=== PATIENT | female | born 1995 | race Caucasian/White ===

== ENCOUNTER 2020-03-08 09:27 | Emergency (ER) | payer OTHER, MEDICAID, SELFPAY ==
--- NOTE | ~2020-03-08 | US_ITS ---
EXAMINATION: US OB <=14 wk fetus w TV DATE: 03/08/2020 12:12 INDICATION: Pelvic pain. Nausea and vomiting. TECHNIQUE: Real-time transabdominal and transvaginal pelvic ultrasound was performed. COMPARISON: None. FINDINGS: TRANSABDOMINAL ULTRASOUND: The uterus measures 10.4 x 6.0 x 8.1 cm. TRANSVAGINAL ULTRASOUND: There is an intrauterine gestational sac. A yolk sac is identified. The fet al crown rump length measures 1.5 cm, which correlates with an estimated gestational age of 8 weeks a nd 0 day(s) (+/-) 5 day(s). heart motion is identified measuring 145 beats per minute (bpm) by M-mode Doppler. There is a small subchorionic hematoma. The right ovary measures 3.3 x 1.9 x 1.8 cm. The left ovary measures 1.8 x 3.1 x 1.7 cm. There is no free fluid in the pelvis. IMPRESSION: 1. Single living intrauterine gestation with estimated date of delivery of 10/18/2020. 2. Small subchorionic hematoma. Reviewed, dictated and finalized at location A. NSIGNMENT CLERK IMPRESSION: 1. Single living intrauterine gestation with estimated date of delivery of 10/18. 2. Small subchorionic hematoma.
[2020-03-08 09:35] VITALS: BP 144/83; PULSE 95; RESP 14; TEMP 36.4; O2SAT 99
--- NOTE | 2020-03-08 09:53 | ED.NAVMDI ---
HPI - Nausea/Vomiting/Diarrhea General Chief complaint: Nausea/Vomiting/Diarrhea Stated complaint: n/v Time Seen by Provider: 03/08/20 09:34 Source: patient Mode of arrival: ambulatory Limitations: no limitations History of Present Illness HPI Narrative: This is a 24-year-old , about 7 weeks by LMP, that presents the emergency department for nausea and vomiting x2 weeks. Reports she was prescribed Phenergan suppositories by her OB with little relief. Reports over the last day she has not been able to keep any food or drink down. Reports her last period was January 16. She has her first obstetric appointment next week. Does report intermittent pelvic cramping. Her OB is Genie Sheldon with [facility]. Denies fever, dysuria, or vaginal bleeding. Related Data Allergies Allergy/AdvReac Type Severity Reaction Status Date / Time No Known Allergies Allergy Verified 02/24/18 14:59 Review of Systems Review of Systems: Narrative: CONSTITUTIONAL: Denies fever GASTROINTESTINAL: Reports intermittent pelvic pain, nausea, vomiting GENITOURINARY: Denies dysuria or hematuria. All systems reviewed & are unremarkable except as noted in HPI and below PMFSH Past Medical History Medical History (Updated 03/08/20 @ 13:07 by Marsha Enciso PA-C) Anxiety Asthma Depression Hypothyroid Pelvic pain Surgical History Surgical History (Updated 01/24/19 @ 22:43 by Keke English) No significant past surgical history Social History Social History (Updated 01/24/19 @ 22:43 by Keke English) Smoking status: Never smoker Gender identity (if verbalized by the patient): Female Exam Narrative: Exam Narrative: GENERAL: Well-appearing, obese, and in no acute distress. HEAD: Normocephalic, atraumatic. EYES: EOMI. CHEST: Clear to auscultation. No respiratory distress. No wheezes rales or rhonchi HEART: Regular rate and rhythm. No murmur heard. Normal peripheral pulses. ABDOMEN: Soft, nontender, nondistended, normal active bowel sounds. No CVA tenderness EXTREMITIES: Normal range of motion. No edema. SKIN: Warm, dry, no rash. NEURO: No focal deficits. Alert and oriented x3. PSYCH: Normal mood and affect Course Vital Signs Vital signs: Vital Signs Temperature 97.5 F L 03/08/20 09:35 Pulse Rate 95 03/08/20 09:35 Respiratory Rate 14 03/08/20 09:35 Blood Pressure 144/83 H 03/08/20 09:35 Pulse Oximetry 99 03/08/20 09:35 Temperature 97.5 F L 03/08/20 09:35 Pulse Rate 68 03/08/20 11:35 Respiratory Rate 14 03/08/20 11:35 Blood Pressure 114/64 03/08/20 11:35 Pulse Oximetry 99 03/08/20 11:35 MDM - Nausea/Vomiting/Diarrhea MDM Narrative Medical decision making narrative: Patient presents the emergency department for nausea and vomiting in . She is afebrile and nontoxic-appearing. CBC and metabolic panel without concerning findings. UA without evidence of infection. She does have ketones in the urine, so was hydrated with 2 L of IV fluids in the ED. Otherwise no hemoconcentration or alteration in kidney function. She is not orthostatic. Given dose of Reglan and had another episode of vomiting. Was given a dose of Zofran with relief. Able to tolerate p.o. challenge. Obstetric ultrasound shows a single living intrauterine gestation with MARILYN of 10/18/2020. Also shows a small subchorionic hematoma. Patient is not having any vaginal bleeding. Patient was updated on case findings. Spoke with Dr. Power about patient and work-up. Will be instructed on vitamin B 6 and Unisom. Will also be given Zofran as needed for nausea. Patient had been trying Phenergan at home with little relief and did not have relief with Reglan here. Reports she did have to be on Zofran for most of her last due to nausea and vomiting. Discussed risk benefit, and patient will follow up with her OB next week at her scheduled appointment. She is stable and felt appropriate for further outp
[2020-03-08] MEDS: METOCLOPRAMIDE HCL INJ 10 MG/2 ML VIAL IV PUSH (10:03)
[2020-03-08] MEDS: diphenhydrAMINE HCl INJ 50 MG/ML VIAL 25 MG IV PUSH (10:03)
[2020-03-08] MEDS: SODIUM CHLORIDE 0.9% IV 1,000 ML 999 ML IV CONT ×2 (10:04→11:03)
[2020-03-08 10:20] LABS: Basophils Percent Auto 0.2 % (0.2-1.2); Eosinophils Percent Auto 0.3 % (0-4.4); Hematocrit 38.1 % (37.0-47.0); Hemoglobin 13.6 g/dL (12.0-15.0); Immature Granulocyte Absolute 0.06 K/mm3 (0.00-0.031); Immature Granulocyte Percent A 0.6 % (0-0.5); Lymphocytes Absolute Auto 1.36 K/mm3 (0.9-3.2); Lymphocytes Percent Auto 13.9 % (18.3-44.2); Mean Corpuscular HGB Conc 35.7 g/dl (32-36); Mean Corpuscular Hemoglobin 32.5 pg (26-34); Mean Corpuscular Volume 91.1 fl (80-100); Mean Platelet Volume 11.6 fl (7.4-10.4); Monocytes Absolute Auto 0.3 K/mm3 (0.1-0.6); Monocytes Percent Auto 3.5 % (2.6-8.5); Neutrophils Percent Auto 81.5 % (45.5-73.1); Platelet Count Result 214 k/mm3 (150-375); Red Blood Count 4.18 M/mm3 (4.2-5.4); Red Cell Distribution Width 11.8 % (11.5-14.5); White Blood Count 9.8 K/mm3 (4.5-10.0)
[2020-03-08 10:28] VITALS: BP 128/57; PULSE 65
[2020-03-08 10:29] LABS: Add Urine Microscopic? YES; Appearance Urine Cloudy (Clear); Bacteria Urine Trace /hpf; Bilirubin Urine Negative (Negative); Blood Urine Negative (Negative); Color Urine Yellow (Yellow); Glucose Urine UA Negative (Negative); Ketones Urine 2+ mg/dL (Negative); Leukocyte Esterase Ur Negative LEU/UL (Negative); Mucus Urine Few /lpf; Nitrate Urine Negative (Negative); Protein Urine 1+ mg/dL (Negative); RBC Urine 0-2 /hpf (0-2); Specific Grav Ur 1.028 (1.001-1.035); Squamous Epithelial Cell Urine Moderate /hpf (Few); Urobilinogen Urine Negative mg/dL (<2.0); WBC Urine 0-3 /hpf
[2020-03-08 10:31] VITALS: BP 131/76; PULSE 70
[2020-03-08 10:33] VITALS: BP 127/69; PULSE 66
[2020-03-08 10:39] LABS: Alanine Aminotransferase 32 U/L (4-35); Albumin Level 4.2 g/dL (3.5-5.1); Alkaline Phosphatase 71 U/L (38-126); Anion Gap 11 mmol/L (8-16); Aspartate Amino Transferase 20 U/L (14-36); Bilirubin,Total 0.5 mg/dL (0.2-1.3); Blood Urea Nitrogen 8 mg/dL (7-17); Calcium 9.2 mg/dL (8.4-10.2); Carbon Dioxide 25 mmol/L (22-30); Chloride 101 mmol/L (98-107); Estimated CRCL calculation 136 ml/min; Estimated Glomerular Filt Rate > 60; Glucose 105 mg/dL (65-105); Lipase 98 U/L (23-300); Potassium 3.6 mmol/L (3.4-5.0); Sodium 137 mmol/L (137-145)
[2020-03-08] MEDS: ONDANSETRON INJ 4 MG/2 ML VIAL IV PUSH (11:03)
[2020-03-08 11:35] VITALS: BP 114/64; PULSE 68; RESP 14; O2SAT 99
[2020-03-08 13:10] VITALS: BP 114/64; PULSE 68; RESP 14; O2SAT 99
== END 2020-03-08 13:00 | disposition home or self-care (01) ==
PROVIDERS: Physician Assistant; Emergency Provider Emergency Medicine
DX: O21.0 Mild hyperemesis gravidarum (principal); Z3A.01 Less than 8 weeks gestation of pregnancy
CPT/HCPCS: 36415; 76801; 76817; 80053; 81001; 83690; 84702; 85025; 96361; 96374; 96375; 99284; J1200; J2405; J2765; J7030

== ENCOUNTER 2020-08-21 13:34 | Observation (INO) | payer OTHER, SELFPAY ==
[2020-08-21] VITALS (12 sets, daily range): BP systolic 102–137; BP diastolic 47–71; PULSE 69–89; BMI 39.2
--- NOTE | 2020-08-21 13:40 | OBADM ---
This patient, Lauren Lo, admitted to the OB room OB Post 116 for observation. Patient/family oriented to hospital policies and general routines including ID bracelet, bed and alarms, visiting hours, pain management, procedures, bathroom and other care routines, personal items, smoking policy, room service/diet, and visiting hours. Patient/Family are encouraged to report perceived risks to care and to ask questions if they do not understand what they are told or what they should do.
[2020-08-21 14:15] LABS: Add Urine Microscopic? YES; Appearance Urine Cloudy (Clear); Bacteria Urine Trace /hpf; Bilirubin Urine Negative (Negative); Blood Urine Negative (Negative); Color Urine Yellow (Yellow); Glucose Urine UA Negative (Negative); Ketones Urine Negative (Negative); Leukocyte Esterase Ur Negative LEU/UL (NEGATIVE); Mucus Urine Rare /lpf; Nitrate Urine Negative (Negative); Protein Urine 1+ mg/dL (Negative); RBC Urine 0-2 /hpf (0-2); Specific Grav Ur 1.026 (1.001-1.035); Squamous Epithelial Cell Urine Moderate /hpf (Few); WBC Urine 0-3 /hpf (0-3)
[2020-08-21] MEDS: TERBUTALINE SULFATE 1 MG/ML VIAL 0.25 MG SUB-Q (15:34)
--- NOTE | 2020-09-07 08:13 | PM.OBTRLD ---
OB - Triage/Final Diagnosis Visit Information Comments/Additional reasons for admission: I have assessed the risk for this patient, Lauren Lo, and determined that she would benefit from observation care. Evaluation Laboratory results: Laboratory Tests 08/21/20 13:54 Urine Color Yellow Urine Appearance Cloudy H Urine pH 6.0 Ur Specific [place] 1.026 Urine Protein 1+ H Urine Glucose (UA) Negative Urine Ketones Negative Ur Blood (Man) Negative Urine Nitrate Negative Urine Bilirubin Negative Urine Urobilinogen 2.0 H Ur Leukocyte Esterase Negative Urine RBC 0-2 Urine WBC 0-3 Ur Squamous Epith Cells Moderate H Urine Bacteria Trace Urine Mucus Rare Final Diagnosis (1) False labor: Code(s): O47.9 - False labor, unspecified Status: Acute
== END 2020-08-21 17:16 | disposition home or self-care (01) ==
PROVIDERS: Admitting Provider Obstetrics & Gynecology; Visit Provider Obstetrics & Gynecology
DX: O47.03 False labor before 37 completed weeks of gestation, third trimester (principal); Z3A.31 31 weeks gestation of pregnancy
CPT/HCPCS: 81001; 87086; 87088; 96372; G0378; G0379; J3105

== ENCOUNTER 2020-09-04 15:52 | Observation (INO) | payer OTHER, SELFPAY ==
--- NOTE | ~2020-09-04 | US_ITS ---
EXAMINATION: US abdomen limited EXAM DATE: 09/05/2020 09:30 INDICATION: Right upper quadrant pain. Check gallbladder, liver, and appendix-if visualize. TECHNIQUE: Multiple grayscale and Doppler images of the abdomen right upper quadrant were obtained (b y a technologist who performed the scan) and subsequently reviewed. There is no prior study for jomar oro. FINDINGS: The pancreatic head and body are normal in appearance. The pancreatic tail is not visualized. The l iver has normal echogenicity and contour. There are no focal liver lesions identified. There is no evidence of intrahepatic biliary duct dilation. Portal venous flow was seen in the hepatopedal, nor mal direction and has normal Doppler waveform. No right-sided hydronephrosis. Common bile duct measures 4 mm, which is normal. Some portions of the gallbladder wall are normal, so me are borderline thickened. Gallbladder is only mildly distended. No sonographic evidence of pericho lecystic fluid. There is no cholelithiases. Technologist performing exam reports patient did not dem onstrate sonographic Fajardo's sign. Please note that this sign is less reliable in patients who have received pain medication. Appendix was searched for but not visualized on this exam. Please note that normal appendix is not e xpected to be visualized by ultrasound. Sometimes an abnormal appendix can be visualized. IMPRESSION: Gallbladder with only mild distention, some regions of gallbladder wall are borderline th ickened. This is nonspecific given absence of sonographic Fajardo sign, cholelithiasis, pericholecysti c fluid. Reviewed, dictated and finalized at location B. IMPRESSION: Gallbladder with only mild distention, some regions of gallbladder wall are borderline thickened. This is nonspecific given absence of sonographic Fajardo sign, cholelithiasis, pericholecystic fluid.
--- NOTE | ~2020-09-04 | US_ITS ---
EXAMINATION: US retroperitoneal comp DATE: 09/04/2020 18:58 INDICATION: Right flank pain TECHNIQUE: Multiple grayscale and Doppler ultrasound images of the kidneys were obtained. COMPARISON: None. FINDINGS: The right kidney measures 9.8 x 5.4 x 5.2 cm. The left kidney measures 9.7 x 4.9 x 6.0 cm. The kidneys demonstrate normal parenchymal echogenicity. There is no hydronephrosis. The bladder is i ncompletely distended but appears normal. IMPRESSION: 1. Normal kidneys without hydronephrosis. Reviewed, dictated and finalized at location A.
--- NOTE | ~2020-09-04 | US_ITS ---
EXAMINATION: US OB limited w BPP DATE: 09/04/2020 18:52 INDICATION: Nonreactive nonstress test, third trimester TECHNIQUE: Real-time pelvic ultrasound was performed. The interpreting radiologist was not present fo r the study. COMPARISON: None. FINDINGS: There is a single living fetus in vertex presentation. The placenta is posterior. heart rate is 121 beats per minute (bpm). The amniotic fluid index is 8.1 cm which is low (normal range: 8.3 cm to 24.5 cm). Biophysical profile performed by the technologist: breathing (30 sec sustained breathing in 30 minutes): 2 out of 2 movement (3 gross body movements in 30 minutes): 2 out of 2 tone (one episode of jiotlcg-hajdxmfbb-wtgrskt limb movement): 2 out of 2 Amniotic fluid pocket (2 cm): 2 out of 2 Total score: 8 out of 8 IMPRESSION: 1. Single living fetus in vertex presentation. 2. Biophysical profile 8 out of 8. 3. Oligohydramnios. Reviewed, dictated and finalized at location A.
[2020-09-04 16:08] VITALS: BMI 40.0
[2020-09-04 16:12] VITALS: BP 118/77; PULSE 87
[2020-09-04 16:15] VITALS: BP 123/73; PULSE 83
[2020-09-04 17:01] VITALS: BP 114/61; PULSE 68
[2020-09-04 17:06] LABS: Add Urine Microscopic? YES; Amorphous Sediment Urine Few; Appearance Urine Cloudy (Clear); Bacteria Urine Trace /hpf; Bilirubin Urine Negative (Negative); Blood Urine Negative (Negative); Color Urine Colorless (Yellow); Glucose Urine UA Negative (Negative); Ketones Urine Negative (Negative); Leukocyte Esterase Ur 2+ LEU/UL (Negative); Nitrate Urine Negative (Negative); Protein Urine Negative (Negative); Squamous Epithelial Cell Urine Many /hpf (Few); Urobilinogen Urine Negative mg/dL (<2.0); WBC Urine 16-20 /hpf
[2020-09-04 17:07] LABS: Specific Grav Ur 1.002 (1.001-1.035)
[2020-09-04 17:15] VITALS: BP 116/64; PULSE 71
--- NOTE | 2020-09-04 18:18 | PC.NURSE ---
Patient resting quietly. Menu given to order dinner. Waiting for ultrasound report. Pt states still has pain right side/flank are which is not constant now.
--- NOTE | 2020-09-04 18:24 | PC.NURSE ---
1613--Orders received per Sami Pablo. Reported reactive FHT's.
--- NOTE | 2020-09-04 18:26 | PC.NURSE ---
1739--Updated Odette with lab results. New orders received.
[2020-09-04] MEDS: NITROFURANTOIN MONOHYD MACROCR 100 MG CAP PO (18:30)
[2020-09-04] MEDS: CYCLOBENZAPRINE HCL 5 MG TABLET PO ×2 (18:30→22:50)
--- NOTE | 2020-09-04 18:47 | PC.NURSE ---
1722--US at bedside.
--- NOTE | 2020-09-04 20:06 | PC.NURSE ---
Sami Pablo [facility] notified of pt NST and ultrasound results. PT having intermittent contractions, improved after up to void. Will continue to observe.
--- NOTE | 2020-09-04 20:08 | PC.NURSE ---
Pt PO hydrating. Voiced no complaints at this time.
--- NOTE | 2020-09-04 21:26 | PC.NURSE ---
Karen VARGAS updated and advised of Deceleration and baseline change. Orders received. Will keep pt overnight and observe.
[2020-09-04 21:44] VITALS: BP 95/55; PULSE 74; TEMP 36.8
[2020-09-04 21:46] VITALS: BP 91/49; PULSE 65
[2020-09-04] MEDS: LACTATED RINGERS 1,000 ML 125 ML IV CONT (21:49)
--- NOTE | 2020-09-04 22:39 | PC.NURSE ---
Sami Pablo CNM called. Advised of pt stating pain right flank is is increased an radiating around to right upper abdomen. Pt remains afebrile. Pt has no vomiting or diarrhea. Will repeat Flexeril.
[2020-09-04 23:05] LABS: Basophils Percent Auto 0.3 % (0.2-1.2); Eosinophils Absolute Auto 0.2 K/mm3 (0-0.3); Eosinophils Percent Auto 2.1 % (0-4.4); Hematocrit 33.4 % (37.0-47.0); Hemoglobin 11.2 g/dL (12.0-15.0); Immature Granulocyte Absolute 0.02 K/mm3 (0.00-0.031); Immature Granulocyte Percent A 0.2 % (0-0.5); Lymphocytes Absolute Auto 1.73 K/mm3 (0.9-3.2); Lymphocytes Percent Auto 19.5 % (18.3-44.2); Mean Corpuscular HGB Conc 33.5 g/dl (32-36); Mean Corpuscular Hemoglobin 30.8 pg (26-34); Mean Corpuscular Volume 91.8 fl (80-100); Monocytes Absolute Auto 0.5 K/mm3 (0.1-0.6); Monocytes Percent Auto 5.9 % (2.6-8.5); Neutrophils Absolute Auto 6.4 K/mm3 (1.3-6.7); Platelet Count Result 148 k/mm3 (150-375); Red Blood Count 3.64 M/mm3 (4.2-5.4); Red Cell Distribution Width 12.8 % (11.5-14.5); White Blood Count 8.9 K/mm3 (4.5-10.0)
[2020-09-04 23:16] LABS: Alanine Aminotransferase 303 U/L (4-35); Albumin Level 3.4 g/dL (3.5-5.1); Alkaline Phosphatase 159 U/L (38-126); Amylase 66 U/L (30-110); Anion Gap 2 mmol/L (8-16); Aspartate Amino Transferase 167 U/L (14-36); Bilirubin,Total 0.5 mg/dL (0.2-1.3); Blood Urea Nitrogen 6 mg/dL (7-17); Calcium 8.8 mg/dL (8.4-10.2); Carbon Dioxide 28 mmol/L (22-30); Chloride 106 mmol/L (98-107); Estimated CRCL calculation 124 ml/min; Estimated Glomerular Filt Rate > 60; Glucose 89 mg/dL (65-110); Lipase 304 U/L (23-300); Potassium 4.1 mmol/L (3.4-5.0); Sodium 136 mmol/L (137-145)
[2020-09-05] VITALS (24 sets, daily range): BP systolic 90–127; BP diastolic 37–78; PULSE 61–86; RESP 18; TEMP 36.3–37.1
[2020-09-05] MEDS: fentaNYL CITRATE INJ (*CRX) 100 MCG/2 ML VIAL 50 MCG IV PUSH ×3 (00:03→08:26)
[2020-09-05 01:11] LABS: Glucose Point of Care 82 mg/dl (65-105)
--- NOTE | 2020-09-05 01:20 | PC.NURSE ---
Called Sami Pablo CNM. Advised her pt states pain is now cramping in low abdomen. WIll give Terbutaline 0.25 AQ.
--- NOTE | 2020-09-05 01:20 | PC.NURSE ---
Odette CNM notified that pt states she is feeling cramping pain in addition to the pain in right flank/upper quadrant . Orders received to give Terbulatline.
[2020-09-05] MEDS: TERBUTALINE SULFATE 1 MG/ML VIAL 0.25 MG SUB-Q ×2 (01:28→08:41)
[2020-09-05] MEDS: LACTATED RINGERS 1,000 ML 125 ML IV CONT ×3 (01:38→18:29)
--- NOTE | 2020-09-05 01:55 | PC.NURSE ---
No relief from Terbutaline 0.25 SQ K. Jessikak notified. SVE per Radha Quinones RN and and FFN collected. External OS 2 cm with funneling. Cervix posterior and high. FFN collected.
[2020-09-05 02:56] LABS: Fetal Fibronectin Positive
--- NOTE | 2020-09-05 03:00 | PC.NURSE ---
Lab results called to Sami Pablo CNM will repeat labs in AM. Will give Fentanyl for for persistent pain.
[2020-09-05 05:47] LABS: Basophils Percent Auto 0.4 % (0.2-1.2); Eosinophils Absolute Auto 0.1 K/mm3 (0-0.3); Eosinophils Percent Auto 1.5 % (0-4.4); Hematocrit 31.2 % (37.0-47.0); Hemoglobin 10.5 g/dL (12.0-15.0); Immature Granulocyte Absolute 0.03 K/mm3 (0.00-0.031); Immature Granulocyte Percent A 0.3 % (0-0.5); Lymphocytes Absolute Auto 1.57 K/mm3 (0.9-3.2); Lymphocytes Percent Auto 16.8 % (18.3-44.2); Mean Corpuscular HGB Conc 33.7 g/dl (32-36); Mean Corpuscular Hemoglobin 31.1 pg (26-34); Mean Corpuscular Volume 92.3 fl (80-100); Mean Platelet Volume 12.3 fl (7.4-10.4); Monocytes Absolute Auto 0.6 K/mm3 (0.1-0.6); Monocytes Percent Auto 6.3 % (2.6-8.5); Neutrophils Percent Auto 74.7 % (45.5-73.1); Platelet Count Result 138 k/mm3 (150-375); Red Blood Count 3.38 M/mm3 (4.2-5.4); Red Cell Distribution Width 12.8 % (11.5-14.5); White Blood Count 9.3 K/mm3 (4.5-10.0)
[2020-09-05 06:07] LABS: Alanine Aminotransferase 281 U/L (4-35); Alkaline Phosphatase 144 U/L (38-126); Amylase 58 U/L (30-110); Anion Gap 4 mmol/L (8-16); Aspartate Amino Transferase 165 U/L (14-36); Bilirubin,Total 0.4 mg/dL (0.2-1.3); Blood Urea Nitrogen 6 mg/dL (7-17); Calcium 8.5 mg/dL (8.4-10.2); Carbon Dioxide 24 mmol/L (22-30); Chloride 107 mmol/L (98-107); Estimated CRCL calculation 141 ml/min; Estimated Glomerular Filt Rate > 60; Glucose 84 mg/dL (65-110); Lipase 210 U/L (23-300); Potassium 3.7 mmol/L (3.4-5.0); Sodium 135 mmol/L (137-145)
--- NOTE | 2020-09-05 08:13 | PC.NURSE ---
Dr. Dave's office notified of consult.
--- NOTE | 2020-09-05 08:32 | PM.IMHP ---
H&P: HPI History of Present Illness Date/Time: 09/05/20 08:32 24 y/o @ 33w4d who presented for monitoring d/t low fhr baseline. complicated by GDM. Initially fhr was wnl and bpp normal but pt did have a variable deceleration. She was kept for monitoring and developed pain in her right back that wrapped around to the front. This was initially somewhat relieved with flexeril but did return. Her urine was suspicious for UTI. Labs were ordered and she was found to have elevated lft's and lipase. Normal white count and afebrile. She did begin to have some contractions and was given terbutaline which did help. Pt denies h/a, v/d, or e/p. She does state that the pain actually started during the day yesterday but was not bad until last night. Chief Complaint: RUQ pain Review of Systems Review of Systems: All systems reviewed & are unremarkable except as noted in HPI and below Gastrointestinal: Comments: RUQ pain Musculoskeletal: Comments: Right mid back pain that wraps around to the front PMFSH Past Medical History Medical History Anxiety Asthma Depression Hypothyroid Pelvic pain Surgical History Surgical History No significant past surgical history Social History Social History Smoking status: Never smoker Gender identity (if verbalized by the patient): Female Meds Home Medications and Allergies Home Medications Medication Instructions Recorded Confirmed Type ondansetron 4 mg PO Q8H PRN #14 tablet 03/08/20 09/04/20 Rx cetirizine [Zyrtec] 10 mg PO DAILY PRN 09/04/20 09/04/20 History docusate sodium [Colace] 100 mg PO DAILY 09/04/20 09/04/20 History omeprazole magnesium [Acid Soap Boiler 20 mg PO DAILY 09/04/20 09/04/20 History (omeprazole)] Allergies Allergy/AdvReac Type Severity Reaction Status Date / Time No Known Allergies Allergy Verified 02/24/18 14:59 Vital Signs Vital Signs - 24 hr 09/04/20 16:12 09/04/20 16:15 09/04/20 17:01 Temperature Pulse Rate 87 83 68 Blood Pressure 118/77 123/73 114/61 09/04/20 17:15 09/04/20 21:44 09/04/20 21:46 Temperature 98.2 F Pulse Rate 71 74 65 Blood Pressure 116/64 95/55 L 91/49 L 09/05/20 00:01 09/05/20 00:03 09/05/20 05:26 Temperature 97.9 F 98.8 F Pulse Rate 72 Blood Pressure 119/46 L 09/05/20 05:28 09/05/20 07:38 Temperature Pulse Rate 80 69 Blood Pressure 100/37 L 127/62 Exam Const: General: uncomfortable GI: GI Palp: Yes Soft to palpation (gravid) and Yes Tenderness to palpation present (GI) Other: Tender lower to mid right back that wraps around to mid abdomen. Rebound tenderness noted. Skin: General skin exam: normal color H&P: Results Labs Labs: Short CBC 09/04/20 09/05/20 Range/Units 22:55 05:23 WBC 8.9 9.3 (4.5-10.0) K/mm3 Hgb 11.2 L 10.5 L (12.0-15.0) g/dL Hct 33.4 L 31.2 L (37.0-47.0) % Plt Count 148 L 138 L (150-375) k/mm3 BMP 09/04/20 09/05/20 22:55 05:23 Sodium 136 L 135 L Potassium 4.1 3.7 Chloride 106 107 Carbon Dioxide 28 24 BUN 6 L 6 L Creatinine 0.80 0.70 Glucose 89 84 Calcium 8.8 8.5 Liver Function 09/04/20 09/05/20 Range/Units 22:55 05:23 Total Bilirubin 0.5 0.4 (0.2-1.3) mg/dL AST 167 H 165 H (14-36) U/L ALT 303 H 281 H (4-35) U/L Alkaline Phosphatase 159 H 144 H (38-126) U/L Albumin 3.4 L 3.0 L (3.5-5.1) g/dL Urine 09/04/20 Range/Units 16:51 Urine Color Colorless (Yellow) Urine Appearance Cloudy H (Clear) Urine pH 7.0 (5.0-9.0) Ur Specific [place] 1.002 (1.001-1.035) Urine Protein Negative (Negative) mg/dL Urine Glucose (UA) Negative (Negative) mg/dL Assessment and Plan Additional Plan Discussed with Dr Mejía. Additional testing & consults ordered.
[2020-09-05] MEDS: ONDANSETRON INJ 4 MG/2 ML VIAL IV PUSH (08:38)
[2020-09-05 09:02] LABS: Alanine Aminotransferase 297 U/L (4-35); Albumin Level 3.2 g/dL (3.5-5.1); Alkaline Phosphatase 156 U/L (38-126); Aspartate Amino Transferase 172 U/L (14-36); Bilirubin,Total 0.5 mg/dL (0.2-1.3)
[2020-09-05 09:03] LABS: Uric Acid 4.6 mg/dL (2.5-7.5)
[2020-09-05 09:09] LABS: INR 0.9; Partial Thromboplastin Time 24.3 SECONDS (22.3-36.8); Prothrombin Time 12.1 Seconds (11.1-14.7)
[2020-09-05 09:14] LABS: Fibrinogen 419 mg/dl (215-510)
--- NOTE | 2020-09-05 09:15 | PC.NURSE ---
Dr. Dave called to state he has reviewed pt's labs and will see pt sometime today. Informed MD that pt is down in U/S now for U/S of gallbladder, liver, and appendix if visible.
--- NOTE | 2020-09-05 10:06 | PC.NURSE ---
Lab results and U/S report given to Dr. Mejía. Also informed that Dr. Dave has called back and will see pt sometime today. He has reviewed her labs and knows she has had the U/S.
[2020-09-05] MEDS: NITROFURANTOIN MONOHYD MACROCR 100 MG CAP PO ×2 (10:48→21:35)
[2020-09-05 11:06] LABS: Hepatitis B Surface Antigen Negative (Negative)
[2020-09-05 11:12] LABS: HAV RESULT Negative (Negative); Hepatitis B Core IgM Result Negative (Negative)
[2020-09-05 11:23] LABS: Hepatitis C Virus Antibody Negative (Negative)
--- NOTE | 2020-09-05 17:51 | PC.NURSE ---
Dr. Dave in to assess pt and discuss findings.
--- NOTE | 2020-09-05 18:20 | PM.CNGS ---
Assessment and Plan Assessment and plan (1) Abdominal pain: Onset Date: ~08/2020 Code(s): R10.9 - Unspecified abdominal pain Status: Acute Assessment and Plan: Nice workup has been done by the nurse ambulatory technologist. Patient may be experiencing abdominal pain related to urinary tract infection, but is now on Macrobid. We have ruled out obvious cholecystitis because are no gallstones on ultrasound and there is not an obvious dilated appendage in the right lower quadrant consistent with appendicitis. Also her white count is normal and her appetite seems to be coming back. Therefore, I recommend observation overnight repeat labs in the morning. These will be CBC, magnesium, lipase, and a padded function panel. Her testing on hepatitis has come back normal since her intrinsic lumbar Velia liver enzymes are up it was reasonable to do this. Most likely she does not have a common duct stone since her alk-phos and bilirubin are normal. Will consider letting her go home tomorrow if her appetite returns her white count is normal and she is tolerating the Macrobid for the UTI. (2) UTI (urinary tract infection): Onset Date: ~09/05/20 Code(s): N39.0 - Urinary tract infection, site not specified Status: Acute Assessment and Plan: UA abnormal Patient down Macrobid. Feeling slightly better over the last 8 hours. (3) 34 weeks gestation of : Onset Date: ~03/2020 Code(s): Z3A.34 - 34 weeks gestation of Status: Acute Assessment and Plan: Patient's is proceeding. She apparently need some continued monitoring. This is in progress. Will leave this up to the primary service. History of Present Illness Consult details Consult date: 09/05/20 Reason for consult: abdominal pain Requesting physician: Ashanti Power MD Narrative: this patient is a pleasant 24-year-old white female who is . She apparently is at about 33-34 weeks . 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 Apparently her stress testing showed poor movement therefore she was asked to go to the hospital for further monitoring. As this was being done she began having lower abdominal pain. While there (At Dr. Prado office) she began having some right flank pain and then this radiated down into her lower abdomen. Because of this she then presented to the hospital for further monitoring and for testing. initial test last evening shows slightly elevated liver function tests (ease AST ALT) along with an abnormal UA. She was started on Macrobid for this and a renal ultrasound was done showing no hydronephrosis or other signs of upper urinary tract infection. Then this morning because of continue lower abdominal pain and ultrasound was ordered for both checking the gallbladder and see if there was any signs of appendicitis. Patient still complains of some cramping in the lower abdomen but has developed some appetite. She is interested in trying the little something later tonight if we ladder. I have reviewed her ultrasound report from the radiologist and discussed this with the patient and her . The current time there is no signs of appendicitis and no call stones in the gallbladder. Review of Systems Constitutional: Constitutional: Reports as per HPI and Denies headache(s) Eyes: Eyes: Denies loss of vision and Denies eye pain ENT: Reports Normal hearing present, Denies change in voice, Denies dizziness and Denies headache(s) Cardiovascular: Cardiovascular: Denies chest pain and Denies dyspnea Respiratory: Respiratory: Denies dyspnea and Denies wheezing Gastrointestinal: Gastrointestinal: Reports no additional gastrointestinal complaints, Reports abdominal pain, Denies belching, Denies dyspepsia, Denies vomiting and Denies hematemesis Musculoskeletal: Musculos
--- NOTE | 2020-09-05 19:45 | PC.NURSE ---
Pt is resting quietly at this time. Pt states she continues to have cramping after urination. Appears comfortable at this time. Pt states she would like to get up to walk after face timing with daughter. Ate soup from clear liquid diet.
[2020-09-06] MEDS: fentaNYL CITRATE INJ (*CRX) 100 MCG/2 ML VIAL 50 MCG IV PUSH ×2 (00:16→05:56)
[2020-09-06] MEDS: LACTATED RINGERS 1,000 ML 125 ML IV CONT (05:04)
[2020-09-06 05:07] LABS: Basophils Percent Auto 0.4 % (0.2-1.2); Eosinophils Absolute Auto 0.2 K/mm3 (0-0.3); Eosinophils Percent Auto 3.5 % (0-4.4); Hematocrit 30.5 % (37.0-47.0); Hemoglobin 10.4 g/dL (12.0-15.0); Immature Granulocyte Absolute 0.02 K/mm3 (0.00-0.031); Immature Granulocyte Percent A 0.3 % (0-0.5); Lymphocytes Absolute Auto 0.82 K/mm3 (0.9-3.2); Mean Corpuscular HGB Conc 34.1 g/dl (32-36); Mean Platelet Volume 11.9 fl (7.4-10.4); Monocytes Absolute Auto 0.4 K/mm3 (0.1-0.6); Monocytes Percent Auto 5.8 % (2.6-8.5); Neutrophils Absolute Auto 5.4 K/mm3 (1.3-6.7); Platelet Count Result 121 k/mm3 (150-375); Red Blood Count 3.35 M/mm3 (4.2-5.4); Red Cell Distribution Width 12.9 % (11.5-14.5); White Blood Count 6.9 K/mm3 (4.5-10.0)
[2020-09-06] MEDS: ONDANSETRON INJ 4 MG/2 ML VIAL IV PUSH ×2 (05:14→09:28)
[2020-09-06 05:22] LABS: Alanine Aminotransferase 312 U/L (4-35); Albumin Level 3.2 g/dL (3.5-5.1); Alkaline Phosphatase 158 U/L (38-126); Aspartate Amino Transferase 212 U/L (14-36); Bilirubin,Total 0.9 mg/dL (0.2-1.3); Lipase 170 U/L (23-300); Magnesium 1.6 mg/dL (1.6-2.3)
[2020-09-06 07:16] VITALS: BP 103/50; PULSE 71
[2020-09-06 07:17] VITALS: RESP 18; TEMP 36.2
[2020-09-06] MEDS: BETAMETHASONE SOD PHOS/ACETATE 30 MG/5 ML VIAL 12 MG IM (08:02)
--- NOTE | 2020-09-06 08:05 | PM.OBPNVD ---
OB - PN: Subj Subjective Date/time seen: 09/06/20 08:05 Narrative: at 33.5 with nonspecific abdominal and back pain and worsening LFTs and decreasing platelets. Her pain has not improved. Vomited twice this am. On macrobid for UTI. Normal FM. OB - PN: Obj Data Labs CBC & Chem 7: 09/06/20 04:58 09/05/20 05:23 Labs: Laboratory Results - last 24 hr 09/05/20 09/05/20 09/05/20 08:29 08:29 08:29 WBC RBC Hgb Hct MCV MCH MCHC RDW Plt Count MPV Immature Gran % (Auto) Neut % (Auto) Lymph % (Auto) [place] % (Auto) Eos % (Auto) Baso % (Auto) Lymph # (Auto) [place] # (Auto) Eos # (Auto) Baso # (Auto) Abs Immat Gran (auto) Absolute Neuts (auto) Absolute Nucleated RBC Nucleated RBC % PT 12.1 INR 0.9 APTT 24.3 Fibrinogen 419 Uric Acid 4.6 Magnesium Total Bilirubin Direct Bilirubin AST ALT Alkaline Phosphatase Total Protein Albumin Lipase Hepatitis A IgM Ab Hep Bs Antigen Hep B Core IgM Ab Hepatitis C Ab Screen 09/05/20 09/05/20 09/06/20 08:29 09:47 04:58 WBC 6.9 RBC 3.35 L Hgb 10.4 L Hct 30.5 L MCV 91.0 MCH 31.0 MCHC 34.1 RDW 12.9 Plt Count 121 L MPV 11.9 H Immature Gran % (Auto) 0.3 Neut % (Auto) 78.0 H Lymph % (Auto) 12.0 L [place] % (Auto) 5.8 Eos % (Auto) 3.5 Baso % (Auto) 0.4 Lymph # (Auto) 0.82 L [place] # (Auto) 0.4 Eos # (Auto) 0.2 Baso # (Auto) 0.0 Abs Immat Gran (auto) 0.02 Absolute Neuts (auto) 5.4 Absolute Nucleated RBC 0.0 Nucleated RBC % 0.0 PT INR APTT Fibrinogen Uric Acid Magnesium Total Bilirubin 0.5 Direct Bilirubin 0.0 AST 172 H ALT 297 H Alkaline Phosphatase 156 H Total Protein 6.0 L Albumin 3.2 L Lipase Hepatitis A IgM Ab Negative Hep Bs Antigen Negative Hep B Core IgM Ab Negative Hepatitis C Ab Screen Negative 09/06/20 04:58 WBC RBC Hgb Hct MCV MCH MCHC RDW Plt Count MPV Immature Gran % (Auto) Neut % (Auto) Lymph % (Auto) [place] % (Auto) Eos % (Auto) Baso % (Auto) Lymph # (Auto) [place] # (Auto) Eos # (Auto) Baso # (Auto) Abs Immat Gran (auto) Absolute Neuts (auto) Absolute Nucleated RBC Nucleated RBC % PT INR APTT Fibrinogen Uric Acid Magnesium 1.6 Total Bilirubin 0.9 Direct Bilirubin 0.0 AST 212 H ALT 312 H Alkaline Phosphatase 158 H Total Protein 6.0 L Albumin 3.2 L Lipase 170 Hepatitis A IgM Ab Hep Bs Antigen Hep B Core IgM Ab Hepatitis C Ab Screen Imaging Radiologist's impression: Impressions Abdomen Ultrasound 09/05/20 09:31 IMPRESSION: Gallbladder with only mild distention, some regions of gallbladder wall are borderline thickened. This is nonspecific given absence of sonographic Fajardo sign, cholelithiasis, pericholecystic fluid. OB - PN A/P Plan Comments: Worsening LFTs and platelets. bili doubled since yesterday but still normal. FHT category 1 start celestone this am uric acid and PC ratio pending continue macrobid for UTI Discussed patient with RN. Discussed need for transfer to [place] with pt and SO. Discussed atypical PreE vs acute fatty liver of . Neither diagnosis fits perfectly at this time, but how things are evolving are concerning for a process that will require delivery and possibly high level of maternal support. Spoke with MFM fellow, report given, transfer accepted. They will send transport. Time Spent With Patient Time: Total time spent is greater than 50% in coordination of care (as documented) at patient's floor/unit and/or counseling patient and arranging transfer to [facility]. Time with patient: Greater than 35 minutes Review of Systems Review of Systems: All systems reviewed & are unremarkable except as noted in HPI and below (below) Gastr
[2020-09-06 08:34] LABS: Uric Acid 5.1 mg/dL (2.5-7.5)
[2020-09-06 08:42] LABS: Creatinine Urine 12.3 mg/dL; Total Protein Urine Random 13 mg/dL; Ur Ttl Prot Creatinine Ratio 1.06 mg/mg (0-0.20)
[2020-09-06 09:19] LABS: Glucose Point of Care 79 mg/dl (65-105)
[2020-09-06] MEDS: NITROFURANTOIN MONOHYD MACROCR 100 MG CAP PO (09:20)
[2020-09-06 09:31] VITALS: BP 123/58; PULSE 69
== END 2020-09-06 09:41 | disposition short-term general hospital (02) ==
LOC: ANHLDR 09-07 16:00 → ANHOBPP 09-07 16:00
PROVIDERS: Advanced Practice Midwife; Surgery; Admitting Provider Obstetrics & Gynecology; Visit Provider Obstetrics & Gynecology
DX: O23.43 Unspecified infection of urinary tract in pregnancy, third trimester (principal); R79.89 Other specified abnormal findings of blood chemistry; R10.9 Unspecified abdominal pain; M54.9 Dorsalgia, unspecified; Z3A.34 34 weeks gestation of pregnancy
CPT/HCPCS: 36415; 76705; 76770; 76815; 76819; 80053; 80074; 80076; 81001; 82150; 82570; 82731; 82948; 83690; 83735; 84156; 84550; 85025; 85384; 85610; 85730; 87086; 96372; 96374; 96375; 96376; A9270; G0378; G0379; J0702; J2405; J3010; J3105; J7120

== ENCOUNTER 2020-09-14 14:25 | Outpatient (CLI) | payer OTHER, SELFPAY ==
[2020-09-14 14:46] LABS: Basophils Percent Auto 0.3 % (0.2-1.2); Eosinophils Absolute Auto 0.4 K/mm3 (0-0.3); Eosinophils Percent Auto 4.4 % (0-4.4); Hematocrit 33.5 % (37.0-47.0); Immature Granulocyte Absolute 0.06 K/mm3 (0.00-0.031); Immature Granulocyte Percent A 0.7 % (0-0.5); Lymphocytes Absolute Auto 2.04 K/mm3 (0.9-3.2); Lymphocytes Percent Auto 23.1 % (18.3-44.2); Mean Corpuscular HGB Conc 32.8 g/dl (32-36); Mean Corpuscular Hemoglobin 30.7 pg (26-34); Mean Corpuscular Volume 93.6 fl (80-100); Mean Platelet Volume 10.8 fl (7.4-10.4); Monocytes Absolute Auto 0.6 K/mm3 (0.1-0.6); Monocytes Percent Auto 6.5 % (2.6-8.5); Neutrophils Absolute Auto 5.7 K/mm3 (1.3-6.7); Platelet Count Result 289 k/mm3 (150-375); Red Blood Count 3.58 M/mm3 (4.2-5.4); Red Cell Distribution Width 12.5 % (11.5-14.5); White Blood Count 8.8 K/mm3 (4.5-10.0)
[2020-09-14 15:08] LABS: Alanine Aminotransferase 150 U/L (4-35); Albumin Level 3.5 g/dL (3.5-5.1); Alkaline Phosphatase 109 U/L (38-126); Anion Gap 6 mmol/L (8-16); Aspartate Amino Transferase 34 U/L (14-36); Bilirubin,Total < 0.1 mg/dL (0.2-1.3); Blood Urea Nitrogen 14 mg/dL (7-17); Calcium 8.8 mg/dL (8.4-10.2); Carbon Dioxide 27 mmol/L (22-30); Chloride 103 mmol/L (98-107); Estimated Glomerular Filt Rate > 60; Glucose 72 mg/dL (65-110); Potassium 4.3 mmol/L (3.4-5.0); Sodium 136 mmol/L (137-145)
== END 2020-09-14 14:26 | disposition home or self-care (01) ==
LOC: ANHLAB 14:28
PROVIDERS: Visit Provider Obstetrics & Gynecology
DX: O14.25 HELLP syndrome, complicating the puerperium (principal)
CPT/HCPCS: 36415; 80053; 85025

== ENCOUNTER 2020-12-22 13:28 | Emergency (ER) | payer OTHER, SELFPAY ==
--- NOTE | ~2020-12-22 | US_ITS ---
EXAMINATION: US pelvic complete w TV EXAM DATE: 12/22/2020 17:20 INDICATION: RLQ abd pain RLQ PAIN. TECHNIQUE: Pelvic transabdominal and transvaginal sonogram was performed. There are multiple graysca le and Doppler images available for interpretation. Comparison is made to prior examination from 03/08. FINDINGS: Uterus measures 10.1 x 6.6 x 5.6 cm, is anteverted and morphologically normal. Endometria l stripe measures 11 mm, within normal limits. There is no free pelvic fluid. Right adnexa: The ovary measures 3.8 x 3.4 x 3.0 cm, normal in size, with a simple cyst measuring up to 2.8 cm, probably the dominant follicle. Ovarian vascular flow confirmed. Left adnexa: The ovary is not identified. There is no adnexal mass. IMPRESSION: Right ovarian simple cyst likely dominant follicle. Small free pelvic fluid. Reviewed, dictated and finalized at location A. UP INSPECTOR IMPRESSION: Right ovarian simple cyst likely dominant follicle. Small free pelv ic fluid.
--- NOTE | ~2020-12-22 | CT_ITS ---
EXAMINATION: CT abdomen pelvis w con EXAM DATE: 12/22/2020 16:27 INDICATION: RLQ abd pain. TECHNIQUE: Spiral CT of the abdomen and pelvis was performed following intravenous injection of 100 m L Omnipaque 350. Axial, coronal and sagittal images of the abdomen and pelvis were reviewed. The do se-length product (DLP) for this examination was 1498.89 mGy-cm. The exposure was tailored according to patient size (auto mA exposure control), and iterative reconstruction (ASIR) was used as addition al dose reduction technique. Comparison is made to prior examination from 11/24/2018. FINDINGS: The liver, spleen, adrenal glands and pancreas are unremarkable. Gallbladder is unremarkab le. No biliary obstruction. Portal and splenic veins are patent. Kidneys enhance symmetrically. T here is no hydronephrosis. The uterus and ovaries are unremarkable, no adnexal mass. Bilateral ovar chapo cysts likely physiologic or hemorrhagic. Trace physiologic free pelvic fluid. The bladder is col lapsed at time of imaging limiting evaluation. There is no retroperitoneal or pelvic lymphadenopathy . The appendix is not positively visualized. There is no pericecal inflammatory change to suggest appe ndicitis. The stomach and small bowel are unremarkable. There is expected amount of colonic stool. No free intraperitoneal gas. The heart is normal in size. There are no pericardial or pleural e ffusions. The lung bases are unremarkable. There are no osteoblastic or osteolytic lesions identifi ed. IMPRESSION: 1. No acute intra-abdominal findings. 2. Ovarian follicles, trace physiologic free pelvic fluid. Reviewed, dictated and finalized at location A. ASSOCIATE
[2020-12-22 13:32] VITALS: BP 137/69; PULSE 62; RESP 20; TEMP 35.7; O2SAT 100
[2020-12-22 13:53] LABS: Basophils Percent Auto 0.5 % (0.2-1.2); Eosinophils Absolute Auto 0.5 K/mm3 (0-0.3); Eosinophils Percent Auto 6.6 % (0-4.4); Hematocrit 33.3 % (37.0-47.0); Hemoglobin 11.4 g/dL (12.0-15.0); Immature Granulocyte Absolute 0.02 K/mm3 (0.00-0.031); Immature Granulocyte Percent A 0.3 % (0-0.5); Lymphocytes Absolute Auto 1.73 K/mm3 (0.9-3.2); Lymphocytes Percent Auto 22.7 % (18.3-44.2); Mean Corpuscular HGB Conc 34.2 g/dl (32-36); Mean Corpuscular Hemoglobin 30.3 pg (26-34); Mean Corpuscular Volume 88.6 fl (80-100); Mean Platelet Volume 11.4 fl (7.4-10.4); Monocytes Absolute Auto 0.3 K/mm3 (0.1-0.6); Monocytes Percent Auto 4.5 % (2.6-8.5); Neutrophils Percent Auto 65.4 % (45.5-73.1); Platelet Count Result 241 k/mm3 (150-375); Red Blood Count 3.76 M/mm3 (4.2-5.4); Red Cell Distribution Width 13.5 % (11.5-14.5); White Blood Count 7.6 K/mm3 (4.5-10.0)
[2020-12-22 14:07] LABS: Alanine Aminotransferase 20 U/L (4-35); Albumin Level 4.5 g/dL (3.5-5.1); Alkaline Phosphatase 71 U/L (38-126); Anion Gap 9 mmol/L (8-16); Aspartate Amino Transferase 21 U/L (14-36); Bilirubin,Total 0.3 mg/dL (0.2-1.3); Blood Urea Nitrogen 13 mg/dL (7-17); Calcium 9.2 mg/dL (8.4-10.2); Carbon Dioxide 24 mmol/L (22-30); Chloride 105 mmol/L (98-107); Estimated CRCL calculation 118 ml/min; Estimated Glomerular Filt Rate > 60; Glucose 95 mg/dL (65-110); Lipase 96 U/L (23-300); Potassium 4.2 mmol/L (3.4-5.0); Sodium 138 mmol/L (137-145)
[2020-12-22 14:26] LABS: Add Urine Microscopic? NO; Appearance Urine Clear (Clear); Bilirubin Urine Negative (Negative); Blood Urine Negative (Negative); Color Urine Straw (Yellow); Glucose Urine UA Negative (Negative); Ketones Urine Negative (Negative); Leukocyte Esterase Ur Negative LEU/UL (Negative); Nitrate Urine Negative (Negative); Protein Urine Negative (Negative); Specific Grav Ur 1.013 (1.001-1.035); Urobilinogen Urine Negative mg/dL (<2.0)
[2020-12-22 15:29] VITALS: BP 113/51; PULSE 59; RESP 16; TEMP 36.6; O2SAT 100
--- NOTE | 2020-12-22 15:35 | ED.ABDPAIN ---
HPI - Abdominal Pain General Chief Complaint: Abdominal Pain Stated Complaint: abdominal pain Time Seen by Provider: 12/22/20 15:33 Source: RN notes reviewed History of Present Illness HPI narrative: Patient presents emergency department from home for abdominal pain. Patient states that abdominal pain began approximately 5 AM this morning pain is located in the right lower quadrant and right Kyle across the lower abdomen described as sharp and stabbing associate with nausea. Patient denies any fevers or chills chest pain, shortness of breath vomiting diarrhea or any other symptoms states she not taking medication for the pain at home Related Data Home Medications Medication Instructions Recorded Confirmed cetirizine [Zyrtec] 10 mg PO DAILY PRN 09/04/20 09/04/20 docusate sodium [Colace] 100 mg PO DAILY 09/04/20 09/04/20 omeprazole magnesium [Acid Reeling Operator 20 mg PO DAILY 09/04/20 09/04/20 (omeprazole)] Allergies Allergy/AdvReac Type Severity Reaction Status Date / Time No Known Allergies Allergy Verified 02/24/18 14:59 Review of Systems Review of Systems: Gen.: Denies fevers or chills ENT: Denies congestion Respiratory: Denies shortness of breath or cough CV: Denies chest pain or palpitations GI: See HPI denies burning, urgency, frequency or hematuria Musculoskeletal: Denies back pain or muscle pain Neuro: Denies numbness, tingling, weakness or focal weakness Skin: Denies rash Except as documented, all other systems reviewed and negative PMFSH Past Medical History Medical History Anxiety Asthma Depression Hypothyroid Pelvic pain Surgical History Surgical History No significant past surgical history Social History Social History Smoking status: Never smoker Gender identity (if verbalized by the patient): Female Exam Narrative: APPEARANCE: No acute distress, nontoxic, resting in bed HEENT: Normocephalic, atraumatic, OMM RESPIRATORY: No respiratory distress, clear to auscultation bilaterally with no rhonchi wheezing or rales CARDIOVASCULAR: RRR s murmur ABDOMINAL: Soft nondistended tender palpation right lower quadrant no tenderness right upper quadrant and left upper quadrant left lower quadrant no rebound or guarding MUSCULOSKELETAl: Moves all extremities. No clubbing, cyanosis or edema. NEURO: Awake and alert. Following commands, speech normal, no focal deficits SKIN:: Warm, dry. Normal Color PSYCHIATRIC: Normal affect/mood Course Course Emergency Course: Patient states that they are feeling much better at this time. States abdominal pain has resolved. Repeat abdominal exam shows the patient's abdomen to be soft and nontender. Discussed with patient results of workup and diagnosis. Discussed need for follow-up with primary care physician, reasons to return to the emergency department in proper use of medication. Patient understands and agrees to current treatment plan Vital Signs Vital signs: Vital Signs Temperature 96.3 F L 12/22/20 13:32 Pulse Rate 62 12/22/20 13:32 Respiratory Rate 20 12/22/20 13:32 Blood Pressure 137/69 12/22/20 13:32 Pulse Oximetry 100 12/22/20 13:32 Temperature 97.8 F 12/22/20 16:39 Pulse Rate 59 L 12/22/20 15:29 Respiratory Rate 16 12/22/20 15:29 Blood Pressure 113/51 L 12/22/20 15:29 Pulse Oximetry 100 12/22/20 15:29 MDM - Abdominal Pain MDM Narrative Medical decision making narrative: Patient's abdomen is soft without significant pain or signs of surgical abdomen on serial exams. Lab and x-ray evaluations are reviewed and patient is felt to be a reasonable candidate for outpatient management. Patient was instructed as to limitations of x-ray and laboratory evaluation and encouraged to return to ED or primary physician for repeat exam in 12 hours if continued or worseni
[2020-12-22] MEDS: SODIUM CHLORIDE 0.9% IV 1,000 ML 999 ML IV CONT (16:07)
[2020-12-22] MEDS: ONDANSETRON INJ 4 MG/2 ML VIAL IV PUSH (16:08)
[2020-12-22] MEDS: KETOROLAC 30 MG/ML VIAL (*BKC) IV PUSH (16:09)
[2020-12-22 16:39] VITALS: TEMP 36.6
[2020-12-22] MEDS: MORPHINE SULFATE (*CRX) 4 MG/ML INJ IV PUSH (17:17)
[2020-12-22 17:47] VITALS: TEMP 36.6
[2020-12-22 18:11] VITALS: BP 121/68; PULSE 63; RESP 18; O2SAT 98
== END 2020-12-22 18:47 | disposition home or self-care (01) ==
PROVIDERS: Emergency Medicine; Emergency Provider Emergency Medicine
DX: N83.201 Unspecified ovarian cyst, right side (principal); R10.9 Unspecified abdominal pain; F41.9 Anxiety disorder, unspecified; F32.A Depression, unspecified; E03.9 Hypothyroidism, unspecified
CPT/HCPCS: 36415; 74177; 76830; 76856; 80053; 81003; 81025; 83690; 85025; 96361; 96374; 96375; 99284; J1885; J2270; J2405; J7030; Q9967

== ENCOUNTER 2021-03-12 14:14 | Observation (INO) | payer OTHER, SELFPAY ==
[2021-03-12] VITALS (10 sets, daily range): BP systolic 114–173; BP diastolic 54–96; PULSE 53–70; RESP 14–18; TEMP 36.1–36.2; O2SAT 99–100; BMI 39.2
--- NOTE | ~2021-03-12 | US_ITS ---
EXAMINATION: US OB <= 14 weeks fetus EXAM DATE: 03/12/2021 17:11 INDICATION: N/V, about 7 weeks by LMP N/V X 1 Week. 1st trimester. TECHNIQUE: Pelvic obstetrical transabdominal sonogram was performed by a technologist. There are mu ltiple grayscale and Doppler images available for interpretation. There are no earlier studies of th is gestation for comparison. FINDINGS: Uterus measures 9.1 x 7.2 x 8.1 cm. There is intrauterine gestation sac. pole with heart rate confirmed at 138 beats per minute. The 9 mm crown-rump length corresponds to estimated ge stational age by ultrasound of 7 weeks 0 days, estimated date of confinement 10/29/2021. Yolk sac is identified. There is small subchorionic hematoma. Right ovary identified and is morphologically yenny l. IMPRESSION: Early live intrauterine gestation with small subchorionic hematoma. Reviewed, dictated and finalized at location . MANAGER
--- NOTE | ~2021-03-12 | XR_ITS ---
EXAMINATION: XR chest 1V portable DATE: 03/12/2021 14:58 INDICATION: Shortness of breath. COVID-19 pneumonia. TECHNIQUE: A single frontal view of the chest was obtained on 2 radiographs. COMPARISON: Chest 2 views 01/24/2019, CT abdomen and pelvis 12/22/2020 FINDINGS: The chest demonstrates clear lungs without pneumonia, pleural effusion, or pneumothorax. Th e heart size is normal. IMPRESSION: 1. No acute cardiopulmonary disease. Reviewed, dictated and finalized at location A. L FABRICATOR APPRENTICE
--- NOTE | 2021-03-12 14:38 | ECG_ITS ---
Measurements Intervals [place] Rate: 63 P: 5 FL: 201 QRS: 14 QRSD: 96 T: 5 QT: 401 QTc: 412 Interpretive Statements SINUS RHYTHM WITH SINUS ARRHYTHMIA BASELINE ARTIFACT- I, II, III, AVR, AVL, AVF, V1-V6 NORMAL ECG Electronically Signed On 03-12-2021 15:00:52 SAP PORTAL DEVELOPER by Bradley Montero D.O.
[2021-03-12 15:23] LABS: Basophils Percent Auto 0.2 % (0.2-1.2); Eosinophils Absolute Auto 0.1 K/mm3 (0-0.3); Eosinophils Percent Auto 0.9 % (0-4.4); Hematocrit 34.4 % (37.0-47.0); Hemoglobin 11.9 g/dL (12.0-15.0); Immature Granulocyte Absolute 0.01 K/mm3 (0.00-0.031); Immature Granulocyte Percent A 0.2 % (0-0.5); Lymphocytes Absolute Auto 0.85 K/mm3 (0.9-3.2); Lymphocytes Percent Auto 15.6 % (18.3-44.2); Mean Corpuscular HGB Conc 34.6 g/dl (32-36); Mean Corpuscular Hemoglobin 29.5 pg (26-34); Mean Corpuscular Volume 85.4 fl (80-100); Monocytes Absolute Auto 0.3 K/mm3 (0.1-0.6); Monocytes Percent Auto 4.6 % (2.6-8.5); Neutrophils Absolute Auto 4.3 K/mm3 (1.3-6.7); Neutrophils Percent Auto 78.5 % (45.5-73.1); Platelet Count Result 210 k/mm3 (150-375); Red Blood Count 4.03 M/mm3 (4.2-5.4); White Blood Count 5.5 K/mm3 (4.5-10.0)
--- NOTE | 2021-03-12 15:25 | PC.NURSE ---
Called lab and spoke to Colby to add on Beta HCG Quant
--- NOTE | 2021-03-12 15:26 | ED.URI ---
HPI - URI/Sore Throat General Chief Complaint: Upper Respiratory Infection <Marsha Enciso PA-C - Last Filed: 03/12/21 20:33> Stated Complaint: COVID+ 25JAN, MULTI C/O <Marsha Enciso PA-C - Last Filed: 03/12/21 20:33> Time Seen by Provider: 03/12/21 14:37 <OSVALDO Simental Last Filed: 03/12/21 20:33> Source: patient <OSVALDO Simental Last Filed: 03/12/21 20:33> Mode of arrival: ambulatory <OSVALDO Simental Last Filed: 03/12/21 20:33> Limitations: no limitations <OSVALDO Simental Last Filed: 03/12/21 20:33> History of Present Illness HPI Narrative: This is a 25 year old female that presents to the ER for cold symptoms present over the last couple of weeks. Reports she started to have symptoms about 10 days ago. She tested positive for COVID about a week ago. She is vaccinated. Reports fatigue, headache, nausea, and vomiting. Reports she has not been able keep anything down for a couple of days. She is concerned she may be as she is late on her cycle. She has not taken a home test. Her last period was January 21. She also reports chest tightness and shortness of breath. Denies fever or lower extremity edema. <OSVALDO Simental Last Filed: 03/12/21 20:33> Related Data Home Medications: Home Medications Medication Instructions Recorded Confirmed cetirizine [Zyrtec] 10 mg PO DAILY PRN 09/04/20 09/04/20 docusate sodium [Colace] 100 mg PO DAILY 09/04/20 09/04/20 omeprazole magnesium [Acid Dewer 20 mg PO DAILY 09/04/20 09/04/20 (omeprazole)] <OSVALDO Simental Last Filed: 03/12/21 20:33> Allergies/Adverse Reactions: Allergies Allergy/AdvReac Type Severity Reaction Status Date / Time No Known Allergies Allergy Verified 02/24/18 14:59 <Marsha Enciso PA-C - Last Filed: 03/12/21 20:33> Review of Systems Review of Systems: CONSTITUTIONAL: Denies fever CARDIOVASCULAR: Reports chest pain. Denies edema. RESPIRATORY: Reports dyspnea. GASTROINTESTINAL: Reports nausea and vomiting. Denies abdominal pain GENITOURINARY: Denies dysuria <Marsha Enciso PA-C - Last Filed: 03/12/21 20:33> All systems reviewed & are unremarkable except as noted in HPI and below <Marsha Enciso PA-C - Last Filed: 03/12/21 20:33> PMFSH Past Medical History Medical History: Medical History Anxiety Asthma Depression Hypothyroid Pelvic pain <Marsha Enciso PA-C - Last Filed: 03/12/21 20:33> Surgical History Surgical History: Surgical History No significant past surgical history <Marsha Enciso PA-C - Last Filed: 03/12/21 20:33> Social History Social History: Social History Smoking status: Never smoker Gender identity (if verbalized by the patient): Female <OSVALDO Simental Last Filed: 03/12/21 20:33> Exam Narrative: GENERAL: Well-appearing, well-nourished, and in no acute distress. HEAD: Normocephalic, atraumatic. EYES: EOMI. ENT: Nares clear, no rhinorrhea or epistaxis. Mucous membranes moist. Oropharynx without tonsillar hypertrophy exudate or other lesions. Bilateral TMs pearly stack non-bulging NECK: Supple. No adenopathy or masses. CHEST: Clear to auscultation. No respiratory distress. No wheezes rales or rhonchi HEART: Regular rate and rhythm. No murmur heard. Normal peripheral pulses. ABDOMEN: Soft, nontender, nondistended, normal active bowel sounds. EXTREMITIES: Normal range of motion. No edema. SKIN: Warm, dry, no rash. NEURO: No focal deficits. Alert and oriented x3. PSYCH: Normal mood and affect <Marsha Enciso PA-C - Last Filed: 03/12/21 20:33> Course ELECTION ASSISTANT/PA Physician Supervision For this patient encounter, I reviewed the ELECTION ASSISTANT or PA documentation, treatment plan, and medical decision making; and
--- NOTE | 2021-03-12 15:32 | PC.NURSE ---
Called lab and spoke to Poppy to add on D-Dimer, Trop Baseline
[2021-03-12] MEDS: SODIUM CHLORIDE 0.9% IV 1,000 ML 999 ML IV CONT (15:33)
[2021-03-12] MEDS: diphenhydrAMINE HCl INJ 50 MG/ML VIAL 25 MG IV PUSH (15:33)
[2021-03-12] MEDS: METOCLOPRAMIDE HCL INJ 10 MG/2 ML VIAL IV PUSH (15:33)
[2021-03-12 15:35] LABS: Prothrombin Time 13.2 Seconds (11.1-14.7)
[2021-03-12 15:36] LABS: Partial Thromboplastin Time 25.8 SECONDS (22.3-36.8)
[2021-03-12 15:49] LABS: D Dimer 0.38 ug/mL (<0.48)
[2021-03-12 16:05] LABS: Add Urine Microscopic? YES; Appearance Urine Clear (Clear); Bacteria Urine Trace /hpf; Bilirubin Urine Negative (Negative); Blood Urine Negative (Negative); Color Urine Yellow (Yellow); Glucose Urine UA Negative (Negative); Ketones Urine 1+ mg/dL (Negative); Leukocyte Esterase Ur Trace LEU/UL (Negative); Mucus Urine Rare /lpf; Nitrate Urine Negative (Negative); Protein Urine 1+ mg/dL (Negative); RBC Urine 0-2 /hpf (0-2); Specific Grav Ur 1.024 (1.001-1.035); Squamous Epithelial Cell Urine Many /hpf (Few); Urobilinogen Urine Negative mg/dL (<2.0); WBC Urine 0-3 /hpf
[2021-03-12 16:13] LABS: Troponin I < 0.012 ng/mL (0.000-0.034)
[2021-03-12 16:31] LABS: Alanine Aminotransferase 47 U/L (4-35); Albumin Level 4.2 g/dL (3.5-5.1); Alkaline Phosphatase 74 U/L (38-126); Anion Gap 7 mmol/L (8-16); Aspartate Amino Transferase 28 U/L (14-36); Bilirubin,Total 0.2 mg/dL (0.2-1.3); Blood Urea Nitrogen 8 mg/dL (7-17); Calcium 9.1 mg/dL (8.4-10.2); Carbon Dioxide 23 mmol/L (22-30); Chloride 104 mmol/L (98-107); Estimated CRCL calculation 134 ml/min; Estimated Glomerular Filt Rate > 60; Glucose 102 mg/dL (65-110); Lactate Dehydrogenase 466 U/L (313-618); Lipase 70 U/L (23-300); Potassium 3.9 mmol/L (3.4-5.0); Sodium 134 mmol/L (137-145)
[2021-03-12] MEDS: ONDANSETRON INJ 4 MG/2 ML VIAL IV PUSH ×2 (17:48→23:36)
[2021-03-12] MEDS: FAMOTIDINE 20 MG/2 ML VIAL IV PUSH (17:48)
[2021-03-12] MEDS: SODIUM CHLORIDE 0.9% IV 500 ML 999 ML IV CONT (17:49)
[2021-03-12] MEDS: SODIUM CHLORIDE 0.9% IV 1,000 ML 125 ML IV CONT (20:51)
--- NOTE | 2021-03-12 23:15 | ADMGEN ---
This patient, Lauren oL, was admitted to [facility] Surg Room 300-01. Patient/family oriented to hospital policies and general routines including ID bracelet, bed and alarms, visiting hours, pain management, procedures, bathroom and other care routines, personal items, smoking policy, room service/diet, and visiting hours. Information on how to activate the Rapid Response Team has been discussed. Patient/Family are encouraged to report perceived risks to care and to ask questions if they do not understand what they are told or what they should do.
[2021-03-13] MEDS: PROMETHAZINE HCL 25 MG/ML AMPUL 12.5 MG IV PUSH ×3 (04:59→17:53)
[2021-03-13] MEDS: SODIUM CHLORIDE 0.9% IV 1,000 ML 125 ML IV CONT ×2 (05:06→13:45)
[2021-03-13 05:54] VITALS: BP 113/59; PULSE 76; RESP 18; TEMP 36.6; O2SAT 99
[2021-03-13 08:00] VITALS: BP 116/56; PULSE 70; RESP 18; TEMP 36.6; O2SAT 99
--- NOTE | 2021-03-13 18:15 | PM.IMHP ---
H&P: HPI History of Present Illness Date/Time: 03/13/21 18:15 this patient is a 25-year-old 3 para 2 2001 at 7 weeks gestation. She presented the emergency department with severe nausea and vomiting. Ultrasound revealed her gestational age. Revealed to her a new that she was uncertain of. She denies any vaginal bleeding or cramping. She has severe nausea vomiting. She denies any hematemesis. Denies any diarrhea or bloody stools. She denies any chest pain or shortness of breath. She denies any upper respiratory or lower respiratory symptoms. She denies any fevers or chills. She denies any chest pain or shortness of breath. Chief Complaint: Nausea vomiting Review of Systems Review of Systems: All systems reviewed & are unremarkable except as noted in HPI and below Constitutional: Constitutional: Denies chills, Denies fatigue, Denies fever(s) and Denies weakness Eyes: Eyes: Denies blurry vision, Denies change in vision, Denies loss of peripheral vision, Denies loss of vision, Denies other visual disturbances and Denies eye pain ENT: Denies vertigo, Denies dizziness, Denies hearing loss, Denies mouth pain, Denies nasal obstruction, Denies neck mass and Denies neck pain Cardiovascular: Cardiovascular: Denies chest pain, Denies diaphoresis, Denies syncope, Denies leg edema and Denies dyspnea Respiratory: Respiratory: Denies chest congestion, Denies cough, Denies hemoptysis, Denies dyspnea and Denies wheezing Gastrointestinal: Gastrointestinal: Denies abdominal pain, Denies constipation, Denies diarrhea, Denies nausea and Denies vomiting Genitourinary: Genitourinary: Denies hematuria, Denies change in libido, Denies nocturia, Denies genital lesions, Denies flank pain and Denies urinary urgency Musculoskeletal: Musculoskeletal: Denies abnormal gait, Denies back pain, Denies myalgias, Denies arthralgias, Denies joint swelling, Denies muscle weakness and Denies neck pain Integumentary/Breasts: Skin/Breast: Denies swelling, Denies breast pain, Denies breast mass, Denies dry skin, Denies nipple discharge, Denies unusual bruising and Denies jaundice Neurologic: Denies Neuro-related abnormal movements, Denies Abnormal speech present, Denies abnormal gait, Denies behavioral changes, Denies confusion, Denies vertigo, Denies dizziness, Denies syncope, Denies loss of vision, Denies memory loss, Denies convulsions and Denies weakness Psychiatric: Psychiatric: Denies abnormal sleep pattern, Denies behavioral changes, Denies change in libido, Denies confusion, Denies depression, Denies anhedonia and Denies memory loss Endocrine: Endocrine: Reports no additional endocrine complaints, Denies change in libido and Denies fatigue Hematologic/Lymphatic: Hematologic/Lymphatic: Reports no additional hematologic/lymphatic complaints Allergic/Immunologic: Allergic/Immunologic: Reports no additional allergic/immunologic complaints and Denies wheezing PMFSH Past Medical History Medical History Anxiety Asthma Depression Hypothyroid Pelvic pain Surgical History Surgical History No significant past surgical history Social History Social History Smoking status: Light tobacco smoker Tobacco type: cigarettes Second hand tobacco smoke exposure: No Additional smoking assessment comments: Only smoked socially and infrequently Gender identity (if verbalized by the patient): Female Meds Home Medications and Allergies Home Medications Medication Instructions Recorded Confirmed Type ondansetron 4 mg PO Q8H PRN #14 tablet 03/08/20 09/04/20 Rx cetirizine [Zyrtec] 10 mg PO DAILY PRN 09/04/20 09/04/20 History docusate sodium [Colace] 100 mg PO DAILY 09/04/20 09/04/20 History omeprazole magnesium [Acid Journeyman Press Operator 20 mg PO DAILY 09/04/20 09/04/20 History (omeprazole)]
[2021-03-13 20:37] VITALS: BP 110/59; PULSE 66; RESP 18; TEMP 36.9; O2SAT 99
[2021-03-13] MEDS: ONDANSETRON INJ 4 MG/2 ML VIAL IV PUSH (22:49)
[2021-03-13 23:50] VITALS: BP 111/58; PULSE 60; RESP 18; TEMP 36.6; O2SAT 98
[2021-03-14] MEDS: SODIUM CHLORIDE 0.9% IV 1,000 ML 125 ML IV CONT ×2 (01:34→10:58)
[2021-03-14 04:00] VITALS: BP 116/60; PULSE 55; RESP 16; TEMP 36.4; O2SAT 97
[2021-03-14 08:00] VITALS: BP 122/69; PULSE 63; RESP 16; TEMP 37.1; O2SAT 98
[2021-03-14] MEDS: PROMETHAZINE HCL 25 MG/ML AMPUL 12.5 MG IV PUSH ×2 (08:35→16:06)
[2021-03-14 12:00] VITALS: BP 146/73; PULSE 63; RESP 14; TEMP 36.4; O2SAT 100
[2021-03-14] MEDS: ONDANSETRON INJ 4 MG/2 ML VIAL IV PUSH (13:08)
[2021-03-14 16:00] VITALS: BP 136/62; PULSE 71; RESP 16; TEMP 35.9; O2SAT 100
--- NOTE | 2021-03-14 17:18 | P.PNOB_ITS ---
OB - PN: Subj Subjective Date/time seen: 03/14/21 17:18 Patient reports improves nausea, tolerating some solid food, tolerating liquids. OB - PN: Obj Data Labs CBC & Chem 7: 03/12/21 15:12 03/12/21 15:12 OB - PN A/P Assessment and Plan (1) Nausea and vomiting during : Code(s): O21.9 - Vomiting of , unspecified Status: Acute Assessment and Plan: patient is a 25-year-old multiparous female with hyperemesis gravidarum. Her nausea has improved over period of observation. She is now tolerating p.o. and would like to be discharged. She will be discharged home with oral And rectal anti emetics. Time Spent With Patient Time: Total time spent is greater than 50% in coordination of care (as d ocumented) at patient's floor/unit and/or counseling patient: Exam Const: General: comfortable, no acute distress and alert Resp: Effort & Inspection: normal respiratory effort Auscultation: no crackles, no rales and no rhonchi Cardio: Rate: regular rate Heart sounds: no click, no murmurs and no rubs GI: Inspection: non-distended GI Palp: No Tenderness to palpation present (GI) Auscultation: normal bowel sounds Other: Incision - CDI Extrem: General: normal to inspection, no pedal edema and no calf tenderness
--- NOTE | 2021-03-14 17:24 | PM.DS ---
DS: Admitting Diagnosis Discharge Date 03/14/2021 Admitting Diagnosis nausea vomiting of DS: Discharge Diagnosis Discharge Diagnosis (1) Nausea and vomiting during : Code(s): O21.9 - Vomiting of , unspecified Status: Acute DS: Summary Hospital Course Reason for hospitalization: nausea vomiting of Hospital Course: this patient is a 25-year-old female was admitted for nausea vomiting of . She has a first-trimester gestation. She has a long history of hyperemesis gravidarum. She was admitted through the emergency department. She was observed and given fluids and antiemetics. Supportive care was administered strictly. After about 36 hours of observation she was ready to be discharged. She wanted to go home and was tolerating p.o. food and liquids. Status at Discharge Functional status at discharge: independent ambulation Time Spent with Patient Time attestation: Total time spent providing and/or coordinating discharge services: Time spent: Greater than 30 minutes Discharge Plan Discharge Consulting providers: Marsha Enciso Discharging Clinician: Ashanti Power Patient Disposition: Home, Self-Care Activity: pelvic rest Diet: regular Patient Instructions: Antibiotic Form, How to Stop Smoking (DC), Acute Nausea and Vomiting (DC) Stand Alone Forms: General Discharge Information Follow-up/Referrals: Ashanti Power MD [Physician] - Discharge Medications: New metoclopramide HCl 10 mg tablet,disintegrating 10 mg PO Q6H Qty: 20 RF: 6 promethazine 50 mg suppository 50 mg RECTAL Q6H PRN (Reason: nausea vomiting) Qty: 24 RF: 2 Continued ondansetron 4 mg tablet,disintegrating 4 mg PO Q8H PRN (Reason: nausea and vomiting) Qty: 14 RF: 0 docusate sodium [Colace] 100 mg Capsule 100 mg PO DAILY RF: 0 Zyrtec 10 mg Capsule 10 mg PO DAILY PRN (Reason: Allergy Symptoms) RF: 0 omeprazole magnesium [Acid Hot Dimpling Machine Operator (omeprazole)] 20 mg Capsule,Delayed Release(Dr/Ec) 20 mg PO DAILY RF: 0 ibuprofen [IBU] 600 mg tablet 600 mg PO Q6H PRN (Reason: pain) Qty: 20 RF: 0 Date of admission: 03/12/21 20:08 Primary Care Provider: PHYSICIAN,CIVIL ENGINEERING SPECIALIST Admitting Provider: Ashanti Power Attending physician on admission: Ashanti Power Condition: Stable
== END 2021-03-14 19:35 | disposition home or self-care (01) ==
LOC: ANHED 21:26 → ANH3MEDSUR 21:42
PROVIDERS: Physician Assistant; Admitting Provider Obstetrics & Gynecology; Emergency Provider Emergency Medicine; Visit Provider Obstetrics & Gynecology
DX: O21.0 Mild hyperemesis gravidarum (principal); Z3A.01 Less than 8 weeks gestation of pregnancy
CPT/HCPCS: 36415; 71045; 76801; 80053; 81001; 81025; 82728; 83615; 83690; 84484; 84702; 85025; 85380; 85610; 85730; 93005; 96361; 96374; 96375; 96376; 99285; G0378; G0379; J1200; J2405; J2550; J2765; J7030; J7040

== ENCOUNTER 2021-06-25 17:06 | Emergency (ER) | payer OTHER, SELFPAY ==
--- NOTE | ~2021-06-25 | US_ITS ---
CORRECTED REPORT Removed order # [id number] because it was a duplicate order. 06/29/2021 sef EXAMINATION: US OB <=14 wk fetus w TV, US OB <=14 wk fetus w TV INDICATION: RLQ /suprapubic pain, + preg, r/o ectopic TECHNIQUE: Sonography of the pelvis was performed by transabdominal and transvaginal techniques. COMPARISON: 03/12/2021. RESULT: Uterus: - Orientation: Anteverted - Size: 9.7 x 5.3 x 7.0 cm - Myometrium: homogeneous echogenicity Gestation: - Intrauterine gestational sac: Not seen - Mean Sac Diameter: 1.30 cm, corresponding gestational age 6 week 1 days - Yolk sac: Not visualized. - Embryo: Not seen -Subgestational hematoma: Absent Right ovary: - Size : 3.8 x 2.1 x 2.5 cm - Normal sonographic appearance with physiologic follicles. Vascular flow is present. Left ovary: - Size: 2.3 x 1.7 x 1.7 cm - Normal sonographic appearance with physiologic follicles. Vascular flow is present. Pelvis free fluid: None. IMPRESSION: Intrauterine gestational sac without pole or yolk sac. Estimated Gestational Age: 6 weeks, 1 days by mean sac diameter. Consider pelvic ultrasound follow-up to confirm viability. No sonographic evidence of ectopic . Reviewed, dictated and finalized at location K. MTDD IMPRESSION: Intrauterine gestational sac without pole or yolk sac. Estimated Gestati onal Age: 6 weeks, 1 days by mean sac diameter. Consider pelvic ultrasound fol low-up to confirm viability. No sonographic evidence of ectopic .
[2021-06-25 17:25] VITALS: BP 119/82; PULSE 72; RESP 19; TEMP 36.2; O2SAT 97
[2021-06-25 17:40] LABS: Basophils Percent Auto 0.5 % (0.2-1.2); Eosinophils Absolute Auto 0.3 K/mm3 (0-0.3); Eosinophils Percent Auto 3.5 % (0-4.4); Hematocrit 35.8 % (37.0-47.0); Hemoglobin 11.6 g/dL (12.0-15.0); Immature Granulocyte Absolute 0.02 K/mm3 (0.00-0.031); Immature Granulocyte Percent A 0.3 % (0-0.5); Lymphocytes Absolute Auto 1.14 K/mm3 (0.9-3.2); Lymphocytes Percent Auto 14.9 % (18.3-44.2); Mean Corpuscular HGB Conc 32.4 g/dl (32-36); Mean Corpuscular Hemoglobin 28.3 pg (26-34); Mean Corpuscular Volume 87.3 fl (80-100); Mean Platelet Volume 11.3 fl (7.4-10.4); Monocytes Absolute Auto 0.3 K/mm3 (0.1-0.6); Monocytes Percent Auto 4.3 % (2.6-8.5); Neutrophils Absolute Auto 5.9 K/mm3 (1.3-6.7); Neutrophils Percent Auto 76.5 % (45.5-73.1); Platelet Count Result 272 k/mm3 (150-375); White Blood Count 7.7 K/mm3 (4.5-10.0)
[2021-06-25 17:53] LABS: Alanine Aminotransferase 17 U/L (6-35); Albumin Level 4.8 g/dL (3.5-5.1); Alkaline Phosphatase 80 U/L (38-126); Anion Gap 7 mmol/L (8-16); Aspartate Amino Transferase 21 U/L (14-36); Bilirubin,Total 0.3 mg/dL (0.2-1.3); Blood Urea Nitrogen 9 mg/dL (7-17); Calcium 9.4 mg/dL (8.4-10.2); Carbon Dioxide 24 mmol/L (22-30); Chloride 106 mmol/L (98-107); Estimated CRCL calculation 122 ml/min; Estimated Glomerular Filt Rate > 60; Glucose 93 mg/dL (65-110); Lipase 101 U/L (23-300); Potassium 4.1 mmol/L (3.4-5.0); Sodium 137 mmol/L (137-145)
[2021-06-25 18:26] LABS: Appearance Urine Turbid (Clear); Bilirubin Urine 1+ (Negative); Blood Urine Negative (Negative); Glucose Urine UA Negative (Negative); Ketones Urine 2+ mg/dL (Negative); Leukocyte Esterase Ur Trace LEU/UL (Negative); Nitrate Urine Negative (Negative); Protein Urine Negative (Negative); Specific Grav Ur >= 1.030 (1.001-1.035); Urobilinogen Urine 0.2 mg/dL (<2.0); pH Urine 5.5 (5.0-9.0)
[2021-06-25 18:28] LABS: Add Urine Microscopic? YES; Color Urine Light Yellow (Yellow)
--- NOTE | 2021-06-25 19:15 | ED.ABDPAIN ---
HPI - Abdominal Pain General Chief Complaint: Abdominal Pain <OSVALDO Lee Last Filed: 06/26/21 01:40> Stated Complaint: ABD PAIN X4D <OSVALDO Lee Last Filed: 06/26/21 01:40> Time Seen by Provider: 06/25/21 18:45 <OSVALDO Lee Last Filed: 06/26/21 01:40> Source: patient <OSVALDO Lee Last Filed: 06/26/21 01:40> Mode of arrival: ambulatory <OSVALDO Lee Last Filed: 06/26/21 01:40> Limitations: no limitations <OSVALDO Lee Filed: 06/26/21 01:40> History of Present Illness HPI narrative: Patient is a 25 y/o female who presents to the ED with c/o upper and lower abdominal pain since Friday. Patient reports having pain since Friday. She complains of a burning pain in her right upper abdomen, and diffuse aching pain across her lower abdomen. The pain has been intermittent, but more persistent than not. She has taken ibuprofen for the pain without much relief. She last took this around 11 AM today. She also reports having nausea and she has vomited a substance that appears consistent with stomach acid. She notes nausea if she eats and when she does not eat as well. She has had a decreased appetite. She states she feels constipated but has had small bowel movements each day. Denies any fever, chills, cough, cold symptoms, urinary symptoms. <OSVALDO Lee Last Filed: 06/26/21 01:40> Related Data Home Medications: Home Medications Medication Instructions Recorded Confirmed Zyrtec 10 mg PO DAILY PRN 09/04/20 09/04/20 docusate sodium [Colace] 100 mg PO DAILY 09/04/20 09/04/20 omeprazole magnesium [Acid Drencher 20 mg PO DAILY 09/04/20 09/04/20 (omeprazole)] <OSVALDO Lee Last Filed: 06/26/21 01:40> Allergies/Adverse Reactions: Allergies Allergy/AdvReac Type Severity Reaction Status Date / Time No Known Allergies Allergy Verified 06/25/21 17:28 <Keke Us PA-C - Last Filed: 06/26/21 01:40> Review of Systems Review of Systems: CONSTITUTIONAL: Reports decreased appetite. Denies fever, chills. ENT: Denies rhinorrhea, congestion, sore throat. CARDIOVASCULAR: Denies chest pain. RESPIRATORY: Denies cough or dyspnea. GASTROINTESTINAL: Reports ABD pain, N/V. Denies diarrhea. GENITOURINARY: Denies dysuria or hematuria. MUSCULOSKELETAL: Denies back pain. <Keke Us PA-C - Last Filed: 06/26/21 01:40> All systems reviewed & are unremarkable except as noted in HPI and below <Keke Us PA-C - Last Filed: 06/26/21 01:40> PMFSH Past Medical History Medical History: Medical History Anxiety Asthma Depression Endometriosis Hypothyroid Pelvic pain <Keke Us PA-C - Last Filed: 06/26/21 01:40> Surgical History Surgical History: Surgical History No significant past surgical history <Keke Us PA-C - Last Filed: 06/26/21 01:40> Social History Social History: Social History Smoking status: Light tobacco smoker Tobacco type: cigarettes Second hand tobacco smoke exposure: No Additional smoking assessment comments: Only smoked socially and infrequently Gender identity (if verbalized by the patient): Female <Keke Us PA-C - Last Filed: 06/26/21 01:40> Exam Narrative: GENERAL: Well appearing, obese, non-toxic, in no acute distress. HEAD: Normocephalic, atraumatic. NECK: Supple. No adenopathy, no masses. RESPIRATORY: Airway patent, respirations nonlabored. Clear to auscultation bilaterally, no rales, rhonchi, wheezing. CARDIOVASCULAR: Regular rate and rhythm without murmurs, rubs, or gallops. Peripheral pulses 2+ and equal bilaterally. ABDOMINAL: Soft, mild tenderness to palpation and right upper quadrant, right lower quadrant, and suprapubic region, nondistended, no he
[2021-06-25] MEDS: ONDANSETRON INJ 4 MG/2 ML VIAL IV PUSH ×2 (20:07→22:10)
[2021-06-25] MEDS: SODIUM CHLORIDE 0.9% IV 1,000 ML 999 ML IV CONT (20:12)
== END 2021-06-25 22:15 | disposition home or self-care (01) ==
PROVIDERS: Physician Assistant; Emergency Provider Emergency Medicine
DX: O26.891 Other specified pregnancy related conditions, first trimester (principal); R10.11 Right upper quadrant pain; R10.31 Right lower quadrant pain; O99.511 Diseases of the respiratory system complicating pregnancy, first trimester; J45.909 Unspecified asthma, uncomplicated; O99.281 Endocrine, nutritional and metabolic diseases complicating pregnancy, first trimester; E03.9 Hypothyroidism, unspecified; O99.891 Other specified diseases and conditions complicating pregnancy; N80.9 Endometriosis, unspecified; Z3A.01 Less than 8 weeks gestation of pregnancy
CPT/HCPCS: 36415; 76801; 76817; 80053; 81001; 81025; 83690; 84702; 85025; 87086; 96374; 96375; 96376; 99284; J0131; J2405; J7030

== ENCOUNTER 2021-07-15 22:25 | Emergency (ER) | payer OTHER, SELFPAY ==
--- NOTE | ~2021-07-15 | CT_ITS ---
EXAMINATION: CT abdomen pelvis wo con DATE: 07/16/2021 00:44 INDICATION: Low abdominal pain. TECHNIQUE: Computed tomography (CT) of the abdomen and pelvis was performed without intravenous contr ast. Automated exposure control and iterative reconstruction technique were employed. The dose-length product was 1391.03 mGy-cm. COMPARISON: CT abdomen and pelvis 12/22/2020 FINDINGS: The visualized portions of the lung bases are clear without pneumonia or pleural effusion. The heart size is normal. No pericardial effusion. The liver, gallbladder, spleen, pancreas, adrenal glands, and kidneys are normal. There is a urolithiasis. There are no dilated loops of bowel. The angelo endix is normal. There are no pathologically enlarged lymph nodes. There is no free intraperitoneal f luid. There is mild lumbar spondylosis. IMPRESSION: 1. No etiology for the patient's symptoms. Reviewed, dictated and finalized at location A.
[2021-07-15 22:35] VITALS: BP 129/80; PULSE 89; RESP 16; TEMP 36.3; O2SAT 100
[2021-07-15 23:36] LABS: Add Urine Microscopic? YES; Appearance Urine Cloudy (Clear); Bilirubin Urine 1+ (Negative); Blood Urine 3+ (Negative); Color Urine Red (Yellow); Glucose Urine UA Negative (Negative); Ketones Urine Trace mg/dL (Negative); Leukocyte Esterase Ur Trace LEU/UL (Negative); Nitrate Urine Negative (Negative); Protein Urine 2+ mg/dL (Negative); Specific Grav Ur >= 1.030 (1.001-1.035); Urobilinogen Urine 0.2 mg/dL (<2.0); pH Urine 5.5 (5.0-9.0)
[2021-07-15] MEDS: SODIUM CHLORIDE 0.9% IV 1,000 ML 999 ML IV CONT (23:56)
[2021-07-15] MEDS: KETOROLAC 30 MG/ML VIAL (*BKC) 15 MG IV PUSH (23:57)
[2021-07-15 23:59] VITALS: TEMP 37.1
[2021-07-16 00:05] LABS: Basophils Absolute Auto 0.1 K/mm3 (0.0-0.1); Basophils Percent Auto 0.6 % (0.2-1.2); Eosinophils Absolute Auto 0.4 K/mm3 (0-0.3); Eosinophils Percent Auto 4.7 % (0-4.4); Hematocrit 34.3 % (37.0-47.0); Immature Granulocyte Absolute 0.02 K/mm3 (0.00-0.031); Immature Granulocyte Percent A 0.2 % (0-0.5); Lymphocytes Absolute Auto 2.31 K/mm3 (0.9-3.2); Lymphocytes Percent Auto 28.3 % (18.3-44.2); Mean Corpuscular HGB Conc 32.1 g/dl (32-36); Mean Corpuscular Hemoglobin 28.2 pg (26-34); Mean Corpuscular Volume 87.9 fl (80-100); Mean Platelet Volume 11.3 fl (7.4-10.4); Monocytes Absolute Auto 0.5 K/mm3 (0.1-0.6); Monocytes Percent Auto 5.9 % (2.6-8.5); Neutrophils Absolute Auto 4.9 K/mm3 (1.3-6.7); Neutrophils Percent Auto 60.3 % (45.5-73.1); Platelet Count Result 300 k/mm3 (150-375); Red Cell Distribution Width 14.3 % (11.5-14.5); White Blood Count 8.2 K/mm3 (4.5-10.0)
[2021-07-16 00:12] LABS: Alanine Aminotransferase 67 U/L (6-35); Albumin Level 4.3 g/dL (3.5-5.1); Alkaline Phosphatase 82 U/L (38-126); Anion Gap 7 mmol/L (8-16); Aspartate Amino Transferase 38 U/L (14-36); Bilirubin,Total 0.2 mg/dL (0.2-1.3); Blood Urea Nitrogen 11 mg/dL (7-17); Calcium 9.2 mg/dL (8.4-10.2); Carbon Dioxide 27 mmol/L (22-30); Chloride 106 mmol/L (98-107); Estimated CRCL calculation 124 ml/min; Estimated Glomerular Filt Rate > 60; Glucose 88 mg/dL (65-110); Lipase 150 U/L (23-300); Potassium 4.1 mmol/L (3.4-5.0); Sodium 140 mmol/L (137-145)
--- NOTE | 2021-07-16 00:12 | ED.ABDPAIN ---
HPI - Abdominal Pain General Chief Complaint: Abdominal Pain Stated Complaint: abd pain, post pill Time Seen by Provider: 07/15/21 23:24 Source: patient History of Present Illness HPI narrative: Patient presents with lower abdominal pain. Patient angeline she is 5 days since an elective . She was seen at [facility] and took a pill she unsure the name of the medication. She initially had some mild cramping and vaginal bleeding but the bleeding is improving however since last night she has had increase in her lower abdominal pain is crampy, constant, radiates to her back no clear aggravating or alleviating factors. She denies any nausea or vomiting chest pain shortness of breath or diaphoresis. She was concerned given the intensity of her pain so she came to the ER for further evaluation. Related Data Home Medications Medication Instructions Recorded Confirmed cetirizine 10 mg capsule (Zyrtec) 10 mg PO DAILY PRN Allergy Symptoms 09/04/20 09/04/20 docusate sodium 100 mg capsule 100 mg PO DAILY 09/04/20 09/04/20 (Colace) omeprazole magnesium 20 mg 20 mg PO DAILY 09/04/20 09/04/20 capsule,delayed release (Acid Mosaic Technician (omeprazole)) Allergies Allergy/AdvReac Type Severity Reaction Status Date / Time No Known Allergies Allergy Verified 06/25/21 17:28 Review of Systems Review of Systems: CONSTITUTIONAL: Denies fever, chills, or sweats. EYES: Denies visual changes, redness, or discharge. ENT: Denies rhinorrhea, congestion, sore throat, or otalgia. CARDIOVASCULAR: Denies chest pain, palpitations, or edema. RESPIRATORY: Denies cough or dyspnea. GASTROINTESTINAL: Denies nausea, vomiting, or diarrhea. GENITOURINARY: Denies dysuria or hematuria. SKIN: Denies rash or itching. MUSCULOSKELETAL: Denies back pain, joint pain, or myalgia. NEUROLOGIC: Denies headache, numbness, dizziness, or weakness. PSYCHIATRIC: Denies anxiety or depression. All systems reviewed & are unremarkable except as noted in HPI and below PMFSH Past Medical History Medical History Anxiety Asthma Depression Endometriosis Hypothyroid Pelvic pain Surgical History Surgical History No significant past surgical history Social History Social History Smoking status: Light tobacco smoker Tobacco type: cigarettes Second hand tobacco smoke exposure: No Additional smoking assessment comments: Only smoked socially and infrequently Gender identity (if verbalized by the patient): Female Exam Narrative: GENERAL: Well-appearing, well-nourished, and in no acute distress. HEAD: Normocephalic, atraumatic. EYES: PERRLA and EOMI. ENT: Nares clear, no rhinorrhea or epistaxis. Mucous membranes moist. NECK: Supple. No masses. No JVD CHEST: Clear to auscultation. No respiratory distress. No wheezes rales or rhonchi HEART: Regular rate and rhythm. No murmur heard. Normal peripheral pulses. ABDOMEN: Moderate tenderness with palpation of lower abdomen no rebound or guarding soft nondistended, normal active bowel sounds. EXTREMITIES: Normal range of motion. No edema. SKIN: Warm, dry, no rash. NEURO: No focal deficits. Alert and oriented x3. PSYCH: Normal mood and affect. Course Reevaluation(s) Reevaluation #1: We are still pending CT read from stat rad Date: 07/16/21 Time: 05:12 Reevaluation #2: Patient resting comfortably results and plan reviewed with patient. Patient is comfortable outpatient plan. Date: 07/16/21 Time: 07:12 Vital Signs Vital signs: Vital Signs Temperature 36.3 C L 07/15/21 22:35 Pulse Rate 89 07/15/21 22:35 Respiratory Rate 16 07/15/21 22:35 Blood Pressure 129/80 07/15/21 22:35 Pulse Oximetry 100 07/15/21 22:35 Temperature 37.1 C 07/15/21 23:59 Pulse Rate 56 L 07/16/21 07:26 Respiratory Rate 18 07/16
[2021-07-16 07:26] VITALS: BP 135/65; PULSE 56; RESP 18; O2SAT 100
== END 2021-07-16 07:35 | disposition home or self-care (01) ==
PROVIDERS: Emergency Provider Emergency Medicine
DX: R10.30 Lower abdominal pain, unspecified (principal); J45.909 Unspecified asthma, uncomplicated; E03.9 Hypothyroidism, unspecified; N80.9 Endometriosis, unspecified; Z87.891 Personal history of nicotine dependence
CPT/HCPCS: 36415; 74176; 80053; 81001; 81025; 83690; 84702; 85025; 86850; 86880; 86900; 86901; 86902; 96361; 96374; 99284; J1885; J7030

== ENCOUNTER 2021-08-10 08:44 | Outpatient (CLI) | payer OTHER, SELFPAY ==
--- NOTE | ~2021-08-10 | US_ITS ---
US abdomen complete DATE: 08/10/2021 09:24 INDICATION: Postprandial abdominal pain TECHNIQUE: Real-time imaging of complete abdomen, Doppler analysis COMPARISON: 07/16/2021 CT abdomen pelvis FINDINGS: No hepatic or pancreatic space-occupying mass lesion is evident, correlating with the CT ab domen examination of 07/16/2021. Normal hepatopedal portal venous flow direction. There is a gallstone at the neck of the gallbladder, measuring up to approximately 1 cm dimension, wi th associated acoustical shadowing. Negative sonographic Fajardo's sign. No bile duct dilatation. The common bile duct measures approximate 3 mm. No renal mass lesion or hydronephrosis. Splenic size is within normal range. Normal caliber of the abdominal aorta. The inferior vena cava is unremarkable. IMPRESSION: 1 cm stone at gallbladder neck Reviewed, dictated and finalized at Location A. Reviewed, dictated and finalized at location A.
== END 2021-08-10 08:45 | disposition home or self-care (01) ==
LOC: ANHIMG 08:50
PROVIDERS: Visit Provider Internal Medicine
DX: R10.9 Unspecified abdominal pain (principal); K80.20 Calculus of gallbladder without cholecystitis without obstruction
CPT/HCPCS: 76700

== ENCOUNTER 2022-04-29 16:57 | Outpatient (CLI) | payer OTHER, SELFPAY ==
[2022-04-29 17:50] LABS: Basophils Absolute Auto 0.1 K/mm3 (0.0-0.1); Basophils Percent Auto 0.8 % (0.2-1.2); Eosinophils Absolute Auto 0.4 K/mm3 (0-0.3); Hematocrit 34.1 % (37.0-47.0); Immature Granulocyte Absolute 0.02 K/mm3 (0.00-0.031); Immature Granulocyte Percent A 0.3 % (0-0.5); Lymphocytes Absolute Auto 1.53 K/mm3 (0.9-3.2); Lymphocytes Percent Auto 25.4 % (18.3-44.2); Mean Corpuscular HGB Conc 32.3 g/dl (32-36); Mean Corpuscular Hemoglobin 27.1 pg (26-34); Mean Platelet Volume 11.5 fl (7.4-10.4); Monocytes Absolute Auto 0.3 K/mm3 (0.1-0.6); Monocytes Percent Auto 5.5 % (2.6-8.5); Neutrophils Absolute Auto 3.7 K/mm3 (1.3-6.7); Platelet Count Result 266 k/mm3 (150-375); Red Blood Count 4.06 M/mm3 (4.2-5.4); Red Cell Distribution Width 15.9 % (11.5-14.5)
[2022-04-29 18:00] LABS: Hemoglobin A1C 5.3 % (<5.7)
[2022-04-29 18:03] LABS: Alanine Aminotransferase 20 U/L (6-35); Albumin Level 4.5 g/dL (3.5-5.1); Alkaline Phosphatase 85 U/L (38-126); Anion Gap 7 mmol/L (8-16); Aspartate Amino Transferase 22 U/L (14-36); Bilirubin,Total 0.4 mg/dL (0.2-1.3); Blood Urea Nitrogen 16 mg/dL (7-17); Calcium 8.9 mg/dL (8.4-10.2); Carbon Dioxide 25 mmol/L (22-30); Chloride 108 mmol/L (98-107); Estimated Glomerular Filt Rate > 60; Glucose 107 mg/dL (65-110); Potassium 3.6 mmol/L (3.4-5.0); Sodium 140 mmol/L (137-145)
[2022-04-29 18:18] LABS: Free T4 Free Thyroxine 1.24 ng/mL (0.78-2.19); Vitamin D 25 Hydroxy 42.7 ng/mL
[2022-04-29 18:23] LABS: Iron 50 ug/dL (37-170)
== END 2022-04-29 16:58 | disposition home or self-care (01) ==
LOC: ANHLAB 16:59
DX: R10.9 Unspecified abdominal pain (principal); Z51.81 Encounter for therapeutic drug level monitoring; Z79.899 Other long term (current) drug therapy
CPT/HCPCS: 36415; 80053; 82306; 83036; 83540; 84439; 84443; 85025

== ENCOUNTER 2022-05-31 14:12 | Emergency (ER) | payer OTHER, SELFPAY ==
--- NOTE | ~2022-05-31 | XR_ITS ---
XR chest 2V DATE: 05/31/2022 14:31 INDICATION: Mid chest pain, onset last evening. Onset of cough today. TECHNIQUE: PA and lateral views COMPARISON: 03/12/2021 portable AP chest FINDINGS: Normal heart size. No hilar or mediastinal enlargement. No pulmonary infiltrate or consolid ation, pleural effusion or pulmonary vascular congestion or pneumothorax is detected. IMPRESSION: No active cardiopulmonary disease Reviewed, dictated and finalized at location B.
--- NOTE | 2022-05-31 14:15 | ECG_ITS ---
Measurements Intervals [place] Rate: 71 P: 1 [place]: 201 QRS: 21 QRSD: 93 T: 26 QT: 373 QTc: 407 Interpretive Statements SINUS RHYTHM NORMAL ELECTROCARDIOGRAM COMPARED TO ECG 03/12/2021 14:57:19 NO SIGNIFICANT CHANGES Electronically Signed On 05-31-2022 15:43:41 CDT by Cristopher Zapien M.D.
[2022-05-31 14:33] VITALS: BP 126/73; PULSE 67; RESP 18; TEMP 36.1; O2SAT 100
[2022-05-31 14:53] LABS: Basophils Absolute Auto 0.1 K/mm3 (0.0-0.1); Basophils Percent Auto 1.1 % (0.2-1.2); Eosinophils Absolute Auto 0.7 K/mm3 (0-0.3); Eosinophils Percent Auto 11.5 % (0-4.4); Hematocrit 33.5 % (37.0-47.0); Hemoglobin 10.7 g/dL (12.0-15.0); Immature Granulocyte Absolute 0.01 K/mm3 (0.00-0.031); Immature Granulocyte Percent A 0.2 % (0-0.5); Lymphocytes Absolute Auto 1.45 K/mm3 (0.9-3.2); Lymphocytes Percent Auto 22.8 % (18.3-44.2); Mean Corpuscular HGB Conc 31.9 g/dl (32-36); Mean Corpuscular Hemoglobin 27.8 pg (26-34); Mean Platelet Volume 10.9 fl (7.4-10.4); Monocytes Absolute Auto 0.3 K/mm3 (0.1-0.6); Monocytes Percent Auto 4.4 % (2.6-8.5); Neutrophils Absolute Auto 3.8 K/mm3 (1.3-6.7); Platelet Count Result 259 k/mm3 (150-375); Red Blood Count 3.85 M/mm3 (4.2-5.4); Red Cell Distribution Width 15.9 % (11.5-14.5); White Blood Count 6.4 K/mm3 (4.5-10.0)
[2022-05-31 15:01] LABS: Alanine Aminotransferase 21 U/L (6-35); Albumin Level 4.2 g/dL (3.5-5.1); Alkaline Phosphatase 70 U/L (38-126); Anion Gap 6 mmol/L (8-16); Aspartate Amino Transferase 21 U/L (14-36); Bilirubin,Total 0.4 mg/dL (0.2-1.3); Blood Urea Nitrogen 13 mg/dL (7-17); Calcium 8.7 mg/dL (8.4-10.2); Carbon Dioxide 27 mmol/L (22-30); Chloride 105 mmol/L (98-107); Estimated CRCL calculation 133 ml/min; Estimated Glomerular Filt Rate > 60; Glucose 92 mg/dL (65-110); Lipase 118 U/L (23-300); Potassium 4.2 mmol/L (3.4-5.0); Sodium 138 mmol/L (137-145)
[2022-05-31 15:04] LABS: INR 1.1; Prothrombin Time 13.8 Seconds (11.1-14.7)
[2022-05-31 15:05] LABS: Partial Thromboplastin Time 29.5 SECONDS (22.3-36.8)
[2022-05-31 15:13] LABS: Troponin I < 0.012 ng/mL (0.000-0.034)
--- NOTE | 2022-05-31 15:40 | ED.CHESTPAIN ---
HPI - Chest Pain General Chief Complaint: Chest Pain Stated Complaint: cp Time Seen by Provider: 05/31/22 15:34 History of Present Illness HPI narrative: Patient states she woke up yesterday afternoon with some central chest pain, it has persisted till now, she did start having a mild cough this morning. Worse when she picks up her child. No recent trauma. Related Data Home Medications Medication Instructions Recorded Confirmed cetirizine 10 mg capsule (Zyrtec) 10 mg PO DAILY PRN Allergy Symptoms 09/04/20 09/04/20 docusate sodium 100 mg capsule 100 mg PO DAILY 09/04/20 09/04/20 (Colace) omeprazole magnesium 20 mg 20 mg PO DAILY 09/04/20 09/04/20 capsule,delayed release (Acid Inner Tube Tuber Machine Operator (omeprazole)) Allergies Allergy/AdvReac Type Severity Reaction Status Date / Time No Known Allergies Allergy Verified 05/31/22 15:41 Review of Systems Review of Systems: CONST: No fever. HEENT: No sore throat C/V: chest pain RESP: cough GI: No nausea or vomiting : No dysuria. M/S: No joint pain. SKIN: No rash. NEURO: [No headache or focal numbness or weakness] PSYCH: [No depression] [facility] Past Medical History Medical History Anxiety Asthma Depression Endometriosis Hypothyroid Pelvic pain Surgical History Surgical History No significant past surgical history Social History Social History Smoking status: Light tobacco smoker Tobacco type: cigarettes Second hand tobacco smoke exposure: No Additional smoking assessment comments: Only smoked socially and infrequently Gender identity (if verbalized by the patient): Female Exam Narrative: EXAMINATION OF ORGAN SYSTEMS/BODY AREAS: Constitutional: Vital signs per nursing GENERAL:[No acute distress, non-toxic appearing.] HEAD: Normal with no signs of head trauma. EYES: EOMI, conjunctiva normal ENT: Hearing grossly intact LUNGS: Nonlabored breathing. HEART: [Regular rate and rhythm] ABD: [Soft], [nontender to palpation] EXT: Normal range of motion SKIN: [No rashes or lesions.] NEURO: [Alert and oriented x 3. No gross focal sensory or strength deficits.] PSYCH: Normal affect Course Vital Signs Vital signs: Vital Signs Temperature 96.9 F L 05/31/22 14:33 Pulse Rate 67 05/31/22 14:33 Respiratory Rate 18 05/31/22 14:33 Blood Pressure 126/73 05/31/22 14:33 Pulse Oximetry 100 05/31/22 14:33 Temperature 96.9 F L 05/31/22 14:33 Pulse Rate 67 05/31/22 14:33 Respiratory Rate 18 05/31/22 14:33 Blood Pressure 126/73 05/31/22 14:33 Pulse Oximetry 100 05/31/22 14:33 MDM - Chest Pain MDM Narrative Medical decision making narrative: ED COURSE AND MEDICAL DECISION MAKINyoF presenting with chest pain. EKG done in triage negative for acute ischemic changes. Cardiac workup is initiated. EKG: Performed in triage and interpreted by me. Normal sinus rhythm. Rate 71 bpm. Normal axis. MO 201 ms. QRS duration normal. QTc normal. No pathologic Q waves. No ST segment elevation or depression to suggest acute ischemia. No RV strain pattern. HEART score is 0 with no acute ischemic changes on EKG and negative troponin making ACS unlikely. Negative PERC making PE unlikely. Presentation not consistent with dissection or aneurysm without radiation of pain or pulse deficits. CXR negative for mediastinal widening. No abdominal pain or signs of sepsis that would be concerning for esophageal perforation or mediastinitis. No cardiomegaly or JVD to suggest pericardial effusion/tamponade. Labs notable for neg trop, Hgb 10.7 which is around her baseline. On repeat evaluation just prior to discharge, the patient is no acute distress. I had a long discussion with the patient and with shared decision making, she is comfortable with outpatient management. She was given clear return instruct
[2022-05-31 15:42] VITALS: O2SAT 99
[2022-05-31 15:44] VITALS: BP 118/76; PULSE 70; RESP 20; O2SAT 98
== END 2022-05-31 15:58 | disposition home or self-care (01) ==
LOC: ANHED 15:51
PROVIDERS: Emergency Provider Emergency Medicine; PCP Internal Medicine
DX: R07.89 Other chest pain (principal); R05.9 Cough, unspecified; E03.9 Hypothyroidism, unspecified; F17.210 Nicotine dependence, cigarettes, uncomplicated
CPT/HCPCS: 36415; 71046; 80053; 83690; 84484; 85025; 85610; 85730; 93005; 99284

== ENCOUNTER 2022-06-02 22:35 | Emergency (ER) | payer OTHER, SELFPAY ==
--- NOTE | ~2022-06-02 | XR_ITS ---
Clinical Indication: Chest pain PA and lateral views of the chest: Comparison: 05/31/2022 Findings: The lungs are clear, without evidence of focal consolidation or pleural effusion. Cardiome diastinal silhouette is within normal limits. Bones and soft tissues are unremarkable. Impression: Normal chest. Reviewed, dictated and finalized at location . Impression: Normal chest.
[2022-06-02 22:39] VITALS: BP 125/87; PULSE 86; RESP 18; TEMP 36.5; O2SAT 99
--- NOTE | 2022-06-02 22:40 | ECG_ITS ---
Measurements Intervals [place] Rate: 71 P: 6 [place]: 199 QRS: 37 QRSD: 89 T: 34 QT: 367 QTc: 400 Interpretive Statements SINUS RHYTHM NORMAL ELECTROCARDIOGRAM COMPARED TO ECG 05/31/2022 14:23:44 NO SIGNIFICANT CHANGES Electronically Signed On 06-03-2022 7:08:50 CDT by Cristopher Zapien M.D.
[2022-06-02 23:27] LABS: Basophils Absolute Auto 0.1 K/mm3 (0.0-0.1); Basophils Percent Auto 0.7 % (0.2-1.2); Eosinophils Absolute Auto 0.6 K/mm3 (0-0.3); Eosinophils Percent Auto 6.8 % (0-4.4); Hematocrit 36.1 % (37.0-47.0); Hemoglobin 11.5 g/dL (12.0-15.0); Immature Granulocyte Absolute 0.03 K/mm3 (0.00-0.031); Immature Granulocyte Percent A 0.3 % (0-0.5); Lymphocytes Absolute Auto 2.38 K/mm3 (0.9-3.2); Mean Corpuscular HGB Conc 31.9 g/dl (32-36); Mean Corpuscular Hemoglobin 27.4 pg (26-34); Mean Platelet Volume 11.6 fl (7.4-10.4); Monocytes Absolute Auto 0.4 K/mm3 (0.1-0.6); Monocytes Percent Auto 4.5 % (2.6-8.5); Neutrophils Absolute Auto 5.6 K/mm3 (1.3-6.7); Neutrophils Percent Auto 61.7 % (45.5-73.1); Platelet Count Result 297 k/mm3 (150-375); Red Cell Distribution Width 15.6 % (11.5-14.5); White Blood Count 9.1 K/mm3 (4.5-10.0)
[2022-06-02 23:37] LABS: Alanine Aminotransferase 23 U/L (6-35); Albumin Level 4.7 g/dL (3.5-5.1); Alkaline Phosphatase 75 U/L (38-126); Anion Gap 9 mmol/L (8-16); Aspartate Amino Transferase 23 U/L (14-36); Bilirubin,Total 0.5 mg/dL (0.2-1.3); Blood Urea Nitrogen 14 mg/dL (7-17); Calcium 8.9 mg/dL (8.4-10.2); Carbon Dioxide 26 mmol/L (22-30); Chloride 103 mmol/L (98-107); Estimated CRCL calculation 118 ml/min; Estimated Glomerular Filt Rate > 60; Glucose 110 mg/dL (65-110); Lipase 148 U/L (23-300); Potassium 3.6 mmol/L (3.4-5.0); Sodium 138 mmol/L (137-145)
[2022-06-02 23:49] LABS: Troponin I < 0.012 ng/mL (0.000-0.034)
[2022-06-03 00:02] VITALS: PULSE 65; RESP 15; O2SAT 100
--- NOTE | 2022-06-03 00:11 | ED.GENADULT ---
HPI - General Adult General Chief complaint: Chest Pain Stated complaint: chest pain Time Seen by Provider: 06/02/22 23:01 History of Present Illness HPI narrative: This is a 26-year-old female presenting ED with a chief complaint of chest pain. The pain initially started . It is an aching pain in the center of her chest that goes across her chest and into her left arm. He has 5/6 in intensity and worsening. She has never had pain like this before there are no exacerbating or alleviating factors. Patient has multiple sick contacts at home and recently has had a URI herself. She was seen here Friday with a normal exam and was discharged. She was not given pain medication at that time. Patient denies fever, chills, shortness of breath, lower extremity edema risk factors for DVT. She does have a mild cough. Related Data Home Medications Medication Instructions Recorded Confirmed cetirizine 10 mg capsule (Zyrtec) 10 mg PO DAILY PRN Allergy Symptoms 09/04/20 09/04/20 docusate sodium 100 mg capsule 100 mg PO DAILY 09/04/20 09/04/20 (Colace) omeprazole magnesium 20 mg 20 mg PO DAILY 09/04/20 09/04/20 capsule,delayed release (Acid Senior Production Planner (omeprazole)) Allergies Allergy/AdvReac Type Severity Reaction Status Date / Time No Known Allergies Allergy Verified 06/02/22 22:36 [facility] Past Medical History Medical History Anxiety Asthma Depression Endometriosis Hypothyroid Pelvic pain Surgical History Surgical History No significant past surgical history Social History Social History Smoking status: Light tobacco smoker Tobacco type: cigarettes Second hand tobacco smoke exposure: No Additional smoking assessment comments: Only smoked socially and infrequently Gender identity (if verbalized by the patient): Female Exam Narrative: APPEARANCE: No apparent distress. Head: atraumatic. EYES: EOMI, NOSE: Atraumatic NECK: Trachea midline RESPIRATORY: No increased rate of breathing, clear to auscultation, 100% on room air, CARDIOVASCULAR: RRR, no peripheral edema ABDOMINAL: Non-distended, soft nontender no guarding rebound MUSCULOSKELETAl: No obvious deformities NEURO: Alert. Moving 4/4 extremities SKIN:: Warm, dry. Normal color PSYCHIATRIC: Normal affect Course Vital Signs Vital signs: Vital Signs Temperature 97.7 F 06/02/22 22:39 Pulse Rate 86 06/02/22 22:39 Respiratory Rate 18 06/02/22 22:39 Blood Pressure 125/87 06/02/22 22:39 Pulse Oximetry 99 06/02/22 22:39 Temperature 97.7 F 06/02/22 22:39 Pulse Rate 65 06/03/22 00:02 Respiratory Rate 15 06/03/22 00:02 Blood Pressure 109/62 06/03/22 00:32 Pulse Oximetry 100 06/03/22 00:02 Medical Decision Making MDM Narrative Medical decision making narrative: -Presentation: 26-year-old female presenting with left-sided chest pain in the setting of recent URI. -DDX includes but is not limited to: Bronchitis, pleurisy, ACS, PE -Co-morbidities complicating care: anxiety, hypothyroid, endometriosis, recent viral infection -Social determinants of health: patient is unemployed. She lives with her fiancee and children -External Chart Review: previous ER records -Hx from independent Sources: Shayla xiao at bedside -Discussion of Management/Consultants: none -Independent interpretation of studies: CBC within normal limits. Metabolic panel is unremarkable. Troponins were negative. Independent EKG interpretation: Rhythm [sinus], Rate [71], [place] -[normal], [place] -[normal], QRS [narrow], QTC [normal], T waves -[negative for concerning inversions], ST Segments - [Negative for concerning elevations] Final interpretations: [Normal Sinus Rhythm] Chest x-ray showed no acute Cardiopulmonary process. Dx tests considered but not orde
[2022-06-03 00:32] VITALS: BP 109/62
[2022-06-03] MEDS: KETOROLAC 30 MG/ML VIAL (*BKC) 15 MG IM (00:43)
[2022-06-03] MEDS: ACETAMINOPHEN 500 MG TABLET 1000 MG PO (00:44)
[2022-06-03 00:58] VITALS: BP 106/69; PULSE 65; RESP 18; TEMP 36.6; O2SAT 99
== END 2022-06-03 00:59 | disposition home or self-care (01) ==
PROVIDERS: Emergency Provider Emergency Medicine; PCP Internal Medicine
DX: R07.9 Chest pain, unspecified (principal); F41.9 Anxiety disorder, unspecified; F32.A Depression, unspecified; E03.9 Hypothyroidism, unspecified; N80.9 Endometriosis, unspecified; F17.210 Nicotine dependence, cigarettes, uncomplicated
CPT/HCPCS: 36415; 71046; 80053; 83690; 84484; 85025; 93005; 96372; 99284; A9270; J1885

== ENCOUNTER 2022-07-24 15:48 | Emergency (ER) | payer OTHER, SELFPAY ==
--- NOTE | ~2022-07-24 | XR_ITS ---
Clinical Indication: Chest pain PA and lateral views of the chest: Comparison: None Findings: The lungs are clear, without evidence of focal consolidation or pleural effusion. Cardiome diastinal silhouette is within normal limits. Bones and soft tissues are unremarkable. Impression: Normal chest. Reviewed, dictated and finalized at location . Impression: Normal chest.
--- NOTE | 2022-07-24 15:59 | ECG_ITS ---
Measurements Intervals [place] Rate: 64 P: 3 [place]: 194 QRS: 23 QRSD: 89 T: 20 QT: 382 QTc: 396 Interpretive Statements SINUS RHYTHM WITH SINUS ARRHYTHMIA COMPARED TO ECG 06/02/2022 22:46:37 SINUS ARRHYTHMIA NOW PRESENT Electronically Signed On 07-25-2022 13:44:57 CDT by Silva Gabriel M.D.
[2022-07-24 20:11] VITALS: BP 136/75; PULSE 61; RESP 16; O2SAT 100
--- NOTE | 2022-07-25 01:34 | ED.CHESTPAIN ---
HPI - Chest Pain General Chief Complaint: Chest Pain History of Present Illness HPI narrative: Patient is a 26-year-old female here for evaluation of mid chest pain x1 day. Patient states the pain is worse with deep breaths and with certain positions. History of costochondritis and states feels similar. Took Tylenol without relief of her symptoms. She denies any shortness of breath, cough, vomiting, abdominal pain, fevers or chills. No leg swelling or pain. She does not take control pills denies chance of . Related Data Home Medications Medication Instructions Recorded Confirmed cetirizine 10 mg capsule (Zyrtec) 10 mg PO DAILY PRN Allergy Symptoms 09/04/20 09/04/20 docusate sodium 100 mg capsule 100 mg PO DAILY 09/04/20 09/04/20 (Colace) omeprazole magnesium 20 mg 20 mg PO DAILY 09/04/20 09/04/20 capsule,delayed release (Acid Burglar Alarm Installer (omeprazole)) Allergies Allergy/AdvReac Type Severity Reaction Status Date / Time No Known Allergies Allergy Verified 06/02/22 22:36 Review of Systems Review of Systems: Gen.: Denies fevers or chills Eyes: Denies eye pain or visual change ENT: Denies congestion Respiratory: Denies shortness of breath or cough CV: Reports chest pain GI: Denies abdominal pain nausea, emesis or diarrhea denies burning, urgency, frequency or hematuria Musculoskeletal: Denies back pain or muscle pain Neuro: Denies numbness, tingling, weakness or focal weakness Skin: Denies rash Except as documented, all other systems reviewed and negative PMFSH Past Medical History Medical History Anxiety Asthma Depression Endometriosis Hypothyroid Pelvic pain Surgical History Surgical History No significant past surgical history Social History Social History Smoking status: Light tobacco smoker Tobacco type: cigarettes Second hand tobacco smoke exposure: No Additional smoking assessment comments: Only smoked socially and infrequently Gender identity (if verbalized by the patient): Female Exam Narrative: APPEARANCE: Well appearing, no pain in distress, well-nourished. Head: Normocephalic and atraumatic. EYES: PERRLA/EOMI, conjunctivae clear NOSE: No nasal drainage EARS: External ear normal in appearance THROAT: Oropharynx is clear. Mucous membranes are moist. NECK: Supple. No adenopathy, no masses. RESPIRATORY: Airway patent, respirations nonlabored. Clear to auscultation bilaterally, no rales, rhonchi, wheezing. CARDIOVASCULAR: Regular rate and rhythm without murmurs, rubs, or gallops. ABDOMINAL: Normoactive bowel sounds. Soft, nontender, nondistended. No rebound tenderness or guarding. MUSCULOSKELETAL: There is reproducible tenderness to the left anterior chest wall in the middle of the sternum. Extremities are warm and well-perfused. Moves all extremities well. No edema. NEURO: Normal speech. No focal neurologic deficits. SKIN: Skin is warm and dry. No rashes. PSYCHIATRIC: Normal affect/mood.. Course Vital Signs Vital signs: Vital Signs Pulse Rate 61 07/24/22 20:11 Respiratory Rate 16 07/24/22 20:11 Blood Pressure 136/75 07/24/22 20:11 Pulse Oximetry 100 07/24/22 20:11 Pulse Rate 61 07/24/22 20:11 Respiratory Rate 16 07/24/22 20:11 Blood Pressure 136/75 07/24/22 20:11 Pulse Oximetry 100 07/24/22 20:11 MDM - Chest Pain MDM Narrative Medical decision making narrative: 26-year-old female here for evaluation of central chest pain. Reproducible on palpation of the chest. Labs, EKG, chest x-ray reassuring. D-dimer is negative, patient is PERC negative, doubt PE. Feeling improved after NSAIDs. Likely costochondritis. Advised PMD follow-up and we discussed return precautions. Discharge Plan Discharge Clinical Impression: [place]
[2022-07-25 12:40] LABS: Basophils Absolute Auto 0.1 K/mm3 (0.0-0.1); Basophils Percent Auto 0.7 % (0.2-1.2); Eosinophils Absolute Auto 0.5 K/mm3 (0-0.3); Hematocrit 35.8 % (37.0-47.0); Hemoglobin 11.4 g/dL (12.0-15.0); Immature Granulocyte Absolute 0.01 K/mm3 (0.00-0.031); Immature Granulocyte Percent A 0.1 % (0-0.5); Lymphocytes Absolute Auto 1.86 K/mm3 (0.9-3.2); Lymphocytes Percent Auto 27.3 % (18.3-44.2); Mean Corpuscular HGB Conc 31.8 g/dl (32-36); Mean Corpuscular Hemoglobin 27.9 pg (26-34); Mean Corpuscular Volume 87.7 fl (80-100); Mean Platelet Volume 11.2 fl (7.4-10.4); Monocytes Absolute Auto 0.4 K/mm3 (0.1-0.6); Monocytes Percent Auto 5.7 % (2.6-8.5); Neutrophils Percent Auto 59.2 % (45.5-73.1); Platelet Count Result 237 k/mm3 (150-375); Red Blood Count 4.08 M/mm3 (4.2-5.4); Red Cell Distribution Width 14.5 % (11.5-14.5); White Blood Count 6.8 K/mm3 (4.5-10.0)
[2022-07-25 17:27] LABS: Alanine Aminotransferase 20 U/L (6-35); Albumin Level 4.3 g/dL (3.5-5.1); Alkaline Phosphatase 74 U/L (38-126); Anion Gap 5 mmol/L (8-16); Aspartate Amino Transferase 20 U/L (14-36); Bilirubin,Total 0.3 mg/dL (0.2-1.3); Blood Urea Nitrogen 17 mg/dL (7-17); Calcium 8.9 mg/dL (8.4-10.2); Carbon Dioxide 28 mmol/L (22-30); Chloride 105 mmol/L (98-107); Estimated Glomerular Filt Rate > 60; Glucose 85 mg/dL (65-110); Lipase 91 U/L (23-300); Potassium 4.2 mmol/L (3.4-5.0); Sodium 138 mmol/L (137-145); Troponin I < 0.012 ng/mL (0.000-0.034)
[2022-07-25 22:51] LABS: D Dimer < 0.27 ug/mL (<0.48)
[2022-07-26 01:19] LABS: Appearance Urine Clear (Clear); Bilirubin Urine Negative (Negative); Blood Urine Negative (Negative); Color Urine Yellow (Yellow); Glucose Urine UA Negative (Negative); Ketones Urine Negative (Negative); Leukocyte Esterase Ur Negative LEU/UL (Negative); Nitrate Urine Negative (Negative); Protein Urine Negative (Negative); Specific Grav Ur 1.027 (1.001-1.035); Urobilinogen Urine 0.2 mg/dL (<2.0)
[2022-07-26 01:21] LABS: Add Urine Microscopic? NO
== END 2022-07-24 20:12 | disposition home or self-care (01) ==
PROVIDERS: Emergency Provider Physician Assistant; PCP Internal Medicine
DX: M94.0 Chondrocostal junction syndrome [Tietze] (principal); F17.210 Nicotine dependence, cigarettes, uncomplicated; K21.9 Gastro-esophageal reflux disease without esophagitis
CPT/HCPCS: 36415; 71046; 80053; 81003; 83690; 84484; 85025; 85380; 93005; 99284; J1885

== ENCOUNTER 2022-11-20 21:52 | Emergency (ER) | payer OTHER, SELFPAY ==
--- NOTE | ~2022-11-20 | US_ITS ---
Pelvic ultrasound. Clinical History: Right ovarian cyst Technique: Realtime transabdominal and transvaginal scanning of the pelvis was performed. Color flow Doppler and Doppler spectral analysis were performed. Findings: The uterus is anteverted. The endometrial stripe has a thickness of 11 mm. No focal mass i s identified. The right ovary measures 2.0 x 3.6 x 2.1 cm. No significant right ovarian or adnexal mass is seen. The left ovary measures 3.5 x 2.2 x 1.8 cm. No significant left ovarian or adnexal mass is seen. Vascular flow present in both ovaries on Doppler spectral analysis. There is no evidence of free fluid in the cul de sac. Impression: Unremarkable pelvic ultrasound. Reviewed, dictated and finalized at [facility]. Impression: Unremarkable pelvic ultrasound.
--- NOTE | ~2022-11-20 | CT_ITS ---
CT of the Abdomen and Pelvis: Indication: Right lower quadrant pain Technique: 2.5 mm axial scans were obtained through the abdomen and pelvis following intravenous adm inistration of 100 cc of Omnipaque 350. Dose reduction technique was used on this scan by utilizing a utomated exposure control and iterative reconstruction technique. The dose-length product (DLP) was 1 267.20 mGy-cm. COMPARISON: 07/16/2021 Findings: Scans through the lung bases are unremarkable. The liver, spleen, pancreas, gallbladder, adrenals and kidneys are within normal limits. No evidence of aortic aneurysm. No lymphadenopathy. No bowel obstruction or bowel wall thickening. There is no evidence to suggest acute appendicitis. Images through the pelvis were performed. No adnexal mass seen. Urinary bladder unremarkable. No asci amparo. Impression: No significant abnormalities seen. Reviewed, dictated and finalized at [facility]. Impression: No significant abnormalities seen.
[2022-11-20 21:55] VITALS: BP 142/88; PULSE 89; RESP 18; TEMP 36.4; O2SAT 99
[2022-11-20 22:48] VITALS: BP 105/65; PULSE 79; RESP 12; TEMP 37.2; O2SAT 100
[2022-11-20 23:16] LABS: Appearance Urine Cloudy (Clear); Bacteria Urine 2+ /hpf; Bilirubin Urine Negative (Negative); Blood Urine Negative (Negative); Color Urine Yellow (Yellow); Glucose Urine UA Negative (Negative); Ketones Urine Negative (Negative); Leukocyte Esterase Ur 1+ LEU/UL (Negative); Need Manual Microscopic Reviewed; Nitrate Urine Negative (Negative); Non Pathogenic Casts 0-2; Protein Urine Trace mg/dL (Negative); Specific Grav Ur 1.029 (1.001-1.035); Squamous Epithelial Cell Urine Few /hpf (Few); Urobilinogen Urine 0.2 mg/dL (<2.0); WBC Urine 21-50 /hpf
[2022-11-20 23:18] LABS: Basophils Absolute Auto 0.1 K/mm3 (0.0-0.1); Basophils Percent Auto 0.5 % (0.2-1.2); Eosinophils Absolute Auto 0.5 K/mm3 (0-0.3); Eosinophils Percent Auto 5.8 % (0-4.4); Hematocrit 36.7 % (37.0-47.0); Immature Granulocyte Absolute 0.02 K/mm3 (0.00-0.031); Immature Granulocyte Percent A 0.2 % (0-0.5); Lymphocytes Absolute Auto 2.41 K/mm3 (0.9-3.2); Lymphocytes Percent Auto 25.9 % (18.3-44.2); Mean Corpuscular HGB Conc 32.7 g/dl (32-36); Mean Corpuscular Volume 85.7 fl (80-100); Mean Platelet Volume 12.1 fl (7.4-10.4); Monocytes Absolute Auto 0.6 K/mm3 (0.1-0.6); Monocytes Percent Auto 6.4 % (2.6-8.5); Neutrophils Absolute Auto 5.7 K/mm3 (1.3-6.7); Neutrophils Percent Auto 61.2 % (45.5-73.1); Platelet Count Result 259 k/mm3 (150-375); Red Blood Count 4.28 M/mm3 (4.2-5.4); Red Cell Distribution Width 14.8 % (11.5-14.5); White Blood Count 9.3 K/mm3 (4.5-10.0)
[2022-11-20 23:19] LABS: Add Urine Microscopic? YES
[2022-11-20 23:29] LABS: Alanine Aminotransferase 19 U/L (6-35); Albumin Level 4.5 g/dL (3.5-5.1); Alkaline Phosphatase 62 U/L (38-126); Anion Gap 9 mmol/L (8-16); Aspartate Amino Transferase 22 U/L (14-36); Bilirubin,Total 0.5 mg/dL (0.2-1.3); Blood Urea Nitrogen 17 mg/dL (7-17); Carbon Dioxide 25 mmol/L (22-30); Chloride 104 mmol/L (98-107); Estimated CRCL calculation 82 ml/min; Estimated Glomerular Filt Rate 54; Glucose 82 mg/dL (65-110); Lipase 222 U/L (23-300); Potassium 3.9 mmol/L (3.4-5.0); Sodium 138 mmol/L (137-145)
--- NOTE | 2022-11-20 23:51 | ED.ABDPAIN ---
HPI - Abdominal Pain General Chief Complaint: Abdominal Pain <OSVALDO Terry Last Filed: 11/21/22 03:56> Stated Complaint: abd pain <OSVALDO Terry Last Filed: 11/21/22 03:56> Time Seen by Provider: 11/20/22 23:03 <OSVALDO Terry Last Filed: 11/21/22 03:56> Source: patient <OSVALDO Terry Last Filed: 11/21/22 03:56> Mode of arrival: ambulatory <OSVALDO Terry Last Filed: 11/21/22 03:56> Limitations: no limitations <OSVALDO Terry Last Filed: 11/21/22 03:56> History of Present Illness HPI narrative: Patient is a 26-year-old female who presents to the ED with report of right lower quadrant abdominal pain. Patient reports she woke up this morning with mild cramping in her lower abdomen. She states pain somewhat radiated to her umbilical region and has since localized to her right lower abdomen. She reports nausea throughout the day and 1 episode of rectal bleeding after straining on the toilet for several minutes. Denies fever, vomiting, diarrhea, urinary sx's. <OSVALDO Terry Last Filed: 11/21/22 03:56> Related Data Home Medications: Home Medications Medication Instructions Recorded Confirmed cetirizine 10 mg capsule (Zyrtec) 10 mg PO DAILY PRN Allergy Symptoms 09/04/20 09/04/22 omeprazole magnesium 20 mg 40 mg PO DAILY 09/04/22 09/04/22 capsule,delayed release (Acid Alarm Mechanism Adjuster (omeprazole)) quetiapine 25 mg tablet 25 mg PO .COMPLEX 09/04/22 09/04/22 <OSVALDO Terry Last Filed: 11/21/22 03:56> Allergies/Adverse Reactions: Allergies Allergy/AdvReac Type Severity Reaction Status Date / Time No Known Allergies Allergy Verified 11/20/22 21:58 <OSVALDO Terry Last Filed: 11/21/22 03:56> Review of Systems Review of Systems: CONSTITUTIONAL: Denies fever, chills, or sweats. CARDIOVASCULAR: Denies chest pain. RESPIRATORY: Denies dyspnea. GASTROINTESTINAL: See HPI. GENITOURINARY: Denies dysuria or hematuria. SKIN: Denies rash or itching. MUSCULOSKELETAL: Denies back pain, joint pain, or myalgia. <Keke Arthur PA-C - Last Filed: 11/21/22 03:56> All systems reviewed & are unremarkable except as noted in HPI and below <Keke Arthur PA-C - Last Filed: 11/21/22 03:56> [facility] Past Medical History Medical History: Medical History Anxiety Asthma Depression Endometriosis Hypothyroid Pelvic pain <Keke Arthur PA-C - Last Filed: 11/21/22 03:56> Surgical History Surgical History: Surgical History No significant past surgical history <Keke Arthur PA-C - Last Filed: 11/21/22 03:56> Social History Social History: Social History Smoking status: Former smoker Tobacco type: cigarettes Second hand tobacco smoke exposure: No Smoking end date: 02/10/18 Additional smoking assessment comments: Only smoked socially and infrequently Alcohol intake: never Substance use: never Substance use type: does not use Living arrangements: with family Occupation/Education: unemployed Gender identity (if verbalized by the patient): Female <Keke Arthur PA-C - Last Filed: 11/21/22 03:56> Exam Narrative: GENERAL: Well appearing, obese with BMI of 39.0, non-toxic, in no acute distress. HEAD: Normocephalic, atraumatic. NECK: Supple. No adenopathy, no masses. RESPIRATORY: Airway patent, respirations nonlabored. Clear to auscultation bilaterally, no rales, rhonchi, wheezing. CARDIOVASCULAR: Regular rate and rhythm without murmurs, rubs, or gallops. Radial pulses 2+ and equal bilaterally. ABDOMINAL: Soft, focal tenderness in right lower quadrant, reproduction of pain with palpation in left lower abd
[2022-11-21] VITALS (24 sets, daily range): BP systolic 109–125; BP diastolic 55–95; PULSE 50–79; RESP 12–24; TEMP 36.6; O2SAT 98–100
[2022-11-21] MEDS: ACETAMINOPHEN 500 MG TABLET 1000 MG PO
[2022-11-21] MEDS: SODIUM CHLORIDE 0.9% IV 1,000 ML 999 ML IV CONT ×2 (00:02→02:53)
[2022-11-21] MEDS: MORPHINE SULFATE (*CRX) 2 MG/ML INJ IV PUSH (02:55)
[2022-11-21] MEDS: MORPHINE SULFATE (*CRX) 4 MG/ML INJ IV PUSH (05:08)
[2022-11-21] MEDS: ONDANSETRON INJ 4 MG/2 ML VIAL IV PUSH ×2 (05:08)
== END 2022-11-21 06:45 | disposition home or self-care (01) ==
PROVIDERS: Emergency Provider Emergency Medicine; PCP Internal Medicine
DX: N30.01 Acute cystitis with hematuria (principal); N83.201 Unspecified ovarian cyst, right side; J45.909 Unspecified asthma, uncomplicated; E03.9 Hypothyroidism, unspecified; N80.9 Endometriosis, unspecified; F32.A Depression, unspecified; F41.9 Anxiety disorder, unspecified; Z87.891 Personal history of nicotine dependence
CPT/HCPCS: 36415; 74177; 76830; 76856; 80053; 81001; 81025; 83690; 85025; 87086; 87088; 96361; 96374; 96375; 96376; 99284; A9270; J2270; J2405; J7030; Q9967

== ENCOUNTER 2022-12-30 16:12 | Outpatient (CLI) | payer OTHER, SELFPAY ==
[2022-12-30 16:50] LABS: Basophils Absolute Auto 0.1 K/mm3 (0.0-0.1); Basophils Percent Auto 0.6 % (0.2-1.2); Eosinophils Absolute Auto 0.4 K/mm3 (0-0.3); Eosinophils Percent Auto 4.6 % (0-4.4); Hematocrit 34.9 % (37.0-47.0); Hemoglobin 11.2 g/dL (12.0-15.0); Immature Granulocyte Absolute 0.04 K/mm3 (0.00-0.031); Immature Granulocyte Percent A 0.5 % (0-0.5); Lymphocytes Absolute Auto 1.54 K/mm3 (0.9-3.2); Lymphocytes Percent Auto 17.4 % (18.3-44.2); Mean Corpuscular HGB Conc 32.1 g/dl (32-36); Mean Corpuscular Hemoglobin 28.2 pg (26-34); Mean Corpuscular Volume 87.9 fl (80-100); Mean Platelet Volume 11.5 fl (7.4-10.4); Monocytes Absolute Auto 0.4 K/mm3 (0.1-0.6); Monocytes Percent Auto 4.5 % (2.6-8.5); Neutrophils Absolute Auto 6.4 K/mm3 (1.3-6.7); Neutrophils Percent Auto 72.4 % (45.5-73.1); Platelet Count Result 249 k/mm3 (150-375); Red Blood Count 3.97 M/mm3 (4.2-5.4); Red Cell Distribution Width 14.8 % (11.5-14.5); White Blood Count 8.8 K/mm3 (4.5-10.0)
[2022-12-30 17:05] LABS: Alanine Aminotransferase 18 U/L (6-35); Albumin Level 4.2 g/dL (3.5-5.1); Alkaline Phosphatase 62 U/L (38-126); Anion Gap 8 mmol/L (8-16); Aspartate Amino Transferase 21 U/L (14-36); Bilirubin,Total 0.3 mg/dL (0.2-1.3); Blood Urea Nitrogen 17 mg/dL (7-17); CRP 0.7 mg/dL (<1.0); Calcium 8.5 mg/dL (8.4-10.2); Carbon Dioxide 25 mmol/L (22-30); Chloride 106 mmol/L (98-107); Estimated Glomerular Filt Rate > 60; Glucose 117 mg/dL (65-110); Potassium 3.8 mmol/L (3.4-5.0); Sodium 139 mmol/L (137-145)
[2022-12-30 17:34] LABS: Free T4 Free Thyroxine 1.26 ng/mL (0.78-2.19)
[2022-12-30 17:48] LABS: Hepatitis B Surface Antigen Negative (Negative)
[2022-12-30 18:05] LABS: Hepatitis C Virus Antibody Negative (Negative)
== END 2022-12-30 16:13 | disposition home or self-care (01) ==
LOC: ANHLAB 16:13
PROVIDERS: PCP Internal Medicine; Visit Provider Internal Medicine
DX: M25.50 Pain in unspecified joint (principal); Z20.9 Contact with and (suspected) exposure to unspecified communicable disease
CPT/HCPCS: 36415; 80053; 84439; 84443; 85025; 86140; 86803; 87340

== ENCOUNTER 2023-01-23 01:40 | Day surgery (SDC) | payer OTHER, SELFPAY ==
[2023-01-21 15:41] VITALS: BMI 39.1
--- NOTE | 2023-01-21 15:45 | PC.NURSE ---
Report to the Outpatient Waiting Room, entrance under the green pavilion located off [facility], at time 0600 on date 01/23/23. Planned Procedure Time: 0730. Time changes happen often and if your time is changed the preop area will call you the afternoon before. - You and your visitor will be asked to self-screen and do not enter if you have any COVID symptoms. - A mask is optional within the hospital at this time. Patients may have clear liquids (water, carbonated beverages, clear teas, apple juice) until 3 hours prior to surgery with a maximum of 20 ounces. - No food from midnight until time of surgery Take the following medications with a SIP of water the morning of surgery: TYLENOL IF NEEDED DO NOT STOP ANY OF YOUR OTHER PRESCRIPTION MEDICATIONS PRIOR TO SURGERY ?EXCEPT THE FOLLOWING Medications to discontinue per physician: N/A Date to take last dose: N/A Please no make-up, nail salvadorean, hairspray, perfume, deodorant, or body powder the day of surgery. No jewelry (including any body piercings) or valuables the day of surgery, leave them at home. Please take a shower or bath the night before, or the morning of, surgery with an antibacterial soap. Wear comfortable, loose fitting clothing. - Jewelry must be removed prior to entering the operating room. Rings and piercings that are not removed may be cut off. - The hospital will not accept responsibility for valuables. - Please leave all valuables, including medications, at home the day of surgery. If you are going home after surgery, a licensed refrigerated national truck driver must drive you home. - NO public transportation without another adult if you receive anesthesia. - We recommend that an adult stay with you for 24 hours following discharge. - We also recommend that you do not drive, make important decision, drink alcoholic beverages, or take any drugs that were not prescribed by your health care provider for at least 24 hours after your discharge time. Follow any additional instructions given to you from your surgeon. If you or anyone in your household have experienced Covid symptoms in the past week, please notify your surgeon or the nurse liaison at the phone number below for possible testing. Telephone instructions given to PT - JOSE CARLOS DAWN and asked if any additional questions and then verbalized understanding. Patient advised to call surgeon office or pre surgery nurse liaison [phone] if any additional questions.
[2023-01-23 06:08] VITALS: BP 121/69; PULSE 77; RESP 20; TEMP 36.1; O2SAT 99
[2023-01-23] MEDS: LACTATED RINGERS 1,000 ML 30 ML IV CONT (06:25)
--- NOTE | 2023-01-23 06:27 | WPDANESEPPF ---
Anes - Initial Pre Proc Eval Procedure: Operation Date: 01/23/23 07:30 Proposed Procedures p Excision Left Dorsal Wrist Ganglion Cyst - Sebastián Gibbs MD Date/Time: 01/23/23 06:27 Surgeon: Sebastián Gibbs MD Pre Op Diagnosis: left dorsal wrist ganglion cyst Patient Data Age: 27 Gender: F Height: 1.7 m Weight: 113.4 kg Allergies Allergy/AdvReac Type Severity Reaction Status Date / Time No Known Allergies Allergy Verified 01/21/23 15:41 Home Medications Medication Instructions Recorded Confirmed Type cetirizine 10 mg capsule (Zyrtec) 10 mg PO DAILY PRN Allergy Symptoms 09/04/20 01/23/23 History ibuprofen 800 mg tablet 800 mg PO TID PRN pain 7 days #21 06/03/22 01/21/23 Rx tabs acetaminophen 500 mg tablet 1,000 mg PO TID PRN Pain 01/08/23 01/23/23 History duloxetine 60 mg capsule,delayed 60 mg PO HS 01/08/23 01/23/23 History release Patient hx anesthesia problems: none Family hx anesthesia problems: none Results Review: All pre-operative results and documents have been reviewed as part of the pre-operative evaluation. [facility] Past Medical History Medical History (Updated 01/23/23 @ 06:30 by Gato Stallings MD) Anxiety Asthma Depression Endometriosis Hypothyroid Morbid obesity Pelvic pain Surgical History Surgical History No significant past surgical history Social History Social History Smoking status: Former smoker Tobacco type: cigarettes Second hand tobacco smoke exposure: No Smoking end date: 01/08/19 Additional smoking assessment comments: FORMER SOCIAL SMOKER Alcohol intake: never Substance use: current Substance use type: marijuana Other substance usage details: marijuana daily Living arrangements: with family Additional living arrangements comments: BOYFRIEND, CHILDREN Occupation/Education: unemployed Gender identity (if verbalized by the patient): Female Spiritual care concerns: No Anes - Eval Final PreProcedure Day of Procedure 01/23/23 06:27 Patient weight: morbidly obese Heart: regular rate and rhythm Lungs: clear to auscultation Airway: Mallampati scale class II Neurological: alert and oriented Last oral intake: >/= 8 hours ASA classification: III Emergent: no Anesthetic plan: proceed Anesthesia type and monitoring: general GIVS and standard monitoring Results Review: All pre-operative results and documents have been reviewed as part of the pre-operative evaluation. Informed Consent: The patient's anesthetic plan and its attendant risks and benefits were discussed with the patient/family/POA. Questions were solicited and answers provided to the satisfaction of the patient/family/POA.
--- NOTE | 2023-01-23 07:16 | WPDHPUPDATE1 ---
History and Physical Update Update Date/Time: 01/23/23 07:16 History and Physical has been reviewed, including an updated exam of the patient. There are NO changes in the patient's condition. Risks, benefits, and alternatives have been discussed and questions answered. Patient agrees to proceed with procedure.
[2023-01-23] MEDS: LIDO 1%/EPINEPHRINE 1:100,000 50 ML VIAL 10 ML INFILTRATE (07:52)
[2023-01-23 08:19] VITALS: BP 116/83; PULSE 91; RESP 12; O2SAT 100
--- NOTE | 2023-01-23 08:25 | W.PM.PROC2 ---
Procedure Note - Detailed Date of Procedure 01/23/23 Pre-op Diagnosis left dorsal wrist ganglion cyst Post-op Diagnosis Same Procedure Performed Excision of left dorsal wrist ganglion cyst Surgeon Sebastián Gibbs MD Anesthesia MAC Description of Procedure The mass on the dorsal left volar wrist was marked with the patient's consent in the holding area. She was taken to the operating room where she was placed supine on the operating table. The patient was given IV sedation and the site was prepped and draped in usual fashion. The site was marked again for the incision and locally infiltrated with 1% lidocaine with epinephrine. The extremity was exsanguinated the tourniquet inflated to 250 mmHg. The transverse incision was made and blunt dissection through the subcutaneous tissue revealed the cyst. This was over a cm in diameter. The dense stock the extended to the radiocarpal joint. The cyst was dissected largely with blunt dissection to free it to the base. The base was avulsed. To 3-0 Ethibond [id number] sutures were placed at the origin. This did not impede passive flexion of the wrist. The wound was closed in layers with 4-0 Monocryl suture. The usual bandage was applied she is discharged with instructions in wound care and follow-up. Tourniquet time was 25 minutes a prescription for hydrocodone 5/325 4. Was sent to her pharmacy. Estimated Blood Loss -1.0 Tourniquet Time 25 Drains No Packing No Pathology None sent Complications No immediate complications Condition Stable Disposition Same day
[2023-01-23] MEDS: oxyCODONE HCL (*CRX) 5 MG TAB IR PO (08:38)
[2023-01-23 08:45] VITALS: BP 110/58; PULSE 88; RESP 20
[2023-01-23 09:15] VITALS: BP 120/48; PULSE 71; RESP 20
== END 2023-01-23 09:27 | disposition home or self-care (01) ==
PROVIDERS: PCP Internal Medicine; Visit Provider Plastic Surgery
PROC: (CPT 25111; principal; 2023-01-23 07:30)
DX: M67.432 Ganglion, left wrist (principal); F41.9 Anxiety disorder, unspecified; F32.A Depression, unspecified; E66.01 Morbid (severe) obesity due to excess calories; Z68.38 Body mass index [BMI] 38.0-38.9, adult; Z87.891 Personal history of nicotine dependence; F12.90 Cannabis use, unspecified, uncomplicated
CPT/HCPCS: 25111; A9270; J2250; J2405; J2704; J3010; J7120

== ENCOUNTER 2023-07-18 16:11 | Emergency (ER) | payer OTHER, SELFPAY ==
[2023-07-18 16:17] VITALS: BP 134/66; PULSE 80; RESP 15; TEMP 36.1; O2SAT 96
--- NOTE | 2023-07-18 18:20 | ED.GENADULT ---
HPI - General Adult General Chief complaint: Headache Stated complaint: headache Time Seen by Provider: 07/18/23 17:58 History of Present Illness HPI narrative: this is a 27-year-old female presenting ED with chief complaint of headache x1 week headache is described as a tightness that wraps around her forehead and into the back of the head. She also has tension in her shoulders and neck. It was not maximal in onset it is not associated with neurologic deficits or loss of consciousness. Was not associated with exertional activity. patient denies fever chills or neck stiffness. Related Data Home Medications Medication Instructions Recorded Confirmed cetirizine 10 mg capsule (Zyrtec) 10 mg PO DAILY PRN Allergy Symptoms 09/04/20 01/23/23 acetaminophen 500 mg tablet 1,000 mg PO TID PRN Pain 01/08/23 01/23/23 duloxetine 60 mg capsule,delayed 60 mg PO HS 01/08/23 01/23/23 release Allergies Allergy/AdvReac Type Severity Reaction Status Date / Time No Known Allergies Allergy Verified 01/21/23 15:41 [facility] Past Medical History Medical History Anxiety Asthma Depression Endometriosis Hypothyroid Morbid obesity Pelvic pain Surgical History Surgical History No significant past surgical history Social History Social History Smoking status: Former smoker Tobacco type: cigarettes Second hand tobacco smoke exposure: No Smoking end date: 01/08/19 Additional smoking assessment comments: FORMER SOCIAL SMOKER Alcohol intake: never Substance use: current Substance use type: marijuana Other substance usage details: marijuana daily Living arrangements: with family Additional living arrangements comments: BOYFRIEND, CHILDREN Occupation/Education: unemployed Gender identity (if verbalized by the patient): Female Spiritual care concerns: No Exam Narrative: APPEARANCE: No apparent distress. well-appearing Head: atraumatic. EYES: EOMI, NOSE: Atraumatic NECK: Trachea midline No neck stiffness or meningismus RESPIRATORY: No increased rate of breathing CTAB CARDIOVASCULAR: RRR, ABDOMINAL: Non-distended MUSCULOSKELETAl: No obvious deformities NEURO: Alert. Cranial nerves 2-12 grossly intact. Sensation light touch, motor function cerebellar function intact for 4 extremities. Gait exam was normal. SKIN:: Warm, dry. Normal color PSYCHIATRIC: Normal affect Course Vital Signs Vital signs: Vital Signs Temperature 97 F L 07/18/23 16:17 Pulse Rate 80 07/18/23 16:17 Respiratory Rate 15 07/18/23 16:17 Blood Pressure 134/66 07/18/23 16:17 Pulse Oximetry 96 07/18/23 16:17 Temperature 97 F L 07/18/23 16:17 Pulse Rate 80 07/18/23 16:17 Respiratory Rate 15 07/18/23 16:17 Blood Pressure 134/66 07/18/23 16:17 Pulse Oximetry 96 07/18/23 16:17 Medical Decision Making MDM Narrative Medical decision making narrative: -Course: 27-year-old female presenting headache. HPI consistent w/ tension headache. No red flags on history or physical. Patient given migraine cocktail with improvement. Discharged with primary care follow-up -DDX includes but is not limited to: tension headache, migraine, subarachnoid hemorrhage, ICH, sinus headache -Co-morbidities complicating care: anxiety depression endometriosis -Social determinants of health: [id number] mom, lives with her children and grandparents -Interventions: Compazine, Toradol, Benadryl, Tylenol -Shared decision making / Disposition: discharge -RX Motrin Tylenol Vital Signs Vital Signs: Vital Signs Temperature 97 F L 07/18/23 16:17 Pulse Rate 80 07/18/23 16:17 Respiratory Rate 15 07/18/23 16:17 Blood Pressure 134/66 07/18/23 16:17 Pulse Oximetry 96 07/18/23 16:17 Temperature 97 F L 07/18/23 16:17 Pulse Rate 8
[2023-07-18] MEDS: diphenhydrAMINE HCl CAP 25 MG CAPSULE PO (18:26)
[2023-07-18] MEDS: ACETAMINOPHEN 500 MG TABLET 1000 MG PO (18:26)
[2023-07-18] MEDS: PROCHLORPERAZINE EDISYLATE 10 MG/2 ML VIAL IM (18:27)
[2023-07-18] MEDS: KETOROLAC 30 MG/ML VIAL (*BKC) IM (18:27)
[2023-07-18 18:28] VITALS: BP 113/52; PULSE 67; RESP 20; O2SAT 100
== END 2023-07-18 19:05 | disposition home or self-care (01) ==
PROVIDERS: Emergency Provider Emergency Medicine; PCP Internal Medicine
DX: G44.209 Tension-type headache, unspecified, not intractable (principal); F41.9 Anxiety disorder, unspecified; F32.A Depression, unspecified; Z87.891 Personal history of nicotine dependence; F12.90 Cannabis use, unspecified, uncomplicated
CPT/HCPCS: 96372; 99284; A9270; J0780; J1885

== ENCOUNTER 2024-01-12 17:22 | Emergency (ER) | payer OTHER, SELFPAY ==
--- NOTE | ~2024-01-12 | US_ITS ---
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 EAB worsening pain . Comparison: None. FINDINGS: INTRAUTERINE GESTATIONAL SAC: Not seen. YOLK SAC: Not seen. POLE: Not seen. UTERUS: The uterus measures 10.4x 5.3x 7.2 cm. in length which is within normal limits. No myometrial masses. Thickened endometrium which measures 1.4 cm is noted with no pole or gestational sac. FREE FLUID: None. OVARIES: Normal in size with the right measuring 3.4x 1.8x 1.8 cm. and the left measuring 3.7x 2.2x 2 .9 cm. Doppler flow is demonstrated within both ovaries. ADNEXAL MASSES: None. IMPRESSION: Thickened endometrium with no gestational sac or pole seen. No definite adnexal masses seen. Co rrelation with lab results for and follow-up is advised. Reviewed, dictated and finalized at location [facility]. 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 No definite a dnexal masses seen. Correlation with lab results for and follow-up is advised.
[2024-01-12 17:24] VITALS: BP 138/82; PULSE 70; RESP 18; TEMP 36.1; O2SAT 100
[2024-01-12 23:18] LABS: Basophils Absolute Auto 0.1 K/mm3 (0.0-0.1); Basophils Percent Auto 0.6 % (0.2-1.2); Eosinophils Absolute Auto 0.4 K/mm3 (0-0.3); Eosinophils Percent Auto 4.3 % (0-4.4); Hematocrit 33.9 % (37.0-47.0); Hemoglobin 11.3 g/dL (12.0-15.0); Immature Granulocyte Absolute 0.02 K/mm3 (0.00-0.031); Immature Granulocyte Percent A 0.2 % (0-0.5); Lymphocytes Percent Auto 22.9 % (18.3-44.2); Mean Corpuscular HGB Conc 33.3 g/dl (32-36); Mean Corpuscular Hemoglobin 29.7 pg (26-34); Mean Platelet Volume 11.3 fl (7.4-10.4); Monocytes Absolute Auto 0.4 K/mm3 (0.1-0.6); Monocytes Percent Auto 4.7 % (2.6-8.5); Neutrophils Absolute Auto 5.6 K/mm3 (1.3-6.7); Neutrophils Percent Auto 67.3 % (45.5-73.1); Platelet Count Result 260 k/mm3 (150-375); Red Blood Count 3.81 M/mm3 (4.2-5.4); Red Cell Distribution Width 14.4 % (11.5-14.5); White Blood Count 8.3 K/mm3 (4.5-10.0)
[2024-01-12 23:20] LABS: Alanine Aminotransferase 19 U/L (6-35); Albumin Level 4.2 g/dL (3.5-5.1); Alkaline Phosphatase 71 U/L (38-126); Anion Gap 4 mmol/L (4-12); Aspartate Amino Transferase 23 U/L (14-36); Bilirubin,Total 0.4 mg/dL (0.2-1.3); Blood Urea Nitrogen 10 mg/dL (7-17); Calcium 9.1 mg/dL (8.4-10.2); Carbon Dioxide 28 mmol/L (22-30); Chloride 106 mmol/L (98-107); Estimated CRCL calculation 122 ml/min; Estimated Glomerular Filt Rate > 60; Glucose 84 mg/dL (65-110); Potassium 3.9 mmol/L (3.4-5.0); Sodium 138 mmol/L (137-145)
[2024-01-12 23:28] VITALS: BP 120/69; PULSE 65; RESP 16; TEMP 36.7; O2SAT 100
--- NOTE | 2024-01-12 23:47 | ED_ITS ---
HPI - General Adult General Chief complaint: Abdominal Pain Stated complaint: day 6 medication Time Seen by Provider: 01/12/24 23:38 History of Present Illness HPI narrative: patient 28-year-old female who presents emergency department chief complaint of abdominal cramping. Patient reports that she underwent a medical and has been on the Astepro cell for the last 6 days patient states her bleeding has started to slow down but started having severe cramping in the abdomen today the patient reports that she has no vomiting denies fever patient reports [facility] but also she follows by Dr. Power with OBGYN Related Data Home Medications Medication Instructions Recorded Confirmed cetirizine 10 mg capsule (Zyrtec) 10 mg PO DAILY PRN Allergy Symptoms 09/04/20 01/23/23 acetaminophen 500 mg tablet 1,000 mg PO TID PRN Pain 01/08/23 01/23/23 duloxetine 60 mg capsule,delayed 60 mg PO HS 01/08/23 01/23/23 release Allergies Allergy/AdvReac Type Severity Reaction Status Date / Time No Known Allergies Allergy Verified 01/12/24 17:28 Review of Systems Review of Systems: A 10 system review of systems was completed on the patient and is negative except for what is stated in the HPI. Nursing and ancillary documentation was reviewed. [facility] Past Medical History Medical History Anxiety Asthma Depression Endometriosis Hypothyroid Morbid obesity Pelvic pain Surgical History Surgical History No significant past surgical history Social History Social History Smoking status: Former smoker Tobacco type: cigarettes Second hand tobacco smoke exposure: No Smoking end date: 01/08/19 Additional smoking assessment comments: FORMER SOCIAL SMOKER Alcohol intake: never Substance use: current Substance use type: marijuana Other substance usage details: marijuana daily Living arrangements: with family Additional living arrangements comments: BOYFRIEND, CHILDREN Occupation/Education: unemployed Gender identity (if verbalized by the patient): Female Spiritual care concerns: No Course Course Emergency Course: GENERAL: Well-appearing, well-nourished, and in no acute distress. HEAD: Normocephalic, atraumatic. EYES: PERRLA and EOMI. ENT: Nares clear, no rhinorrhea or epistaxis. Mucous membranes moist. NECK: Supple. CHEST: Clear to auscultation. No respiratory distress. HEART: Regular rate and rhythm. No murmur heard. Normal peripheral pulses. ABDOMEN: Soft, nontender, nondistended, normal active bowel sounds. EXTREMITIES: Normal range of motion. No edema. SKIN: Warm, dry, no rash. NEURO: No focal deficits. Alert and oriented x3. PSYCH: Normal mood and affect. Vital Signs Vital signs: Vital Signs Temperature 36.1 C L 01/12/24 17:24 Pulse Rate 70 01/12/24 17:24 Respiratory Rate 18 01/12/24 17:24 Blood Pressure 138/82 01/12/24 17:24 Pulse Oximetry 100 01/12/24 17:24 Oxygen Delivery Room Air 01/12/24 17:24 Temperature 36.7 C 01/12/24 23:28 Pulse Rate 65 01/12/24 23:28 Respiratory Rate 16 01/12/24 23:28 Blood Pressure 120/69 01/12/24 23:28 Pulse Oximetry 100 01/12/24 23:28 Oxygen Delivery Room Air 01/12/24 17:24 Medical Decision Making MDM Narrative Medical decision making narrative: differential diagnosis includes ectopic , incomplete , the patient is Rh positive hCG was 1743 Ob ultrasound showed Thickened endometrium with no gestational sac or pole seen. No definite adnexal masses seen. Correlation with lab results for and follow-up is advised. Vital Signs Vital Signs: Vital Signs Temperature 36.1 C L 01/12/24 17:24 Pulse Rate 70 01/12/24 17:24 Respiratory Rate 18 01/12/24 17:24 Blood Pressure 138/82 01/12/24 17:24 Pulse Oximetry 100 01/12/24 17:24 Oxygen Delivery Room Air 01/12/24 17:24 Temperature 36.7 C 01/12/24 23:28 Pulse Rate 65 01/12/24 23:28 Respiratory Rate 16 01/12/24 23:28 Blood Pressure 120/69 01/12/24 23:28 Pulse Oximetry 100 01/12/24 23:28 Oxygen Delivery Room Air 01/12/24 17:24 Lab Data 01/12/24 22:47 01/12/24 22:47 Labs: Lab Results 01/12/24 Range/Units 22:47 WBC 8.3 (4.5-10.0) K/mm3 RBC 3.81 L (4.2-5.4) M/mm3 Hgb 11.3 L (12.0-15.0) g/dL Hct 33.9 L (37.0-47.0) % MCV 89.0 (80-100) fl MCH 29.7 (26-34) pg MCHC 33.3 (32-36) g/dl RDW 14.4 (11.5-14.5) % Plt Count 260 (150-375) k/mm3 MPV 11.3 H (7.4-10.4) fl Immature Gran % (Auto) 0.2 (0-0.5) % Neut % (Auto) 67.3 (45.5-73.1) % Lymph % (Auto) 22.9 (18.3-44.2) % [place] % (Auto) 4.7 (2.6-8.5) % Eos % (Auto) 4.3 (0-4.4) % Baso % (Auto) 0.6 (0.2-1.2) % Lymph # (Auto) 1.90 (0.9-3.2) K/mm3 [place] # (Auto) 0.4 (0.1-0.6) K/mm3 Eos # (Auto) 0.4 H (0-0.3) K/mm3 Baso # (Auto) 0.1 (0.0-0.1) K/mm3 Abs Immat Gran (auto) 0.02 (0.00-0.031) K/mm3 Absolute Neuts (auto) 5.6 (1.3-6.7) K/mm3 Absolute Nucleated RBC 0.000 (0.0-0.012) K/mm3 Nucleated RBC % 0.0 (0.0-0.2) % Sodium 138 (137-145) mmol/L Potassium 3.9 (3.4-5.0) mmol/L Chloride 106 (98-107) mmol/L Carbon Dioxide 28 (22-30) mmol/L Anion Gap 4 (4-12) mmol/L BUN 10 D (7-17) mg/dL Creatinine 0.80 (0.7-1.0) mg/dL Estim Creat Clear Calc 122 ml/min Estimated GFR > 60 (59 - ) Glucose 84 (65-110) mg/dL Calcium 9.1 (8.4-10.2) mg/dL Total Bilirubin 0.4 (0.2-1.3) mg/dL AST 23 (14-36) U/L ALT 19 (6-35) U/L Alkaline Phosphatase 71 (38-126) U/L Total Protein 7.0 (6.3-8.2) g/dL Albumin 4.2 (3.5-5.1) g/dL Beta HCG, Quant 1743.70 mIU/ML Discharge Plan Discharge Clinical Impression: Threatened miscarriage Patient Disposition: Home, Self-Care Condition: Stable Instructions: Antibiotic Form, Threatened Miscarriage (ED) Additional Instructions: your quantitative test was 1743 the ultrasound showed no pole or gestational sac. It is recommended that you follow-up in 48 hours with your urology [facility]. Prescriptions: No Action Zyrtec 10 mg Capsule 10 mg PO DAILY PRN (Reason: Allergy Symptoms) acetaminophen 500 mg tablet 1,000 mg PO TID PRN (Reason: Pain) duloxetine 60 mg capsule,delayed release(DR/EC) 60 mg PO HS hydrocodone-acetaminophen 5-325 mg tablet 1 tablet PO Q6H PRN (Reason: pain) Qty: 4 0RF ibuprofen 800 mg tablet 800 mg PO TID PRN (Reason: pain) 7 Days Qty: 21 0RF acetaminophen 500 mg tablet 1,000 mg PO TID PRN (Reason: tim) 7 Days Qty: 42 0RF ibuprofen 800 mg tablet 800 mg PO TID PRN (Reason: pain) 7 Days Qty: 21 0RF Follow-up/Referrals: Gabe Power MD [Physician] - Miki Valentine MD [Primary Care Provider] - Time of Disposition: 23:50
== END 2024-01-13 00:04 | disposition home or self-care (01) ==
LOC: ANHED 23:51
PROVIDERS: Emergency Provider Emergency Medicine; PCP Internal Medicine
DX: O20.0 Threatened abortion (principal); E03.9 Hypothyroidism, unspecified; E66.01 Morbid (severe) obesity due to excess calories; Z68.41 Body mass index [BMI] 40.0-44.9, adult; J45.909 Unspecified asthma, uncomplicated; F41.8 Other specified anxiety disorders; Z87.891 Personal history of nicotine dependence
CPT/HCPCS: 36415; 76801; 80053; 84702; 85025; 85461; 86850; 86880; 86900; 86901; 86902; 99284

== ENCOUNTER 2024-05-31 11:26 | Outpatient (CLI) | payer OTHER, SELFPAY ==
[2024-05-31 12:18] LABS: Hematocrit 35.7 % (37.0-47.0); Hemoglobin 11.4 g/dL (12.0-15.0); Mean Corpuscular HGB Conc 31.9 g/dl (32-36); Mean Corpuscular Hemoglobin 27.8 pg (26-34); Mean Corpuscular Volume 87.1 fl (80-100); Mean Platelet Volume 11.3 fl (7.4-10.4); Platelet Count Result 281 k/mm3 (150-375); Red Cell Distribution Width 14.9 % (11.5-14.5); White Blood Count 8.3 K/mm3 (4.5-10.0)
[2024-05-31 12:27] LABS: Alanine Aminotransferase 19 U/L (6-35); Albumin Level 4.2 g/dL (3.5-5.1); Alkaline Phosphatase 80 U/L (38-126); Anion Gap 7 mmol/L (4-12); Aspartate Amino Transferase 19 U/L (14-36); Bilirubin,Total 0.3 mg/dL (0.2-1.3); Blood Urea Nitrogen 13 mg/dL (7-17); Calcium 8.9 mg/dL (8.4-10.2); Carbon Dioxide 26 mmol/L (22-30); Chloride 104 mmol/L (98-107); Estimated Glomerular Filt Rate > 60; Glucose 93 mg/dL (65-110); Potassium 4.5 mmol/L (3.4-5.0); Sodium 137 mmol/L (137-145)
[2024-05-31 13:08] LABS: HIV 1/2 Ab P24 Ag Result Negative (Negative)
[2024-05-31 13:09] LABS: Hemoglobin A1C 5.1 % (<5.7)
[2024-05-31 13:17] LABS: Hepatitis C Virus Antibody Negative (Negative)
--- OUTSIDE RECORDS SUMMARY | 2024-05-31 13:17 | XMS_ITS | Referral Summary ---
Author Organization [facility] Building [facility] Address [address] [place] [address] Care Team Providers Care Rn First Assistant Name Role Phone Miki Valentine MD Primary Care Provider [phone] Allergies No known active allergies Medications cholecalciferol (VITAMIN D-3) 2000 unit capsule Take 1 tablet by mouth daily Active cetirizine (ZyrTEC) 10 mg tablet Take 10 mg by mouth daily Active norethindrone (MICRONOR) 0.35 mg tablet Take 1 tablet by mouth daily 2 Active dicyclomine (BENTYL) 10 mg capsule Take 1-2 pills up to BID as needed for abdominal cramping 60 capsule 1 2 Active omeprazole (PriLOSEC) 20 mg capsule Take 1 capsule (20 mg total) by mouth daily 90 capsule 3 2 Active polyethylene glycol (MIRALAX) 17 gram packetIndicatio ns:constipation Take 1 capful/packet daily as needed for constipation management 90 packet 2 Active senna-docusate (PERICOLACE) 8.6-50 mg Take two pills nightly after dinner for slow transit constipation management. 180 tablet 3 2 Active simethicone (MYLICON) 125 mg chewable tablet Take 1 tablet (125 mg total) by mouth 4 (four) times a day as needed (cramping/bloati ng/gas) 120 tablet 5 2 Active lamoTRIgine (LaMICtal) 25 mg tablet 3 Active Trintellix 10 mg tablet 3 Active Active Problems Problem Noted Date Diagnosed Date Asymptomatic gallstones 01/22/2022 Chronic LUQ pain 01/22/2022 Irritable bowel syndrome with constipation 01/22 Slow gastric motility 01/22/2022 HELLP syndrome, delivered, current hospitalizati on 09/07/2020 Resolved Problems Problem Noted Date Diagnosed Date Resolved Date Abdominal cramping 11/14/2021 2 Overview (11/14/2021): Added automatically from request for surgery [id number] LUQ abdominal pain 11/14/2021 2 Overview (11/14/2021): Added automatically from request for surgery [id number] Epigastric pain 11/14/2021 01/22/2022 Overview (11/14/2021): Added automatically from request for surgery [id number] Gastroesophageal reflux disease 11/14/2021 01/22/2022 Overview (11/14/2021): Added automatically from request for surgery [id number] Immunizations Immunization Administration Dates Next Due DTP / HiB 05/26/1996,04/08/1996,02/06/1996 DTaP 04/08/2000,03/14/1997 HPV, Quadrivalent 12/01/2006,07/29/2006,05/28/19 07 Hep A, Adult 04/21/2019 Hep A, Pediatric 07/16/2005 Hep B, Adolescent or Pediatric 05/26/1996,1995,1995 HiB 03/14/1997 IPV 04/08/2000 Influenza, Quadrivalent, Spl it, Preservative Free, Intramuscular 12/26/2020 Influenza, Trivalent, Preser vative Free, Intramuscular 01/12/2015 Influenza, Unspecified 12/11/2007,12/27/2002 Influenza, Whole 12/01/2006 MMR 04/08/2000,12/17/1996 Meningococcal ACWY, Unspecified 12/11/2007 OPV 05/26/1996,04/08/1996,02/06/1996 Tdap 09/09/2020,04/21/2019,05/27/2006 Social History Tobacco Use Types Packs/Day Years Used Date Smoking Tobacco: Never Smokeless Tobacco: Never Tobacco Cessation:Counseling Given: Not Answered AUDIT-C Answer Date Recorded Q1: How often do you have a drink containing alc ohol? Never 03/21/2022 Average Number of Drinks Not on file 023 Frequency of Binge Drinking Not on file 10/2022 Comments Unknown Sex and Gender Information Value Date Recorded Sex Assigned at Not on file Legal Sex Female 2:07 PM [employer] Gender Identity Not on file Sexual Orientation Not on file Last Filed Vital Signs Vital Sign Reading Time Taken Comments Blood Pressure 114/77 03/21/2022 10:49 AM [employer] Pulse 80 03/21/2022 10:49 AM [employer] Temperature 36.8 C (98.2 F) 01/02/2022 10:56 AM [employer] Respiratory Rate 18 03/21/2022 10:4 9 AM [employer] Oxygen Saturation 97% 03/21/2022 10: 49 AM [employer] Inhaled Oxygen Concentration - - Weight 113.9 kg (251 lb 1.6 oz) 023 10:49 AM [employer] Height 170.2 cm (5' 7 ) 03/21/2022 10:4 9 AM [employer] Body Mass Index 39.33 03/21/2022 10:49 AM [employer] Plan of Treatment Not on file Insurance [facility] Advance Directives For more information, please contact: [phone] * Full Code (Latest Code Status on File) Date Activated Date Inactivated Comments 01/02/2022 9:13 AM 01/02/2022 3:19 PM * Full Code Date Activated Date Inactivated Comments 01/02/2022 9:13 AM 01/02/2022 9:13 AM Care Teams Rn First Assistant Relationship Specialty Start Date End Date Miki Valentine MD [address] [facility] [facility] [place] [address] PCP - General Internal Medicine 09/06/21
--- OUTSIDE RECORDS SUMMARY | 2024-05-31 13:17 | XMS_ITS | Clinical Summary ---
Author Organization [facility] Address [address] [place] [address] Care Team Providers Care Foley Artist Name Role Phone Unavailable Primary Care Provider Unavailabl e Source Comments [facility] [employer],non-owned Affiliates and Associated Physician Practices is amultiple site organization consisting of ambulatory clinics and hospital sitesin [place], [place], [place] and [place]. This disclosure is being madepursuant to the Care Everywhere program and may not contain all information available regarding this patient. Last updated 17.[facility] [employer] Allergies No known active allergies Medications * Be aware that medications may not be up to date on this document. Alwaysverify current medications with the patient. ondansetron (ZOFRAN) 4 MG tabletIndicatio ns:Nausea and Vomiting Take 4 mg by mouth every 6 hours as needed for Nausea/Vomitin g Reasons: Nausea and Vomiting Active docusate sodium (COLACE) 100 MG capsule Take 100 mg by mouth once daily Active omeprazole (PRILOSEC) 20 MG capsule Take 20 mg by mouth daily before breakfast Active cetirizine (ZYRTEC) 10 MG tablet Take 10 mg by mouth once daily Active ibuprofen (MOTRIN) 600 MG tablet Take 1 (one) tablet by mouth every 6 hours as needed for Pain 40 tablet 1 1 Active docusate sodium (COLACE) 100 MG capsule Take 1 (one) capsule by mouth 2 times daily 60 capsule 1 1 Active Active Problems Problem Noted Date Diagnosed Date care following vaginal delivery 09/09 HELLP syndrome, delivered, current hospitalizati on 09/07/2020 Elevated liver enzymes 09/06/2020 Supervision of normal first teen 11/10 Father of baby with Hill galactosemia 11/11/19 13 Encounter for genetic counseling 11/06/2012 Overview (11/10/2014): FOB with Hill Galactosemia Immunizations Immunization Administration Dates Next Due MMR 09/08/2020(Deferred: See Comment s - pt. is immune) TDAP (7yrs+) 09/09/2020 Family History Medical History Relation Name Comments CAD (Coronary Artery Disease) Father Cancer - Lung Maternal Grandfather Thyroid Disease Mother Relation Name Status Comments Father Maternal Grandfather Mother Social History Tobacco Use Types Packs/Day Years Used Date Smoking Tobacco: Never Smokeless Tobacco: Never Alcohol Use Standard Drinks/Week Comments Not Currently 0 (1 standard drink = 0.6 oz pur e alcohol) Comments No Sex and Gender Information Value Date Recorded Sex Assigned at Not on file Legal Sex Female 11:12 AM CDT Gender Identity Not on file Sexual Orientation Not on file Last Filed Vital Signs Vital Sign Reading Time Taken Comments Blood Pressure 148/88 07/16/2021 4:35 PM CDT Pulse 52 07/16/2021 4:35 PM CDT Temperature 36.6 C (97.9 F) 07/16/2021 4:35 PM CDT Respiratory Rate 16 07/16/2021 4:35 PM CDT Oxygen Saturation 98% 07/16/2021 4:35 PM CDT Inhaled Oxygen Concentration - - Weight 113.4 kg (250 lb) 07/16/2021 4:35 PM CDT Height 167.6 cm (5' 6 ) 07/16/2021 4:35 PM CDT Body Mass Index 40.35 07/16/2021 4:35 PM CDT Plan of Treatment Health Maintenance Due Date Last Done Comments PAP SMEAR 1995 HEPATITIS B VACCINE (1 of 3 - 19+ 3-dose series) 12/09/2014 COVID-19 VACCINE (2 - season) 2023 06/18/2020 DEPRESSION SCREENING 02/11/2024 INFLUENZA VACCINE (Season Ended) 2024 12/26/2020, 01/12/2015, 12/11/2007, Additional history exists DTAP/TDAP/TD VACCINES (2 - Td or Tdap) 09/09/2030 09/09/2020 ZOSTER VACCINE (1 of 2) 12/09/2045 HEPATITIS C SCREENING Completed 04/11/2020, 021 HIV SCREENING Completed 07/25/2020, 04/11/2020 HIB VACCINE Aged Out No longer eligi ble based on patient's age to complete this topic HPV VACCINE Aged Out No longer eligi ble based on patient's age to complete this topic MENINGOCOCCAL (Group B) VACCINE SHARED DECISION-MAKING Aged Out No longer eligible based on patient's age to complete this topic MENINGOCOCCAL GROUPS A/C/Y/W VACCINE Aged Out No longer eligible based on patient's age to complete this topic PNEUMOCOCCAL VACCINE Aged Out No long er eligible based on patient's age to complete this topic Insurance Advance Directives * Full Code (Latest Code Status on File) Date Activated Date Inactivated Comments 09/07/2020 6:59 AM 09/09/2020 6:24 PM * Full Code Date Activated Date Inactivated Comments 09/06/2020 11:05 AM 09/07/2020 6:59 AM
--- OUTSIDE RECORDS SUMMARY | 2024-05-31 13:17 | XMS_ITS | Data Portability ---
Author Organization [place] - [facility], Main Office Address [address] [place] [address] Assessment Encounter Date Assessment Date Assessment LastModified by Organization Details LastModified Time 03/11/2023 03/11/2023 Assessment: Mild OSAHS, AHI = 4 Plan: The following were reviewed and explained to the patient: primary care/referral note [facility] home sleep study 02/27/23 AHI = 4 Sleep in lateral recumbent or semirecumbent position for the time being. Sleep apnea/hypopnea may be underestimated due to absent EEG recordings in a home sleep study to distinguish wakefulness state from the different sleep stages. Without EEG monitoring, Respiratory Effort-Related Arousals (RERA) could not be enumerated, resulting in further underestimation of disease severity. There could also be substantial encrb-jj-[id number] variability in the AHI that can lead to missed diagnosis and disease severity misclassification. General information on sleep disordered breathing and evaluation of sleep disordered were covered. We discussed with the patient the impact of weight on: Sleep disordered breathing FRANCISCO leg and metatarsal fractures Low back pain Educated the patient on sleep hygiene measures. Relaxing rituals to rest easy, understanding foods with positive and negative impact on sleep, creating a peaceful sleep environment, timing of exercise, using herbal sleep aids, and practicing sleep-friendly meditation were covered. To determine how much sleep is needed, the patient will assess where she falls on the spectrum, examine what lifestyle factors such as work schedules and stress are affecting the quality and quantity of sleep. In general, adults need 7-9 hours of sleep. Educated the patient regarding foods that promote sleep. These include but are not limited to cherries, bananas, toast, oatmeal, and warm milk. Educated the patient regarding foods and drinks to avoid before bedtime. These include but are not limited to aged cheese, chocolate, spicy foods, tomato-based sauces, soy, ginseng tea and processed meat. Advocated influenza vaccination annually and pneumonia vaccination in 2060. Advocated weight loss through diet and exercise. Patient's ideal body weight according to height and gender is up to Encouraged patient to adjust caloric intake to maintain/achieve ideal body weight, emphasizing on fruits, vegetables, whole grains, and fat-free or low-fat products. These include lean meats, poultry, fish, beans, eggs, and nuts and foods that are low in saturated fats, trans-fats, cholesterol, salt (sodium), and glycemic index. Stressed the importance of regular exercise up to the patient's capacity limits. In this case, we recommend 20 min daily walking, 2 days a week of resistance training. Patient to monitor BP daily and bring records to PCP for further management. Follow-up: as needed Not available 03/11/2023 16:29:05 Plan of Treatment Reminders Order Date Submit Date Provider Last Modified By Organization Details Last Modified Time Details Appointments None record ed. Lab None record ed. Referral None record ed. Procedures None record ed. Surgeries None record ed. Imaging None record ed. Medication Orders None record ed. Patient TargetsNo targets recorded. Patient InstructionsNo instructions recorded. Reason for Referral None Reported. Results Created Date Observation Date Name Description Value Unit Range Abnormal Flag Note LastModifiedBy Organization Detail LastModifiedTime 03/14/19 24 02/27/2023 home sleep study No observ ation record ed. [facility] Not Available 2023 15:42:37 Result Notes None recorded. Problems Name Problem SNOMED Code Status Onset Date Resolution Date Notes Provider Name and Address Organization Details Recorded Time Dysmenorrhea 082251421 Active Not Available [facility] 3 05:55:36 Closed fracture of metatarsal bone 95103306 Active Not Available [facility] 3 05:55:37 Fracture of lower leg 018902825 Active Not Available [facility] 3 05:55:37 Obstructive sleep apnea syndrome 62783284 Active 2023 Gordon Duque MD [address] [place] [address], [facility] [address], [place], [address] , [facility] 4 16:30:15 Notes:Medical History: Anxie ty/Depression Rhinitis with postnasal drip Bruxism Obesity with mild OSAHS, AHI = 4, 02/27/23 FRANCISCO Endometriosis Vit D deficiency leg and metatarsal fractures Low back pain Procedure History: Laparoscopy 2018 Left wrist ganglion cyst excision 2022 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 Procedures Surgical History Date Name Laterality Status Provider Name and Address Organization Details Recorded Time excision of ganglion cyst completed Mary Grace Mcclellan MA [facility] [employer] [facility] 03/11/2023 16:11:06 laparoscopy completed Mary Grace Mcclellan MA [facility] [employer] [facility] 03/11/2023 16:11:29 Imaging Results Imaging Date Name Status LastModified by Organiz ation Details LastModified Time 02/27/2023 home sleep study completed [facility] Information not available 03/14/2023 15:42:37 Procedure Notes None recorded. Medical Equipment None Reported. Allergies No known drug allergies Medications Name Sig Start Date Stop Date Status Note LastModified by Organization Details LastModified Time quetiapine 25 mg tablet TAKE 1/2 A TABLET BY MOUTH TWICE DAILY 03/11 completed Not Available Not Available Not Available methocarbam ol 500 mg tablet TAKE 2 TABLETS BY MOUTH EVERY 6 HOURS NEEDED 03/03 completed Not Available Not Available Not Available venlafaxine ER 75 mg capsule,ext ended release 24 hr 03/03 completed Not Available Not Available Not Available ibuprofen 800 mg tablet TAKE 1 TABLET BY MOUTH THREE TIMES DAILY FOR 7 DAYS NEEDED FOR PAIN 03/11 completed Not Available Not Available Not Available fluconazole 150 mg tablet TK 1 T PO 1 TIME 03/03 completed Not Available Not Available Not Available hydrocodone 5 mg-acetamin ophen 325 mg tablet TK 1-2 TS PO Q 6 H PRN 03/03 completed Not Available Not Available Not Available ondansetron HCl 4 mg tablet TK 1 TO 2 TS PO PRN N 03/03 completed Not Available Not Available Not Available famotidine 40 mg tablet TAKE 1 TABLET BY MOUTH EVERY DAY AT BEDTIME 03/11 completed Not Available Not Available Not Available venlafaxine ER 150 mg capsule,ext ended release 24 hr TK 1 C PO QD 03/03 completed Not Available Not Available Not Available acetaminoph en 300 mg-codeine 30 mg tablet TK 1 T PO Q 4-6 H PRN P 03/03 completed Not Available Not Available Not Available sulfamethox azole 800 mg-trimetho prim 160 mg tablet TK 1 T PO BID 03/03 completed Not Available Not Available Not Available omeprazole 40 mg capsule,del ayed release TAKE 1 CAPSULE BY MOUTH 30 MINUTES BEFORE BREAKFAST 03/11 completed Not Available Not Available Not Available ondansetron 8 mg disintegrat ing tablet DISSOLVE 1 T ON TONGUE Q 4-6 H PRN 03/03 completed Not Available Not Available Not Available lamotrigine 25 mg tablet 03/11 completed Not Available Not Available Not Available Microgestin FE 03/01 (28) 1 mg-20 mcg (21)/75 mg (7) tablet TK 1 T PO QD 03/03 completed Not Available Not Available Not Available famotidine 20 mg tablet TK 1 T PO D 03/11 completed Not Available Not Available Not Available cephalexin 500 mg capsule TK 1 C PO Q 8 H FOR 10 DAYS 03/03 completed Not Available Not Available Not Available buspirone 10 mg tablet TK 1 T PO BID 03/03 completed Not Available Not Available Not Available butalbital- aspirin-caf feine 50 mg-325 mg-40 mg capsule TK 1 C PO Q 4 H PRN P 03/03 completed Not Available Not Available Not Available omeprazole 20 mg capsule,del ayed release 03/11 completed Not Available Not Available Not Available ibuprofen 600 mg tablet TK 1 T PO Q 6 H WF PRN P 03/03 completed Not Available Not Available Not Available norethindro ne (contracept citlali) 0.35 mg tablet TAKE 1 TABLET BY MOUTH EVERY DAY 03/11 completed Not Available Not Available Not Available ondansetron 4 mg disintegrat ing tablet DIS ONE T PO Q 8 H PRN 03/03 completed Not Available Not Available Not Available fluticasone propionate 50 mcg/actuati on nasal spray,suspe nsion SHAKE LQ AND U 1 SPR IEN Q 12 H 03/03 completed Not Available Not Available Not Available dicyclomine 10 mg capsule TAKE 1 TO 2 CAPSULES BY MOUTH UP TO TWICE DAILY NEEDED FOR ABDOMINAL CRAMPS 03/11 completed Not Available Not Available Not Available lamotrigine 100 mg tablet 03/11 completed Not Available Not Available Not Available naproxen 500 mg tablet TK 1 T PO BID WITH FOOD 03/03 completed Not Available Not Available Not Available hydroxyzine pamoate 25 mg capsule TK 1 C PO BID PRF ANXIETY 03/03 completed Not Available Not Available Not Available nitrofurant oin monohydrate /macrocryst als 100 mg capsule TK ONE C PO BID 03/03 completed Not Available Not Available Not Available duloxetine 30 mg capsule,del ayed release TAKE 1 CAPSULE BY MOUTH EVERY DAY FOR 7 DAYS 03/11 completed Not Available Not Available Not Available duloxetine 60 mg capsule,del ayed release TAKE 1 CAPSULE BY MOUTH EVERY DAY active Not Available Not Available No t Available ProAir HFA 90 mcg/actuati on aerosol inhaler INL 2 PFS PO Q 4 H PRN 03/03 completed Not Available Not Available Not Available Vienva 0.1 mg-20 mcg tablet TK 1 T D 03/03 completed Not Available Not Available Not Available Trintellix 10 mg tablet 03/11 completed Not Available Not Available Not Available Vitals Date Recorded Body height Heart rate Oxygen saturation Oxygen saturation in Arterial blood by Pulse oximetry Body temperature Systolic blood pressure Diastolic blood pressure Provider Name and Address Organization Details Last Updated DateTime 170.18 cm 70 /min 98 % 98 % 97.9 [degF] 114 mm[Hg] 76 mm[Hg] Mary Grace Mcclellan [place] [employer] [facility] 16:15:32 Date Recorded Body weight Heart rate Respiratory rate Body mass index (BMI) Provider Name and Address Organization Details Last Updated DateTime 03/11/2023 081290.72 g 70 /min 15 /min 38.5 kg/m2 Gordon Duque MD [address] [facility] [address], [place], [address], [facility] 03/11/2023 16:29:44 Social History Question Answer Notes LastModified by Organization Details LastModified Time Tobacco Smoking Status Former Smoker only very socially Mary Grace Mcclellan MA null, [place] [employer] [facility] 03/11/2023 16:08:35 What Is Your Level Of Alcohol Consumption? None Information not available 03/11/2023 What Is Your Level Of Caffeine Consumption? Heavy Information not available 03/11/2023 In The 14 Days Before Symptom Onset, Have You Had Close Contact With A Laboratory-confi rmed COVID-19 While That Case Was Ill? No Information not available 03/11/2023 In The 14 Days Before Symptom Onset, Have You Had Close Contact With A Person Who Is Under Investigation For COVID-19 While That Person Was Ill? No Information not available 03/11/2023 Are You Currently Employed? Yes Information not available 03/11/2023 What Type Of Diet Are You Following? REGULAR Information not available 03/11/2023 Which Illicit Or Recreational Drugs Have You Used? Marijuana Information not available 03/11/2023 Do You Have An Electrostatic Air Filter? 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 Yes Information not available 03/11/2023 Do You Have A Humidifier? No Information not available 03/11/2023 Where Do You Live? SingleLevelHouse Information not available 03/11/2023 Do You Have Moisture Problems In Your Home? No Information not available 03/11/2023 What Was The Date Of Your Most Recent Tobacco Screening? 03/11/2023 Information not available 03/11/2023 Do You Have Any Pets? Yes Information not available 03/11/2023 Do You Use Your Seat Belt Or Car Seat Routinely? Yes Information not available 03/11/2023 Do You Have Smoke And Carbon Monoxide Detectors In Your Home? Yes Information not available 03/11/2023 Are You Passively Exposed To Smoke? No Information not available 03/11/2023 Do You Feel Stressed (tense, Restless, Nervous, Or Anxious, Or Unable To Sleep At Night)? [id number] Information not available 03/11/2023 Do You Use Any Illicit Or Recreational Drugs? Yes Information not available 03/11/2023 Do You Use Sunscreen Routinely? Yes Information not available 03/11/2023 Have You Recently Traveled Abroad? No Information not available 03/11/2023 Do You Have Any Dietary Restrictions? No Information not available 03/11/2023 Do You Or Have You Ever Used Any Other Forms Of Tobacco Or Nicotine? No Information not available 03/11/2023 Sex: Unknown Functional Status Question Answer Note LastModified by Organizat ion Details LastModified Time What is your exercise level? Occasional Information not available 03/11/2023 Mental Status None recorded. Family History Relationship Description Onset Age of this Age Resolved Age Notes LastModified by Organization Details LastModified Time Father Heart disease [email or web address] Not available 2023 18:05:00 Father Obstructive sleep apnea syndrome [email or web address] Not available 2023 16:26:05 Mother Fibromyalgia Not availab le 03/03/2023 18:05:12 Mother Bipolar disorder [email or web address] Not available 2023 16:27:25 Mother Degeneration of intervertebr al disc [email or web address] Not available 2023 16:27:46 Mother Dementia [email or web address] Not available 0 03/11/2023 16:27:55 Maternal Aunt Depressive disorder [email or web address] Not available 2023 16:26:44 Maternal Aunt Anxiety disorder [email or web address] Not available 2023 16:26:52 Maternal Uncle Depressive disorder [email or web address] Not available 2023 16:27:00 Medical History No medical history recorded. Gynecological HistoryNo gynecological history recorded. Obstetrics History GPAL:G 0 P 0 0 0 0 Past Encounters Encounter ID Performer Location Encounter Start Date Encounter Closed Date Diagnosis/Indication Diagnosis SNOMED-CT Code Diagnosis ICD10 Code Diagnosis Note [id number] Gordon Duque MD [facility] [address] [address] 03/11/2023 14:51:15 03/13/2023 15:24:32 Obstructive sleep apnea syndrome 39575471 G47.33 Health Concerns Section Related Observation LastModified by Organization Detai ls LastModified Time None Recorded Concern Status LastModified by Organization Details LastModified Time None Recorded Advance Directives Directive None Recorded Payers Encounter Date Sequence Insurance Name Policy Number Policy [place] Covered Member ID [place] Member ID Guarantor Name 03/11/2023 1 [facility] - DOS ON OR AFTER 20 (MEDICAID REPLACEMENT - HMO) Lauren Lo [id number] Lauren Pillo Miguelitobrett Notes Date Note Type Note Provider Name and Address Organization Details Recorded Time 03/11/2023 text/html Primary care/Referring provider: Miki Valentine MD During the [facility] home sleep study on 02/27/23, AHI = 4. At home, the patient sleeps from 3 am to 11:30 am and wakes up without an alarm. Snoring: moderate, since . Snorting: yes Choking: no Coughing: no Gasping: no Gagging: no Sighing: no Witnessed apnea: yes Twitching or jerking of leg(s), arm(s), body, head: no Teeth grinding: yes Teeth clenching: yes Sleeptalking: no Sleepwalking: no Sleep crying: no Bedwetting: no Tongue/lip/gum/mariia k biting: no Sleeping with open mouth: yes Sleep paralysis: no Hypnagogic hallucinations: no Hypnopompic hallucinations: no Vivid dreams: no Difficulty with sleep onset: yes Difficulty with sleep maintenance: yes Sleep interruptions: for no known reasons Patient wakes up with: fatigue, xerostomia, hoarse voice, headaches, jaw pain, cognitive impairment, mobility impairment, dexterity impairment Daytime cataplexy: no Morning hypersomnolence: yes Afternoon hypersomnolence: yes Caffeine sources in diet: soda 2 cans per day, chocolate 1 candy bar per week Associated medical and psychiatric conditions: Congestive heart failure: no Coronary artery disease: no Myocardial infarction: no Hypertension: yes Stroke: no Bronchial asthma: no Chronic obstructive pulmonary disease: no Depression: yes Bipolar disorder: no Anxiety: yes Panic disorder: no Posttraumatic stress disorder: no Attention deficit and hyperactivity disorder: no Obsessive Compulsive disorder: no Schizophrenia: no Schizoaffective disorder: no Personality disorder: no Chronic analgesic use: no Chronic sedative/hypnotic use: no EPWORTH SLEEPINESS SCALE (ESS) CHANCE OF DOZING SCORE 0 = would never doze 1 = slight chance of dozing 2 = moderate chance of dozing 3 = high chance of dozing SITUATION AND CHANCE OF DOZING Sitting and reading - 2 Watching television - 1 Sitting inactive in a public place (e.g. a theater or meeting) - 1 As a passenger in a car for an hour without a break - 1 Lying down to rest in the afternoon when circumstances permit - 3 Sitting and talking to someone - 0 Sitting quietly after lunch without alcohol - 2 In a car, while stopped for a few minutes in the traffic - 0 TOTAL SCORE 10 Subjectively, patient has a moderate chance of dozing. Gordon Duque MD [address] [facility], [facility] [address], [place], [address], [place] [facility] 03/11/2023 16:38:33 OBGyn Episode No OBEpisode recorded.
--- OUTSIDE RECORDS SUMMARY | 2024-05-31 13:17 | XMS_ITS | Clinical Summary ---
Author Organization [facility] Medical Office Building [address] Address [address] [place] [address] Care Team Providers Care Accounts Payables Clerk Name Role Phone Miki Valentine MD Primary Care Provider [phone] Allergies No known active allergies Medications cholecalciferol [...] (11/14/2021): Added automatically from request for surgery [id number] LUQ abdominal pain 11/14/2021 2 Overview (11/14/2021): Added automatically from request for surgery [id number] Epigastric pain 11/14/2021 01/22/2022 Overview (11/14/2021): Added automatically from request for surgery [id number] Gastroesophageal reflux disease 11/14/2021 01/22/2022 Overview (11/14/2021): Added automatically from request for surgery [id number] Immunizations Immunization Administration Dates Next Due DTP [...] ACWY, Unspecified 12/11/2007 OPV 05/26/1996,04/08/1996,02/06/1996 Tdap 09/09/2020,04/21/2019,05/27/2006 Medical History Medical History Date Comments Endometriosis Laparoscopic [place] Social History Tobacco Use Types Packs/Day Years [...] on file Legal Sex Female 2:07 PM [employer] Gender Identity Not on file Sexual Orientation Not on file Obstetrics History Last Filed Vital Signs Vital Sign Reading Time Taken Comments Blood Pressure 114/77 03/21/2022 10:49 AM [employer] Pulse 80 03/21/2022 10:49 AM [employer]REL [employer] Temperature 36.8 C (98.2 F) 01/02/2022 10:56 AM [employer]REL PA[employer] Respiratory Rate 18 03/21/2022 10:4 9 AM BARREL PA[employer] Oxygen Saturation 97% 03/21/2022 10: 49 AM BARREL PA[employer] Inhaled Oxygen Concentration - - Weight 113.9 kg (251 lb 1.6 oz) 023 10:49 AM BARREL PA[employer] Height 170.2 cm (5' 7 ) 03/21/2022 10:4 9 AM [employer] Body Mass Index 39.33 03/21/2022 10:49 AM BARREL PA[employer] Plan of Treatment Health Maintenance Due Date Last Done Comments Cervical Cancer Screening 1995 Depression Screening 1995 Hepatitis C Screening 1995 Varicella Vaccines (1 of 2 - 13+ 2-dose series) 12/09/2008 Regular Well Visit/Exam 18-64 12/09/2013 Covid-19 Vaccine ( season) 2023 06/18/2020 Influenza Vaccine (#1) 2023 , 01/12/2015, 12/11/2007, Additional history exists DTaP/Tdap/Td Vaccine (9 - Td or Tdap) 09/09/2030 09/09/2020, 04/21/2019, 05/27/2006, Additional history exists Hepatitis B Screening Completed 05/26/1996 , 02/06/1996, 1995 HPV Vaccines Completed 12/01/2006, 07/11, 05/27/2006 Pneumococcal vaccine <65 Aged Out No longer eligible based on patient's age to complete this topic Insurance [facility] Advance Directives For more information, please contact: [phone] * Full Code (Latest Code Status on File) Date Activated Date Inactivated Comments 01/02/2022 9:13 AM 01/02/2022 3:19 PM * Full Code Date Activated Date Inactivated Comments 01/02/2022 9:13 AM 01/02/2022 9:13 AM Care Teams Accounts Payables Clerk Relationship Specialty Start Date End Date Miki Valentine MD [address] [place] [address] [place] [address] PCP - General Internal Medicine 09/06/21
--- OUTSIDE RECORDS SUMMARY | 2024-05-31 13:17 | XMS_ITS | Continuity of Care Document ---
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 Topamax 25 mg tablet take 1 Tablet by oral route every evening 25 MG - Active Lexapro 10 mg tablet take 1 tablet by oral route every day 10 MG - Active Procedures Procedure Date OFFICE/OUTPATIENT VISIT, EST OFFICE/OUTPATIENT VISIT, EST PREV VISIT, NEW, AGE 12-17 Advance Directives Directive Yes / No Effective Date File Name No Information Encounters Encounter Description Practice Location Reason(s) For Visit Diagnoses Date Provider Providers Copied on Encounter OFFICE/OUTPA TIENT VISIT, EST [facility], [address] [place], [id number], [place] tel:[phone] [facility] anxiety (chief complaint) hematuria (chief complaint) low vitamin D (chief complaint) obesity (chief complaint) Migraine headache (chief complaint) Dietary surveillance and counselingChronic depressionHematuria HeadacheLymphadenop roderick [address]. [address], [id number] , [place]. tel:[phone] Referring Provider: Nelida Sp[address], [place], [place], [id number]. tel:[phone] OFFICE/OUTPA TIENT VISIT, EST [facility], [address], [place], [place], [id number], tel:[phone] [facility] UTI (chief complaint) UTI (chief complaint) depression (chief complaint) menorrhagi a (chief complaint) Dietary surveillance and counselingLumbagoIr regular menstrual bleedingChronic depressionAbnormal weight gain 0201 5 Am[address] Zhang. [address], [place], [place], [id number] , [place]. tel:[phone] Referring Provider: Nelida Spicer [address], [place], [place], [id number]. tel:[phone] PREV VISIT, NEW, AGE 12-17 [facility], [address] [place], [id number], [place] tel:[phone] [facility] Physical (chief complaint) Dietary surveillance and counselingRoutine Medical ExamRoutine Medical Exam 9 4 Am[address] Zhang. [address], [place], [place], [id number] , [place]. tel:[phone] Family History Family Member Type Diagnosis Age At Onset Mother Problem (finding) Depression Father Problem (finding) Coronary artery disease 37 Mother Problem (finding) fibromyalgia Payers Payer name Insurance type Covered alliance party ID Authoriza tion(s) No Information Social History Type Description Quantity Date Captured Comments Alcohol Use Details No Caffeine Use Details Unknown Tobacco Use Status Never smoked tobacco 2014 Smoking Status Never smoker Sex Female Vital Signs Date / Time: Height Weight BMI Pulse Rate Blood Pressure Temperature Respiratory Rate Body Surface Area Head Circumference BMI percentile Pulse Ox Inhaled Ox 12:52 PM 170.18 cm 232.50 lbs 36.4 1 kg/m eter (2) 78 /min 135/76 mm[Hg] 97.0 F 16 /min 97 Chief Complaint And Reason For Visit From encounter dated '11/08/2014 11:30'. anxiety (chief complaint). Description: The patient presents with anxious/fearful thoughts but denies fatigue. The anxiety is associated with headache. The patient denies any urinary frequency, vomiting and weight gain. Additional information: Pt has chronic anxiety and depression. Wellbutrin caused heart palpitation and she took two weeks and stopped it. Pt states that buspar helps her anxiety. Pt still feels depressed Pt denies any suicidal thought. No more palpitation since stopping wellbutrin. hematuria (chief complaint). Description: Pt has mild hematuria. Pt did the urine when she was on her period. pt denies any more flank pain or UTI symptoms low vitamin D (chief complaint). Description: Pt has low vitami D obesity (chief complaint). Description: Additional information: Pt is overweight. Pt unable to loseweight with diet and exercise. Migraine headache (chief complaint). Description: Pt has chornic migraine headache for several years. Pt denies any head injury. Pt has throbbing headache around frontal headache. Pt has photophobia and nausea. Pt denies any worsening headache. Pt has headache almost 5 days out of one week. NO acute haeache now Plan Of Treatment Date Type Action Status Referral Ordered: CHEST X-RAY PA/LAT TWO-VIEWS ordered History Of Present Illness Encounter Date Complaint History Of Prese nt Illness anxiety The patient pres ents with anxious/fearful thoughts but denies fatigue. The anxiety is associated with headache. The patient denies any urinary frequency, vomiting and weight gain. Additional information: Pt has chronic anxiety and depression. Wellbutrin caused heart palpitation and she took two weeks and stopped it. Pt states that buspar helps her anxiety. Pt still feels depressed Pt denies any suicidal thought. No more palpitation since stopping wellbutrin. Migraine headache Pt has chornic migraine headache for several years. Pt denies any head injury. Pt has throbbing headache around frontal headache. Pt has photophobia and nausea. Pt denies any worsening headache. Pt has headache almost 5 days out of one week. NO acute haeache now obesity Additional infor mation: Pt is overweight. Pt unable to lose weight with diet and exercise. low vitamin D Pt has low vitam i D hematuria Pt has mild cachorro turia. Pt did the urine when she was on her period. pt denies any more flank pain or UTI symptoms menorrhagia Additional infor mation: Pt states that she has spotting for 24 days now. Pt denies any abd pain. Pt denies any histoyr of irregular period.. depression Additional infor mation: Pt c/o feeling depressed and anxious for several years Pt did not think lexapro helped her. Pt is noncompliant with following up Pt denies any suicidal thought. UTI Pt has been havi ng cloudy urine, flank pain for 10 days. Pt denies any urinary freuqnecy or urgency. Pt denies any fever or chill, Pt denies any vomiting. Pt is on macrobid now. Pt has not noticed any improvement UTI Instructions Date Instruction Additional Infor mation Prescribed Activity and Exercise Education Related to Dietary Surveillance and Counseling Prescribed Diet Educ ation/Lifestyle Education Regarding Diet Related to Dietary Surveillance and Counseling Prescribed Activity and Exercise Education Related to Dietary Surveillance and Counseling Prescribed Diet Educ ation/Lifestyle Education Regarding Diet Related to Dietary Surveillance and Counseling Dietary counseling Related to Di etary surveillance counseling Decrease caloric intake Related to Dietary surveillance counseling Assessments Type Assessment Date assessment Dietary surveillance and evp general counsel ing assessment Chronic depression assessment Hematuria assessment Headache assessment Lymphadenopathy Mental Status Date Cognitive Assessment Orientation - [place] ed to time, place, person, situation.
--- OUTSIDE RECORDS SUMMARY | 2024-05-31 13:17 | XMS_ITS | Data Portability ---
Author Organization [facility] Address [address] [place] [address] Assessment No assessment recorded. Plan of Treatment Reminders Order Date Submit Date Provider Last Modified By Organization Details Last Modified Time Details Appointments None recorded. Lab varicella zoster virus IgG Ab, QN, IA, serum 2019 020 [facility], [address] [facility], [address], [place], [address], 0 08:15:18 tb (M tuberculos is), ifn-gamma victoriano, blood 2019 020 [facility], [address] [facility], [address], [place], [address], 0 08:15:18 Referral None recorded. Procedures None recorded. Surgeries None recorded. Imaging None recorded. Medication Orders None recorded. Patient TargetsNo targets recorded. Patient Instructions Encounter Date Encounter Id Patient Instructions Last Modified By Organization Details Last Modified Time 04/21/2019 [id number] learning about tuberculosis (TB) [email or web address] Not available 04/21/2019 18:00:58 Reason for Referral None Reported. Results Created Date Observation Date Name Description Value Unit Range Abnormal Flag Note LastModifiedBy Organization Detail LastModifiedTime 04/21/1904/23/2019 tb (M tuber culos is), ifn-g mandeep victoriano , blood quantiferon incubation [place] tion perfor med. Not Available [facility] ([facility]) [address] [facility], [place], [address], 04/24/2019 08:15:18 04/21/1904/23/2019 tb (M tuber culos is), ifn-g mandeep victoriano , blood quantiferon criteria Commen t The Quant iFERO N-TB Gold Plus resul t is deter mined by subtr actin g the Nil value from eithe r TB antig en (Ag) tube. The mitog en tube serve s as a contr ol for the test. Not Available [facility] ([facility]) [address] [place], [address], 04/24/2019 08:15:18 04/21/1904/24/2019 tb (M tuber culos is), ifn-g mandeep victoriano , blood quantiferon TB1 Ag value 0.02 IU/mL Not Available [facility] ([facility]) [address] [place], [address], 04/24/2019 08:15:18 04/21/1904/24/2019 tb (M tuber culos is), ifn-g mandeep victoriano , blood quantiferon TB2 Ag value 0.04 IU/mL Not Available [facility] ([facility]) [address] [place], [address], 04/24/2019 08:15:18 04/21/1904/24/2019 tb (M tuber culos is), ifn-g mandeep victoriano , blood quantiferon nil value 0.02 IU/mL Not Available [facility] ([facility]) [address] [place], [address], 04/24/2019 08:15:18 04/21/1904/24/2019 tb (M tuber culos is), ifn-g mandeep victoriano , blood quantiferon mitogen value >10.00 IU/mL Not Available [facility] ([facility]) [address] [place], [address], 04/24/2019 08:15:18 04/21/1904/24/2019 tb (M tuber culos is), ifn-g mandeep victoriano , blood quantiferon- TB gold plus Negati ve negati ve Not Available [facility] ([facility]) [address] [facility], [place], [address], 04/24/2019 08:15:18 04/21/19 20 04/22/2019 varic cristina zoste r virus IgG Ab, QN, IA, serum varicella zoster IgG 1064 index immune >165 Negat citlali <135 Equiv ocal 135 - 165 Posit citlali >165 A posit citlali resul t gener ally indic ates expos ure to the patho gen or admin istra tion of speci fic immun oglob ulins , but it is not indic ation of activ e infec tion or stage of disea se. Not Available [facility] ([facility]) [address] [facility], [place], [address], 04/24/2019 08:15:18 Result Notes None recorded. Medical Equipment None Reported. Allergies No known drug allergies Vitals Date Recorded Body temperature Body height Body mass index (BMI) Body weight Heart rate Oxygen saturation Oxygen saturation in Arterial blood by Pulse oximetry Systolic blood pressure Diastolic blood pressure Provider Name and Address Organization Details Last Updated DateTime 0 98.6 [degF] 170.18 cm 39.2 kg/m2 451384. 09 g 80 /min 97 % 97 % 116 mm[Hg] 76 mm[Hg] Irene Gatica [place] - [facility] 0 13:59:01 Social History None recorded. Functional Status None recorded. Mental Status None recorded. Family History Nothing Reported. Medical History No medical history recorded. Gynecological HistoryNo gynecological history recorded. Obstetrics History GPAL:G 0 P 0 0 0 0 Immunizations Vaccine Type Date Status Note Provider Nam e and Address Organization Details Recorded Time COVID-19 vaccine, vector-nr, rS-Ad26, PF, 0.5 mL 06/18/2020 completed Mehreen Cali [place] null, [place] - [facility] 08/28/2020 13:11:50 Tdap 04/21/2019 completed Irene Gatica [place], [place] [facility] 04/21/2019 18:58:49 Hep A, adult 04/21/2019 completed Irene Gatica [place], [place] [facility] 04/21/2019 18:58:49 Past Encounters Encounter ID Performer Location Encounter Start Date Encounter Closed Date Diagnosis/Indication Diagnosis SNOMED-CT Code Diagnosis ICD10 Code Diagnosis Note [id number] Irene Gatica [facility] [address] [facility] [place] [address] 04/21/2019 13:18:46 04/22/2019 13:11:27 Tuberculosis screening 811152937 Z11.1 declined ppd. labs in [place] of. Antibody measurement 352 7003 Z01.84 labs pending. will tailor treatment accordingl y upon receipt of labs. History an d physical examination, [facility] 49329681 Z02.0 negative assessment . no restrictio ns indicated. denies asthma, heart disease and sickle cell. Active or passive immunization 441761733 Z23 tdap and hep a given per ma per vo. pt to supply proof of influenza vaccine. Health Concerns Section Related Observation LastModified by Organization Detai ls LastModified Time None Recorded Concern Status LastModified by Organization Details LastModified Time None Recorded Advance Directives Directive None Recorded Payers Encounter Date Sequence Insurance Name Policy Number Policy [place] Covered Member ID [place] Member ID Guarantor Name 04/21/2019 [facility] [employer] [employer] Lauren Lo [id number] Lauren Lo Notes Date Note Type Note Provider Name and Address Organization Details Recorded Time 04/21/2019 text/html Pt presents to clinic requesting employment physical. She denies nausea, vomiting, fever, chills, diarrhea, rash, constipation and dysuria. Irene Gatica tre[place] - [facility] 04/21/2019 18:59:01 OBGyn Episode No OBEpisode recorded.
--- OUTSIDE RECORDS SUMMARY | 2024-05-31 13:17 | XMS_ITS | Data Portability ---
Author Organization [facility] Address [address] [place] [address] [place] [address] Care Team Providers Care A And P Mechanic Name Role Phone BERNIE CORREA Primary Care Provider Assessment No assessment recorded. Plan of Treatment Reminders Order Date Submit Date Provider Last Modified By Organization Details Last Modified Time Details Appointments None recorded. Lab test, urine 2022 023 milton Seguin, [address], [address], [place], [address], 13:37:07 Referral None recorded. Procedures None recorded. Surgeries laparoscopy , diagnostic (SURG) 2022 023 [facility], [facility] [address] [address], [place], [address], 15:47:31 Imaging US, pelvis 2022 023 lita Seguin, [address], [address], [place], [address], 19:43:55 US, transvagina l 2022 023 lita Seguin, [address], [address], [place], [address], 19:43:55 US, pelvis 2020 021 lita Seguin[address], [address], [place], [address], 17:49:38 US, transvagina l 2020 021 [email or web address] Seguin, [address], [address], [place], [address], 17:49:38 Medication Orders None recorded. Patient TargetsNo targets recorded. Patient InstructionsNo instructions recorded. Reason for Referral None Reported. Results Created Date Observation Date Name Description Value Unit Range Abnormal Flag Note LastModifiedBy Organization Detail LastModifiedTime 11/28/1911/27/2022 pregn luis test, urine HCG negati ve Not Available Seguin [address], [place], [address], 11/27/2022 13:36:58 01/03/20 21 01/02/2021 US, pelvi s No observ ation record ed. [address], [place], [address], 01/02/2021 13:54:21 01/03/20 21 01/02/2021 US, trans vagin al No observ ation record ed. [address], [place], [address], 01/02/2021 13:54:43 01/03/20 21 01/02/2021 US, pelvi s No observ ation record ed. CHAN Kaley [address], [place], [address], 01/31/2021 20:30:06 12/03/19 23 12/03/2022 US, pelvi s No observ ation record ed. mile Seguin [address], [place], [address], 12/03/2022 12:40:29 12/03/19 23 12/03/2022 US, trans vagin al No observ ation record ed. mile Seguin [address], [place], [address], 12/03/2022 12:40:40 12/03/1912/02/2022 US, pelvi s No observ ation record ed. milton Roche [address], [place], [address], 12/12/2022 09:17:14 Result Notes None recorded. Problems Name Problem SNOMED Code Status Onset Date Resolution Date Notes Provider Name and Address Organization Details Recorded Time Speciali zed medical examinat ion Completed 201203/09/2020 Gynecolo gical Examinat ion;Jatinder rded Elsewher e: No Locat ion: [facility] S ource: [employer] so: N Neelima ce ID: 0001 Raymond lable Time: 01:30:00 PM Amy Emre [facility] 15:19:25 Pelvic and perineal pain [id number] Completed 201503/09/2020 Pelvic and perineal pain;Rec orded Elsewher e: No Locat ion: [facility] S ource: [employer] so: N Rebecati ce ID: 0001 Raymond lable Time: 09:30:00 AM Amy Andrea [facility] 15:19:00 Pregnanc y test positive [id number] Completed 201203/09/2020 Pregnanc y examinat ion or test, positive result;R ecorded Elsewher e: No Locat ion: [facility] S ource: [employer] so: N Practi ce ID: 0001 Raymond lable Time: 01:30:00 PM Amy Em[address] yang [facility] 15:19:04 Pregnanc y test negative [id number] Completed 201403/09/2020 Pregnanc y examinat ion or test, negative result;R ecorded Elsewher e: No Locat ion: [facility] S ource: [employer] so: N Rebecati ce ID: 0001 Raymond lable Time: 03:45:[address] [facility] 15:19:02 Amenorrh ea [id number] Completed 201303/09/2020 Absence of menstrua tion;Rec orded Elsewher e: No Locat ion: [facility] S ource: [facility] so: N Rebecati ce ID: 0001 Raymond lable Time: 03:30:00 PM Amy Andrea [facility] 15:18:[address] Concept Completed 201703/09/2020 Encntr for sugar mixer exam (general ) (routine ) w/o abn findings ;Recorde d Elsewher e: No Locat ion: [facility] so: N Rebecati ce ID: 0001 Raymond lable Time: 01:15:[address] [facility] 15:19:23 Hemorrha ge of rectum and anus [id number] Completed 201803/09/2020 Rectal bleed;Re corded Elsewher e: No Locat ion: [facility] S ource: [facility] so: N Rebecati ce ID: 0001 Raymond lable Time: 09:15:[address] [facility] 15:18:48 Family planning surveill ance Completed 201303/09/2020 Contrace ptive surveill ance;Rec orded Elsewher e: No Locat ion: [facility] S ource: [facility] so: N Rebecati ce ID: 0001 Raymond lable Time: 02:00:00 PM Amy Andrea [facility] 15:18:45 Endometr iosis of pelvic peritone um [id number] Completed 201803/09/2020 Endometr iosis of pelvic peritone um;Recor ded Elsewher e: No Locat ion: Gabriellashayla gagnon [facility] S ource: [employer] so: N Rebecati ce ID: 0001 Raymond lable Time: 09:15:00 AM [facility] 15:18:44 Uses combined oral contrace ption [id number] Completed 201803/09/2020 Encounte r for surveill ance of contrace ptive pills;Re corded Elsewher e: No [facility] [employer] so: N Rebecati ce ID: 0001 Raymond lable Time: 08:30:00 AM [facility] 15:18:36 Insertio n of subcutan eous contrace ptive Completed 201303/09/2020 Insertio n of implanta ble subderma l contrace ptive;Re corded Elsewher e: No [facility] [employer] so: N Rebecati ce ID: 0001 Raymond lable Time: 10:45:[address] [facility] 15:18:53 Body mass index 30+ - obesity [id number] Completed 201603/09/2020 Body mass index (BMI) 35.0-35. 9, adult;Re corded Elsewher e: No [facility] [employer] so: N Rebecati ce ID: 0001 Raymond lable Time: 05:00:[address] [facility] 15:18:33 Complica tion related to pregnanc y Completed 201303/09/2020 Weight Gain Poor Antepart um;Recor ded Elsewher e: No Locat ion: Omar gagnon [facility] S ource: [employer] so: N Practi ce ID: 0001 Raymond lable Time: 11:30:[address] [facility] 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 15:18:51 Postpart um care Completed 201303/09/2020 Post Followup ;Recorde d Elsewher e: No Locat ion: [facility] S ource: [employer] so: N Rebecati ce ID: 0001 Raymond lable Time: 04:30:[address] [facility] 15:19:01 Screenin g for malignan t neoplasm of cervix Completed 201503/09/2020 Screenin g for malignan t neoplasm s of the cervix;R ecorded Elsewher e: No Locat ion: [facility] S ource: [employer] so: N Rebecati ce ID: 0001 Raymond lable Time: 02:45:[address] [facility] 15:19:19 Irregula r intermen strual bleeding [id number] Completed 201403/09/2020 Irregula r bleeding between periods; Recorded Elsewher e: No Locat ion: [facility] S ource: [facility] so: N Practi ce ID: 0001 Raymond lable Time: 02:00:00 PM Amy yang, [facility] 15:18:55 Obesity [id number] Completed 201303/09/2020 Obesity; Recorded Elsewher e: No Locat ion: Omar gagnon [facility] S ource: [employer] so: N Rebecati ce ID: 0001 Raymond lable Time: 03:30:[address] [facility] 15:18:58 Syphilis test finding [id number] Completed 201503/09/2020 Encntr screen for infectio ns w sexl mode of transmis s;Record ed Elsewher e: No [facility] so: N Rebecati ce ID: 0001 Raymond lable Time: 02:45:[address] [facility] 15:19:28 Cyst of ovary [id number] Completed 201503/09/2020 Unspecif ied ovarian cysts;Re corded Elsewher e: No [facility] so: N Rebecati ce ID: 0001 Raymond lable Time: 01:15:[address] [facility] 15:18:41 Abdomina l pain [id number] Completed 201203/09/2020 Abdomina l pain, other specifie d site;Rec orded Elsewher e: No [facility] [employer] so: N Rebecati ce ID: 0001 Raymond lable Time: 04:30:[address] [facility] 15:18:28 Nausea and vomiting [id number] Completed 201203/09/2020 Nausea And Vomiting ;Recorde d Elsewher e: No Locat ion: [facility] S ource: [employer] so: N Rebecati ce ID: 0001 Raymond lable Time: 11:45:[address] [facility] 15:18:56 Primigra nila [id number] Completed 201203/09/2020 Supervis ion of normal first pregnanc y;Record ed Elsewher e: No Locat ion: [facility] S ource: [employer] so: N Practi ce ID: 0001 Raymond lable Time: 12:30:00 PM Amy Andrea [facility] 15:19:07 Infectio n screenin g Completed 201503/09/2020 Encounte r for screenin g for oth infec/pa rastc diseases ;Recorde d Elsewher e: No Locat ion: [facility] S ource: [employer] so: N Practi ce ID: 0001 Raymond lable Time: 02:45:00 PM Amy Andrea [facility] 15:18:50 Cellulit is and abscess of face [id number] Completed 201203/09/2020 Cellulit is and abscess of face;Rec orded Elsewher e: No Locat ion: [facility] S ource: [employer] so: Y Practi ce ID: 0001 Raymond lable Time: 10:00:00 AM Amy yang, [facility] 15:18:34 Subcutan eous contrace ptive implant present [id number] Completed 201303/09/2020 Removal Or Check Nexplano n;Practi ce ID: 0001 Amy Andrea [facility] 15:19:26 Procedur e Completed 201603/09/2020 Enctr srvlnc implanta ble subderma l contrace ptive;Pr actice ID: 0001 Amy Andrea [facility] 15:19:21 Single live [id number] Completed 03/22/ 2014 03/09/2020 Mother with single liveborn ;Practic e ID: 0001 Amy yang, [facility] 15:19:22 Delivery normal [id number] Completed 201303/09/2020 Normal delivery ;Practic e ID: 0001 Amy yang, [facility] 15:18:43 Prematur e labor [id number] Completed 201303/09/2020 LABOR;Pr actice ID: 0001 Amy yang, [facility] 15:19:05 Ultrason ography Completed 201203/09/2020 Antenata l screenin g for malforma tion using ultrason ics;Jatinder rded Elsewher e: No Locat ion: [facility] S ource: [employer] so: N Rebecati ce ID: 0001 Raymond lable Time: 01:30:00 PM [facility] 15:19:30 Antenata l screenin g Completed 201203/09/2020 Antenata l screenin g for malforma tion using ultrason ics;Jatinder rded Elsewher e: No Locat ion: [facility] S ource: [employer] so: N Rebecati ce ID: 0001 Raymond lable Time: 01:30:[address] [facility] 15:18:31 Congenit al malforma tion [id number] Completed 201203/09/2020 Antenata l screenin g for malforma tion using ultrason ics;Jatinder rded Elsewher e: No Locat ion: [facility] S ource: [employer] so: N Rebecati ce ID: 0001 Raymond lable Time: 01:30:[address] [facility] 15:18:40 Gonococc al cervicit is [id number] Completed 201503/09/2020 Gonococc al cervicit is, unspecif ied;Jatinder rded Elsewher e: No Locat ion: Omar gagnon [facility] S ource: [employer] so: N Practi ce ID: 0001 Raymond lable Time: 02:45:[address] [facility] 15:18:47 Complica tion of pregnanc y, childbir th and/or puerperi um [id number] Completed 201203/09/2020 Other current conditio ns classifi able elsewher e of mother, antepart um;Pract ice ID: 0001 Amy Andrea [facility] 15:18:37 Pregnanc y [id number] Completed 202009/08/2020 Mahendrakatja RocaZeynep [facility] 11:24:11 Endometr itis [id number] Active 2020 Amy Andrea [facility] 10:38:28 Anxiety in pregnanc y [id number] 109 Completed Edwin Fosterle [facility] 11:24:06 Obesity [id number] Completed 32 wk [facility]ata [facility] 11:24:06 Gestatio nal diabetes mellitus [id number] Completed 32 wk antenata l testing - diet controll ed [facility] 11:24:06 Problem Notes None recorded. Procedures Surgical History Date Name Laterality Status Provider Name and Address Organization Details Recorded Time 03/14/19 21 Date of Last Pap Smear completed Amy Andrea [facility] 03/14/2020 10:50:27 laparoscopy [address] Emre [facility] 03/14/2020 10:38:48 endocervical excision completed Amy Andrea [facility] 03/14/2020 10:39:03 cauterization completed Amy Andrea [facility] 03/14/2020 10:39:13 Imaging Results Imaging Date Name Status LastModified by Organization Details LastModified Time 01/02/2021 US, pelvis completed mily Triplett [address], [place], [address], 01/02/2021 13:54:21 01/02/2021 US, transvaginal completed mily gagnon [address], [place], [address], 01/02/2021 13:54:43 01/02/2021 US, pelvis completed CHAN Kaley [address], [place], [address], 01/31/2021 20:30:06 12/03/2022 US, pelvis completed mile Triplett [address], [place], [address], 12/03/2022 12:40:29 12/03/2022 US, transvaginal completed mile gagnon [address], [place], [address], 12/03/2022 12:40:40 12/02/2022 US, pelvis completed llamay Kaley [address], [place], [address], 12/12/2022 09:17:14 Procedure Notes None recorded. Medical Equipment None Reported. Allergies No known drug allergies Medications Name Sig Start Date Stop Date Status Note LastModified by Organization Details LastModified Time quetiapin e 25 mg tablet TAKE 1/2 A TABLET BY MOUTH TWICE DAILY 11/27 completed Not Available Not Available Not Available Prometriu m 200 mg capsule take 1 capsule by oral route every day at bedtime 09/14 completed Prescrib ed Elsewher e: No Locat ion: Omar gagnon [facility] odify By: debra aguilera DateTime : 07/29/19 14 12:25:34 PM Not Available Not Available Not Available fluoxetin e 40 mg capsule TK 1 C PO QD FOR 14 DAYS 04/11 completed Not Available Not Available Not Available cyclobenz aprine 10 mg tablet take 1 tablet (10MG) by oral route 2 times every day PRN 11/27 completed Not Available Not Available Not Available buspirone 5 mg tablet take 1 tablet by oral route 3 times every day 10/01 completed Prescrib ed Elsewher e: Yes Loca tion: Chris chelsi [facility] odify By: bill aguilera DateTime : 10/03/19 17 01:15:00 PM Not Available Not Available Not Available venlafaxi ne ER 37.5 mg capsule,e xtended release 24 hr take 1 capsule by oral route every day with food 10/01 completed Prescrib ed Elsewher e: Yes Loca tion: Chris chelsi [facility] odify By: bill aguilera DateTime : 10/03/19 17 01:15:00 PM Not Available Not Available Not Available trazodone 50 mg tablet TAKE 1 TABLET BY MOUTH EVERY DAY AT BEDTIME NEEDED 04/11 completed Not Available Not Available Not Available polyethyl lorena glycol 3350 17 gram oral powder packet TAKE 1 PACKET BY MOUTH EVERY DAY NEEDED FOR CONSTIPA TION 11/27 completed Not Available Not Available Not Available cetirizin e 10 mg tablet take 1 tablet by oral route every day 03/09 completed Prescrib ed Elsewher e: Yes Loca tion: [facility] odify By: Encount er DateTime : 05/27/19 19 08:30:00 AM Not Available Not Available Not Available ibuprofen 800 mg tablet TAKE 1 TABLET BY MOUTH THREE TIMES DAILY FOR 7 DAYS NEEDED FOR PAIN 11/27 completed Not Available Not Available Not Available Loestrin Fe 03/01 (28-Day) 1 mg-20 mcg (21)/75 mg (7) tablet take 1 tablet by oral route every day 10/29 completed Prescrib ed Elsewher e: No Locat ion: [facility] odify By: lauri james DateTime : 10/30/19 09:18:40 AM Not Available Not Available Not Available Claritin 10 mg tablet take 1 tablet (10MG) by oral route every day 09/14 completed Prescrib ed Elsewher e: No Locat ion: [facility] odify By: debra Gagnon ncounter DateTime : 02/23/19 14 10:45:00 AM Not Available Not Available Not Available promethaz ine 25 mg rectal supposito ry Insert 1 supposit ory every 6-8 hours by rectal route. 03/09 completed Not Available Not Available Not Available promethaz ine 12.5 mg tablet Take 1 tablet every 4-6 hours by oral route. 03/09 completed Not Available Not Available Not Available ondansetr on HCl 4 mg tablet TAKE 1 TABLET BY MOUTH EVERY 4 TO 6 HOURS NEEDED 12/27 completed Not Available Not Available Not Available famotidin e 40 mg tablet TAKE 1 TABLET BY MOUTH EVERY DAY AT BEDTIME 11/27 completed Not Available Not Available Not Available clonazepa m 0.5 mg tablet TAKE 1/2 TO 1 TABLET BY MOUTH EVERY DAY NEEDED FOR ANXIETY 04/11 completed Not Available Not Available Not Available sertralin e 100 mg tablet TK 2 TS PO QD 04/11 completed Not Available Not Available Not Available Diflucan 150 mg tablet take 1 tablet by oral route once 10/01 completed Prescrib ed Elsewher e: No Locat ion: [facility] odify By: amteo Gagnon ncounter DateTime : 01/02/20 17 09:44:18 AM Not Available Not Available Not Available sulfameth oxazole 800 mg-trimet hoprim 160 mg tablet TAKE 1 TABLET BY MOUTH EVERY 12 HOURS 11/27 completed Not Available Not Available Not Available omeprazol e 40 mg capsule,d elayed release TAKE 1 CAPSULE BY MOUTH 30 MINUTES BEFORE BREAKFAS T 11/27 completed Not Available Not Available Not Available lamotrigi ne 25 mg tablet 11/27 completed Not Available Not Available Not Available Macrobid 100 mg capsule take 1 capsule by oral route every 12 hours with food, as directed 12/30 completed Prescrib ed Elsewher e: Yes [facility] By: [email or web address] Encoun erika DateTime : 10/02/19 18 05:00:00 PM Not Available Not Available Not Available Zoloft 50 mg tablet take 1 tablet (50MG) by oral route every day 09/14 completed Prescrib ed Elsewher e: No Locat ion: [facility] odify By: edbra Gagnon ncounter DateTime : 12/23/19 13 03:15:00 PM Not Available Not Available Not Available trazodone 100 mg tablet take 1 tablet by oral route 2 times every day after meals 03/09 completed Prescrib ed Elsewher e: Yes [facility] By: Encount er DateTime : 05/27/19 19 08:30:00 AM Not Available Not Available Not Available OneTouch Ultra Test strips USE TO TEST BLOOD SUGAR FOUR TIMES DAILY 12/27 completed Not Available Not Available Not Available Flagyl 500 mg tablet take 1 tablet by oral route 2 times every day 10/02 completed Prescrib ed Elsewher e: No Locat ion: Chris chelsi [facility] odify By: dieter padgett DateTime : 02/17/19 16 02:45:00 PM Not Available Not Available Not Available doxycycli ne monohydra te 100 mg capsule take 1 capsule by oral route every 12 hours for 14 days 03/02 completed Prescrib ed Elsewher e: No Locat ion: [facility] odify By: danny Gagnon ncounter DateTime : 02/17/19 16 02:45:00 PM Not Available Not Available Not Available Vitamin C 100 mg tablet 03/09 completed Prescrib ed Elsewher e: Yes Loca tion: Omar gagnon [facility] odify By: [email or web address] Encount er DateTime : 04/11/19 19 11:00:00 AM Not Available Not Available Not Available cephalexi n 500 mg capsule Take 1 capsule twice a day by oral route. active Not Available Not Available No t Available promethaz ine 25 mg tablet take 1 tablet (25MG) by oral route every 4 - 6 hours as needed 07/04 completed Not Available Not Available Not Available Wellbutri n 75 mg tablet take 1 tablet by oral route 3 times every day 10/02 completed Prescrib ed Elsewher e: Yes Loca tion: Omar gagnon [facility] odify By: [email or web address] Encounte r DateTime : 09/24/19 15 03:45:00 PM Not Available Not Available Not Available sertralin e 25 mg tablet take 1 tablet by oral route every day 03/09 completed Prescrib ed Elsewher e: Yes Loca tion: Omar gagnon [facility] odify By: Encount er DateTime : 02/06/20 18 01:15:00 PM Not Available Not Available Not Available omeprazol e 20 mg capsule,d elayed release 11/27 completed Not Available Not Available Not Available ibuprofen 600 mg tablet TAKE 1 TABLET BY MOUTH EVERY 6 HOURS NEEDED FOR PAIN 11/27 completed Not Available Not Available Not Available topiramat e 15 mg sprinkle capsule take 1 capsule by oral route 2 times every day in the morning and evening 10/02 completed Prescrib ed Elsewher e: Yes [facility] By: [email or web address] Encounte r DateTime : 02/17/19 16 02:45:00 PM Not Available Not Available Not Available albuterol sulfate HFA 90 mcg/actua tion aerosol inhaler INL 2 PFS PO Q 4 H PRN 04/11 completed Not Available Not Available Not Available Vitamin D2 1,250 mcg (50,000 unit) capsule take 1 capsule ([id number] ITS) by oral route every week 05/31 completed Prescrib ed Elsewher e: No Locat ion: Omar gagnon [facility] odify By: [email or web address] En counter DateTime : 02/22/19 14 02:49:54 PM Not Available Not Available Not Available norethind carola (contrace ptive) 0.35 mg tablet TAKE 1 TABLET BY MOUTH EVERY DAY 11/27 completed Not Available Not Available Not Available lysine 500 mg tablet 02/26 completed Prescrib ed Elsewher e: Yes [facility] By: [email or web address] Encount er DateTime : 12/31/19 18 01:15:00 PM Not Available Not Available Not Available M[place] 5 mg-325 mg tablet take 1 tablet by oral route every 4 hours as needed for pain 03/09 completed Prescrib ed Elsewher e: No Locat ion: [facility] odify By: mike Choi r DateTime : 05/27/19 08:30:00 AM Not Available Not Available Not Available ondansetr on 4 mg disintegr ating tablet DISSOLVE 1 TABLET ON THE TONGUE EVERY 8 HOURS NEEDED FOR NAUSEA OR VOMITING 07/04 completed Not Available Not Available Not Available fluoxetin e 20 mg capsule TK 1 C PO QD 04/11 completed Not Available Not Available Not Available fluticaso ne propionat e 50 mcg/actua tion nasal spray,amadeo pension SHAKE LQ AND U 1 SPR IEN QD 04/11 completed Not Available Not Available Not Available dicyclomi ne 10 mg capsule TAKE 1 TO 2 CAPSULES BY MOUTH UP TO TWICE DAILY NEEDED FOR ABDOMINA L CRAMPS 11/27 completed Not Available Not Available Not Available lamotrigi ne 100 mg tablet 11/27 completed Not Available Not Available Not Available Rocephin 500 mg solution for injection inject (250MG) by intramus cular route as a single dose 10/02 completed Prescrib ed Elsewher e: No Locat ion: [facility] odify By: dieter Choi r DateTime : 02/17/19 16 02:45:00 PM Not Available Not Available Not Available metoclopr amide 10 mg tablet TAKE 1 TABLET BY MOUTH EVERY 8 HOURS NAUSEA OR BLOATING 11/27 completed Not Available Not Available Not Available hydroxyzi ne pamoate 25 mg capsule take 1 capsule by oral route 4 times every day 11/27 completed Not Available Not Available Not Available fiber oral powder 03/09 completed Prescrib ed Elsewher e: Yes Loca tion: Omar aggnon [facility] odify By: Encount er DateTime : 05/27/19 19 08:30:00 AM Not Available Not Available Not Available duloxetin e 30 mg capsule,d elayed release TAKE 1 CAPSULE BY MOUTH EVERY DAY FOR 7 DAYS active Not Available Not Available No t Available duloxetin e 60 mg capsule,d elayed release TAKE 1 CAPSULE BY MOUTH EVERY DAY active Not Available Not Available No t Available 12/27 completed Samples given to patient 03/14/19 21 Not Available Not Available Not Available Vitamin D3 10 mcg (400 unit) capsule 03/09 completed Prescrib ed Elsewher e: Yes Loca tion: Omar gagnon [facility] odify By: [email or web address] Encoun ter DateTime : 12/31/19 01:15:00 PM Not Available Not Available Not Available Super B Complex + C 150 mg tablet 04/10 completed Prescrib ed Elsewher e: Yes Loca tion: Omar [facility] odify By: [email or web address] Encount er DateTime : 12/31/19 18 01:15:00 PM Not Available Not Available Not Available metoclopr amide 10 mg disintegr ating tablet DISSOLVE 1 TABLET ON THE TONGUE EVERY 6 HOURS 11/27 completed Not Available Not Available Not Available Multi Vitamin 9 mg iron/15 mL oral liquid 02/26 completed Prescrib ed Elsewher e: Yes [facility] By: [email or web address] Encount er DateTime : 12/31/19 18 01:15:00 PM Not Available Not Available Not Available Probiotic 20 billion cell capsule 03/09 completed Prescrib ed Elsewher e: Yes [facility] By: [email or web address] Encount er DateTime : 05/27/19 19 08:30:00 AM Not Available Not Available Not Available Gummy 400 mcg-35 mg-25 mg-5 mg chewable tablet Take 1 tablet by oral route for 90 days. 04/11 completed Not Available Not Available Not Available Lomedia 24 Fe 1 mg-20 mcg (24)/75 mg (4) tablet take 1 tablet by oral route every day 10/29 completed Prescrib ed Elsewher e: No Locat ion: Omar gagnon [facility] odify By: [email or web address] james DateTime : 10/03/19 01:15:00 PM Not Available Not Available Not Available doxycycli ne hyclate 150 mg tablet take 1 tablet by oral route 2 times every day 03/09 completed Prescrib ed Elsewher e: Yes Loca tion: Omar gagnon [facility] odify By: [email or web address] Encount er DateTime : 04/11/19 11:00:00 AM Not Available Not Available Not Available Ashlyna 0.15 mg-30 mcg (84)/10 mcg(7) tablets,3 month dose pack take 1 tablet by oral route every day 03/09 completed Prescrib ed Elsewher e: No Locat ion: Omar gagnon [facility] odify By: [email or web address] Encount er DateTime : 04/11/19 11:00:00 AM Not Available Not Available Not Available Vienva 0.1 mg-20 mcg tablet take 1 tablet by oral route every day 02/05 completed Prescrib ed Elsewher e: Yes Loca tion: Omar gagnon [facility] odify By: Encount er DateTime : 12/31/19 01:15:00 PM Not Available Not Available Not Available Trintelli x 5 mg tablet TK 1 T PO QD 11/27 completed Not Available Not Available Not Available Trintelli x 10 mg tablet TAKE 1 TABLET BY MOUTH EVERY DAY 11/27 completed Not Available Not Available Not Available OneTouch Ultra Blue Test Strip 12/27 completed Not Available Not Available Not Available Orilissa 150 mg tablet take 1 tablet by oral route every day at approxim ately the same time each day 03/09 completed Prescrib ed Elsewher e: No Locat ion: Omar gagnon [facility] odify By: [email or web address] DateTime : 05/27/19 08:30:00 AM Not Available Not Available Not Available OneTouch Ultra2 Meter 12/27 completed Not Available Not Available Not Available OneTouch Delica Plus Lancet 33 gauge 12/27 completed Not Available Not Available Not Available Vitals Date Recorded Body height Body mass index (BMI) Body weight Systolic blood pressure Diastolic blood pressure Provider Name and Address Organization Details Last Updated DateTime 11/27/2022 167.64 cm 41.8 kg/m2 126679.1 4 g 124 mm[Hg] 80 mm[Hg] Lorna Banuelosjohn [facility] 3 10:46:53 Date Recorded Body height Body mass index (BMI) Body weight Systolic blood pressure Diastolic blood pressure Provider Name and Address Organization Details Last Updated DateTime 12/11/2022 167.64 cm 41.8 kg/m2 990373.4 2 g 121 mm[Hg] 76 mm[Hg] Seema Montez [facility] 3 16:34:37 Social History Question Answer Notes LastModified by Organizat ion Details LastModified Time Tobacco Smoking Status Never Smoker Seema Montez [facility] 12/11/2022 16:34:57 What Is Your Level Of Alcohol Consumption? None [email or web address] Information not available 03/14/2020 Are You Blind Or Do You Have Difficulty Seeing? No Information n ot available 12/11/2022 What Is Your Level Of Caffeine Consumption? Moderate Information not available 12/11/2022 How Much Tobacco Do You Chew? None Information not available 12/11/2022 In The 14 Days Before Symptom Onset, Have You Had Close Contact With A Laboratory-confirm ed COVID-19 While That Case Was Ill? No Information n ot available 12/11/2022 In The 14 Days Before Symptom Onset, Have You Had Close Contact With A Person Who Is Under Investigation For COVID-19 While That Person Was Ill? No Information not available 12/11/2022 Have You Been To An Area Known To Be High Risk For COVID-19? No Information not available 12/11/2022 Are You Deaf Or Do You Have Serious Difficulty Hearing? No Information not available 12/11/2022 What Type Of Diet Are You Following? REGULAR Information n ot available 12/11/2022 What Is The Highest Grade Or Level Of School You Have Completed Or The Highest Degree You Have Received? 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 No Information not available 12/11/2022 Do You Use Protection During Sex? No Information not available 12/11/2022 Do You Use Your Seat Belt Or Car Seat Routinely? Yes Information not available 12/11/2022 Do You Have Smoke And Carbon Monoxide Detectors In Your Home? Yes Information not available 12/11/2022 How Much Tobacco Do You Smoke? No Information not available 12/11/2022 Do You Feel Stressed (tense, Restless, Nervous, Or Anxious, Or Unable To Sleep At Night)? [id number] Information not available 12/11/2022 Do You Use Any Illicit Or Recreational Drugs? No Information not available 12/11/2022 Do You Use Sunscreen Routinely? Yes Information not available 12/11/2022 Have You Used IV Drugs? No Information not available 12/11/2022 Sex: Unknown Functional Status Question Answer Note LastModified by Organization D etails LastModified Time Are you able to walk? YESWOREST Information not available 12/11/2022 What is your exercise level? Moderate Information not available 12/11/2022 Mental Status None recorded. Family History Relationship Description Onset Age of this Age Resolved Age Notes LastModified by Organization Details LastModified Time Father Asthma [email or web address] Not available 0 03/14/2020 10:37:48 Medical History Condition Response Allergies (Food, seasonal, environmental ) N Other N Breast Cancer N Drug/Latex Allergies/Reactions N Blood Transfusion N Dermatologic Disorders N Lung Disease N Defects or Inherited Disease N Breast Problem N Gestational Diabetes N Hematologic disorders N Anesthesia Complications N History of STI N Deep Vein Thrombosis N Polycystic ovary syndrome N Anxiety Disorder Y Autoimmune disease N Arthritis N Infertility N Polyps N Acid Reflux (GERD) N History of abnormal pap N Cancer N Stroke N Varicosities N Neurologic/Epilepsy N Endometriosis Y High Cholesterol N Headaches N Fibromyalgia N Kidney Disease N Heart Problems N Kidney or Bladder Problems N Thyroid Problems N GI Problems Y Eating Disorder N Anemia N Art (IVF or FET) N Psychiatric Illness N Ovarian Cancer N Diabetes N Pulmonary (TB, Asthma) N Hepatitis/Liver Disease N Eczema N Urinary Tract Infection N Abuse/Domestic Violence N Asthma Y Trauma/Violence N Depression/ depression Y Heart Disease N Pre-Eclampsia N Hypertension N Osteoporosis N Thrombophilias N Gynecological History Statement/Question Response Flow Moderate Date of LMP 10/30/2022 On BCP's at Conception? Y N Was last menstrual period normal N STIs/STDs N HPV Vaccine Y Duration of Flow (days) 6 Current Control Method None Age at First Child 17 Frequency of Cycle (Q days) 28 Sexually Active? Y Age of first menstrual cycle 13 Date of Last Pap Smear 03/14/2020 Sexual Problems? N Desired Control Method None LMP Approximate N Obstetrics History GPAL:G 2 P 1 1 0 1 Type Value Full Term 1 Premature 1 Living 1 Total 2 Past Encounters Encounter ID Performer Location Encounter Start Date Encounter Closed Date Diagnosis/Indication Diagnosis SNOMED-CT Code Diagnosis ICD10 Code Diagnosis Note [id number] Karen Pablo [facility] [address] [address] 03/14/2020 10:05:06 03/17/2020 17:43:21 Gynecologic examination 46128785 Z01.419 test positive 543215337 Z32.01 Risk factors addressed: Tobacco Cessation, Safe Sexual Practices, environmen sunny, work hazards, travel restrictio ns, seat belt use.Eat a health well balanced diet, avoid alcohol, tobacco, and street drugs. Engage in daily low impact exercise, avoid temperatur e extremes, and cat, rodent, and bird feces.Avoi d travel to areas where zika virus is a concern.Pt desires cf/sma/nip t. Handouts given and discussed with patient. ildbirth classes recommende d.New OB sheet given. If previous , counseling .Pt verbalizes that she understand s the importance of above instructio ns.All questions were answered. Patient reminded to have annual well woman examinatio n and address preventati ve healthcare [place] measures were taken to minimize potential exposure to the Covid-19 virus during this patient s visit, including available hand adapted physical education specialist upon arrive, temperatur e check and being asked a series of screening questions. All staff wore face coverings during this encounter, as well as provided additional cleaning and sanitizing of all surfaces, including countertop s, pens, chairs, door handles, light switches, etc, prior to and following the patient s visit. [id number] Heidi Mendez [facility] [address],[place] [address] 03/14/2020 10:05:59 03/14/2020 11:05:19 test positive 921251449 Z32.01 [id number] Gabe Power MD [facility] [address],[place] [address] 04/11/2020 14:05:23 04/11/2020 14:54:29 Routine care 697004615 Z34.81 [id number] Genoveva [facility] [address],[place] [address] 04/11/2020 14:09:00 04/11/2020 19:07:15 screening 029194941 Z36.87 [id number] [facility] [address],[place] [address] 05/09/2020 14:02:05 05/09/2020 14:50:13 Routine care 450123568 Z34.92 Nausea and vomiting 1693 2000 R11.2 [id number] [facility] [address],[place] [address] 06/06/2020 14:32:33 06/06/2020 16:55:21 Routine care 818702303 Z34.92 [id number] Genevieve Hernandez [facility] [address],[place] [address] 06/06/2020 14:32:21 06/06/2020 16:06:28 screening for malformation 821594235 Z36.3 [id number] [facility] [address],[place] [address] 07/04/2020 14:05:32 07/04/2020 14:35:18 Routine care 393134871 Z34.92 [id number] [facility] [address],[place] [address] 07/25/2020 11:26:38 07/25/2020 12:09:22 Routine care 918765119 Z34.92 [id number] Heidi Mendez [facility] [address],[place] [address] 08/04/2020 09:38:12 08/04/2020 10:14:32 Gestational diabetes mellitus class A1 50379343 O24.410 Pt here for diet teaching. Went over ideal ranges for FBS and pp BS. Went over carb counting and carb ranges for each meal/snack . Gave ideas for foods to eat for meals/snac ks. Discussed drink options and to avoid soda and juice. Told pt she can go online and to ADA for meal options or to look up low carb meal recipes online for ideas as well. Pt picked up glucometer , but has not started checking BS yet. Pt did not bring in glucometer to appt, but explained to pt how to check BS QID. Told pt to start checking BS QID and adjusting diet to follow low carb diet to try to keep BS within normal range. Pt aware if sugars aren't controlled by diet we would discuss starting insulin. Went over NST schedule with pt and importance of keeping these appts and checking BS for her and baby's health. Pts questions were answered [place] [id number] [facility] [address],[place] [address] 08/08/2020 11:20:35 08/08/2020 12:01:47 Routine care 447334157 Z34.92 [id number] Salima Cardona [facility] [address],[place] [address] 08/24/2020 14:01:41 08/24/2020 14:39:01 Maternal obesity complicating , childbirth and the puerperium, antepartum 3228868967 07 O99.213 [id number] Genoveva Chandler [facility] [address],[place] [address] 08/24/2020 14:02:42 08/24/2020 15:01:26 Gestational diabetes mellitus class A1 93784644 O24.410 Z3A.31 Pt here for diet teaching. Went over ideal ranges for FBS and pp BS. Went over carb counting and carb ranges for each meal/snack . Gave ideas for foods to eat for meals/snac ks. Discussed drink options and to avoid soda and juice. Told pt she can go online and to ADA for meal options or to look up low carb meal recipes online for ideas as well. Pt picked up glucometer , but has not started checking BS yet. Pt did not bring in glucometer to appt, but explained to pt how to check BS QID. Told pt to start checking BS QID and adjusting diet to follow low carb diet to try to keep BS within normal range. Pt aware if sugars aren't controlled by diet we would discuss starting insulin. Went over NST schedule with pt and importance of keeping these appts and checking BS for her and baby's health. Pts questions were answered [place] [id number] Gabe Power MD [facility] [address],[place] [address] 08/24/2020 14:03:00 08/24/2020 16:27:30 Routine care 862386299 Z34.81 [id number] [facility] [address],[place] [address] 08/28/2020 14:57:50 08/28/2020 15:36:11 Maternal obesity complicating , childbirth and the puerperium, antepartum 0549886746 07 O99.213 [id number] [facility] [address],[place] [address] 08/31/2020 13:57:56 08/31/2020 15:04:24 Maternal obesity complicating , childbirth and the puerperium, antepartum 8303566130 07 O99.213 [id number] Gabe Power MD [facility] [address],[place] [address] 08/31/2020 13:58:17 08/31/2020 15:22:22 Routine care 506333903 Z34.81 [id number] M Dulce [facility] [address],[place] [address] 09/04/2020 16:05:31 09/04/2020 16:51:55 Maternal obesity complicating , childbirth and the puerperium, antepartum 8275628073 07 O99.213 [id number] Gabe Power MD [facility] [address],[place] [address] 09/14/2020 14:34:50 09/15/2020 10:38:39 HELLP syndrome 31852038 O14.25 This patient is a 24-year-ol d female who presents for follow-up after atypical HELLP presentati on. She was delivered at 33 weeks. Her blood pressures are normal. Her blood pressures were fairly normal throughout the proceeding s. She is concerned about the return of her flank pain. We agreed to repeat her labs. She is concerned about the return of symptoms and may be worsening of his hellp status. She is emotional. She has a child in the NICU. The baby is doing very well. It only has the feeding to a remaining for support. It is breathing on its own on room air. Patient was offered treatment should she become depressed and overwhelme d. [id number] [facility] [address],[place] [address] 12/27/2020 10:56:27 12/27/2020 14:21:30 Cyst of right ovary [id number] 7000090 N83.201 Today, we discussed TVUS to determine size etc of right ovarian cyst found on CT.She is still having some discomfort from this issue but her pain rating is down to a 2-4 out of 10 with use of Ibuprofen 600mg TID PO with food PRN.Declin ed need std screenOn her menses also.UPT is neg from ED.CBC/cmp were updated last friday (see records sent from ED).Cyclob enzaprine sent to couple with Ibuprofen prnUnderst ands this med can make you drowsy so advised first dose taken while others present who can watch her baby if needs to take a nap. Time spent in visit is a total of 22 mins with at least 50% of visit consisting of counseling and review of plan of care.Addit ional precaution rina measures were taken to minimize potential exposure to the Covid-19 virus during this patient s visit, including available hand adapted physical education specialist upon arrive, temperatur e check and being asked a series of screening questions. All staff wore face coverings during this encounter, as well as provided additional cleaning and sanitizing of all surfaces, including countertop s, pens, chairs, door handles, light switches, etc, prior to and following the patient s visit. Patient is to contact office or go to nearest ED/Urgent care if fever >/= 100.1, pain, excessive bleeding, unusual drainage or swelling in area of concern; or experienci ng worsening sx's or new onset of concerning sx's. Understand ing verbalized . All questions answered to patient satisfacti on. Contracept ion care management 656258701 Z30.9 Interested in tubal ligationWi ll schedule MD consult Dr. Power [id number] Mylene Max [facility] [address] [address] 01/02/2021 11:00:29 01/02/2021 12:08:07 Cyst of ovary 09156542 N83.209 [id number] SHASHI Blankenship [facility] [address] [address] 11/27/2022 10:32:18 11/27/2022 13:56:05 Pain in pelvis 61299868 R10.2 This patient is a 26 -year-old female with pelvic pain. We have agreed to complete the evaluation with pelvic ultrasound . The patient will return after the pelvic ultrasound to discuss those findings and to develop a treatment plan. A comprehens citlali history and physical exam was performed today. We spent over 25 minutes face-to-fa ce. The patient was given precaution s. She will contact clinic if pelvic pain increases in frequency or intensity. Also notify clinic of any new symptoms associated with pelvic pain. She does not appear to have an acute pelvic infection today, but was asked to contact us Immediatel y with nausea, vomiting, fever, chills. pelvic u/s ordereduri ne cx sentgc/ct/ trich testing sentUPT (-)Discuss ed starting POP or IUD to help with her symptoms. r/b/a reviewed, she may consider thispossib le GI component as well, f/u with GI alsoDiscus sed hx of endometrio sis, recommendchelsi lim MD consult Dyspareunia 49606117 N94 .10 History of endometriosis 0304246355 6297279 Z87.42 [id number] Genoveva Chandler [facility] [address],[place] [address] 12/02/2022 14:46:40 12/02/2022 15:44:26 Pain in pelvis 10808871 R10.2 [id number] Gabe Power MD [facility] [address],[place] [address] 12/11/2022 16:28:44 12/12/2022 09:08:38 Pain in pelvis 66712248 R10.2 27-year-ol d female with recurrent chronic pelvic pain and history of endometrio sis. She is had surgically resected endometrio sis. She is been on oral contracept citlali for significan t amount of time but discontinu ed about 6 months ago and recently had increased amount of pain. It is at the time of her. Periods and intense sharp pain in the pelvis. It is unremittin g. We talked about treatment options. We talked about medical treatment and surgical diagnosis and treatment. We intend to perform diagnostic laparoscop y. We agreed to move forward with diagnostic laparoscop y. We made a decision to perform surgery. We spent 40 minutes face-to-fa ce. More than 50% was counseling . I described the procedure to her. I described risk. [id number] Gabe Power MD [facility] [address],[place] [address] 01/16/2023 13:47:56 01/16/2023 13:55:23 Health Concerns Section Related Observation LastModified by Organization Detai ls LastModified Time None Recorded Concern Status LastModified by Organization Details LastModified Time None Recorded Advance Directives Directive None Recorded Payers Encounter Date Sequence Insurance Name Policy Number Policy [place] Covered Member ID [place] Member ID Guarantor Name 01/02/2021 1 [facility] - DOS ON OR AFTER 20 (MEDICAID REPLACEMENT - HMO) Lauren Varble [id number] Lauren Varble 11/27/2022 1 [facility] - DOS ON OR AFTER 20 (MEDICAID REPLACEMENT - HMO) Lauren Varble [id number] Lauren Varble 12/02/2022 1 [facility] - DOS ON OR AFTER 20 (MEDICAID REPLACEMENT - HMO) Lauren Varble [id number] Lauren Varble 12/11/2022 1 [facility] - DOS ON OR AFTER 20 (MEDICAID REPLACEMENT - HMO) Lauren Varble [id number] Lauren Varble 01/15/2023 1 [facility] - DOS ON OR AFTER 20 (MEDICAID REPLACEMENT - HMO) Lauren Varble [id number] Lauren Varble Notes Date Note Type Note Provider Name and Address Organization Details Recorded Time 11/27/2022 text/html 26yopresents for evaluation of pelvic painpelvic pain on and off for years. Random lower cramping, IC is painful2 weeks ago had worsening pain (lower back pains, cramping, urinary symptoms). Treated for a UTI at ED and some symptoms improved. Told u/s and CT were normal and to f/u with gyne. Still experiencing lower cramping as well as upper right abdominal pains. Symptoms come and go, worse with activity. IC is painfulPeriods are monthly, SA with steady male partner - BC not practicedperiods are painful hx of endometriosis, diagnostic lap 4-5 yrs ago per pthx of IBSbowel movements have been regularneg n/v/fneg flu-like symptoms SHASHI Blankenship [address], [place], [address], [facility] 11/27/2022 13:43:17 12/11/2022 text/html 27-year-old fema le with recurrent chronic pelvic pain and history of endometriosis. She is had surgically resected endometriosis. She is been on oral contraceptive for significant amount of time but discontinued about 6 months ago and recently had increased amount of pain. It is at the time of her. Periods and intense sharp pain in the pelvis. It is unremitting. We talked about treatment options. We talked about medical treatment and surgical diagnosis and treatment. We intend to perform diagnostic laparoscopy. We agreed to move forward with diagnostic laparoscopy. We made a decision to perform surgery. We spent 40 minutes [id number]. More than 50% was counseling. I described the procedure to her. I described risk. Gabe Power MD [address], [place], [address], [facility] 12/11/2022 23:55:38 OBGyn Episode Ob Episode Information Episode Created Date Number of Fetuses Patient Bloodtype Patient rh Status Prepregnancy Weight lbs Domestic Partner Domestic Partner Phone Father Name Distribution Analyst Status 04/12/19 21 1 A Positive 261 CLOSED Fetus Data First Name Last Name Admitted to NICU Weight (g) Sex Living Outcome Pediatric Complications Fetus ID Race Codes Race Delivery Type 2324.65 9 M Prematur e NICU - CPAP 8202 Problems Problem Notes Declined CF/SMA Problem Name Start Date End Date Resolution Snomed Code Not e Obesity [id number] 32 wk ante testing Gestational diabetes mellitus 27391490 32 wk testing - diet controlled Anxiety in [id number] Daniel Calculation Initial Daniel Date Initial Exam Date Initial Exam Provider Initial Ultrasound Date Last Menstrual Period Date Ultra Sound Weeks Gestation 10/20/2020 04/11/2020 03/14/2020 01/14/2020 8 Eighteen To Twenty Week Daniel Update Ultra Sound Date Fundal Height At Umbil Quickening Date Ultra Sound Latest Weeks Gestation Final Daniel Confirmed By Final Daniel Confirmed Date Final Daniel Date Ultra Sound Latest Days Gestation 0 [email or web address] 04/11/2020 10/21/19 21 0 Pre-otis Flowsheet Flowsheet Date 04/11/2020 Reina Score Blood Edema Fundus Height Fundus Units Glucose Ketones Leukocytes Nitrite Labor Signs Protein Cervic Dilation Cervic Effacement Cervic Station 12 Type Weight in lbs Pre/Post Dialysis Refused Weight 255.192336081684 BP Diastolic BP Location Tested BP Systolic BP Type 83 R arm 135 sitting Fetus Heart Rate Present A 154 Fetus Movement Comments This patient is a 24-year-ol d 3 para 1001 at 12 weeks gestation who presents for initial care. She has a history of a term vaginal births. Her medical, surgical, social history unremarkable. She does have some anxiety. She has not medicated for that and is stable. We will begin routine care Flowsheet Date 05/09/2020 Reina Score Blood Edema Fundus Height Fundus Units Glucose Ketones Leukocytes Nitrite Labor Signs Protein Cervic Dilation Cervic Effacement Cervic Station none 16 neg Type Weight in lbs Pre/Post Dialysis Refused Weight 254.265500546553 BP Diastolic BP Location Tested BP Systolic BP Type 80 122 Fetus Heart Rate Present A 145 Fetus Movement A Yes Comments Occasional nausea and vomiti ng. Taking zofran but doesn't seem to help. Will try phenergan. If no improvement she will let us know. Flowsheet Date 06/06/2020 Reina Score Blood Edema Fundus Height Fundus Units Glucose Ketones Leukocytes Nitrite Labor Signs Protein Cervic Dilation Cervic Effacement Cervic Station Type Weight in lbs Pre/Post Dialysis Refused BP Diastolic BP Location Tested BP Systolic BP Type Fetus Heart Rate Present Fetus Movement Comments Flowsheet Date 06/06/2020 Reina Score Blood Edema Fundus Height Fundus Units Glucose Ketones Leukocytes Nitrite Labor Signs Protein Cervic Dilation Cervic Effacement Cervic Station none 20 neg Type Weight in lbs Pre/Post Dialysis Refused Weight 256.084930297572 BP Diastolic BP Location Tested BP Systolic BP Type 62 128 Fetus Heart Rate Present Fetus Movement A Yes Comments Phenergan worked great. Doin g well. Baseline anatomy today. Flowsheet Date 07/04/2020 Reina Score Blood Edema Fundus Height Fundus Units Glucose Ketones Leukocytes Nitrite Labor Signs Protein Cervic Dilation Cervic Effacement Cervic Station none 26 trace Type Weight in lbs Pre/Post Dialysis Refused Weight 258.775294482979 BP Diastolic BP Location Tested BP Systolic BP Type 87 135 Fetus Heart Rate Present A 147 Fetus Movement A Yes Comments Phenergan making her very ti red. Would like to switch back to zofran. Otherwise doing well. Plan to return in 3 weeks for routine ob and gtt. Flowsheet Date 07/25/2020 Reina Score Blood Edema Fundus Height Fundus Units Glucose Ketones Leukocytes Nitrite Labor Signs Protein Cervic Dilation Cervic Effacement Cervic Station none 29 trace Type Weight in lbs Pre/Post Dialysis Refused Weight 261.98265004254 BP Diastolic BP Location Tested BP Systolic BP Type 84 122 Fetus Heart Rate Present A 125 Fetus Movement A Yes Comments Doing well. Discussed recomm endation for NST's starting at 32 weeks. Gtt today. Visit per Z. Due SNM. Flowsheet Date 08/04/2020 Reina Score Blood Edema Fundus Height Fundus Units Glucose Ketones Leukocytes Nitrite Labor Signs Protein Cervic Dilation Cervic Effacement Cervic Station Type Weight in lbs Pre/Post Dialysis Refused BP Diastolic BP Location Tested BP Systolic BP Type Fetus Heart Rate Present Fetus Movement Comments Flowsheet Date 08/08/2020 Reina Score Blood Edema Fundus Height Fundus Units Glucose Ketones Leukocytes Nitrite Labor Signs Protein Cervic Dilation Cervic Effacement Cervic Station none 31 trace Type Weight in lbs Pre/Post Dialysis Refused Weight 255.845358081670 BP Diastolic BP Location Tested BP Systolic BP Type 78 118 Fetus Heart Rate Present A 142 Fetus Movement A Yes Comments Pt has not been checking blo od sugars. Mother was in the hospital for seizures and was just released. Pt has been very stressed. She does state she has been following a high protein diet and watching her carbs. Has also completely cut out soda and other high sugar drinks. Discussed importance of checking blood sugars and pt verbalized understanding. Pt will start checking bs carlie. Task sent to OB to call her Friday. Flowsheet Date 08/24/2020 Reina Score Blood Edema Fundus Height Fundus Units Glucose Ketones Leukocytes Nitrite Labor Signs Protein Cervic Dilation Cervic Effacement Cervic Station Type Weight in lbs Pre/Post Dialysis Refused BP Diastolic BP Location Tested BP Systolic BP Type Fetus Heart Rate Present Fetus Movement Comments Flowsheet Date 08/24/2020 Reina Score Blood Edema Fundus Height Fundus Units Glucose Ketones Leukocytes Nitrite Labor Signs Protein Cervic Dilation Cervic Effacement Cervic Station Type Weight in lbs Pre/Post Dialysis Refused BP Diastolic BP Location Tested BP Systolic BP Type Fetus Heart Rate Present Fetus Movement Comments Flowsheet Date 08/24/2020 Reina Score Blood Edema Fundus Height Fundus Units Glucose Ketones Leukocytes Nitrite Labor Signs Protein Cervic Dilation Cervic Effacement Cervic Station 32 trace Type Weight in lbs Pre/Post Dialysis Refused Weight 255.402810451409 BP Diastolic BP Location Tested BP Systolic BP Type 83 R arm 127 sitting Fetus Heart Rate Present A 135 Fetus Movement A Yes Comments Normal growth, blood sugars are well controlled. Flowsheet Date 08/28/2020 Reina Score Blood Edema Fundus Height Fundus Units Glucose Ketones Leukocytes Nitrite Labor Signs Protein Cervic Dilation Cervic Effacement Cervic Station Type Weight in lbs Pre/Post Dialysis Refused BP Diastolic BP Location Tested BP Systolic BP Type 76 R arm 125 sitting Fetus Heart Rate Present Fetus Movement Comments Flowsheet Date 08/31/2020 Reina Score Blood Edema Fundus Height Fundus Units Glucose Ketones Leukocytes Nitrite Labor Signs Protein Cervic Dilation Cervic Effacement Cervic Station Type Weight in lbs Pre/Post Dialysis Refused BP Diastolic BP Location Tested BP Systolic BP Type Fetus Heart Rate Present Fetus Movement Comments Flowsheet Date 08/31/2020 Reina Score Blood Edema Fundus Height Fundus Units Glucose Ketones Leukocytes Nitrite Labor Signs Protein Cervic Dilation Cervic Effacement Cervic Station 35 trace Type Weight in lbs Pre/Post Dialysis Refused Weight 252.236457873716 BP Diastolic BP Location Tested BP Systolic BP Type 81 R arm 139 sitting Fetus Heart Rate Present A 145 Fetus Movement A Yes Comments Reactive NST, recent normal growth ultrasound, 1 abnormal fasting blood sugar of 100. She will modify evening snack. Flowsheet Date 09/04/2020 Reina Score Blood Edema Fundus Height Fundus Units Glucose Ketones Leukocytes Nitrite Labor Signs Protein Cervic Dilation Cervic Effacement Cervic Station Type Weight in lbs Pre/Post Dialysis Refused BP Diastolic BP Location Tested BP Systolic BP Type 80 R arm 122 sitting Fetus Heart Rate Present Fetus Movement Comments Menstrual History Last Menstrual Date Menses Monthly On Bcp Conception Prior Menses Frequency Hcg Plus Date Menarche Onset Age 1201/14/2020 Genetic Screening And Infection History Question Response Note Mental Retardation/Autism false Patient's Age Will Be 35 Years Or Older At Estim ated Date of Delivery false Thalassemia (Vietnamese, Cambodian, Mediterranean, Or Background): MCV < 80 false Neural Tube Defect (Meningomyelocele, Spina Bifi da, Or Anencephaly) false Congenital Heart Defect false Down Syndrome false Liban-Sachs (eg, Mu-Ism, Cajun, Albanian-Burkinan) f alse Heather Disease false Sickle Cell Disease Or Trait () false Hemophilia Or Other Blood Disorders false Muscular Dystrophy false Cystic Fibrosis false [place]'s Ch[place] false Intellectual Disability/Autism false If Yes, Was Person Tested For Fragile X? false Other Inherited Genetic Or Chromosomal Disorder false Maternal Metabolic Disorder (eg, Type 1 Diabetes , PKU) false Patient Or Baby's Father Had A Child With Defects Not Listed Above false Recurrent Loss, Or A Stillbirth false Medications (including Suppl ements, Vitamins, Herbs, OTC Drugs), Illicit/Recreational Drugs, Alcohol false If Yes, Agent(s) And Strength/Dosage false Any Other Genetic History false Live With Someone With TB Or Exposed To TB false Patient Or Partner Has History Of Genital Herpes false Rash Or Viral Illness Since Last Menstrual Perio d false History Of STD, Gonorrhea, Chlamydia, HPV, Syphi lis false Other Infection History false History of HIV false History of Hepatitis false Prior GBS-infected child false Hemoglobinopathy Or Carrier false Other Structural Defect false Recent Travel History Outside of Country false Delivery Information Delivery Date Delivery Type Labor Anesthesia Weeks Gestation Incision Type Labor Labor Length Hrs Delivered By Post Complications Tubal Sterilization Discharge Date Comments 1 Induce d 33.6 true [facility] atypical HELLP Discharge Information Feeding Method Contraceptive Method Maternal HG B and HCT Levels Ob Episode Information Episode Created Date Number of Fetuses Patient Bloodtype Patient rh Status Prepregnancy Weight lbs Domestic Partner Domestic Partner Phone Father Name Distribution Analyst Status 03/14/19 21 1 CLOSED Fetus Data First Name Last Name Admitted to NICU Weight (g) Sex Living Outcome Pediatric Complications Fetus ID Race Codes Race Delivery Type [id number] F Full Term [id number] Vaginal Delivery Daniel Calculation Initial Daniel Date Initial Exam Date Initial Exam Provider Initial Ultrasound Date Last Menstrual Period Date Ultra Sound Weeks Gestation 0 Eighteen To Twenty Week Daniel Update Ultra Sound Date Fundal Height At Umbil Quickening Date Ultra Sound Latest Weeks Gestation Final Daniel Confirmed By Final Daniel Confirmed Date Final Daniel Date Ultra Sound Latest Days Gestation 0 0 Menstrual History Last Menstrual Date Menses Monthly On Bcp Conception Prior Menses Frequency Hcg Plus Date Menarche Onset Age Delivery Information Delivery Date Delivery Type Labor Anesthesia Weeks Gestation Incision Type Labor Labor Length Hrs Delivered By Post Complications Tubal Sterilization Discharge Date Comments 4 39 [place]occo Discharge Information Feeding Method Contraceptive Method Maternal HG B and HCT Levels Ob Episode Information Episode Created Date Number of Fetuses Patient Bloodtype Patient rh Status Prepregnancy Weight lbs Domestic Partner Domestic Partner Phone Father Name Distribution Analyst Status 03/29/19 22 1 CLOSED Fetus Data First Name Last Name Admitted to NICU Weight (g) Sex Living Outcome Pediatric Complications Fetus ID Race Codes Race Delivery Type , Induced [id number] Daniel Calculation Initial Daniel Date Initial Exam Date Initial Exam Provider Initial Ultrasound Date Last Menstrual Period Date Ultra Sound Weeks Gestation 0 Eighteen To Twenty Week Daniel Update Ultra Sound Date Fundal Height At Umbil Quickening Date Ultra Sound Latest Weeks Gestation Final Daniel Confirmed By Final Daniel Confirmed Date Final Daniel Date Ultra Sound Latest Days Gestation 0 0 Menstrual History Last Menstrual Date Menses Monthly On Bcp Conception Prior Menses Frequency Hcg Plus Date Menarche Onset Age Delivery Information Delivery Date Delivery Type Labor Anesthesia Weeks Gestation Incision Type Labor Labor Length Hrs Delivered By Post Complications Tubal Sterilization Discharge Date Comments 2 Planned Parenthoo d Discharge Information Feeding Method Contraceptive Method Maternal HG B and HCT Levels
--- OUTSIDE RECORDS SUMMARY | 2024-05-31 13:18 | XMS_ITS | Clinical Summary ---
Author Organization [facility] Address [address], [facility] [address] [place] [address] Phone Care Team Providers Care Strategic Sourcing Consultant Name Role Phone Mary Grace Rivera MD Unavailable [phone] Provider, Not On File Primary Care Provider Unav ailable Allergies No known active allergies Medications PROAIR HFA 108 (90 Base) MCG/ACT Aerosol Solution INL 2 PFS PO Q 4 H PRN 6 02/11/2018 Active sertraline (ZOLOFT) 100 MG Tablet TK 1 T PO QD 0 02/18/2018 Active HYDROcodone-acet aminophen (NORCO) 5-325 MG Tablet TK 1-2 TS PO Q 4-6 H PRN P RATED 4 TO 6 0 01/27/2018 Active Sulfamethoxazole -Trimethoprim (BACTRIM PO) Take 800 mg by mouth 2 times daily. Active Ascorbic Acid (VITAMIN C PO) Take 1 Tab by mouth daily. Active Cholecalciferol (VITAMIN D PO) Take 1 Tab by mouth daily. Active ondansetron (ZOFRAN) 4 MG Tablet Take 4 mg by mouth every 8 hours as needed for Nausea - 1st line. Active Levonorgest-Eth Estrad 91-Day (ASHLYNA) 0.15-0.03 &0.01 MG TabletIndication s:Contraceptive Therapy Take by mouth. Active Family History Medical History Relation Name Comments Cancer Maternal Aunt breast Cancer Maternal Grandfather lung Relation Name Status Comments Father Alive Maternal Aunt Maternal Grandfather Mother Alive Social History Tobacco Use Types Packs/Day Years Used Date Smoking Tobacco: Former Cigarettes Q uit: 03/02/2017 Smokeless Tobacco: Never Comments:Occasional cigarett e in the past. 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 Temperature 37 C (98.6 F) 03/02/2018 2:15 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 Respiratory Rate 22 03/02/2018 2:15 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 Oxygen Saturation 99% 03/02/2018 2:15 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 Inhaled Oxygen Concentration - - Weight 108.9 kg (240 lb) 03/02/2018 12:37 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 Height 170.2 cm (5' 7 ) 03/02/2018 12:37 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 Body Mass Index 37.59 03/02/2018 12:37 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 Plan of Treatment Health Maintenance Due Date Last Done Comments Hepatitis C Virus (HCV) Screening 1995 TdaP Immunization 1995 Hepatitis B Immunization (1 of 3 - 19+ 3-dose series) 12/09/2014 Influenza Immunization (#1) 2023 SARS-COV-2 Immunization (2023-25 season) 2023 Respiratory Syncytial Virus (RSV) Immunization (Adult) (1 - 1-dose 75+ series) 12/09/2070 Meningococcal Immunization (ACWY) Aged Out No longer eligible based on patient's age to complete this topic Pneumococcal Immunization Combined Aged Out No longer eligible based on patient's age to complete this topic Rotavirus Immunization Aged Out No lo nger eligible based on patient's age to complete this topic Insurance MEDICAID [place] Care Teams Strategic Sourcing Consultant Relationship Specialty Start Date End Date Provider, Not On File [place] PCP - General 02/27/18 Mary Grace Rivera MD Consulting Physician Obstetrics & Gynecology 02/25/18
== END 2024-05-31 11:27 | disposition home or self-care (01) ==
LOC: ANHLAB 11:32
PROVIDERS: PCP Internal Medicine; Visit Provider Internal Medicine
DX: J45.20 Mild intermittent asthma, uncomplicated (principal); R53.82 Chronic fatigue, unspecified; Z13.1 Encounter for screening for diabetes mellitus; Z13.220 Encounter for screening for lipoid disorders; Z20.9 Contact with and (suspected) exposure to unspecified communicable disease
CPT/HCPCS: 36415; 80053; 83036; 84443; 85027; 86703; 86803; G0432

== ENCOUNTER 2024-07-03 11:16 | Emergency (ER) | payer OTHER, SELFPAY ==
--- NOTE | ~2024-07-03 | XR_ITS ---
EXAMINATION: XR foot RT min 3V DATE: 07/03/2024 12:04 INDICATION: Bruising and tenderness at the dorsum of the right foot TECHNIQUE: Dorsoplantar, two oblique and lateral views of the right foot were obtained. COMPARISON: None. FINDINGS: Bone alignment is normal. No fracture. Joint spaces are well maintained. Small plantar calcaneal spur . Soft tissues are unremarkable. No evident ankle joint effusion. IMPRESSION: 1. No acute osseous abnormality. Reviewed, dictated and finalized at location A.
[2024-07-03 11:27] VITALS: BP 120/72; PULSE 76; RESP 18; TEMP 36.4; O2SAT 99
--- NOTE | 2024-07-03 11:55 | ED.LOWEXIN ---
HPI - Extremity Injury (Lower) General Chief Complaint: Extremity Injury, Lower Stated Complaint: RT Foot Pain Time Seen by Provider: 07/03/24 11:55 Source: patient Mode of arrival: ambulatory Limitations: no limitations History of Present Illness HPI Narrative: 28-year-old female presents with complaint of pain and swelling to right foot. Patient states she dropped her cell phone on her foot twice. Patient concerned she has a fracture. Ambulatory with steady gait. Patient requesting x-ray. All systems reviewed and negative except as noted above. Related Data Home Medications ?Medication ?Instructions ?Recorded ?Confirmed ?Last Taken ?Type cetirizine 10 mg capsule (Zyrtec) 10 mg PO DAILY PRN Allergy Symptoms 09/04/20 01/23/23 01/16/23 History acetaminophen 500 mg tablet 1,000 mg PO TID PRN Pain 01/08/23 01/23/23 01/16/23 History duloxetine 60 mg capsule,delayed 60 mg PO HS 01/08/23 01/23/23 01/22/23 History release Allergies Allergy/AdvReac Type Severity Reaction Status Date / Time No Known Allergies Allergy Verified 07/03/24 11:34 Review of Systems Review of Systems: CONSTITUTIONAL: Denies fever, chills, or sweats. EYES: Denies visual changes, redness, or discharge. ENT: Denies rhinorrhea, congestion, sore throat, or otalgia. CARDIOVASCULAR: Denies chest pain, palpitations, or edema. RESPIRATORY: Denies cough or dyspnea. GASTROINTESTINAL: Denies abdominal pain, nausea, vomiting, or diarrhea. GENITOURINARY: Denies dysuria or hematuria. SKIN: Denies rash or itching. MUSCULOSKELETAL: Denies back pain, joint pain, or myalgia. Reports pain and bruising to right foot. NEUROLOGIC: Denies headache, numbness, or weakness. PSYCHIATRIC: Denies anxiety or depression. All other systems reviewed are negative, except as documented in HPI. [facility] Past Medical History Medical History Anxiety Asthma Depression Endometriosis Hypothyroid Morbid obesity Pelvic pain Surgical History Surgical History No significant past surgical history Social History Social History Smoking status: Former smoker Tobacco type: cigarettes Second hand tobacco smoke exposure: No Smoking end date: 01/08/19 Additional smoking assessment comments: FORMER SOCIAL SMOKER Alcohol intake: never Substance use: current Substance use type: marijuana Other substance usage details: marijuana daily Living arrangements: with family Additional living arrangements comments: BOYFRIEND, CHILDREN Occupation/Education: unemployed Gender identity (if verbalized by the patient): Female Spiritual care concerns: No Comments At time of signature, agree with nursing past medical, surgical, social and family history. There is no relevant family history pertinent to the presenting complaint. Exam Narrative: GENERAL: This is a well-nourished, well-developed patient, in no apparent distress. HEAD: normocephalic, atraumatic. EYES: PERRL. Sclera clear/white. Vision is grossly intact. EARS: External ears normal NOSE: External nose normal NECK: Neck supple, non-tender without lymphadenopathy, masses or thyromegaly. CARDIOVASCULAR: Regular rate and rhythm without murmurs, gallops, or rubs. RESPIRATORY: Clear to auscultation. Breath sounds equal bilaterally. No wheezes, rales, or rhonchi. SKIN: warm, Dry, intact with no suspicious lesions or rash, good texture and turgor. NEURO: awake, alert, and oriented to person, place and time. There were no obvious focal neurologic abnormalities. EXTREMITIES: No joint tenderness, effusion. Small contusion noted to dorsal aspect of right foot with tenderness on palpation to mid 2nd 3rd and 4th metatarsals. No deformity noted. Swelling is mild. Course Course Level of Care: Express Care Visit Vital Signs Vital signs: Vital Signs Temperature 36.4 C L 07/03/24 11:27 Pulse Rate 76 07/03/24 11:27 Respiratory Rate 18 07/03/24 11:27 Blood Pressure 120/72 07/03/24 11:27 Pulse Oximetry 99 07/03/24 11:27 Temperature 36.4 C L 07/03/24 11:27 Pulse Rate 76 07/03/24 11:27 Respiratory Rate 18 07/03/24 11:27 Blood Pressure 120/72 07/03/24 11:27 Pulse Oximetry 99 07/03/24 11:27 Reviewed MDM - Extremity Injury (Lower) MDM Narrative Medical decision making narrative: Discussed x-ray results with patient. Right foot x-ray is negative for fracture. Recommend rest, ice and elevation. Imaging Data My impression: Agree with radiologist Radiologist's impression: EXAMINATION: XR foot RT min 3V DATE: 07/03/2024 12:04 INDICATION: Bruising and tenderness at the dorsum of the right foot TECHNIQUE: Dorsoplantar, two oblique and lateral views of the right foot were obtained. COMPARISON: None. FINDINGS: Bone alignment is normal. No fracture. Joint spaces are well maintained. Small plantar calcaneal spur. Soft tissues are unremarkable. No evident ankle joint effusion. IMPRESSION: 1. No acute osseous abnormality. Discharge Plan Discharge Clinical Impression: Contusion of foot, right Qualifiers: Encounter type: initial encounter Qualified Code(s): S90.31XA - Contusion of right foot, initial encounter Patient Disposition: Home Condition: Stable Instructions: Foot Contusion (ED) Additional Instructions: The x-ray of your right foot was negative for fracture. Take Tylenol or ibuprofen every 6-8 hours as needed for pain. Apply ice as needed for pain. Elevate when at rest. See your doctor if pain is not improving. Patient Language: Arabic Prescriptions: No Action Zyrtec 10 mg Capsule 10 mg PO DAILY PRN (Reason: Allergy Symptoms) acetaminophen 500 mg tablet 1,000 mg PO TID PRN (Reason: Pain) duloxetine 60 mg capsule,delayed release(DR/EC) 60 mg PO HS hydrocodone-acetaminophen 5-325 mg tablet 1 tablet PO Q6H PRN (Reason: pain) Qty: 4 0RF ibuprofen 800 mg tablet 800 mg PO TID PRN (Reason: pain) 7 Days Qty: 21 0RF acetaminophen 500 mg tablet 1,000 mg PO TID PRN (Reason: tim) 7 Days Qty: 42 0RF ibuprofen 800 mg tablet 800 mg PO TID PRN (Reason: pain) 7 Days Qty: 21 0RF Follow-up/Referrals: Miki Valentine MD [Primary Care Provider] - Time of Disposition: 12:23
== END 2024-07-03 12:28 | disposition home or self-care (01) ==
PROVIDERS: Emergency Provider Nurse Practitioner Family; PCP Internal Medicine
DX: S90.31XA Contusion of right foot, initial encounter (principal); W20.8XXA Other cause of strike by thrown, projected or falling object, initial encounter; Z87.891 Personal history of nicotine dependence; J45.909 Unspecified asthma, uncomplicated; N80.9 Endometriosis, unspecified; E03.9 Hypothyroidism, unspecified; E66.01 Morbid (severe) obesity due to excess calories; Z68.39 Body mass index [BMI] 39.0-39.9, adult
CPT/HCPCS: 73630; 99213; G0463

== ENCOUNTER 2024-07-22 11:50 | Emergency (ER) | payer OTHER, SELFPAY ==
[2024-07-22 12:03] VITALS: BP 117/69; PULSE 65; RESP 16; TEMP 36.3; O2SAT 98
--- NOTE | 2024-07-22 12:31 | ED_ITS ---
HPI - URI/Sore Throat General Chief Complaint: Upper Respiratory Infection Stated Complaint: Strep Symptoms Time Seen by Provider: 07/22/24 12:25 Source: patient and RN notes reviewed Mode of arrival: ambulatory Limitations: no limitations History of Present Illness HPI Narrative: Patient presents today complaining 2-3 day history of sore throat, rhinorrhea, nausea, headache. Currently rates her pain 5/10 and has been taking Tylenol, ibuprofen, and cough drops with some relief. Pain increases with swallowing. Son at home with strep throat. Denies shortness of breath or difficulty swallowing. Related Data Home Medications ?Medication ?Instructions ?Recorded ?Confirmed ?Last Taken ?Type cetirizine 10 mg capsule (Zyrtec) 10 mg PO DAILY PRN Allergy Symptoms 09/04/20 07/22/24 01/16/23 History duloxetine 60 mg capsule,delayed 60 mg PO HS 01/08/23 07/22/24 01/22/23 History release trazodone 50 mg tablet mg 07/22/24 Unknown History ziprasidone HCl 20 mg capsule mg PO 07/22/24 Unknown History Allergies Allergy/AdvReac Type Severity Reaction Status Date / Time No Known Allergies Allergy Verified 07/22/24 12:26 Review of Systems Review of Systems: CONSTITUTIONAL: Denies body aches, fever, chills, or sweats. EYES: Denies visual changes, redness, or discharge. ENT: Denies congestion, or otalgia.+ sore throat, rhinorrhea CARDIOVASCULAR: Denies chest pain, palpitations, or edema. RESPIRATORY: Denies cough or dyspnea. GASTROINTESTINAL: Denies abdominal pain, vomiting, or diarrhea.+ nausea GENITOURINARY: Denies dysuria or hematuria. SKIN: Denies rash, itching, or wounds. MUSCULOSKELETAL: Denies back pain, joint pain, or myalgia. NEUROLOGIC: Denies numbness, tingling, or weakness.+ headache PSYCH: Denies depression or anxiety. [facility] Past Medical History Medical History Morbid obesity Endometriosis Pelvic pain Anxiety Depression Hypothyroid Asthma Surgical History Surgical History No significant past surgical history Social History Social History Smoking status: Former smoker Tobacco type: cigarettes Second hand tobacco smoke exposure: No Smoking end date: 01/08/19 Additional smoking assessment comments: FORMER SOCIAL SMOKER Alcohol intake: never Substance use: current Substance use type: marijuana Other substance usage details: marijuana daily Living arrangements: with family Additional living arrangements comments: BOYFRIEND, CHILDREN Occupation/Education: unemployed Gender identity (if verbalized by the patient): Female Spiritual care concerns: No Comments At time of signature, I have reviewed and agree with nursing past medical, surgical, social and family history unless otherwise noted. Please see nursing chart for further information. There is no relevant family history pertinent to the presenting complaint Exam Narrative: GENERAL: Well-appearing, well-nourished, and in no acute distress. HEAD: Normocephalic, atraumatic. EYES: EOMI. No redness or drainage. Conjunctivae normal. ENT: Mucous membranes pink and moist. Nares clear. No rhinorrhea. TMs normal bilaterally. Throat mildly erythematous without edema or exudate. Uvula midline. NECK: Normal AROM. Supple. No lymphadenopathy. CHEST: No respiratory distress. Clear to auscultation. HEART: Regular rate and rhythm. No murmur appreciated. EXTREMITIES: Normal range of motion. No edema. SKIN: Warm, dry, no rash. Capillary refill normal. Normal skin turgor. NEURO: No focal deficits. Alert and oriented x3. Gait steady. PSYCH: Normal affect. No signs of depression or anxiety. Course Course Level of Care: Express Care Visit Vital Signs Vital signs: Vital Signs Temperature 97.3 F L 07/22/24 12:03 Pulse Rate 65 07/22/24 12:03 Respiratory Rate 16 07/22/24 12:03 Blood Pressure 117/69 07/22/24 12:03 Pulse Oximetry 98 07/22/24 12:03 Oxygen Delivery Room Air 07/22/24 12:03 Temperature 97.3 F L 07/22/24 12:03 Pulse Rate 65 07/22/24 12:03 Respiratory Rate 16 07/22/24 12:03 Blood Pressure 117/69 07/22/24 12:03 Pulse Oximetry 98 07/22/24 12:03 Oxygen Delivery Room Air 07/22/24 12:03 Reviewed MDM - URI/Sore Throat MDM Narrative Medical decision making narrative: Rapid strep negative. Culture pending. Recommend continuing over the counter treatment until culture results. Patient agrees with plan. Declines prescription for antiemetic at this time. Anticipatory guidance given. Differential Diagnosis Differential diagnosis: Likely upper respiratory infection, otitis media, viral infection, pharyngitis and other (Strep throat) Lab Data Attestation: I reviewed the patient's lab results. Lab results narrative: Rapid strep negative Labs: Lab Results 07/22/24 Range/Units 12:15 POC Grp A Strep Screen Negative (Negative) Critical Care Time Critical Care Time Critical Care Time: No Discharge Plan Discharge Clinical Impression: Pharyngitis Qualifiers: Pharyngitis/tonsillitis etiology: unspecified etiology Qualified Code(s): J02.9 - Acute pharyngitis, unspecified Patient Disposition: Home Condition: Stable Instructions: Pharyngitis (ED) Additional Instructions: Your rapid strep swab was negative today at [facility]. You will be notified in a few days if the culture comes back positive for strep, and appropriate antibiotics will be called in for you at that time. Take Tylenol or ibuprofen for fever or pain. Rest and stay hydrated. Follow up with your PCP in 7 days if symptoms are not improving. Go to the ER immediately if you have any difficulty breathing or swallowing. Patient Language: Maltese Prescriptions: No Action trazodone 50 mg tablet ziprasidone HCl 20 mg capsule PO Zyrtec 10 mg Capsule 10 mg PO DAILY PRN (Reason: Allergy Symptoms) duloxetine 60 mg capsule,delayed release(DR/EC) 60 mg PO HS hydrocodone-acetaminophen 5-325 mg tablet 1 tablet PO Q6H PRN (Reason: pain) Qty: 4 0RF ibuprofen 800 mg tablet 800 mg PO TID PRN (Reason: pain) 7 Days Qty: 21 0RF acetaminophen 500 mg tablet 1,000 mg PO TID PRN (Reason: tim) 7 Days Qty: 42 0RF ibuprofen 800 mg tablet 800 mg PO TID PRN (Reason: pain) 7 Days Qty: 21 0RF Follow-up/Referrals: PHYSICIAN,NURSE HEALTHCARE MANAGER [Primary Care Provider] - Time of Disposition: 12:34
[2024-07-22 12:43] LABS: EDSTREPNEGPOS1 Negative (Negative)
== END 2024-07-22 12:35 | disposition home or self-care (01) ==
PROVIDERS: Emergency Provider Nurse Practitioner
DX: J02.9 Acute pharyngitis, unspecified (principal); Z87.891 Personal history of nicotine dependence; E03.9 Hypothyroidism, unspecified; J45.909 Unspecified asthma, uncomplicated; N80.9 Endometriosis, unspecified; E66.01 Morbid (severe) obesity due to excess calories; Z68.39 Body mass index [BMI] 39.0-39.9, adult
CPT/HCPCS: 87081; 87880; 99213; G0463

== ENCOUNTER 2024-09-08 20:01 | Emergency (ER) | payer OTHER, SELFPAY ==
--- NOTE | ~2024-09-08 | US_ITS ---
EXAMINATION: US transvaginal DATE: 09/08/2024 20:59 INDICATION: lower abd pain/pelvic pressure, hx cysts TECHNIQUE: Multiple endovaginal sonographic images of the pelvis were obtained. COMPARISON: 11/21/2022. FINDINGS: Uterus: 7.8 x 4.0 x 5.1 cm. Anteverted uterus. Small nabothian cysts. Endometrial complex measures 2 mm. Right Ovary: 3.0 x 2.8 x 1.5 cm. Vascular flow is present. Small cyst/dominant follicle. Possible inv oluting corpus luteal cyst. Left Ovary: 2.7 x 1.3 x 1.1 cm. Vascular flow is present. Small cyst/dominant follicle. There is no free fluid in the pelvis. IMPRESSION: Normal pelvic sonogram findings. Reviewed, dictated and finalized at location K.
--- NOTE | ~2024-09-08 | CT_ITS ---
EXAMINATION: CT abdomen pelvis w con DATE: 09/08/2024 21:14 INDICATION: lower abd pain/pressure TECHNIQUE: Computed tomography (CT) of the abdomen and pelvis was performed with 100 mL Omnipaque-350 intravenous contrast. Automated exposure control and iterative reconstruction technique were employe d. The dose-length product was 1366.64 mGy-cm. COMPARISON: 11/21/2022; pelvic ultrasound 09/08/2024. FINDINGS: Lower thorax: Unremarkable Liver: Enlarged. Biliary/Gallbladder: Cholelithiasis. No inflammatory changes. No bile duct dilation. Pancreas: No mass or duct dilation. Spleen: Normal. Adrenals:No mass. Kidneys: No suspicious mass, obstructing stone, or hydronephrosis. GI tract: No small or large bowel dilation. Normal appendix. Mesentery/Peritoneum: No ascites, mass, or free air. Mild stranding of the mesenteric root. Multiple prominent mesenteric lymph nodes with the suggestion of early fat halos. Retroperitoneum: No mass. Pelvis: Empty urinary bladder. Normal uterus and bilateral ovaries. Soft Tissues: Small uncomplicated fat-containing of local hernia. Bones: No acute osseous finding. IMPRESSION: Hepatomegaly. Cholelithiasis without evidence of inflammatory change or duct dilation. Mild mesenteric root stranding, a chronic and nonspecific finding. Prominent mesenteric lymph nodes with the suggestion of early fat halos may represent early/mild mese nteric panniculitis. Otherwise unremarkable abdomen and pelvic CT findings. Reviewed, dictated and finalized at location K. IMPRESSION: Hepatomegaly. Cholelithiasis without evidence of inflammatory change or duct dilation. Mild mesenteric root stranding, a chronic and nonspecific finding. Prominent mesenteric lymph nodes with the suggestion of early fat halos may rep resent early/mild mesenteric panniculitis. Otherwise unremarkable abdomen and pelvic CT findings.
--- OUTSIDE RECORDS SUMMARY | 2024-09-08 20:04 | XMS_ITS | Clinical Summary ---
Author Organization [facility] Address [address] [place] [address] Care Team Providers Care Fancy Stitcher Name Role Phone Miki Valentine MD Primary Care Provider [phone] Allergies No known active allergies Medications cholecalciferol [...] (11/14/2021): Added automatically from request for surgery [id number] LUQ abdominal pain 11/14/2021 2 Overview (11/14/2021): Added automatically from request for surgery [id number] Epigastric pain 11/14/2021 01/22/2022 Overview (11/14/2021): Added automatically from request for surgery [id number] Gastroesophageal reflux disease 11/14/2021 01/22/2022 Overview (11/14/2021): Added automatically from request for surgery [id number] Immunizations Immunization Administration Dates Next Due DTP [...] on file Legal Sex 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 Gender Identity Not on file Sexual Orientation Not on file Obstetrics History Last Filed Vital Signs Vital Sign Reading Time Taken Comments Blood Pressure 114/77 03/21/2022 10:49 AM TASSEL MAKING MACHINE OPERATOR Pulse 80 03/21/2022 10:49 AM TASSEL MAKING MACHINE OPERATOR Temperature 36.8 C (98.2 F) 01/02/2022 10:56 AM TASSEL MAKING MACHINE OPERATOR Respiratory Rate 18 03/21/2022 10:4 9 AM TASSEL MAKING MACHINE OPERATOR Oxygen Saturation 97% 03/21/2022 10: 49 AM TASSEL MAKING MACHINE OPERATOR Inhaled Oxygen Concentration - - Weight 113.9 kg (251 lb 1.6 oz) 023 10:49 AM TASSEL MAKING MACHINE OPERATOR Height 170.2 cm (5' 7) 03/21/2022 10:4 9 AM TASSEL MAKING MACHINE OPERATOR Body Mass Index 39.33 03/21/2022 10:49 AM TASSEL MAKING MACHINE OPERATOR Plan of Treatment Health Maintenance Due Date Last Done Comments Cervical Cancer Screening 1995 Depression Screening 1995 Hepatitis C Screening 1995 Varicella Vaccines (1 of 2 - 13+ 2-dose series) 12/09/2008 Regular Well Visit/Exam 18-64 12/09/2013 Covid-19 Vaccine ( season) 2023 06/18/2020 Influenza Vaccine (#1) 2024 , 01/12/2015, 12/11/2007, Additional history exists DTaP/Tdap/Td Vaccine (9 - Td or Tdap) 09/09/2030 09/09/2020, 04/21/2019, 05/27/2006, Additional history exists Hepatitis B Screening Completed 05/26/1996 , 02/06/1996, 1995 HPV Vaccines Completed 12/01/2006, 07/11, 05/27/2006 Pneumococcal vaccine <65 Aged Out No longer eligible based on patient's age to complete this topic Insurance [facility] Advance Directives For more information, please contact: [phone] * Full Code (Latest Code Status on File) Date Activated Date Inactivated Comments 01/02/2022 9:13 AM 01/02/2022 3:19 PM * Full Code Date Activated Date Inactivated Comments 01/02/2022 9:13 AM 01/02/2022 9:13 AM Care Teams Fancy Stitcher Relationship Specialty Start Date End Date Miki Valentine MD [address] [place] [address] [place] [address] PCP - General Internal Medicine 09/06/21
--- OUTSIDE RECORDS SUMMARY | 2024-09-08 20:04 | XMS_ITS | Clinical Summary ---
Author Organization [facility] Address [address], [facility] [address] [place] [address] Phone Care Team Providers Care Supervisor Maintenance And Custodians Name Role Phone Mary Grace Rivera MD Unavailable [phone] Provider, Not On File Primary Care [...] on file Legal Sex Female 2:37 PM ACCOUNTANT COST Gender Identity Not on file Sexual Orientation Not on file Occupation Industry Job Start Date Job End Date [employer] Not on file Not on file Not on file Last Filed Vital Signs Vital Sign Reading Time Taken Comments Blood Pressure 127/77 03/02/2018 2:15 PM ACCOUNTANT COST Pulse 70 03/02/2018 2:15 PM ACCOUNTANT COST Temperature 37 C (98.6 F) 03/02/2018 2:15 PM ACCOUNTANT COST Respiratory Rate 22 03/02/2018 2:15 PM ACCOUNTANT COST Oxygen Saturation 99% 03/02/2018 2:15 PM ACCOUNTANT COST Inhaled Oxygen Concentration - - Weight 108.9 kg (240 lb) 03/02/2018 12:37 PM ACCOUNTANT COST Height 170.2 cm (5' 7) 03/02/2018 12:37 PM ACCOUNTANT COST Body Mass Index 37.59 03/02/2018 12:37 PM ACCOUNTANT COST Plan of Treatment Health Maintenance Due Date Last Done Comments Hepatitis C Virus (HCV) Screening 1995 TdaP Immunization 1995 Human Papillomavirus (HPV) Immunization (1 - 3-dose series) 12/09/2010 Hepatitis B Immunization (1 of 3 - 19+ 3-dose series) 12/09/2014 SARS-COV-2 Immunization (2023- season) 2023 Influenza Immunization (#1) 2024 Respiratory Syncytial Virus (RSV) Immunization (Adult) (1 [...] this topic Insurance [place]ICA[place] Care Teams Supervisor Maintenance And Custodians Relationship Specialty Start Date End Date Provider, Not On File [place] PCP - General 02/27/18 Mary Grace Rivera MD Consulting Physician Obstetrics & Gynecology 02/25/18
--- OUTSIDE RECORDS SUMMARY | 2024-09-08 20:04 | XMS_ITS | Clinical Summary ---
Author Organization [facility] Address [address] [place] [address] Care Team Providers Care Armhole Sewer Name Role Phone Unavailable Primary Care Provider Unavailabl e Source Comments [facility],non-owned Affiliates and Associated Physician Practices is amultiple site organization consisting of ambulatory clinics and hospital sitesin [place], [place], [place] and [place]. This disclosure is being madepursuant to the Care Everywhere program and may not contain all information available regarding this patient. Last updated 17.[facility] Allergies No known active allergies Medications * [...] 4:35 PM CDT Height 167.6 cm (5' 6) 07/16/2021 4:35 PM CDT Body Mass Index 40.35 07/16/2021 4:35 PM CDT Plan of Treatment Health Maintenance Due Date Last Done Comments HEPATITIS B VACCINE (1 of 3 - 19+ 3-dose series) 12/09/2014 HPV VACCINE (1 - 3-dose SCDM series) 12/09/2022 COVID-19 VACCINE (2 - season) 2023 06/18/2020 DEPRESSION SCREENING 02/11/2024 INFLUENZA VACCINE (#1) 2024 , 01/12/2015, 12/11/2007, Additional history exists DTAP/TDAP/TD VACCINES (2 - Td or Tdap) 09/09/2030 09/09/2020 ZOSTER VACCINE (1 of 2) 12/09/2045 HEPATITIS C SCREENING Completed 04/11/2020, HIV SCREENING Completed 07/25/2020, 04/11/2020 HIB VACCINE [...]
--- OUTSIDE RECORDS SUMMARY | 2024-09-08 20:04 | XMS_ITS | Continuity of Care Document ---
Author Organization [facility] Address [address] [place] [address] [place] [address] Phone Care Team Providers Care Bookie Name Role Phone Vicente English MD Unavailable [...] Copied on Encounter OFFICE/OUTPA TIENT VISIT, EST [facility], [address] [place], [place], [id number], [place] tel:[phone] [facility] anxiety (chief complaint) hematuria (chief complaint) low vitamin D (chief complaint) obesity (chief complaint) Migraine headache (chief complaint) Dietary surveillance and counselingChronic depressionHematuria HeadacheLymphadenop roderick [address], [place], [address] , [place]. tel:[phone] Referring Provider: Nelida [address], [place], [place], [id number]. tel:[phone] OFFICE/OUTPA TIENT VISIT, EST [facility], [address], [place], [place], [address], tel:[phone] [facility] UTI (chief complaint) UTI (chief complaint) depression (chief complaint) menorrhagi a (chief complaint) Dietary surveillance and counselingLumbagoIr regular menstrual bleedingChronic depressionAbnormal weight gain 0201 [address], [place], [place], [address] , [place]. tel:[phone] Referring Provider: Nelida Sp[address], [place], [place], [id number]. tel:[phone] PREV VISIT, NEW, AGE 12-17 [facility], [address] [place], [address], [place] tel:[phone] [facility] Physical (chief complaint) Dietary surveillance and counselingRoutine Medical ExamRoutine Medical Exam 9 [address], [place], [place], [address] , [place]. tel:[phone] Family History Family Member Type Diagnosis Age At Onset Mother Problem (finding) Depression Father Problem (finding) Coronary artery disease 37 Mother Problem (finding) fibromyalgia Payers Payer name Insurance type Covered constitution party ID Authoriza tion(s) No Information Social [...] Date Complaint History Of Prese nt Illness hematuria Pt has mild cachorro turia. Pt did the urine when she was on her period. pt denies any more flank pain or UTI symptoms low vitamin D Pt has low vitam i D obesity Additional infor mation: Pt is overweight. Pt unable to lose weight with diet and exercise. Migraine headache Pt has chornic migraine headache for several years. Pt denies any head injury. Pt has throbbing headache around frontal headache. Pt has photophobia and nausea. Pt denies any worsening headache. Pt has headache almost 5 days out of one week. NO acute haeache now anxiety The patient pres ents with anxious/fearful [...] thought. No more palpitation since stopping wellbutrin. UTI UTI Pt has been havi ng cloudy urine, flank pain for 10 days. Pt denies any urinary freuqnecy or urgency. Pt denies any fever or chill, Pt denies any vomiting. Pt is on macrobid now. Pt has not noticed any improvement depression Additional infor mation: Pt c/o feeling depressed and anxious for several years Pt did not think lexapro helped her. Pt is noncompliant with following up Pt denies any suicidal thought. menorrhagia Additional infor mation: Pt states that she has spotting for 24 days now. Pt denies any abd pain. Pt denies any histoyr of irregular period.. Instructions Date Instruction Additional Infor mation Prescribed [...] Type Assessment Date assessment Dietary surveillance and certified genetic counselor ing assessment Chronic depression assessment Hematuria assessment Headache assessment Lymphadenopathy Mental Status Date Cognitive Assessment Orientation - [place] ed to time, place, person, situation.
--- OUTSIDE RECORDS SUMMARY | 2024-09-08 20:04 | XMS_ITS | Referral Summary ---
Author Organization [facility] Address [address] [place] [address] Care Team Providers Care Mold Press Operator Name Role Phone Miki Valentine MD Primary Care Provider [phone] Allergies No known active allergies Medications cholecalciferol [...] (11/14/2021): Added automatically from request for surgery [id number] LUQ abdominal pain 11/14/2021 2 Overview (11/14/2021): Added automatically from request for surgery [id number] Epigastric pain 11/14/2021 01/22/2022 Overview (11/14/2021): Added automatically from request for surgery [id number] Gastroesophageal reflux disease 11/14/2021 01/22/2022 Overview (11/14/2021): Added automatically from request for surgery [id number] Immunizations Immunization Administration Dates Next Due DTP [...] on file Legal 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 Gender Identity Not on file Sexual Orientation Not on file Last Filed Vital Signs Vital Sign Reading Time Taken Comments Blood Pressure 114/77 03/21/2022 10:49 AM NETWORK/TELECOM ENGINEER Pulse 80 03/21/2022 10:49 AM NETWORK/TELECOM ENGINEER Temperature 36.8 C (98.2 F) 01/02/2022 10:56 AM NETWORK/TELECOM ENGINEER Respiratory Rate 18 03/21/2022 10:4 9 AM NETWORK/TELECOM ENGINEER Oxygen Saturation 97% 03/21/2022 10: 49 AM NETWORK/TELECOM ENGINEER Inhaled Oxygen Concentration - - Weight 113.9 kg (251 lb 1.6 oz) 023 10:49 AM NETWORK/TELECOM ENGINEER Height 170.2 cm (5' 7) 03/21/2022 10:4 9 AM NETWORK/TELECOM ENGINEER Body Mass Index 39.33 03/21/2022 10:49 AM NETWORK/TELECOM ENGINEER Plan of Treatment Not on file Insurance [facility] Advance Directives For more information, please contact: [phone] * Full Code (Latest Code Status on File) Date Activated Date Inactivated Comments 01/02/2022 9:13 AM 01/02/2022 3:19 PM * Full Code Date Activated Date Inactivated Comments 01/02/2022 9:13 AM 01/02/2022 9:13 AM Care Teams Mold Press Operator Relationship Specialty Start Date End Date Miki Valentine MD [address] [facility] [place] [address] PCP - General Internal Medicine 09/06/21
[2024-09-08 20:08] VITALS: BP 145/73; PULSE 83; RESP 18; TEMP 36.6; O2SAT 100
--- OUTSIDE RECORDS SUMMARY | 2024-09-08 20:13 | XMS_ITS | Continuity of Care Document ---
Author Organization [facility] Address [address] [place] [address] [place] [address] Phone Care Team Providers Care Computer Information Systems Professor Name Role Phone Vicente English MD Unavailable Unavailable Allergies, Adverse Reactions, Alerts Substance Reaction Status Criticality No Known Allergies Active No Inform ation Medications Medication Instructions Dosage Effective Dates (start - stop) Status Comments Lexapro 10 mg tablet take 1 tablet by oral route every day 10 MG - Active Topamax 25 mg tablet take 1 Tablet by oral route every evening 25 MG - Active buspirone 7.5 mg tablet take 1 tablet by oral route 2 times every day 7.5 MG - Active avoid driving or oeprate machines Procedures Procedure Date OFFICE/OUTPATIENT VISIT, EST OFFICE/OUTPATIENT VISIT, EST PREV VISIT, NEW, AGE 12-17 Advance Directives Directive Yes / No Effective Date File Name No Information Encounters Encounter Description Practice Location Reason(s) For Visit Diagnoses Date Provider Providers Copied on Encounter OFFICE/OUTPA TIENT VISIT, EST [facility], [address] [place], [id number], [place] tel:[phone] [facility] anxiety (chief complaint) hematuria (chief complaint) low vitamin D (chief complaint) obesity (chief complaint) Migraine headache (chief complaint) Dietary surveillance and counselingChronic depressionHematuria HeadacheLymphadenop athkatja Oct- 5 [address]. [address], [address] , [place]. tel:[phone] Referring Provider: Nelida Spicer [address], [place], [place], [address]. tel:[phone] OFFICE/OUTPA TIENT VISIT, EST [facility], [address], [place], [place], [address], tel:[phone] [facility] UTI (chief complaint) UTI (chief complaint) depression (chief complaint) menorrhagi a (chief complaint) Dietary surveillance and counselingLumbagoIr regular menstrual bleedingChronic depressionAbnormal weight gain 0201 5 [address], [place], [place], [address] , [place]. tel:[phone] Referring Provider: Nelida Sp[address], [place], [place], [address]. tel:[phone] PREV VISIT, NEW, AGE 12-17 [facility], [address] [place], [address], [place] tel:[phone] [facility] Physical (chief complaint) Dietary surveillance and counselingRoutine Medical ExamRoutine Medical Exam 9 [address], [place], [place], [address] , [place]. tel:[phone] Family History Family Member Type Diagnosis Age [...] Type Assessment Date assessment Dietary surveillance and addiction counselor ing assessment Chronic depression assessment Hematuria assessment Headache assessment Lymphadenopathy Mental Status Date Cognitive Assessment Orientation - [place] ed to time, place, person, situation.
[2024-09-08 20:21] LABS: Hematocrit 37.1 % (37.0-47.0); Hemoglobin 12.2 g/dL (12.0-15.0); Immature Granulocyte Percent A 0.3 % (0-0.5); Lymphocytes Absolute Auto 1.91 K/mm3 (0.9-3.2); Mean Corpuscular HGB Conc 32.9 g/dl (32-36); Mean Corpuscular Hemoglobin 29.9 pg (26-34); Mean Corpuscular Volume 90.9 fl (80-100); Nucleated Red Blood Cells Absolute Auto 0.000 K/mm3 (0.0-0.012); Nucleated Red Blood Cells Perc 0.0 % (0.0-0.2); Platelet Count Result 273 k/mm3 (150-375); Red Blood Count 4.08 M/mm3 (4.2-5.4); White Blood Count 9.1 K/mm3 (4.5-10.0)
[2024-09-08 20:28] LABS: Alanine Aminotransferase 24 U/L (6-35); Albumin Level 4.1 g/dL (3.5-5.1); Alkaline Phosphatase 86 U/L (38-126); Anion Gap 8 mmol/L (4-12); Aspartate Amino Transferase 36 U/L (14-36); Bilirubin,Total 0.2 mg/dL (0.2-1.3); Blood Urea Nitrogen 16 mg/dL (7-17); Calcium 9.0 mg/dL (8.4-10.2); Carbon Dioxide 24 mmol/L (22-30); Chloride 106 mmol/L (98-107); Estimated CRCL calculation 93 ml/min; Estimated Glomerular Filt Rate > 60; Glucose 151 mg/dL (65-110); Lipase 200 U/L (23-300); Potassium 3.8 mmol/L (3.4-5.0); Sodium 138 mmol/L (137-145); Total Protein 7.6 g/dL (6.3-8.2)
[2024-09-08 20:33] LABS: Add Urine Microscopic? YES; Appearance Urine Clear (Clear); Glucose Urine UA Negative (Negative); Leukocyte Esterase Ur Trace LEU/UL (Negative); Nitrate Urine Negative (Negative); Non Pathogenic Casts 0-2; Specific Grav Ur 1.024 (1.001-1.035)
--- NOTE | 2024-09-08 20:37 | ED_ITS ---
HPI - Abdominal Pain General Chief Complaint: Abdominal Pain Stated Complaint: abd pain Time Seen by Provider: 09/08/24 20:03 Source: patient Mode of arrival: ambulatory Limitations: no limitations History of Present Illness HPI narrative: Patient is a 28-year-old female who presents the ED with report of lower abdominal pain/pressure. Patient reports having intermittent pain over the last 4 days. States it became worse today. She denies aggravating or relieving factors to the pain. Tried taking Tylenol at home without improvement. Denies history of similar pain. Reports some nausea, vomiting, diarrhea, constipation, dysuria, hematuria. Reports abnormal recent menstrual cycle which she states consistent of brown spotting. Related Data Home Medications ?Medication ?Instructions ?Recorded ?Confirmed ?Last Taken ?Type cetirizine 10 mg capsule (Zyrtec) 10 mg PO DAILY PRN Allergy Symptoms 09/04/20 07/22/24 01/16/23 History duloxetine 60 mg capsule,delayed 60 mg PO HS 01/08/23 07/22/24 01/22/23 History release trazodone 50 mg tablet mg 07/22/24 Unknown History ziprasidone HCl 20 mg capsule mg PO 07/22/24 Unknown History Allergies Allergy/AdvReac Type Severity Reaction Status Date / Time No Known Allergies Allergy Verified 09/08/24 20:43 Review of Systems 2 Review of Systems: All systems reviewed & are unremarkable except as noted in HPI. All systems reviewed & are unremarkable except as noted in HPI and below PMFSH Past Medical History Medical History Morbid obesity Endometriosis Pelvic pain Anxiety Depression Hypothyroid Asthma Surgical History Surgical History No significant past surgical history Social History Social History Smoking status: Former smoker Tobacco type: cigarettes Second hand tobacco smoke exposure: No Smoking end date: 01/08/19 Additional smoking assessment comments: FORMER SOCIAL SMOKER Alcohol intake: never Substance use: current Substance use type: marijuana Other substance usage details: marijuana daily Living arrangements: with family Additional living arrangements comments: BOYFRIEND, CHILDREN Occupation/Education: unemployed Gender identity (if verbalized by the patient): Female Spiritual care concerns: No Exam 2 Narrative: GENERAL: Well appearing, morbidly obese with BMI of 41.4, non-toxic, in no acute distress. HEAD: Normocephalic, atraumatic. RESPIRATORY: Airway patent, respirations nonlabored. Clear to auscultation bilaterally, no rales, rhonchi, wheezing. CARDIOVASCULAR: Regular rate and rhythm without murmurs, rubs, or gallops. ABDOMINAL: Soft, mild diffuse tenderness throughout lower abdomen, no focal tenderness or rebound, nondistended. Normoactive BS. MUSCULOSKELETAL: Moves all extremities. No gross deformities. SKIN: Warm, dry, normal color. NEURO: A&O X3. Speech clear. Cranial nerves II-XII grossly intact. Steady gait. No ataxic movements. PSYCHIATRIC: Appropriate mood and affect. Normal interaction. Course Vital Signs Vital signs: Vital Signs Temperature 97.9 F 09/08/24 20:08 Pulse Rate 83 09/08/24 20:08 Respiratory Rate 18 09/08/24 20:08 Blood Pressure 145/73 H 09/08/24 20:08 Pulse Oximetry 100 09/08/24 20:08 Oxygen Delivery Room Air 09/08/24 20:08 Temperature 98.1 F 09/08/24 22:11 Pulse Rate 71 09/08/24 22:11 Respiratory Rate 18 09/08/24 22:11 Blood Pressure 127/67 09/08/24 22:11 Pulse Oximetry 98 09/08/24 22:11 Oxygen Delivery Room Air 09/08/24 20:08 MDM - Abdominal Pain MDM Narrative Medical decision making narrative: Patient presented to ED with 4 day history of lower abdominal pain/pressure. Vital signs stable upon arrival. Patient in no acute distress. Did not want anything for pain upon my evaluation. Cbc without leukocytosis or anemia. CMP without significant abnormalities. Creatinine slightly elevated to 1.07. This is fairly consistent with previous records. Blood glucose 151. Normal LFTs and lipase. UA with 6-10 WBC. Discussed this with patient. She is not having any abdominal concerns or complaints. Will send for culture and defer treatment for culture results. CT scan of abdomen/pelvis was obtained and was nonspecific findings. Cholelithiasis, no evidence of cholecystitis. Mesenteric panniculitis, hepatomegaly. Patient without any right upper quadrant tenderness on exam. Low suspicion for gallbladder etiology causing symptoms. Pelvic US was obtained and also unremarkable. Good vascular blood flow to bilateral ovaries. No evidence of torsion. Small cysts bilaterally. No large or concerning lesions. No free fluid. Discussed lab and imaging findings, overall reassuring workup with patient. She did not require anything for pain throughout ED stay. Resting comfortably on re-evaluation. Discussed possibility of gas pains, discomfort related to mesenteric panniculitis, IBS type symptoms. Advised to continue Tylenol/ibuprofen as needed for pain. Will prescribe Bentyl. Recommended close follow-up with PCP for further evaluation. Given return precautions. She agrees with plan. Discharged in stable condition. Medical Records Attestation: I reviewed the patient's medical records. Lab Data Attestation: I reviewed the patient's lab results. 09/08/24 20:12 09/08/24 20:12 Labs: Lab Results 09/08/24 09/08/24 Range/Units 20:12 20:20 WBC 9.1 (4.5-10.0) K/mm3 RBC 4.08 L (4.2-5.4) M/mm3 Hgb 12.2 (12.0-15.0) g/dL Hct 37.1 (37.0-47.0) % MCV 90.9 (80-100) fl MCH 29.9 (26-34) pg MCHC 32.9 (32-36) g/dl RDW 13.9 (11.5-14.5) % Plt Count 273 (150-375) k/mm3 MPV 11.6 H (7.4-10.4) fl Immature Gran % (Auto) 0.3 (0-0.5) % Neut % (Auto) 64.3 (45.5-73.1) % Lymph % (Auto) 21.0 (18.3-44.2) % [place] % (Auto) 3.6 (2.6-8.5) % Eos % (Auto) 10.0 H (0-4.4) % Baso % (Auto) 0.8 (0.2-1.2) % Lymph # (Auto) 1.91 (0.9-3.2) K/mm3 [place] # (Auto) 0.3 (0.1-0.6) K/mm3 Eos # (Auto) 0.9 H (0-0.3) K/mm3 Baso # (Auto) 0.1 (0.0-0.1) K/mm3 Abs Immat Gran (auto) 0.03 (0.00-0.031) K/mm3 Absolute Neuts (auto) 5.8 (1.3-6.7) K/mm3 Absolute Nucleated RBC 0.000 (0.0-0.012) K/mm3 Nucleated RBC % 0.0 (0.0-0.2) % Sodium 138 (137-145) mmol/L Potassium 3.8 (3.4-5.0) mmol/L Chloride 106 (98-107) mmol/L Carbon Dioxide 24 (22-30) mmol/L Anion Gap 8 (4-12) mmol/L BUN 16 (7-17) mg/dL Creatinine 1.07 H (0.7-1.0) mg/dL Estim Creat Clear Calc 93 ml/min Estimated GFR > 60 (59 - ) Glucose 151 H (65-110) mg/dL Calcium 9.0 (8.4-10.2) mg/dL Total Bilirubin 0.2 (0.2-1.3) mg/dL AST 36 (14-36) U/L ALT 24 (6-35) U/L Alkaline Phosphatase 86 (38-126) U/L Total Protein 7.6 (6.3-8.2) g/dL Albumin 4.1 (3.5-5.1) g/dL Lipase 200 (23-300) U/L Urine Color Yellow (Yellow) Urine Appearance Clear (Clear) Urine pH 5.5 (5.0-9.0) Ur Specific [place] 1.024 (1.001-1.035) Urine Protein Negative (Negative) mg/dL Urine Glucose (UA) Negative (Negative) mg/dL Urine Ketones Negative (Negative) mg/dL Ur Blood (Man) Negative (Negative) Urine Nitrate Negative (Negative) Urine Bilirubin Negative (Negative) Urine Urobilinogen 1.0 (<2.0) mg/dL Leukocyte Esterase Rfl Trace H (Negative) ANTHONY/UL Urine RBC 0-2 (0-2) /hpf Urine WBC 6-10 H (0-3) /hpf Ur Squamous Epith Cells Occasional (Few) /hpf Urine Bacteria None seen /hpf Urine Casts 0-2 Imaging Data Attestation: I personally reviewed and interpreted this imaging study as follows: Radiologist's impression: ITS Impressions Transvaginal US 09/08/24 21:12 IMPRESSION: Normal pelvic sonogram findings. Abdomen/Pelvis CT 09/08/24 21:29 IMPRESSION: Hepatomegaly. Cholelithiasis without evidence of inflammatory change or duct dilation. Mild mesenteric root stranding, a chronic and nonspecific finding. Prominent mesenteric lymph nodes with the suggestion of early fat halos may represent early/mild mesenteric panniculitis. Otherwise unremarkable abdomen and pelvic CT findings. Discharge Plan Discharge Clinical Impression: Intermittent lower abdominal pain, Cholelithiasis Patient Disposition: Home Condition: Stable Instructions: Antibiotic Form, Irritable Bowel Syndrome (ED), Gallstones (ED), Gas and Bloating (ED), Abdominal Pain (ED) Additional Instructions: Your workup here was reassuring. Recommend continuing Tylenol, ibuprofen, Bentyl as needed for further abdominal discomfort. Zofran as needed for nausea. Recommend follow-up with your primary care doctor for further evaluation. Return to the ED if you experience worsening or severe symptoms, severe pain, unable to keep down food or drink, rectal bleeding, dark black stools, difficulty urinating, persistent fevers, or any other symptoms of concern. Patient Language: Italian Prescriptions: New dicyclomine 20 mg tablet 20 mg PO TID PRN (Reason: Abdominal Discomfort) Qty: 15 0RF ondansetron 4 mg tablet,disintegrating 4 mg PO Q8H PRN (Reason: nausea and vomiting) Qty: 15 0RF No Action trazodone 50 mg tablet ziprasidone HCl 20 mg capsule PO Zyrtec 10 mg Capsule 10 mg PO DAILY PRN (Reason: Allergy Symptoms) duloxetine 60 mg capsule,delayed release(DR/EC) 60 mg PO HS hydrocodone-acetaminophen 5-325 mg tablet 1 tablet PO Q6H PRN (Reason: pain) Qty: 4 0RF ibuprofen 800 mg tablet 800 mg PO TID PRN (Reason: pain) 7 Days Qty: 21 0RF acetaminophen 500 mg tablet 1,000 mg PO TID PRN (Reason: tim) 7 Days Qty: 42 0RF ibuprofen 800 mg tablet 800 mg PO TID PRN (Reason: pain) 7 Days Qty: 21 0RF Follow-up/Referrals: PHYSICIAN,MEDICAL FRONT DESK SPECIALIST [Primary Care Provider] - Time of Disposition: 22:02
--- NOTE | 2024-09-08 21:24 | PC.NURSE ---
ERP in room and use test strips and used black light. Alistair lens placed and patient's eye being irriagated.
[2024-09-08 21:25] VITALS: BP 132/74; PULSE 95; RESP 18; O2SAT 99
[2024-09-08 22:11] VITALS: BP 127/67; PULSE 71; RESP 18; TEMP 36.7; O2SAT 98
== END 2024-09-08 22:13 | disposition home or self-care (01) ==
PROVIDERS: Emergency Provider Physician Assistant
DX: K80.20 Calculus of gallbladder without cholecystitis without obstruction (principal); R10.30 Lower abdominal pain, unspecified; J45.909 Unspecified asthma, uncomplicated; E03.9 Hypothyroidism, unspecified; E66.01 Morbid (severe) obesity due to excess calories; Z68.41 Body mass index [BMI] 40.0-44.9, adult; N80.9 Endometriosis, unspecified; F41.9 Anxiety disorder, unspecified; F32.A Depression, unspecified; Z87.891 Personal history of nicotine dependence; R16.0 Hepatomegaly, not elsewhere classified
CPT/HCPCS: 36415; 74177; 76830; 80053; 81001; 83690; 85025; 87086; 99284; Q9967

== ENCOUNTER 2024-09-19 23:43 | Observation (INO) | payer OTHER, SELFPAY ==
--- NOTE | ~2024-09-19 | CT_ITS ---
EXAMINATION: CT abdomen pelvis w con DATE: 09/20/2024 02:30 INDICATION: Right upper quadrant pain. Gallstones. TECHNIQUE: Computed tomography (CT) of the abdomen and pelvis was performed with 100 cc Omnipaque 350 intravenous contrast. The dose-length product was 1487.48 mGy-cm. Automated exposure control and ite rative reconstruction technique were employed. COMPARISON: None. FINDINGS: Patchy groundglass opacities of the lower lungs. Heart size normal. No significant pleural or pericardial effusion. The liver, spleen, pancreas, adrenal glands and kidneys are unremarkable. Th ere is gallstone at the gallbladder neck with moderate gallbladder distention and possible mild gallb ladder wall thickening. Findings suspicious for cystitis. Nonobstructive bowel gas pattern. Normal ap pendix. No abnormal pelvic masses or fluid collections. No acute osseous abnormality. IMPRESSION: 1. Findings compatible with cholecystitis. Clinically correlate. 2: Patchy groundglass opacities of the lung bases suspicious for small airway disease or respiratory bronchiolitis. Reviewed, dictated and finalized at location A. IMPRESSION: 1. Findings compatible with cholecystitis. Clinically correlate. 2: Patchy groundglass opacities of the lung bases suspicious for small airway d isease or respiratory bronchiolitis.
[2024-09-19 23:44] VITALS: BP 128/85; PULSE 83; RESP 16; TEMP 36.7; O2SAT 98
--- OUTSIDE RECORDS SUMMARY | 2024-09-19 23:45 | XMS_ITS | Clinical Summary ---
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[employer] Gender Identity Not on file Sexual Orientation Not on file Occupation Industry Job Start Date Job End Date [employer] Not on file Not on file Not on file Last Filed Vital Signs Vital Sign Reading Time Taken Comments Blood Pressure 127/77 03/02/2018 2:15 PM [employer]WORKING [employer] Pulse 70 03/02/2018 2:15 PM [employer]WORKING [employer] Temperature 37 C (98.6 F) 03/02/2018 2:15 PM [employer]WORK[employer] Respiratory Rate 22 03/02/2018 2:15 PM [employer]WORKING [employer] Oxygen Saturation 99% 03/02/2018 2:15 PM WO[employer]WORKING [employer] Inhaled Oxygen Concentration - - Weight 108.9 kg (240 lb) 03/02/2018 12:37 PM WO[employer]WORKING [employer] Height 170.2 cm (5' 7) 03/02/2018 12:37 PM [employer]WORKING [employer] Body Mass Index 37.59 03/02/2018 12:37 PM WO[employer]WORKING [employer] Plan of Treatment Health Maintenance Due Date Last Done Comments Hepatitis C Virus (HCV) Screening 1995 TdaP Immunization 1995 Hepatitis B Immunization (1 of 3 - 19+ 3-dose series) 12/09/2014 Human Papillomavirus (HPV) Immunization (1 - 3-dose SCDM series) 12/09/2022 SARS-COV-2 Immunization (2023- season) 2023 Influenza Immunization [...] this topic Insurance [place] Care Teams Cloth Winding Supervisor Relationship Specialty Start Date End Date Provider, Not On File [place] PCP - General 02/27/18 Mary Grace Rivera MD Consulting Physician Obstetrics & Gynecology 02/25/18
--- OUTSIDE RECORDS SUMMARY | 2024-09-19 23:45 | XMS_ITS | Clinical Summary ---
Author Organization [facility] Address [address] [place] [address] Care Team Providers Care Napper Tender Name Role Phone Unavailable Primary Care Provider Unavailabl e Source Comments [facility],non-owned Affiliates and Associated Physician Practices is amultiple site organization consisting of ambulatory clinics and hospital sitesin [place], [place], [place]. This disclosure is being madepursuant to the Care Everywhere program and may not contain all information available regarding this patient. Last updated 17.[facility] Allergies No known active allergies Medications * [...] as needed for Pain 40 tablet 1 Active docusate sodium (COLACE) 100 MG [...] patient's age to complete this topic Insurance [facility] Advance Directives * Full Code (Latest Code Status on File) Date Activated Date Inactivated Comments 09/07/2020 6:59 AM 09/09/2020 6:24 PM * Full Code Date Activated Date Inactivated Comments 09/06/2020 11:05 AM 09/07/2020 6:59 AM
--- OUTSIDE RECORDS SUMMARY | 2024-09-19 23:45 | XMS_ITS | Clinical Summary ---
Author Organization [facility] Address [address] [place] [address] Care Team Providers Care Critical Care Physician Assistant Name Role Phone Miki Valentine MD Primary Care Provider Allergies No known active allergies Medications cholecalciferol [...] (11/14/2021): Added automatically from request for surgery [id number] LUQ abdominal pain 11/14/2021 2 Overview (11/14/2021): Added automatically from request for surgery [id number] Epigastric pain 11/14/2021 01/22/2022 Overview (11/14/2021): Added automatically from request for surgery [id number] Gastroesophageal reflux disease 11/14/2021 01/22/2022 Overview (11/14/2021): Added automatically from request for surgery [id number] Immunizations Immunization Administration Dates Next Due DTP [...] on file 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 Gender Identity Not on file Sexual Orientation Not on file Obstetrics History Last Filed Vital Signs Vital Sign Reading Time Taken Comments Blood Pressure 114/77 03/21/2022 10:49 AM [employer] Pulse 80 03/21/2022 10:49 AM [employer] Temperature 36.8 C (98.2 F) 01/02/2022 10:56 AM [employer]ING [employer] Respiratory Rate 18 03/21/2022 10:4 9 AM [employer] Oxygen Saturation 97% 03/21/2022 10: 49 AM [employer] Inhaled Oxygen Concentration - - Weight 113.9 kg (251 lb 1.6 oz) 023 10:49 AM [employer] Height 170.2 cm (5' 7) 03/21/2022 10:4 9 AM [employer] Body Mass Index 39.33 03/21/2022 10:49 AM [employer] Plan of Treatment Health Maintenance Due Date [...] patient's age to complete this topic Insurance [facility] Advance Directives For more information, please contact: [phone] * Full Code (Latest Code Status on File) Date Activated Date Inactivated Comments 01/02/2022 9:13 AM 01/02/2022 3:19 PM * Full Code Date Activated Date Inactivated Comments 01/02/2022 9:13 AM 01/02/2022 9:13 AM Care Teams Critical Care Physician Assistant Relationship Specialty Start Date End Date Miki Valentine MD [address] [place] [address] [place] [address] PCP - General Internal Medicine 09/06/21
--- OUTSIDE RECORDS SUMMARY | 2024-09-19 23:45 | XMS_ITS | Continuity of Care Document ---
Author Organization [facility] Address [address] [place] [address] Phone Care Team Providers Care Drag Down Name Role Phone Vicente English MD Unavailable [...] Copied on Encounter OFFICE/OUTPA TIENT VISIT, EST [facility], [address] [place], [place], [id number], [place] tel:[phone] [facility] anxiety (chief complaint) hematuria (chief complaint) low vitamin D (chief complaint) obesity (chief complaint) Migraine headache (chief complaint) Dietary surveillance and counselingChronic depressionHematuria HeadacheLymphadenop roderick [address] [place], [place], [id number] , [place]. tel:[phone] Referring Provider: Nelida [address], [place], [place], [address]. tel:[phone] OFFICE/OUTPA TIENT VISIT, EST [facility], [address], [place], [place], [address], tel:[phone] [facility] UTI (chief complaint) UTI (chief complaint) depression (chief complaint) menorrhagi a (chief complaint) Dietary surveillance and counselingLumbagoIr regular menstrual bleedingChronic depressionAbnormal weight gain 0201 [address], [place], [place], [address] , [place]. tel:[phone] Referring Provider: Nelida Sp[address], [place], [place], [id number]. tel:[phone] PREV VISIT, NEW, AGE 12-17 [facility], [address] [place], [place], [address], [place] tel:[phone] [facility] Physical (chief complaint) Dietary surveillance and counselingRoutine Medical ExamRoutine Medical Exam 9 [address], [place], [place], [address] , [place]. tel:[phone] Family History Family Member Type Diagnosis Age At Onset Mother Problem (finding) Depression Father Problem (finding) Coronary artery disease 37 Mother Problem (finding) fibromyalgia Payers Payer name Insurance type Covered green party ID Authoriza tion(s) No Information Social [...] Type Assessment Date assessment Dietary surveillance and developmental training counselor ing assessment Chronic depression assessment Hematuria assessment Headache assessment Lymphadenopathy Mental Status Date Cognitive Assessment Orientation - Ira ed to time, place, person, situation.
[2024-09-20] VITALS (30 sets, daily range): BP systolic 117–140; BP diastolic 62–97; PULSE 50–74; RESP 10–24; TEMP 36–36.6; O2SAT 97–100; BMI 41.4
[2024-09-20 00:21] LABS: Hematocrit 35.5 % (37.0-47.0); Hemoglobin 11.7 g/dL (12.0-15.0); Immature Granulocyte Percent A 0.1 % (0-0.5); Lymphocytes Absolute Auto 2.14 K/mm3 (0.9-3.2); Mean Corpuscular HGB Conc 33.0 g/dl (32-36); Mean Corpuscular Hemoglobin 29.5 pg (26-34); Mean Corpuscular Volume 89.6 fl (80-100); Nucleated Red Blood Cells Absolute Auto 0.000 K/mm3 (0.0-0.012); Nucleated Red Blood Cells Perc 0.0 % (0.0-0.2); Platelet Count Result 297 k/mm3 (150-375); Red Blood Count 3.96 M/mm3 (4.2-5.4); White Blood Count 9.1 K/mm3 (4.5-10.0)
[2024-09-20 00:36] LABS: Add Urine Microscopic? YES; Appearance Urine Clear (Clear); Glucose Urine UA Negative (Negative); Leukocyte Esterase Ur Trace LEU/UL (Negative); Nitrate Urine Negative (Negative); Non Pathogenic Casts 0-2; Specific Grav Ur 1.029 (1.001-1.035)
--- OUTSIDE RECORDS SUMMARY | 2024-09-20 00:36 | XMS_ITS | Clinical Summary ---
Author Organization [facility] Address [address], [facility] [address] [place] [address] Phone Care Team Providers Care Sr. Payroll Manager Name Role Phone Mary Grace Rivera MD Unavailable [phone] Provider, Not On File Primary Care [...] on file Legal Sex Female 2:37 PM TECHNOLOGIST DEVELOPMENT Gender Identity Not on file Sexual Orientation Not on file Occupation Industry Job Start Date Job End Date [employer] Not on file Not on file Not on file Last Filed Vital Signs Vital Sign Reading Time Taken Comments Blood Pressure 127/77 03/02/2018 2:15 PM TECHNOLOGIST DEVELOPMENT Pulse 70 03/02/2018 2:15 PM TECHNOLOGIST DEVELOPMENT Temperature 37 C (98.6 F) 03/02/2018 2:15 PM TECHNOLOGIST DEVELOPMENT Respiratory Rate 22 03/02/2018 2:15 PM TECHNOLOGIST DEVELOPMENT Oxygen Saturation 99% 03/02/2018 2:15 PM TECHNOLOGIST DEVELOPMENT Inhaled Oxygen Concentration - - Weight 108.9 kg (240 lb) 03/02/2018 12:37 PM TECHNOLOGIST DEVELOPMENT Height 170.2 cm (5' 7) 03/02/2018 12:37 PM TECHNOLOGIST DEVELOPMENT Body Mass Index 37.59 03/02/2018 12:37 PM TECHNOLOGIST DEVELOPMENT Plan of Treatment Health Maintenance Due Date [...] this topic Insurance [place] Care Teams Sr. Payroll Manager Relationship Specialty Start Date End Date Provider, Not On File [place] PCP - General 02/27/18 Mary Grace Rivera MD Consulting Physician Obstetrics & Gynecology 02/25/18
--- OUTSIDE RECORDS SUMMARY | 2024-09-20 00:36 | XMS_ITS | Clinical Summary ---
Author Organization [facility] Address [address] [place] [address] Care Team Providers Care Machine Operator General Name Role Phone Unavailable Primary Care Provider Unavailabl e Source Comments [facility],non-owned Affiliates and Associated Physician Practices is amultiple site organization consisting of ambulatory clinics and hospital sitesin [place], [place], [place]. This disclosure is being madepursuant to the Care Everywhere program and may not contain all information available regarding this patient. Last updated 17.[facility] Allergies No known active allergies Medications * [...] patient's age to complete this topic Insurance [facility] Advance Directives * Full Code (Latest Code Status on File) Date Activated Date Inactivated Comments 09/07/2020 6:59 AM 09/09/2020 6:24 PM * Full Code Date Activated Date Inactivated Comments 09/06/2020 11:05 AM 09/07/2020 6:59 AM
--- OUTSIDE RECORDS SUMMARY | 2024-09-20 00:36 | XMS_ITS | Continuity of Care Document ---
Author Organization [facility] Address [address] [place] [address] [place] [address] Phone Care Team Providers Care Building Maintenance Supervisor Name Role Phone Vicente English MD Unavailable [...] Copied on Encounter OFFICE/OUTPA TIENT VISIT, EST [facility], [address] [place], [place], [id number], [place] tel:[phone] [facility] anxiety (chief complaint) hematuria (chief complaint) low vitamin D (chief complaint) obesity (chief complaint) Migraine headache (chief complaint) Dietary surveillance and counselingChronic depressionHematuria HeadacheLymphadenop athkatja Oct- 5 Amador Zhang. [address] [place], [place], [id number] , [place]. tel:[phone] Referring Provider: Nelida [address], [place], [place], [id number]. tel:[phone] OFFICE/OUTPA TIENT VISIT, EST [facility], [address], [place], [place], [id number], tel:[phone] [facility] UTI (chief complaint) UTI (chief complaint) depression (chief complaint) menorrhagi a (chief complaint) Dietary surveillance and counselingLumbagoIr regular menstrual bleedingChronic depressionAbnormal weight gain 0201 5 Amador Zhang. [address], [place], [place], [id number] , [place]. tel:[phone] Referring Provider: Nelida Sp[address], [place], [place], [id number]. tel:[phone] PREV VISIT, NEW, AGE 12-17 [facility], [address] [place], [id number], [place] tel:[phone] [facility] Physical (chief complaint) Dietary surveillance and counselingRoutine Medical ExamRoutine Medical Exam 9 4 Amador Zhang. [address], [place], [place], [id number] , [place]. tel:[phone] Family History Family Member Type Diagnosis Age [...] Type Assessment Date assessment Dietary surveillance and drug and alcohol counsellor ing assessment Chronic depression assessment Hematuria assessment Headache assessment Lymphadenopathy Mental Status Date Cognitive Assessment Orientation - [place] ed to time, place, person, situation.
--- OUTSIDE RECORDS SUMMARY | 2024-09-20 00:36 | XMS_ITS | Clinical Summary ---
Author Organization [facility] [address] Address [address] [place] [address] Care Team Providers Care Tin Pourer Name Role Phone Miki Valentine MD Primary Care Provider [phone] Allergies No known active allergies Medications cholecalciferol [...] (11/14/2021): Added automatically from request for surgery [id number] LUQ abdominal pain 11/14/2021 2 Overview (11/14/2021): Added automatically from request for surgery [id number] Epigastric pain 11/14/2021 01/22/2022 Overview (11/14/2021): Added automatically from request for surgery [id number] Gastroesophageal reflux disease 11/14/2021 01/22/2022 Overview (11/14/2021): Added automatically from request for surgery [id number] Immunizations Immunization Administration Dates Next Due DTP [...] on file 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 Gender Identity Not on file Sexual Orientation Not on file Obstetrics History Last Filed Vital Signs Vital Sign Reading Time Taken Comments Blood Pressure 114/77 03/21/2022 10:49 AM PLAYER MANAGER Pulse 80 03/21/2022 10:49 AM PLAYER MANAGER Temperature 36.8 C (98.2 F) 01/02/2022 10:56 AM PLAYER MANAGER Respiratory Rate 18 03/21/2022 10:4 9 AM PLAYER MANAGER Oxygen Saturation 97% 03/21/2022 10: 49 AM PLAYER MANAGER Inhaled Oxygen Concentration - - Weight 113.9 kg (251 lb 1.6 oz) 023 10:49 AM PLAYER MANAGER Height 170.2 cm (5' 7) 03/21/2022 10:4 9 AM PLAYER MANAGER Body Mass Index 39.33 03/21/2022 10:49 AM PLAYER MANAGER Plan of Treatment Health Maintenance Due Date [...] patient's age to complete this topic Insurance [facility] Advance Directives For more information, please contact: [phone] * Full Code (Latest Code Status on File) Date Activated Date Inactivated Comments 01/02/2022 9:13 AM 01/02/2022 3:19 PM * Full Code Date Activated Date Inactivated Comments 01/02/2022 9:13 AM 01/02/2022 9:13 AM Care Teams Tin Pourer Relationship Specialty Start Date End Date Miki Valentine MD [address] [place] [address] [place] [address] PCP - General Internal Medicine 09/06/21
[2024-09-20 00:39] LABS: Alanine Aminotransferase 32 U/L (6-35); Albumin Level 4.0 g/dL (3.5-5.1); Alkaline Phosphatase 79 U/L (38-126); Anion Gap 7 mmol/L (4-12); Aspartate Amino Transferase 26 U/L (14-36); Bilirubin,Total 0.2 mg/dL (0.2-1.3); Blood Urea Nitrogen 14 mg/dL (7-17); Calcium 8.9 mg/dL (8.4-10.2); Carbon Dioxide 24 mmol/L (22-30); Chloride 105 mmol/L (98-107); Estimated CRCL calculation 100 ml/min; Estimated Glomerular Filt Rate > 60; Glucose 100 mg/dL (65-110); Lipase 284 U/L (23-300); Potassium 4.2 mmol/L (3.4-5.0); Sodium 136 mmol/L (137-145); Total Protein 7.5 g/dL (6.3-8.2)
[2024-09-20 00:47] LABS: BEDSIDEPREGUCG Negative (Negative)
--- NOTE | 2024-09-20 01:33 | ED_ITS ---
HPI - Abdominal Pain General Chief Complaint: Abdominal Pain Stated Complaint: gallbladder attack Time Seen by Provider: 09/20/24 00:14 History of Present Illness HPI narrative: 28-year-old female with history of gallstones presenting to the emergency department with right upper quadrant pain. She states she had some intermittent pain that brought her to the hospital several weeks ago she was diagnosed gallstones. Has not followed up outpatient yet. Today after eating she had some pain in the right upper quadrant that has been persistent. No fever or chills but she has been feeling nauseous. Has an appointment with her PCP on Friday. Has tried dicyclomine and ibuprofen at home without any relief. Denies any urinary complaints, no chest pain shortness a breath. Pain is reproducible with deep palpation right upper quadrant. Denies any traumatic injuries. Denies chance of . Related Data Home Medications ?Medication ?Instructions ?Recorded ?Confirmed ?Last Taken ?Type cetirizine 10 mg capsule (Zyrtec) 10 mg PO DAILY PRN Allergy Symptoms 09/04/20 09/20/24 01/16/23 History ziprasidone HCl 20 mg capsule 40 mg PO HS 07/22/24 09/20/24 Unknown History duloxetine 40 mg capsule,delayed 40 mg PO BID 09/20/24 09/20/24 Unknown History release norgestimate 0.25 mg-ethinyl 1 tablet PO DAILY 09/20/24 09/20/24 Unknown History estradiol 0.035 mg tablet (Estarylla) Allergies Allergy/AdvReac Type Severity Reaction Status Date / Time No Known Allergies Allergy Verified 09/20/24 00:13 Review of Systems 2 Review of Systems: As reviewed [facility] Past Medical History Medical History Morbid obesity Endometriosis Pelvic pain Anxiety Depression Hypothyroid Asthma Surgical History Surgical History No significant past surgical history Social History Social History Smoking status: Former smoker Tobacco type: cigarettes Second hand tobacco smoke exposure: No Smoking end date: 01/08/19 Additional smoking assessment comments: FORMER SOCIAL SMOKER Alcohol intake: never Substance use: current Substance use type: marijuana Other substance usage details: marijuana daily Lack of Transportation: No Lack of Food: Never True Current Housing: I Have Housing Concerned About Future Housing: No Difficulty Paying Gas/Electric Bills: No Difficulty Paying for Meds: No Currently Unemployed: YES Education: Associate Degree Difficulty w/ Childcare or Family Care: No Living arrangements: with family Additional living arrangements comments: BOYFRIEND, CHILDREN Occupation/Education: unemployed Gender identity (if verbalized by the patient): Female Spiritual care concerns: No Exam 2 Narrative: GENERAL: [Well-appearing, well-nourished, and in no acute distress.] HEAD: [Normocephalic, atraumatic.] EYES: [PERRLA and EOMI.] ENT: Nares clear, no rhinorrhea or epistaxis. Mucous membranes moist. NECK: Supple. CHEST: [Clear to auscultation. No respiratory distress.] HEART: [Regular rate and rhythm]. No murmur heard. [Normal peripheral pulses.] ABDOMEN: [Soft, nondistended], tender to palpation the right upper quadrant with a positive Fajardo sign, no rebound or guarding, no peritonitis EXTREMITIES: Normal range of motion. [No edema.] SKIN: Warm, dry, no rash. NEURO: [No focal deficits]. Alert and oriented [x3.] PSYCH: [Normal mood and affect.] Course Vital Signs Vital signs: Vital Signs Temperature 36.7 C 09/19/24 23:44 Pulse Rate 83 09/19/24 23:44 Respiratory Rate 16 09/19/24 23:44 Blood Pressure 128/85 09/19/24 23:44 Pulse Oximetry 98 09/19/24 23:44 Oxygen Delivery Room Air 09/19/24 23:44 Temperature 36.4 C 09/20/24 05:43 Pulse Rate 57 L 09/20/24 05:43 Respiratory Rate 16 09/20/24 05:43 Blood Pressure 117/62 09/20/24 05:43 Pulse Oximetry 100 09/20/24 05:43 Oxygen Delivery Room Air 09/19/24 23:44 MDM - Abdominal Pain MDM Narrative Medical decision making narrative: 28-year-old female with history of gallstones presenting to the emergency department with right upper quadrant pain. She states she had some intermittent pain that brought her to the hospital several weeks ago she was diagnosed gallstones. Has not followed up outpatient yet. Today after eating she had some pain in the right upper quadrant that has been persistent. No fever or chills but she has been feeling nauseous. Has an appointment with her PCP on Friday. Has tried dicyclomine and ibuprofen at home without any relief. Denies any urinary complaints, no chest pain shortness a breath. Pain is reproducible with deep palpation right upper quadrant. Denies any traumatic injuries. Denies chance of . Abdominal examination shows some reproducible pain in the right upper quadrant with positive Fajardo sign. No rigidity or peritonitis. She is hemodynamically stable normal vital signs. Symptoms consistent with cholelithiasis, biliary colic, cholecystitis or less likely other complications with the biliary system, pancreatitis or renal stone/renal colic. Workup underway including CBC, CMP, urinalysis, test and a CT scan with contrast. She is given morphine Zofran fluids and re-evaluated. Patient CT scan report shows probable mild cholecystitis with gallbladder distension, gallstone, pericholecystic trace haziness and wall prominence. Patient's laboratory studies are all normal she is hemodynamically stable and afebrile. Patient was re-evaluated numerous times required multiple rounds of narcotic medications, Toradol, Zofran. I discussed the case with Dr. Narayan from General surgery for recommendations. If patient's pain can be under control he will be able to see the patient in clinic on a short-term basis today, but if uncontrolled he will take the patient for admission. After additional round of narcotics and pain control medication she was re- evaluated and had no interval improvement in symptoms. At this time will admit the patient for acute cholecystitis and intractable pain. Patient comfortable with the plan. Medical Records Attestation: I reviewed the patient's medical records. Lab Data Attestation: I reviewed the patient's lab results. 09/20/24 00:13 09/20/24 00:13 Labs: Lab Results 09/20/24 09/20/24 Range/Units 00:13 00:18 WBC 9.1 (4.5-10.0) K/mm3 RBC 3.96 L (4.2-5.4) M/mm3 Hgb 11.7 L (12.0-15.0) g/dL Hct 35.5 L (37.0-47.0) % MCV 89.6 (80-100) fl MCH 29.5 (26-34) pg MCHC 33.0 (32-36) g/dl RDW 13.5 (11.5-14.5) % Plt Count 297 (150-375) k/mm3 MPV 11.1 H (7.4-10.4) fl Immature Gran % (Auto) 0.1 (0-0.5) % Neut % (Auto) 58.7 (45.5-73.1) % Lymph % (Auto) 23.4 (18.3-44.2) % [place] % (Auto) 5.8 (2.6-8.5) % Eos % (Auto) 11.1 H (0-4.4) % Baso % (Auto) 0.9 (0.2-1.2) % Lymph # (Auto) 2.14 (0.9-3.2) K/mm3 [place] # (Auto) 0.5 (0.1-0.6) K/mm3 Eos # (Auto) 1.0 H (0-0.3) K/mm3 Baso # (Auto) 0.1 (0.0-0.1) K/mm3 Abs Immat Gran (auto) 0.01 (0.00-0.031) K/mm3 Absolute Neuts (auto) 5.4 (1.3-6.7) K/mm3 Absolute Nucleated RBC 0.000 (0.0-0.012) K/mm3 Nucleated RBC % 0.0 (0.0-0.2) % Sodium 136 L (137-145) mmol/L Potassium 4.2 (3.4-5.0) mmol/L Chloride 105 (98-107) mmol/L Carbon Dioxide 24 (22-30) mmol/L Anion Gap 7 (4-12) mmol/L BUN 14 (7-17) mg/dL Creatinine 0.97 (0.7-1.0) mg/dL Estim Creat Clear Calc 100 ml/min Estimated GFR > 60 (59 - ) Glucose 100 (65-110) mg/dL Calcium 8.9 (8.4-10.2) mg/dL Total Bilirubin 0.2 (0.2-1.3) mg/dL AST 26 (14-36) U/L ALT 32 (6-35) U/L Alkaline Phosphatase 79 (38-126) U/L Total Protein 7.5 (6.3-8.2) g/dL Albumin 4.0 (3.5-5.1) g/dL Lipase 284 (23-300) U/L Urine Color Yellow (Yellow) Urine Appearance Clear (Clear) Urine pH 6.0 (5.0-9.0) Ur Specific [place] 1.029 (1.001-1.035) Urine Protein Negative (Negative) mg/dL Urine Glucose (UA) Negative (Negative) mg/dL Urine Ketones Trace H (Negative) mg/dL Ur Blood (Man) Negative (Negative) Urine Nitrate Negative (Negative) Urine Bilirubin Negative (Negative) Urine Urobilinogen 1.0 (<2.0) mg/dL Leukocyte Esterase Rfl Trace H (Negative) ANTHONY/UL Urine RBC 0-2 (0-2) /hpf Urine WBC 6-10 H (0-3) /hpf Ur Squamous Epith Cells None seen (Few) /hpf Urine Bacteria Rare /hpf Urine Casts 0-2 POC Urine HCG, Qual Negative (Negative) Imaging Data Attestation: I personally reviewed and interpreted this imaging study as follows: My impression: Probable mild acute cholecystitis, distended gallbladder, gallstone, pericholecystic trace haziness and prominence of the wall Radiologist's impression: ITS Impressions Abdomen/Pelvis CT 09/20/24 06:34 IMPRESSION: 1. Findings compatible with cholecystitis. Clinically correlate. 2: Patchy groundglass opacities of the lung bases suspicious for small airway disease or respiratory bronchiolitis. Discharge Plan Discharge Clinical Impression: Biliary colic, Acute cholecystitis due to biliary calculus Patient Disposition: Still a Patient Condition: Stable Time of Disposition: 05:08
[2024-09-20] MEDS: LACTATED RINGERS 1,000 ML 999 ML IV CONT (01:40)
[2024-09-20] MEDS: ONDANSETRON INJ 4 MG/2 ML VIAL IV PUSH ×4 (01:40→20:25)
[2024-09-20] MEDS: MORPHINE SULFATE (*CRX) 4 MG/ML INJ IV PUSH (01:40)
[2024-09-20] MEDS: HYDROmorphone HCL INJ (*CRX) 2 MG/ML VIAL 1 MG IV PUSH ×2 (02:50→04:31)
[2024-09-20] MEDS: ACETAMINOPHEN 500 MG TABLET 1000 MG PO (04:31)
[2024-09-20] MEDS: KETOROLAC 30 MG/ML VIAL (*BKC) IV PUSH (04:31)
--- NOTE | 2024-09-20 05:50 | ADMGEN ---
This patient, Lauren Lo, was admitted to [facility] Room 312-01. Patient/family oriented to hospital policies and general routines including ID bracelet, bed and alarms, visiting hours, pain management, procedures, bathroom and other care routines, personal items, smoking policy, room service/diet, and visiting hours. Information on how to activate the Rapid Response Team has been discussed. Patient/Family are encouraged to report perceived risks to care and to ask questions if they do not understand what they are told or what they should do.
[2024-09-20] MEDS: SODIUM CHLORIDE 0.9% IV 1,000 ML 125 ML IV CONT (06:08)
[2024-09-20] MEDS: HYDROmorphone HCL INJ (*CRX) 2 MG/ML VIAL 0.5 MG IV PUSH ×3 (08:09→20:25)
--- NOTE | 2024-09-20 09:50 | PM.IMHP ---
H&P: HPI History of Present Illness Date/Time: 09/20/24 09:50 Chief Complaint: Right upper quadrant abdominal pain Narrative: This is a 28-year-old woman with a history of endometriosis, who presented to the ED yesterday with complaints of right upper quadrant abdominal pain. She developed right upper quadrant pain shortly after eating pizza for dinner last night. Her pain was sharp and radiated around to her right mid back. She reports having similar episodes of pain intermittently for the past few years, which are typically mild in resolve with time. Her symptoms are so seated with fatty meals. Last night, her pain was more severe than any previous episodes. She had associated nausea and diarrhea, but no vomiting. Due to her persistent pain, she came into the ED for evaluation. Labs showed a normal white blood cell count and normal LFTs. UA with trace leukocytes and 6-10 WBC. Patient denies any dysuria, frequency, or other urinary symptoms. CT scan of the abdomen and pelvis showed a gallstone within the neck of the gallbladder with findings consistent with acute cholecystitis, as well as patchy ground-glass opacities of the lung bases suspicious for small airway disease or respiratory bronchiolitis. She denies cough, congestion, or any respiratory symptoms. She continued to have pain in the ED despite IV pain medication and was admitted for further evaluation and treatment. She is seen this morning and continues to have right upper quadrant pain that improves with IV Dilaudid, but returns as the medication wears off. She was in ER a few weeks ago, but reports this was a different cramping lower abdominal pain that she thought was related to menstrual cramping. She was told at that time that she had ovarian cyst was planning to follow-up with her PCP tomorrow for this issue. She reports this is a completely separate type of pain that she is experiencing today. Her only previous abdominal surgery was diagnostic laparoscopy for endometriosis. Review of Systems Review of Systems: All systems reviewed & are unremarkable except as noted in HPI and below PMFSH Past Medical History Medical History Morbid obesity Endometriosis Pelvic pain Anxiety Depression Hypothyroid Asthma Surgical History Surgical History History of laparoscopy For endometriosis Social History Social History (Reviewed 09/20/24 @ 09:54 by EILEEN Reid Smoking status: Former smoker Tobacco type: cigarettes Second hand tobacco smoke exposure: No Smoking end date: 01/08/19 Additional smoking assessment comments: FORMER SOCIAL SMOKER Alcohol intake: never Substance use: current Substance use type: marijuana Other substance usage details: marijuana daily Lack of Transportation: No Lack of Food: Never True Current Housing: I Have Housing Concerned About Future Housing: No Difficulty Paying Gas/Electric Bills: No Difficulty Paying for Meds: No Currently Unemployed: YES Education: Associate Degree Difficulty w/ Childcare or Family Care: No Living arrangements: with family Additional living arrangements comments: BOYFRIEND, CHILDREN Occupation/Education: unemployed Gender identity (if verbalized by the patient): Female Spiritual care concerns: No Meds Home Medications and Allergies Home Medications ?Medication ?Instructions ?Recorded ?Confirmed ?Type cetirizine 10 mg capsule (Zyrtec) 10 mg PO DAILY PRN Allergy Symptoms 09/04/20 09/20/24 History ibuprofen 800 mg tablet 800 mg PO TID PRN pain 7 days #21 06/03/22 09/20/24 Rx tabs acetaminophen 500 mg tablet 1,000 mg (2 x 500 mg) PO TID PRN 07/18/23 09/20/24 Rx tim 7 days #42 tabs ibuprofen 800 mg tablet 800 mg PO TID PRN pain 7 days #21 07/18/23 09/20/24 Rx tabs ziprasidone HCl 20 mg capsule 40 mg PO HS 07/22/24 09/20/24 History dicyclomine 20 mg tablet 20 mg PO TID PRN Abdominal 09/08/24 09/20/24 Rx Discomfort #15 tabs ondansetron 4 mg disintegrating 4 mg PO Q8H PRN nausea and 09/08/24 09/20/24 Rx tablet vomiting #15 tabs duloxetine 40 mg capsule,delayed 40 mg PO BID 09/20/24 09/20/24 History release norgestimate 0.25 mg-ethinyl 1 tablet PO DAILY 09/20/24 09/20/24 History estradiol 0.035 mg tablet (Estarylla) Allergies Allergy/AdvReac Type Severity Reaction Status Date / Time No Known Allergies Allergy Verified 09/20/24 00:13 Vital Signs Vital Signs - 24 hr 09/19/24 23:44 09/20/24 00:17 09/20/24 00:30 Temperature 98.0 F Pulse Rate 83 Respiratory Rate 16 Blood Pressure 128/85 Pulse Oximetry 98 99 99 Oxygen Delivery Room Air 09/20/24 00:45 09/20/24 00:56 09/20/24 01:00 Temperature Pulse Rate Respiratory Rate Blood Pressure 126/83 Pulse Oximetry 99 99 99 Oxygen Delivery 09/20/24 01:01 09/20/24 01:15 09/20/24 01:30 Temperature Pulse Rate Respiratory Rate Blood Pressure 128/86 Pulse Oximetry 99 99 99 Oxygen Delivery 09/20/24 01:31 09/20/24 01:45 09/20/24 02:00 Temperature Pulse Rate Respiratory Rate Blood Pressure 133/75 Pulse Oximetry 99 98 98 Oxygen Delivery 09/20/24 02:01 09/20/24 02:15 09/20/24 02:30 Temperature Pulse Rate 70 Respiratory Rate 17 Blood Pressure 129/80 Pulse Oximetry 98 98 99 Oxygen Delivery 09/20/24 05:14 09/20/24 05:43 09/20/24 08:00 Temperature 97.6 F 97.6 F Pulse Rate 59 L 57 L Respiratory Rate 16 16 Blood Pressure 134/84 117/62 Pulse Oximetry 99 100 Oxygen Delivery Room Air Exam Const: General: comfortable and no acute distress Nutritional Appearance: obese Orientation/consciousness: patient oriented x3 HENMT: Head: normocephalic and atraumatic Ears: hearing grossly normal bilaterally Mouth: Yes moist mucous membranes Eyes: General: appearance normal, both eyes and all related structures Pupils: Equal, round and reactive pupils present Neck: Neck: normal visual inspection and full ROM Resp: Effort & Inspection: no respiratory distress Auscultation: clear to auscultation bilaterally Cardio: Rate: regular rate Rhythm: regular rhythm Peripheral pulses: Peripheral pulses 2+ throughout GI: Inspection: non-distended, obesity and striae GI Palp: Yes Soft to palpation, Yes Tenderness to palpation present (GI) (Right upper quadrant), No Guarding due to palpation present (GI), Yes No hepatosplenomegaly present, No Hernia present and No Rebound tenderness present Auscultation: normal bowel sounds Skin: General skin exam: normal color Neuro: General: moves all extremities and no focal motor deficits Speech: normal speech Motor exam (neuro): 5/5 motor strength present throughout Extrem: General: normal to inspection and no edema Psych: Mental Status: mental status grossly normal Attitude: cooperative Insight: Good insight present (Psych) Judgement: Good judgement present (Psych) H&P: Results Labs Labs: Short CBC 09/20/24 Range/Units 00:13 WBC 9.1 (4.5-10.0) K/mm3 Hgb 11.7 L (12.0-15.0) g/dL Hct 35.5 L (37.0-47.0) % Plt Count 297 (150-375) k/mm3 BMP 09/20/24 00:13 Sodium 136 L Potassium 4.2 Chloride 105 Carbon Dioxide 24 BUN 14 Creatinine 0.97 Glucose 100 Calcium 8.9 Liver Function 09/20/24 Range/Units 00:13 Total Bilirubin 0.2 (0.2-1.3) mg/dL AST 26 (14-36) U/L ALT 32 (6-35) U/L Alkaline Phosphatase 79 (38-126) U/L Albumin 4.0 (3.5-5.1) g/dL Urine 09/20/24 Range/Units 00:13 Urine Color Yellow (Yellow) Urine Appearance Clear (Clear) Urine pH 6.0 (5.0-9.0) Ur Specific [place] 1.029 (1.001-1.035) Urine Protein Negative (Negative) mg/dL Urine Glucose (UA) Negative (Negative) mg/dL Imaging CT scan - abdomen: Radiologist's impression: ITS Impressions Abdomen/Pelvis CT 09/20/24 06:34 IMPRESSION: 1. Findings compatible with cholecystitis. Clinically correlate. 2: Patchy groundglass opacities of the lung bases suspicious for small airway disease or respiratory bronchiolitis. Assessment and Plan Assessment and plan (1) Acute cholecystitis due to biliary calculus: Code(s): K80.00 - Calculus of gallbladder with acute cholecystitis without obstruction Status: Acute Assessment and Plan: Patient presents with RUQ pain x 1 day. She continues to have pain and nausea despite conservative measures. CT scan showed evidence of acute cholecystitis with a gallstone within the neck of the gallbladder. This seems like a separate process from her pain a few weeks ago that brought her into the ER. We discussed both nonoperative versus surgical treatment options. Given her persistent pain, it is unlikely she would do well with conservative management. We discussed the option of also proceeding with a laparoscopic cholecystectomy, possible open that would be done by Dr. Narayan under general anesthesia. Description of the procedure, risks, benefits, expected outcomes, and expected recovery were discussed with the patient in detail. We discussed the risks of bile leak and bile duct injury, liver/bowel injury, bleeding, and infection. The patient wishes to proceed with surgery. We will keep her NPO with IV fluids and analgesics as needed. We will plan to proceed with laparoscopic cholecystectomy later today. (2) Morbid obesity with BMI of 40.0-44.9, adult: Code(s): E66.01 - Morbid (severe) obesity due to excess calories; Z68.41 - Body mass index [BMI] 40.0-44.9, adult Status: Acute Plan I have discussed the patient's case and plan of care with Dr. Narayan.
--- NOTE | 2024-09-20 10:13 | PC.NURSE ---
Patient taken to pre-op via wheelchair, report given to Meredith LORENZ.
--- NOTE | 2024-09-20 10:16 | WPDANESEPPF ---
Anes - Initial Pre Proc Eval Procedure: Operation Date: 09/20/24 16:30 Proposed Procedures p Laparoscopic Cholecystectomy - Mechelle Narayan MD Date/Time: 09/20/24 10:16 Surgeon: Miki Valentine MD Pre Op Diagnosis: Biliary colic, possible acute cholecystitis Patient Data Age: 28 Gender: F Height: 1.7 m Weight: 120 kg Last Vital Signs Temp 36.4 C 09/20/24 05:43 Pulse 57 L 09/20/24 05:43 Resp 16 09/20/24 05:43 BP 117/62 09/20/24 05:43 Pulse Ox 100 09/20/24 05:43 O2 Del Method Room Air 09/20/24 08:00 Allergies Allergy/AdvReac Type Severity Reaction Status Date / Time No Known Allergies Allergy Verified 09/20/24 10:32 Home Medications ?Medication ?Instructions ?Recorded ?Confirmed ?Type cetirizine 10 mg capsule (Zyrtec) 10 mg PO DAILY PRN Allergy Symptoms 09/04/20 09/20/24 History ibuprofen 800 mg tablet 800 mg PO TID PRN pain 7 days #21 06/03/22 09/20/24 Rx tabs acetaminophen 500 mg tablet 1,000 mg (2 x 500 mg) PO TID PRN 07/18/23 09/20/24 Rx tim 7 days #42 tabs ibuprofen 800 mg tablet 800 mg PO TID PRN pain 7 days #21 07/18/23 09/20/24 Rx tabs ziprasidone HCl 20 mg capsule 40 mg PO HS 07/22/24 09/20/24 History dicyclomine 20 mg tablet 20 mg PO TID PRN Abdominal 09/08/24 09/20/24 Rx Discomfort #15 tabs ondansetron 4 mg disintegrating 4 mg PO Q8H PRN nausea and 09/08/24 09/20/24 Rx tablet vomiting #15 tabs duloxetine 40 mg capsule,delayed 40 mg PO BID 09/20/24 09/20/24 History release norgestimate 0.25 mg-ethinyl 1 tablet PO DAILY 09/20/24 09/20/24 History estradiol 0.035 mg tablet (Estarylla) Laboratory Tests 09/20/24 09/20/24 00:13 00:18 WBC 9.1 K/mm3 (4.5-10.0) RBC 3.96 L M/mm3 (4.2-5.4) Hgb 11.7 L g/dL (12.0-15.0) Hct 35.5 L % (37.0-47.0) MCV 89.6 fl (80-100) MCH 29.5 pg (26-34) MCHC 33.0 g/dl (32-36) RDW 13.5 % (11.5-14.5) Plt Count 297 k/mm3 (150-375) MPV 11.1 H fl (7.4-10.4) Immature Gran % (Auto) 0.1 % (0-0.5) Neut % (Auto) 58.7 % (45.5-73.1) Lymph % (Auto) 23.4 % (18.3-44.2) Gordon % (Auto) 5.8 % (2.6-8.5) Eos % (Auto) 11.1 H % (0-4.4) Baso % (Auto) 0.9 % (0.2-1.2) Lymph # (Auto) 2.14 K/mm3 (0.9-3.2) Gordon # (Auto) 0.5 K/mm3 (0.1-0.6) Eos # (Auto) 1.0 H K/mm3 (0-0.3) Baso # (Auto) 0.1 K/mm3 (0.0-0.1) Abs Immat Gran (auto) 0.01 K/mm3 (0.00-0.031) Absolute Neuts (auto) 5.4 K/mm3 (1.3-6.7) Absolute Nucleated RBC 0.000 K/mm3 (0.0-0.012) Nucleated RBC % 0.0 % (0.0-0.2) Sodium 136 L mmol/L (137-145) Potassium 4.2 mmol/L (3.4-5.0) Chloride 105 mmol/L (98-107) Carbon Dioxide 24 mmol/L (22-30) Anion Gap 7 mmol/L (4-12) BUN 14 mg/dL (7-17) Creatinine 0.97 mg/dL (0.7-1.0) Estim Creat Clear Calc 100 ml/min Estimated GFR > 60 (59 - ) Glucose 100 mg/dL (65-110) Calcium 8.9 mg/dL (8.4-10.2) Total Bilirubin 0.2 mg/dL (0.2-1.3) AST 26 U/L (14-36) ALT 32 U/L (6-35) Alkaline Phosphatase 79 U/L (38-126) Total Protein 7.5 g/dL (6.3-8.2) Albumin 4.0 g/dL (3.5-5.1) Lipase 284 U/L (23-300) Urine Color Yellow (Yellow) Urine Appearance Clear (Clear) Urine pH 6.0 (5.0-9.0) Ur Specific [place] 1.029 (1.001-1.035) Urine Protein Negative mg/dL (Negative) Urine Glucose (UA) Negative mg/dL (Negative) Urine Ketones Trace H mg/dL (Negative) Ur Blood (Man) Negative (Negative) Urine Nitrate Negative (Negative) Urine Bilirubin Negative (Negative) Urine Urobilinogen 1.0 mg/dL (<2.0) Leukocyte Esterase Rfl Trace H ANTHONY/UL (Negative) Urine RBC 0-2 /hpf (0-2) Urine WBC 6-10 H /hpf (0-3) Ur Squamous Epith Cells None seen /hpf (Few) Urine Bacteria Rare /hpf Urine Casts 0-2 POC Urine HCG, Qual Negative (Negative) Patient hx anesthesia problems: none Family hx anesthesia problems: none Results Review: All pre-operative results and documents have been reviewed as part of the pre-operative evaluation. [facility] Past Medical History Medical History Morbid obesity Endometriosis Pelvic pain Anxiety Depression Hypothyroid Asthma Surgical History Surgical History History of laparoscopy For endometriosis Social History Social History Smoking status: Former smoker Tobacco type: cigarettes Second hand tobacco smoke exposure: No Smoking end date: 01/08/19 Additional smoking assessment comments: FORMER SOCIAL SMOKER Alcohol intake: never Substance use: current Substance use type: marijuana Other substance usage details: marijuana daily Lack of Transportation: No Lack of Food: Never True Current Housing: I Have Housing Concerned About Future Housing: No Difficulty Paying Gas/Electric Bills: No Difficulty Paying for Meds: No Currently Unemployed: YES Education: Associate Degree Difficulty w/ Childcare or Family Care: No Living arrangements: with family Additional living arrangements comments: BOYFRIEND, CHILDREN Occupation/Education: unemployed Gender identity (if verbalized by the patient): Female Spiritual care concerns: No Anes - Eval Final PreProcedure Day of Procedure 09/20/24 10:16 Patient weight: morbidly obese Heart: regular rate and rhythm Lungs: clear to auscultation Airway: Mallampati scale class III Neurological: alert and oriented Last oral intake: >/= 8 hours ASA classification: III Emergent: no Anesthetic plan: proceed Anesthesia type and monitoring: general ETT and standard monitoring Results Review: All pre-operative results and documents have been reviewed as part of the pre-operative evaluation. Informed Consent: The patient's anesthetic plan and its attendant risks and benefits were discussed with the patient/family/POA. Questions were solicited and answers provided to the satisfaction of the patient/family/POA.
--- NOTE | 2024-09-20 10:28 | WPDHPUPDATE1 ---
History and Physical Update Update Date/Time: 09/20/24 10:28 History and Physical has been reviewed, including an updated exam of the patient. There are NO changes in the patient's condition. Risks, benefits, and alternatives have been discussed and questions answered. Patient agrees to proceed with procedure.
[2024-09-20] MEDS: ceFAZolin 3 GM/D5W 100 ML 100 ML IVPB (10:36)
[2024-09-20] MEDS: LACTATED RINGERS 1,000 ML 30 ML IV CONT ×2 (10:37→11:40)
--- NOTE | 2024-09-20 11:04 | S_PTH ---
PATIENT: Lauren Lo LOC: [id number] U#:[id number] AGE/SX: 28/F ROOM: 312 RE09/20/[address]: Mechelle Narayan MD : 1995 BED: 01 DIS: 09/21/2024 SPEC #: [id number] RECD: 09/20/24 12:00 STATUS: VICKI REShilpi #: [id number] BOOGIE: 09/20/24 11:[address]: Mechelle Narayan DEPT: [facility] Surgical RECD BY: Angle Alejandra ENTERED: 09/20/24 12:00 SP TYPE: Surgical OTHR DR: Miki Valentine MD Tissues: A - Gallbladder Procedures: Hematoxylin and Eosin Stain Gross and Microscopic Level 3
[2024-09-20] MEDS: BUPIVACAINE/EPINEPHRINE 0.5% 30 ML VIAL INFILTRATE (11:13)
--- NOTE | 2024-09-20 11:41 | P.OP_ITS ---
Procedure Note - Detailed Date of Procedure 09/20/24 Pre-op Diagnosis Acute cholecystitis, cholelithiasis Post-op Diagnosis Same Procedure Performed Laparoscopic cholecystectomy Surgeon Mechelle Narayan MD Anesthesia General Indications 28-year-old female presenting to the emergency department with acute cholec ystitis, cholelithiasis Findings acute cholecystitis with cholelithiasis, intrahepatic gallbladder Description of Procedure The patient was taken to the operating room placed in the supine position. After adequate induction of general anesthesia, the patient was prepped and draped in normal sterile fashion. A time-out was then performed to verify the patient's identity as well as the procedure being performed. I then made a 5 mm incision in the infraumbilical region. Through this, a Veress needle was placed into the peritoneal cavity and CO2 gas was then insufflated. After adequate pneumoperitoneum was achieved, the Veress needle was removed and a 5 mm optiview trocar was placed through this incision under direct visualization. I then placed the laparoscope through this trocar site and under direct visualization placed a further 12 mm subxiphoid port as well as 2 additional 5 mm ports in the right upper abdomen. The gallbladder was then identified and was noted to be inflamed, distended, and full of gallstones. There was a dense amount of omental adhesions to the gallbladder and these were taken down with the Bovie cautery. The stomach was also noted to be adhesed to the infundibulum of the gallbladder and this was also taken down with Bovie cautery. Once free, I was able to place a grasper at the dome of the gallbladder and this was retracted anterior and cephalad up over the liver. A 2nd retractor was then placed at the infundibulum and retracted laterally, this allowed visualization of the triangle of Calot. I then was able to visualize the cystic duct in its entirety from its proximal insertion into the gallbladder, to its distal junction with the common hepatic/common bile duct junction. At this point, I carefully skeletonized the proximal cystic duct with the [place] dissector. I then clipped and transected the proximal cystic duct. Next I visualized the cystic artery. Again the artery was skeletonized, clipped, and transected. I then used the Bovie cautery to take down the peritoneal attachments of the gallbladder off the liver bed. This was somewhat difficult given the amount of inflammation in the posterior space. Of note, the gallbladder was also very intrahepatic. Once the gallbladder specimen was completely detached, an endo-pouch was placed through the 12 mm port site. I then placed the gallbladder specimen into the Endo pouch and removed the endo-pouch from the 12 mm port site. The specimen will now be sent to pathology for further review. I then copiously irrigated the right upper quadrant. Some mild oozing was noted in the liver bed and this was controlled with the bovie cautery. I then placed some hemostatic powder in the liver bed. Hemostasis was noted in the liver bed, the clips were noted to be in good position on both the cystic duct stump and the cystic artery stump. No other pathology was noted in the right upper quadrant. I then moved the laparoscope to the subxiphoid port. No iatrogenic injury or other pathology was noted in the lower abdomen. I then closed the 12 mm trocar site under direct visualization using the Demar cone and 0 Vicryl suture. At this point, the abdomen was desufflated and all ports removed. All port sites were then closed with 4.O Monocryl subcuticular sutures. Dermabond was placed on each incision. The patient tolerated the procedure well, was extubated in the operating room postoperative and will be transferred to the recovery room in stable condition Estimated Blood Loss 20 Drains No Packing No Pathology Yes Complications No immediate complications Condition Stable Disposition PACU [facility] Billing Surgery - Charge Forward: Surgery Billing
[2024-09-20] MEDS: fentaNYL CITRATE INJ (*CRX) 100 MCG/2 ML VIAL 25 MCG IV PUSH ×4 (12:17→12:34)
[2024-09-20] MEDS: HYDROcodone/acetaminophen (*CRX) 5-325 MG TABLET 1 TAB PO (13:52)
[2024-09-20] MEDS: LORATADINE 10 MG TABLET PO (14:17)
[2024-09-20] MEDS: SODIUM CHLORIDE 0.9% IV 1,000 ML 100 ML IV CONT (17:38)
[2024-09-20] MEDS: ZIPRASIDONE HCL 20 MG CAPSULE 40 MG PO (20:26)
[2024-09-21] MEDS: SODIUM CHLORIDE 0.9% IV 1,000 ML 100 ML IV CONT (01:20)
[2024-09-21] MEDS: HYDROmorphone HCL INJ (*CRX) 2 MG/ML VIAL 0.5 MG IV PUSH ×2 (01:20→08:35)
[2024-09-21] MEDS: ONDANSETRON INJ 4 MG/2 ML VIAL IV PUSH (01:21)
[2024-09-21 03:32] VITALS: BP 137/75; PULSE 60; RESP 14; TEMP 35.6; O2SAT 96
[2024-09-21 06:20] LABS: Hematocrit 33.4 % (37.0-47.0); Hemoglobin 10.6 g/dL (12.0-15.0); Mean Corpuscular HGB Conc 31.7 g/dl (32-36); Mean Corpuscular Hemoglobin 29.5 pg (26-34); Mean Corpuscular Volume 93.0 fl (80-100); Platelet Count Result 230 k/mm3 (150-375); Red Blood Count 3.59 M/mm3 (4.2-5.4); White Blood Count 8.6 K/mm3 (4.5-10.0)
[2024-09-21 06:45] LABS: Alanine Aminotransferase 48 U/L (6-35); Albumin Level 3.5 g/dL (3.5-5.1); Alkaline Phosphatase 83 U/L (38-126); Anion Gap 5 mmol/L (4-12); Aspartate Amino Transferase 47 U/L (14-36); Bilirubin,Total 0.3 mg/dL (0.2-1.3); Blood Urea Nitrogen 7 mg/dL (7-17); Calcium 8.5 mg/dL (8.4-10.2); Carbon Dioxide 26 mmol/L (22-30); Chloride 106 mmol/L (98-107); Estimated CRCL calculation 117 ml/min; Estimated Glomerular Filt Rate > 60; Glucose 94 mg/dL (65-110); Potassium 4.3 mmol/L (3.4-5.0); Sodium 137 mmol/L (137-145); Total Protein 6.6 g/dL (6.3-8.2)
[2024-09-21 07:55] VITALS: BP 118/70; PULSE 69; RESP 16; TEMP 36.4; O2SAT 96
[2024-09-21] MEDS: LORATADINE 10 MG TABLET PO (08:40)
[2024-09-21] MEDS: DICYCLOMINE HCL 10 MG CAPSULE 20 MG PO (08:40)
[2024-09-21] MEDS: HYDROcodone/acetaminophen (*CRX) 5-325 MG TABLET 1 TAB PO (09:58)
--- NOTE | 2024-09-21 10:33 | P.DS_ITS ---
DS: Admitting Diagnosis Discharge Date 09/21/2024 Admitting Diagnosis Acute calculous cholecystitis Morbid obesity DS: Discharge Diagnosis Discharge Diagnosis (1) Acute cholecystitis due to biliary calculus: Code(s): K80.00 - Calculus of gallbladder with acute cholecystitis without obstruction Status: Acute (2) Morbid obesity with BMI of 40.0-44.9, adult: Code(s): E66.01 - Morbid (severe) obesity due to excess calories; Z68.41 - Body mass index [BMI] 40.0-44.9, adult Status: Acute DS: Summary Hospital Course Reason for hospitalization: This is a 28-year-old woman with a history of endometriosis, who presented to the ED with complaints of right upper quadrant abdominal pain. Workup in the ED showed CT findings consistent with acute cholecystitis and gallstone in the gallbladder neck. She had pain despite IV pain medication in the ED and was admitted for further evaluation and treatment. Hospital Course: The patient was taken to the OR and underwent laparoscopic cholecystectomy on 09/20/[address] Narayan. Diet was advanced as tolerated to low-fat diet by postop day 1. She is tolerating a diet and tolerating activity. No nausea or vomiting postoperatively. No acute complaints this morning. Labs repeated postop day 1 in stable. Patient is stable for discharge this morning. Follow-up in 2 weeks in our office. Status at Discharge Functional status at discharge: independent ambulation Overall status at discharge: patient is progressing back to baseline Time Spent with Patient Time attestation: Total time spent providing and/or coordinating discharge services: Exam Const: General: comfortable and no acute distress GI: Inspection: non-distended and incision (incisions dry and intact) GI Palp: Yes Soft to palpation, Yes Tenderness to palpation present (GI) (incisional) and No Guarding due to palpation present (GI) Auscultation: normal bowel sounds Psych: Mental Status: mental status grossly normal Insight: Good insight present (Psych) DS: Data Data Completed and Pending Pending studies at discharge: Pending at discharge 09/20/24 11:04 Surgical [PTH] Routine Labs on day of discharge: Labs from last 24 hours 09/21/24 05:45 WBC 8.6 RBC 3.59 L Hgb 10.6 L Hct 33.4 L MCV 93.0 MCH 29.5 MCHC 31.7 L RDW 13.7 Plt Count 230 MPV 11.4 H Sodium 137 Potassium 4.3 Chloride 106 Carbon Dioxide 26 Anion Gap 5 BUN 7 D Creatinine 0.84 Estim Creat Clear Calc 117 Estimated GFR > 60 Glucose 94 Calcium 8.5 Total Bilirubin 0.3 AST 47 H ALT 48 H Alkaline Phosphatase 83 Total Protein 6.6 Albumin 3.5 Procedures/Treatments: Procedures Operation Date: 09/20/24 16:30 Actual Procedure Side Surgeon p Laparoscopic Cholecystectomy Not Applicable Mechelle Narayan MD Imaging Radiologist's impression: ITS Impressions Abdomen/Pelvis CT 09/20/24 06:34 IMPRESSION: 1. Findings compatible with cholecystitis. Clinically correlate. 2: Patchy groundglass opacities of the lung bases suspicious for small airway disease or respiratory bronchiolitis. Discharge Plan Discharge Attending physician on discharge: Mechelle Narayan Consulting providers: Mechelle Narayan Discharging Clinician: Mechelle Narayan Anticipated Discharge Date/Time: 09/20/24 15:00 Patient Disposition: Home Activity: may shower Diet: as tolerated and low fat Wound Care Instructions: incision open to air Discharge Instructions: DISCHARGE INSTRUCTION SHEET FOR HERNIA, GALLBLADDER AND APPENDIX SURGERIES DR. NARAYAN 1. May shower in 24 hours, no soaking in bath x 2weeks. 2. Call office for: * Wound increasingly painful or bleeding * Vomiting * Fever of greater than 101 degrees 3. If no bowel movement for three days, take 1 oz. (30 ml) Milk of Magnesia or MiraLax 17g 1 to 2 times daily. 4. No heavy lifting > 10-15 pounds x 6 weeks for hernia repairs and 2 weeks for laparoscopic cholecystectomy or appendectomy. 5. No driving for 3 days or while taking narcotic pain medications. 6. Ice to surgical site for 48 hours (30 min on, then 30 min off). 7. Up walking 10-30 minutes three times per day. 8. Resume previous home medications. 9. Follow-up 10-14 days in office for wound check or as previously scheduled. ([id number]) 10. Oral pain medications prescription to be sent to pharmacy. Take Tylenol 500mg every 6 hours and Ibuprofen 600mg every 6 hours for the first 2 days, then as needed. 11. NUTRITION: Start out by drinking fluids and increase your diet as tolerated. If you experience nausea, try dry toast, crackers, and 7-UP. If nausea or vomiting persists, contact your surgeon?s office. 12. Gallbladders-Low Fat Diet for 2 weeks Patient Instructions: Antibiotic Form, Low Fat Diet (DC) Patient Language: Armenian Stand Alone Forms: General Discharge Information Follow-up/Referrals: Mechelle Narayan MD [Physician] - 2 Weeks Discharge Medications: New oxycodone-acetaminophen [Percocet] 5-325 mg tablet 1 tablet PO Q6H PRN (Reason: pain) Qty: 20 0RF Continued ziprasidone HCl 20 mg capsule 40 mg PO HS Zyrtec 10 mg Capsule 10 mg PO DAILY PRN (Reason: Allergy Symptoms) dicyclomine 20 mg tablet 20 mg PO TID PRN (Reason: Abdominal Discomfort) Qty: 15 0RF ondansetron 4 mg tablet,disintegrating 4 mg PO Q8H PRN (Reason: nausea and vomiting) Qty: 15 0RF norgestimate-ethinyl estradiol [Estarylla] 0.25-0.035 mg tablet 1 tablet PO DAILY duloxetine 40 mg capsule,delayed release(DR/EC) 40 mg PO BID ibuprofen 800 mg tablet 800 mg PO TID PRN (Reason: pain) 7 Days Qty: 21 0RF Date of admission: 09/20/24 05:03 Primary Care Provider: Miki Valentine Admitting Provider: Miki Valentine Attending physician on admission: Miki Valentine Condition: Stable Quality VTE Prophylaxis VTE prophylaxis: mechanical ordered
== END 2024-09-21 11:20 | disposition home or self-care (01) ==
LOC: ANHED 09-20 05:08 → ANH3MEDSUR 09-20 07:10
PROVIDERS: Admitting Provider Surgery; Emergency Provider Student in an Organized Health Care Education/Training Program; PCP Internal Medicine; Visit Provider Surgery
PROC: 0FT44ZZ Resection of Gallbladder, Percutaneous Endoscopic Approach (ICD-10-PCS; CPT 47562; principal; 2024-09-20 16:30)
DX: K80.10 Calculus of gallbladder with chronic cholecystitis without obstruction (principal); J45.909 Unspecified asthma, uncomplicated; F41.9 Anxiety disorder, unspecified; F32.A Depression, unspecified; E03.9 Hypothyroidism, unspecified; E66.01 Morbid (severe) obesity due to excess calories; Z68.41 Body mass index [BMI] 40.0-44.9, adult; Z87.891 Personal history of nicotine dependence
CPT/HCPCS: 47562; 36415; 74177; 80053; 81001; 81025; 83690; 85025; 85027; 87086; 88304; 96361; 96374; 96375; 96376; 99285; A9270; G0378; G0379; J0690; J1100; J1171; J1885; J2250; J2270; J2405; J2704; J3010; J7030; J7120; Q9967

== ENCOUNTER 2024-11-13 14:45 | Emergency (ER) | payer OTHER, SELFPAY ==
--- OUTSIDE RECORDS SUMMARY | 2024-11-13 14:47 | XMS_ITS | Data Portability ---
Author Organization [facility] Address [address] [place] [address] Assessment No assessment recorded. Plan of Treatment Reminders Order Date Submit Date Provider Last Modified By Organization Details Last Modified Time Details Appointments None recorded. Lab varicella zoster virus IgG Ab, QN, IA, serum 2019 020 [facility], [address] [place] [address], [facility], [address], [place], [address], 0 08:15:18 tb (M tuberculos is), ifn-gamma victoriano, blood 2019 020 [facility], [address], [address], [place], [address], 0 08:15:18 Referral None recorded. Procedures None recorded. Surgeries None recorded. Imaging None recorded. Medication Orders None recorded. Patient TargetsNo targets recorded. Patient Instructions Encounter Date Encounter Id Patient Instructions Last Modified By Organization Details Last Modified Time 04/21/2019 [id number] learning about tuberculosis (TB) [email or web address] Not available 04/21/2019 18:00:58 Reason for Referral None Reported. Results Created Date Observation Date Name Description Value Unit Range Abnormal Flag Note LastModifiedBy Organization Detail LastModifiedTime 04/21/1904/23/2019 tb (M tuber culos is), ifn-g mandeep victoriano , blood quantiferon incubation Incuba tion perfor med. Not Available [facility] ([facility]) [address] [facility] [address], [place], [address], 04/24/2019 08:15:18 04/21/19 20 04/23/2019 tb (M tuber culos is), ifn-g mandeep victoriano , blood quantiferon criteria Commen t The Quant iFERO N-TB Gold Plus resul t is deter mined by subtr actin g the Nil value from eithe r TB antig en (Ag) tube. The mitog en tube serve s as a contr ol for the test. Not Available [facility] ([facility]) [address] [place], [address], 04/24/2019 08:15:18 04/21/1904/24/2019 tb (M tuber culos is), ifn-g mandeep victoriano , blood quantiferon TB1 Ag value 0.02 IU/mL Not Available [facility] ([facility]) [address] [place], [address], 04/24/2019 08:15:18 04/21/1904/24/2019 tb (M tuber culos is), ifn-g mandeep victoriano , blood quantiferon TB2 Ag value 0.04 IU/mL Not Available [facility] ([facility]) [address] [place], [address], 04/24/2019 08:15:18 04/21/1904/24/2019 tb (M tuber culos is), ifn-g mandeep victoriano , blood quantiferon nil value 0.02 IU/mL Not Available [facility] ([facility]) [address] [place], [address], 04/24/2019 08:15:18 04/21/1904/24/2019 tb (M tuber culos is), ifn-g mandeep victoriano , blood quantiferon mitogen value >10.00 IU/mL Not Available [facility] ([facility]) [address] [place], [address], 04/24/2019 08:15:18 04/21/1904/24/2019 tb (M tuber culos is), ifn-g mandeep victoriano , blood quantiferon- TB gold plus Negati ve negati ve Not Available [facility] ([facility]) [address] [facility] [address], [place], [address], 04/24/2019 08:15:18 04/21/19 20 04/22/2019 varic cristina [...] stage of disea se. Not Available [facility] ([facility]) [address] [facility], [place], [address], 04/24/2019 08:15:18 Result Notes None recorded. Medical Equipment None Reported. Allergies No known drug allergies Vitals Date Recorded Body temperature Body height Body mass index (BMI) Body weight Heart rate Oxygen saturation Oxygen saturation in Arterial blood by Pulse oximetry Systolic And Diastolic Provider Name and Address Organization Details Last Updated DateTime 0 98.6 [degF] 170.18 cm 39.2 kg/m2 520053. 09 g 80 /min 97 % 97 % 116/76 mm[Hg] Irene Gatica [place] - [facility] 0 [...] Diagnosis SNOMED-CT Code Diagnosis ICD10 Code Diagnosis IMO Codes Diagnosis Note [id number] [facility] [address] [place] [address] 04/21/2019 13:18:46 04/22/2019 13:11:27 Tuberculosis screening [id number] Z11.1 declined ppd. labs in [place] of. Antibody measurement [id number] 7003 Z01.84 labs pending. will tailor treatment accordingl y upon receipt of labs. History an d physical examination, [facility] [id number] Z02.0 negative assessment . no restrictio ns indicated. denies asthma, heart disease and sickle cell. Active or passive immunization [id number] Z23 tdap and hep a given per ma per vo. pt to supply proof of influenza vaccine. Health Concerns Section Related Observation LastModified by Organization Detai ls LastModified Time None Recorded Concern Status LastModified by Organization Details LastModified Time None Recorded Advance Directives Directive None Recorded Payers Insurance Date Sequence Insurance Name Policy Number Policy [place] Covered Member ID [place] Member ID Guarantor Name 04/21/2019 [facility] [employer] [employer] Lauren Lo [id number] Lauren Lo Notes Date Note Type Note Provider Name and Address Organization Details Recorded Time 04/21/2019 text/html ROS as noted in the HPI Pt presents to clinic requesting employment physical. She denies nausea, vomiting, fever, chills, diarrhea, rash, constipation and dysuria. Irene yang [place] - [facility] 04/21/2019 18:59:01 OBGyn Episode No OBEpisode recorded.
--- OUTSIDE RECORDS SUMMARY | 2024-11-13 14:47 | XMS_ITS | Data Portability ---
Author Organization [facility] Address [address] [place] [address] Care Team Providers Care Bundle Sorter Name Role Phone BERNIE CORREA Primary Care Provider [phone] Assessment Encounter Date Assessment Date Assessment LastModified by Organization Details LastModified Time 09/09/2024 09/09/2024 Annual gynecological exam performed. milton Not available 09/09/2024 12:11:10 Plan of Treatment Reminders Order Date Submit Date Provider Last Modified By Organization Details Last Modified Time Details Appointments SURG Diagnosti c Lap 2024 07:30A Salima POWER MD Not available Not available Not available SURG POST OP 2024 01:00P Salima POWER MD Not available Not available Not available Lab pap, IG + reflex HPV if ASC-U - if positive HPV run subtyping 16,18/45 2024 025 [facility] (Lab), [address] [place], [address], 09/14/2024 07:45:39 Referral None recorded. Procedures None recorded. Surgeries laparosco py, diagnosti c (SURG) [address], [facility] [address], [address], 10/08/2024 14:43:06 laparosco py, diagnosti c (SURG) [address], [facility] [address], [address], 12/27/2022 15:47:31 Imaging US, pelvis 2022 023 [email or web address], [place], [address], 12/02/2022 19:43:55 US, transvagi nal 2022 023 [email or web address], [address], [place], [address], 12/02/2022 19:43:55 Medication Orders Estarylla 0.25 mg-0.035 mg tablet 2024 025 [id number], [address] [facility], [place], [place], [id number], 09/09/2024 12:13:11 Patient TargetsNo targets recorded. Patient InstructionsNo instructions recorded. Reason for Referral None Reported. Results Created Date Observation Date Name Description Value Unit Range Abnormal Flag Note LastModifiedBy Organization Detail LastModifiedTime 11/28/1911/27/2022 pregn luis test, urine HCG negati ve Not Available [address], [place], [address], 11/27/2022 13:36:58 09/10/19 25 09/09/2024 IMAGE GUIDE D PAP, REFLE X HPV IF ASCUS ONLY image guided Pap, reflex HPV ASCUS only SEE RESULT S BELOW CASE REPOR T: Cytol ogy Gynec ologi tenzin Repor t Case: [id number] Autho cari g Provi albino: Karmen Mckeon NP Colle cted: 09/09 1313 Order ing Locat ion: [place] [facility] Recei bebo: 09/10 0154 First Scree n: McBri de, Bebe ret, CT Speci men: Scree balwinder Pap - Image d, Cervi x STATE MENT OF ADEQU ACY: Satis facto ry for evalu ation Trans forma tion zone compo nent prese nt Tracey momin ring infla mmati on prese nt. ----- ----- ----- ----- ----- ----- ----- ----- ----- ----- ----- ----- ----- ----- ----- ----- ----- ---- FINAL DIAGN OSIS: Negat citlali for Intra epith elial Lesio n or Teresa rizzo (NIL) . Elect richard ramirez d by Bebe Fink ret, CT on 025 at 0641 CDT ----- ----- ----- ----- ----- ----- ----- ----- ----- ----- ----- ----- ----- ----- ----- ----- ----- ---- COMME NT: This speci men was revie wed by a Cytot echno logis t and/o r Patho logis t (as indic ated in this repor t) after evalu ation using the Thinp rep Imagi ng Syste m. CLINI TENZIN INFOR MATIO N: Menst rual Statu s: LMP (if appli cable ): Clini tenzin Histo ry/Pr nina s Pap: Type of Neopl merlyn (if appli cable ): Signi fican t Clini tenzin Findi ngs: Other Histo ry: Hormo donovan (if appli cable ): PAP EDUCA YARELI L NOTE: The Pap Test is a scree balwinder test with an inher ent false negat citlali rate. Liqui d-bas ed sampl ing may decre ase, but will not elimi wilman, false negat citlali resul ts. A negat citlali resul t does not precl ude the prese nce and/o r devel opmen t of disea se, since the prese nce of abnor mal cells in the sampl e depen ds on the locat ion of the lesio n and sampl ing techn ique. Apple nued regul ar scree balwinder is the best metho d of cance r preve ntion . If repor jose cytol ogic findi ng do not corre late with physi tenzin and/o r histo rical findi ngs, furth er inves tigat ion is recom luciano d, as clini caitlin mosquera nted. Not Available [facility] (Lab) [address], [place], [address], 09/14/2024 07:45:39 12/03/1912/03/2022 US, pelvi s No observ ation record ed. [facility] [address], [place], [address], 12/03/2022 12:40:29 12/03/1912/03/2022 US, trans vagin al No observ ation record ed. [facility] [address], [place], [address], 12/03/2022 12:40:40 12/03/1912/02/2022 US, pelvi s No observ ation record ed. milton [address], [facility], [place], [address], 12/12/2022 09:17:14 Result Notes None recorded. Problems Name Problem SNOMED Code Status Onset Date Resolution Date Notes Provider Name and Address Organization Details Recorded Time Anxiety in pregnanc y 89107833003 109 Completed Edwin yang [facility] 1 11:24:06 Obesity 571584428 Completed 32 wk antenata l testing Edwin Adhikari [facility] 1 11:24:06 Gestatio nal diabetes mellitus [id number] Completed 32 wk antenata l testing - diet controll ed Edwin Adhikari [facility] 11:24:06 Speciali ayannacarina medical examinat ion Completed 201203/09/2020 Gynecolo gical Examinat ion;Jatinder rded Elsewher e: No Locat ion: [facility] chelsi [facility] S ource: EHR Sound Recording Technician so: N Practi ce ID: 0001 Raymond lable Time: 01:30:00 PM Amy Andrea [facility] 15:19:25 Pregnanc y test positive [id number] Completed 201203/09/2020 Pregnanc y examinat ion or test, positive result;R ecorded Elsewher e: No Locat ion: [facility] S ource: EHR Sound Recording Technician so: N Practi ce ID: 0001 Raymond lable Time: 01:30:00 PM Amy Andrea [facility], [facility] 15:19:04 Abdomina l pain 40153589 Completed 201203/09/2020 Abdomina l pain, other specifie d site;Rec orded Elsewher e: No Locat ion: [facility] S ource: EHR Sound Recording Technician so: N Practi ce ID: 0001 Raymond lable Time: 04:30:00 PM Amy yang, [facility] 15:18:28 Cellulit is and abscess of face [id number] Completed 201203/09/2020 Cellulit is and abscess of face;Rec orded Elsewher e: No Locat ion: [facility] S ource: EHR Sound Recording Technician so: Y Practi ce ID: 0001 Raymond lable Time: 10:00:00 AM Amy Andrea [facility] 15:18:34 Nausea and vomiting [id number] Completed 201203/09/2020 Nausea And Vomiting ;Recorde d Elsewher e: No Locat ion: [facility] S ource: EHR Sound Recording Technician so: N Practi ce ID: 0001 Raymond lable Time: 11:45:00 AM Amy yang [facility] 15:18:56 Primigra nila [id number] Completed 201203/09/2020 Supervis ion of normal first pregnanc y;Record ed Elsewher e: No Locat ion: [facility] S ource: EHR Sound Recording Technician so: Pillo Ortez ce ID: 0001 Raymond lable Time: 12:30:00 [facility] 15:19:07 Ultrason ography Completed 201203/09/2020 Antenata l screenin g for malforma tion using ultrason ics;Jatinder rded Elsewher e: No Locat ion: [facility] S ource: EHR Sound Recording Technician so: Pillo Ortez ce ID: 0001 Raymond lable Time: 01:30:00 PM [facility] 15:19:30 Antenata l screenin g Completed 201203/09/2020 Antenata l screenin g for malforma tion using ultrason ics;Jatinder rded Elsewher e: No Locat ion: [facility] S ource: EHR Sound Recording Technician so: Pillo Ortez ce ID: 0001 Raymond lable Time: 01:30:00 PM Amy yang [facility] 15:18:31 Congenit al malforma tion [id number] Completed 201203/09/2020 Antenata l screenin g for malforma tion using ultrason ics;Jatinder rded Elsewher e: No Locat ion: [facility] S ource: EHR Sound Recording Technician so: Pillo Ortez ce ID: 0001 Raymond lable Time: 01:30:00 PM Amy yang [facility] 15:18:40 Complica tion of pregnanc y, childbir th and/or puerperi 574902330 Completed 201203/09/2020 Other current conditio ns classifi able elsewher e of mother, antepart um;Pract ice ID: 0001 Amy yang, [facility] 15:18:37 Complica tion related to pregnanc y Completed 201303/09/2020 Weight Gain Poor Antepart um;Recor ded Elsewher e: No Locat ion: Omar gagnon [facility] S ource: EHR Sound Recording Technician so: N Practi ce ID: 0001 Raymond lable Time: 11:30:00 AM Amy Emre rtey [facility] 15:18:39 Prematur e labor [id number] Completed 201303/09/2020 LABOR;Pr actice ID: 0001 Amy Andrea trey, [facility] 15:19:05 Single live from singleto n pregnanc y [id number] Completed 201303/09/2020 Mother with single liveborn ;Practic e ID: 0001 Amy Andrea trey, [facility] 15:19:22 Delivery normal [id number] Completed 201303/09/2020 Normal delivery ;Practic e ID: 0001 Amy Andrea trey, [facility] 15:18:43 Postpart um care Completed 201303/09/2020 Post Followup ;Recorde d Elsewher e: No Locat ion: Omar gagnon [facility] S ource: EHR Sound Recording Technician so: N Practi ce ID: 0001 Raymond lable Time: 04:30:00 PM Amy Emre yang [facility] 15:19:01 Amenorrh ea [id number] Completed 201303/09/2020 Absence of menstrua tion;Rec orded Elsewher e: No Locat ion: [place] [facility] S ource: EHR Sound Recording Technician so: N Practi ce ID: 0001 Raymond lable Time: 03:30:00 PM Amy yang [facility] 15:18:29 Obesity 926519216 Completed 201303/09/2020 Obesity; Recorded Elsewher e: No Locat ion: Omar gagnon [facility] Pract[facility] ID: 0001 Raymond lable Time: 03:30:00 PM Amy yang [facility] 15:18:58 Implanta tion of subcutan eous contrace ptive Completed 201303/09/2020 Insertio n of implanta ble subderma l contrace ptive;Re corded Elsewher e: No Locat ion: Omar gagnon [facility] N Practi ce ID: 0001 Raymond lable Time: 10:45:20 AM [facility] 15:18:53 Family planning surveill ance Completed 201303/09/2020 Contrace ptive surveill ance;Rec orded Elsewher e: No [facility] N Practi ce ID: 0001 Raymond lable Time: 02:00:00 PM Amy yang [facility] 15:18:45 Subcutan eous contrace ptive implant present [id number] Completed 201303/09/2020 Removal Or Check Nexplano n;Practi ce ID: 0001 Amy Andrea [facility] 15:19:26 Irregula r intermen strual bleeding [id number] Completed 201403/09/2020 Irregula r bleeding between periods; Recorded Elsewher e: No [facility]: EHR Sound Recording Technician so: N Rebecati ce ID: 0001 Raymond lable Time: 02:00:00 PM Amy yang, [facility] 15:18:55 Pregnanc y test negative [id number] Completed 201403/09/2020 Pregnanc y examinat ion or test, negative result;R ecorded Elsewher e: No Locat ion: [facility] S ource: EHR Sound Recording Technician so: N Rebecati ce ID: 0001 Raymond lable Time: 03:45:00 PM Amy yang, [facility] 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 15:18:51 Screenin g for malignan t neoplasm of cervix Completed 201503/09/2020 Screenin g for malignan t neoplasm s of the cervix;R ecorded Elsewher e: No Locat ion: [facility] S ource: EHR Sound Recording Technician so: N Rebecati ce ID: 0001 Raymond lable Time: 02:45:00 PM Amy yang, [facility] 15:19:19 Syphilis test finding [id number] Completed 201503/09/2020 Encntr screen for infectio ns w sexl mode of transmis s;Record ed Elsewher e: No Locat ion: [facility] S ource: EHR Sound Recording Technician so: N Rebecati ce ID: 0001 Raymond lable Time: 02:45:00 PM Amy yang, [facility] 15:19:28 Infectio n screenin g Completed 201503/09/2020 Encounte r for screenin g for oth infec/pa rastc diseases ;Recorde d Elsewher e: No Locat ion: [facility] S ource: EHR Sound Recording Technician so: N Rebecati ce ID: 0001 Raymond lable Time: 02:45:00 PM Amy yang [facility] 15:18:50 Gonococc al cervicit is [id number] Completed 201503/09/2020 Gonococc al cervicit is, unspecif ied;Jatinder rded Elsewher e: No Locat ion: [facility] S ource: EHR Sound Recording Technician so: N Rebecati ce ID: 0001 Raymond lable Time: 02:45:00 PM [facility] 15:18:47 Cyst of ovary [id number] Completed 201503/09/2020 Unspecif ied ovarian cysts;Re corded Elsewher e: No Locat ion: [facility] S ource: EHR Sound Recording Technician so: N Rebecati ce ID: 0001 Raymond lable Time: 01:15:27 PM Amy yang [facility] 15:18:41 Pelvic and perineal pain [id number] Completed 201503/09/2020 Pelvic and perineal pain;Rec orded Elsewher e: No Locat ion: [facility] S ource: EHR Sound Recording Technician so: N Rebecati ce ID: 0001 Raymond lable Time: 09:30:00 AM Amy yang [facility] 15:19:00 Procedur e Completed 201603/09/2020 Enctr srvlnc implanta ble subderma l contrace ptive;Pr actice ID: 0001 Amy yang, [facility] 15:19:21 Body mass index 30+ - obesity [id number] Completed 201603/09/2020 Body mass index (BMI) 35.0-35. 9, adult;Re corded Elsewher e: No Locat ion: Omar gagnon [facility] S ource: EHR Sound Recording Technician so: N Rebecati ce ID: 0001 Raymond lable Time: 05:00:00 PM Amy Andrea [facility] 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 15:19:23 Hemorrha ge of rectum and anus [id number] Completed 201803/09/2020 Rectal bleed;Re corded Elsewher e: No [facility] S ource: EHR Sound Recording Technician so: N Rebecati ce ID: 0001 Raymond lable Time: 09:15:00 AM Amy yang [facility] 15:18:48 Endometr iosis of pelvic peritone um [id number] Completed 201803/09/2020 Endometr iosis of pelvic peritone um;Recor ded Elsewher e: No Locat ion: [facility] S ource: EHR Sound Recording Technician so: N Rebecati ce ID: 0001 Raymond lable Time: 09:15:00 AM Amy Andrea [facility] 15:18:44 Uses combined oral contrace ption [id number] Completed 201803/09/2020 Encounte r for surveill ance of contrace ptive pills;Re corded Elsewher e: No [facility]: EHR Sound Recording Technician so: N Rebecati ce ID: 0001 Raymond lable Time: 08:30:00 AM Amy Andrea [facility] 15:18:36 Pregnanc y [id number] Completed 202009/08/2020 Edwin Adhikari [facility], [facility] 11:24:11 Endometr itis 70615453 Active 2020 Amy Andrea [facility] 10:38:28 Problem Notes None recorded. Procedures Surgical History Date Name Laterality Status Provider Name and Address Organization Details Recorded Time 09/10/19 25 Date of Last Pap Smear completed Matilde Scout [facility] 10/04/2024 11:13:[address] [facility] 03/14/2020 10:38:48 endocervical excision completed [facility] 03/14/2020 10:39:[address] [facility] 03/14/2020 10:39:13 Imaging Results None recorded. Procedure Notes None recorded. Medical Equipment None [...] every day at bedtime 09/14 completed Prescrib jeff Daugherty e: No Locat ion: [facility] odify By: debra aguilera DateTime : 07/29/19 [...] Elsewher e: Yes Loca tion: Omar gagnon [facility] odify By: bill slaughterunter DateTime : 10/03/19 17 01:15:00 PM Not Available Not Available Not Available venlafaxi ne ER 37.5 mg capsule,e xtended release 24 hr take 1 capsule by oral route every day with food 10/01 completed Prescrib ed Elsewher e: Yes Loca tion: Omar gagnon [facility] odify By: bill slaughterunter DateTime : 10/03/19 17 01:15:00 PM Not Available Not Available Not Available trazodone 50 mg tablet TAKE 1 TO 2 TABLETS BY MOUTH DAILY AT BEDTIME NEEDED 09/09 completed Not Available Not Available Not Available polyethyl lorena glycol 3350 17 gram oral powder packet TAKE 1 PACKET BY MOUTH EVERY DAY NEEDED FOR CONSTIPA TION 11/27 completed Not Available Not Available Not Available cetirizin e 10 mg tablet take 1 tablet by oral route every day 03/09 completed Prescrib ed Elsewher e: Yes Loca tion: Chris chelsi [facility] odify By: [email or web address] Encount er DateTime : 05/27/19 19 08:30:00 [...] Elsewher e: No Locat ion: Omar gagnon [facility] odify By: lauri james DateTime : 10/30/19 17 09:18:40 AM Not Available Not Available Not Available Claritin 10 mg tablet take 1 tablet (10MG) by oral route every day 09/14 completed Prescrib ed Elsewher e: No Locat ion: [facility] odify By: debra Gagnon ncounter DateTime : 02/23/19 10:45:00 AM Not Available Not Available Not [...] Prescrib ed Elsewher e: No Locat ion: [facility] odify By: [email or web address] E ncounter DateTime : 01/02/20 09:44:18 AM Not Available Not Available Not Available sumatript an 50 mg tablet TAKE 1 TABLET BY MOUTH AT ONSET OF HEADACHE . MAY REPEAT 1 TABLET AFTER AT LEAST 2 HOURS IF NO RELIEF. MAX OF 4 TABLETS EVERY 24 HOURS active Not Available Not Available No t Available topiramat e 25 mg tablet TAKE 2 TABLETS BY MOUTH DAILY WITH THE EVENING MEAL active Not Available Not Available No t Available sulfameth oxazole 800 mg-trimet hoprim 160 [...] Elsewher e: Yes Loca tion: Omar gagnon [facility] odify By: [email or web address] [email or web address] Narendra james DateTime : 10/02/19 18 05:00:00 PM Not Available Not Available Not Available oxycodone -acetamin ophen 5 mg-325 mg tablet TAKE 1 TABLET BY MOUTH EVERY 6 HOURS NEEDED FOR PAIN active Not Available Not Available No t Available ziprasido ne 20 mg capsule TAKE 1 CAPSULE BY MOUTH DAILY WITH FOOD active Not Available Not Available No t Available Zoloft 50 mg tablet take 1 tablet (50MG) by oral route every day 09/14 completed Prescrib ed Elsewher e: No Locat ion: Omar gagnon [facility] odify By: debra aguilera DateTime : 12/23/19 13 03:15:00 PM Not Available Not Available Not Available trazodone 100 mg tablet TAKE 1 TO 2 TABLETS BY MOUTH EVERY NIGHT AT BEDTIME NEEDED active Not Available Not Available No t Available dicyclomi ne 20 mg tablet TAKE 1 TABLET BY MOUTH THREE TIMES DAILY NEEDED FOR ABDOMINA L DISCOMFO RT active Not Available Not Available No t Available OneTouch Ultra Test strips USE TO TEST BLOOD SUGAR FOUR TIMES DAILY 12/27 completed Not Available Not Available Not Available Flagyl 500 mg tablet take 1 tablet by oral route 2 times every day 10/02 completed Prescrib ed Elsewher e: No Locat ion: Omar gagnon [facility] odify By: dieter padgett DateTime : 02/17/19 16 02:45:00 PM Not Available Not Available Not Available doxycycli ne monohydra te 100 mg capsule take 1 capsule by oral route every 12 hours for 14 days 03/02 completed Prescrib ed Elsewher e: No Locat ion: Omar gagnon [facility] odify By: danny aguilera DateTime : 02/17/19 16 02:45:00 PM Not Available Not Available Not Available Vitamin C 100 mg tablet 03/09 completed Prescrib ed Elsewher e: Yes Loca [facility]ion: [facility]ify By: [email or web address] Encount er DateTime : 04/11/19 19 11:00:00 AM Not Available Not Available Not Available cephalexi n 500 mg capsule Take 1 capsule twice a day by oral route. 09/09 completed Not Available Not Available Not Available promethaz ine 25 mg tablet take 1 tablet (25MG) by oral route every 4 - 6 hours as needed 07/04 completed Not Available Not Available Not Available Wellbutri n 75 mg tablet take 1 tablet by oral route 3 times every day 10/02 completed Prescrib ed Elsewher e: Yes [facility] odify By: [email or web address] Encounte r DateTime : 09/24/19 15 03:45:00 PM Not Available Not Available Not Available sertralin e 25 mg tablet take 1 tablet by oral route every day 03/09 completed Prescrib ed Elsewher e: Yes [facility]oca [facility]ion[facility] odify By: [email or web address] Encount er DateTime : 02/06/20 18 01:15:00 PM Not Available Not Available Not Available omeprazol e 20 mg capsule,d elayed release 11/27 completed Not Available Not Available Not Available ziprasido ne 40 mg capsule TAKE 1 CAPSULE BY MOUTH DAILY WITH FOOD active Not Available Not Available No t Available ibuprofen 600 mg tablet TAKE 1 TABLET BY MOUTH EVERY 6 HOURS NEEDED FOR PAIN 11/27 completed Not Available Not Available Not Available topiramat e 15 mg sprinkle capsule take 1 capsule by oral route 2 times every day in the morning and evening 10/02 completed Prescrib ed Elsewher e: Yes Loca tion: [facility] odify By: [email or web address] Encounte r DateTime : 02/17/19 16 02:45:00 PM Not Available Not Available Not Available albuterol sulfate HFA 90 mcg/actua tion aerosol inhaler INL 2 PFS PO Q 4 H PRN 04/11 completed Not Available Not Available Not Available Vitamin D2 1,250 mcg (50,000 unit) capsule take 1 capsule (78560CQ ITS) by oral route every week 05/31 completed Prescrib ed Elsewher e: No Locat ion: Omar gagnon [facility] odify By: [email or web address] katharine En counter DateTime : 02/22/19 14 02:49:54 PM Not Available Not Available Not Available norealbaro srivastava (contrace ptive) 0.35 mg tablet TAKE 1 TABLET BY MOUTH EVERY DAY 11/27 completed Not Available Not Available Not Available lysine 500 mg tablet 02/26 completed Prescrib ed Elsewher e: Yes Loca tion: [facility] chelsi [facility] odify By: [email or web address] Encount er DateTime : 12/31/19 18 01:15:00 PM Not Available Not Available Not Available [place] 5 mg-325 mg tablet take 1 tablet by oral route every 4 hours as needed for pain 03/09 completed Prescrib ed Elsewher e: No Locat ion: [facility] odify By: mike Choi r DateTime : 05/27/19 08:30:00 AM Not Available Not Available Not Available ondansetr on 4 mg disintegr ating tablet DISSOLVE 1 TABLET ON THE TONGUE EVERY 8 HOURS NEEDED FOR NAUSEA OR VOMITING active Not Available Not Available No t Available fluoxetin e 20 mg capsule TK 1 C PO QD 04/11 completed Not Available Not Available Not Available fluticaso ne propionat e 50 mcg/actua tion nasal spray,amadeo pension SHAKE LIQUID AND USE 1 SPRAY IN EACH NOSTRIL TWICE DAILY active Not Available Not Available No t Available dicyclomi ne 10 mg capsule TAKE 1 CAPSULE BY MOUTH EVERY 6 HOURS NEEDED FOR ABDOMINA L CRAMPS 10/04 completed Not Available Not Available Not Available lamotrigi ne 100 mg tablet 11/27 completed Not Available Not Available Not Available naproxen 500 mg tablet TAKE 1 TABLET BY MOUTH EVERY 12 HOURS WITH FOOD OR MILK NEEDED FOR PAIN active Not Available Not Available No t Available Rocephin 500 mg solution for injection inject (250MG) by intramus cular route as a single dose 10/02 completed Prescrib ed Elsewher e: No Locat ion: [facility] odify By: dieter Choi r DateTime : 02/17/19 16 02:45:00 PM Not Available Not Available Not Available metoclopr amide 10 mg tablet TAKE 1 TABLET BY MOUTH EVERY 8 HOURS NAUSEA OR BLOATING 11/27 completed Not Available Not Available Not Available hydroxyzi ne pamoate 25 mg capsule take 1 capsule by oral route 4 times every day active Not Available Not Available No t Available fiber oral powder 03/09 completed Prescrib ed Elsewher e: Yes Loca tion: [facility] odify By: Encount er DateTime : 05/27/19 08:30:00 AM Not Available Not Available Not Available duloxetin e 30 mg capsule,d elayed release TAKE 1 CAPSULE BY MOUTH EVERY DAY FOR 7 DAYS 09/09 completed Not Available Not Available Not Available duloxetin e 60 mg capsule,d elayed release TAKE 1 CAPSULE BY MOUTH TWICE DAILY 09/09 completed Not Available Not Available Not Available 12/27 completed Samples given to patient 03/14/19 21 Not Available Not Available Not Available Vitamin D3 10 mcg (400 unit) capsule 03/09 completed Prescrib ed Elsewher e: Yes Loca tion: [facility] odify By: [email or web address] Encoun ter DateTime : 12/31/19 18 01:15:00 PM Not Available Not Available Not Available Super B Complex + C 150 mg tablet 04/10 completed Prescrib ed Elsewher e: Yes Loca tion: [facility] odify By: [email or web address] Encount er DateTime : 12/31/19 18 01:15:00 PM Not Available Not Available Not Available Symbicort 80 mcg-4.5 mcg/actua tion HFA aerosol inhaler INHALE 1 PUFF BY MOUTH EVERY 6 HOURS NEEDED FOR ASTHMA active Not Available Not Available No t Available metoclopr amide 10 mg disintegr ating tablet DISSOLVE 1 TABLET ON THE TONGUE EVERY 6 HOURS 11/27 completed Not Available Not Available Not Available lurasidon e 40 mg tablet TAKE 1 TABLET BY MOUTH EVERY EVENING WITH AT LEAST 350 CALORIES OF FOOD active Not Available Not Available No t Available Multi Vitamin 9 mg iron/15 mL oral liquid 02/26 completed Prescrib ed Elsewher e: Yes Loca tion: [facility] odify By: [email or web address] Encount er DateTime : 12/31/19 18 01:15:00 PM Not Available Not Available Not Available Estarylla 0.25 mg-0.035 mg tablet Take 1 tablet every day by oral route. 2024 active Not Available Not Available Not Avai lable Probiotic 20 billion cell capsule 03/09 completed Prescrib ed Elsewher e: Yes Loca tion: Chris chelsi [facility] odify By: [email or web address] Encount er DateTime : 05/27/19 08:30:00 AM Not Available Not Available Not Available Gummy 400 mcg-35 mg-25 mg-5 mg chewable tablet Take 1 tablet by oral route for 90 days. 04/11 completed Not Available Not Available Not Available Lomedia 24 Fe 1 mg-20 mcg (24)/75 mg (4) tablet take 1 tablet by oral route every day 10/29 completed Prescrib ed Elsewher e: No Locat ion: [facility] odify By: [email or web address] james DateTime : 10/03/19 17 01:15:00 PM Not Available Not Available Not Available doxycycli ne hyclate 150 mg tablet take 1 tablet by oral route 2 times every day 03/09 completed Prescrib ed Elsewher e: Yes Loca tion: Omar gagnon [facility] odify By: [email or web address] Encount er DateTime : 04/11/19 11:00:00 AM Not Available Not Available Not Available Ashlyna 0.15 mg-30 mcg (84)/10 mcg(7) tablets,3 month dose pack take 1 tablet by oral route every day 03/09 completed Prescrib ed Elsewher e: No [facility] By: Encount er DateTime : 04/11/19 11:00:00 AM Not Available Not Available Not Available duloxetin e 40 mg capsule,d elayed release TAKE 1 CAPSULE BY MOUTH TWICE DAILY active Not Available Not Available No t Available Vienva 0.1 mg-20 mcg tablet take 1 tablet by oral route every day 02/05 completed Prescrib ed Elsewher e: Yes Loca tion: [facility] odjerzy By: [email or web address] Encount er DateTime : 12/31/19 01:15:00 PM [...] e: No Locat ion: Omar gagnon [facility] odify By: mike Choi r DateTime : 05/27/19 08:30:00 AM Not Available Not Available Not Available OneTouch Ultra2 Meter 12/27 completed Not Available Not Available Not Available OneTouch Delica Plus Lancet 33 gauge 12/27 completed Not Available Not Available Not Available Vitals Date Recorded Body height Body mass index (BMI) Body weight Systolic And Diastolic Provider Name and Address Organization Details Last Updated DateTime 09/09/2024 167.64 cm 41.8 kg/m2 066199.42 g 107/62 mm[Hg] Ana Santizoney [facility] 09/09/2024 11:18:14 Date Recorded Body height Body mass index (BMI) Body weight Systolic And Diastolic Provider Name and Address Organization Details Last Updated DateTime 10/04/2024 167.64 cm 41.5 kg/m2 294750.24 g 122/80 mm[Hg] Matilde Butterfield [facility] 10/04/2024 11:12:25 Date Recorded Body height Body mass index (BMI) Body weight Systolic And Diastolic Provider Name and Address Organization Details Last Updated DateTime 12/11/2022 167.64 cm 41.8 kg/m2 818753.42 g 121/76 mm[Hg] Seema Melida [facility] 12/11/2022 16:34:37 Social History Question Answer Notes LastModified by Organizat ion Details LastModified Time Tobacco Smoking Status Never Smoker Seema Montez [facility], [facility] 12/11/2022 16:34:57 Are You Blind Or Do You Have [...] Or The Highest Degree You Have Received? [id number] Information not available 12/11/2022 Are There Any [...] LastModified by Organizat ion Details LastModified Time Do you use any illicit or recreational drugs? No Information not available 12/11/2022 What is your level of alcohol consumption? None [email or web address] Information not available 03/14/2020 Are you able to walk independently without assistance or assistive devices? 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 Moderate Information not available 12/11/2022 Mental Status Question Answer Note LastModified by Organization D etails LastModified Time Do you feel stressed (tense, restless, nervous, or anxious, or unable to sleep at night)? [id number] Information not available 12/11/2022 Family History Relationship Description Onset Age of this Age Resolved Age Notes LastModified by Organization Details LastModified Time Father Asthma Not available 0 03/14/2020 10:37:48 Medical History Condition Response Allergies (Food, seasonal, environmental ) N Other N Drug/Latex Allergies/Reactions N Breast Cancer N Blood Transfusion N Lung Disease N Dermatologic Disorders N Defects or Inherited Disease N Breast Problem N Gestational Diabetes N Hematologic disorders N Anesthesia Complications N History of STI N Deep Vein Thrombosis N Polycystic ovary syndrome N Anxiety Disorder Y Autoimmune disease N Arthritis N Polyps N Infertility N History of abnormal pap N Acid Reflux (GERD) N Cancer N Varicosities N Stroke N Neurologic/Epilepsy N Endometriosis Y High Cholesterol N Headaches Y Fibromyalgia N Kidney Disease N Heart Problems N Thyroid Problems N Kidney or Bladder Problems N GI Problems Y Eating Disorder [...] Statement/Question Response Flow Moderate Date of LMP 09/23/2024 On BCP's at Conception? Y N Was last menstrual period normal Y STIs/STDs N HPV Vaccine Y Duration of Flow (days) 4 Current Control Method BCPs Age at First Child 17 Are cycles usually normal Y Frequency of Cycle (Q days) 28 Sexually Active? Y Menses Monthly Y Age of first menstrual cycle 13 Date of Last Pap Smear 09/09/2024 Sexual Problems? N Desired Control Method BCPs LMP Definite N Obstetrics History GPAL:G 2 P 1 1 0 1 Type Value Full Term 1 Premature 1 Living 1 Total 2 Past Encounters Encounter ID Performer Location Encounter Start Date Encounter Closed Date Diagnosis/Indication Diagnosis SNOMED-CT Code Diagnosis ICD10 Code Diagnosis IMO Codes Diagnosis Note [id number] Karen Pablo CNM [facility] [address] [address] 03/14/2020 10:05:06 03/17/2020 17:43:21 Gynecologic examination 08773296 Z01.419 test positive 851306730 Z32.01 Risk factors addressed: Tobacco Cessation, Safe [...] well woman examinatio n and address preventati healthcare .Suman flynn measures were taken to minimize potential exposure to the Covid-19 virus during this patient s visit, including available hand computer engineering professor upon arrive, temperatur e check and being asked a series of screening questions. All staff wore face coverings during this encounter, as well as provided additional cleaning and sanitizing of all surfaces, including countertop s, pens, chairs, door handles, light switches, etc, prior to and following the patient s visit. [id number] Gabe Power MD [facility] [address] [address] 03/14/2020 10:05:59 03/14/2020 11:05:19 test positive 460228297 Z32.01 [id number] Gabe Power MD [facility] [address] [address] 04/11/2020 14:05:23 04/11/2020 14:54:29 Routine care 667373529 Z34.81 [id number] Gabe Power MD [facility] [address],[place] [address] 04/11/2020 14:09:00 04/11/2020 19:07:15 screening 016658883 Z36.87 [id number] Karen Pablo [facility] [address],[place] [address] 05/09/2020 14:02:05 05/09/2020 14:50:13 Routine care 593529060 Z34.92 Nausea and vomiting 1693 2000 R11.2 [id number] Karen Pablo [facility] [address],[place] [address] 06/06/2020 14:32:33 06/06/2020 16:55:21 Routine care 160277874 Z34.92 [id number] Gabe Power MD [facility] [address] [address] 06/06/2020 14:32:21 06/06/2020 16:06:28 screening for malformation 980107555 Z36.3 [id number] Karen Pablo [facility] [address],[place] [address] 07/04/2020 14:05:32 07/04/2020 14:35:18 Routine care 454501415 Z34.92 [id number] [facility] [address],[place] [address] 07/25/2020 11:26:38 07/25/2020 12:09:22 Routine care 349039024 Z34.92 [id number] Gabe Power MD [facility] [address] [address] 08/04/2020 09:38:12 08/04/2020 10:14:32 Gestational diabetes mellitus class A1 95728297 O24.410 Pt here for diet teaching. Went [...] were answered and pt verbalized understand ing. KELECHI wilson [id number] Karen Pablo CNM [facility] [address],[place] [address] 08/08/2020 11:20:35 08/08/2020 12:01:47 Routine care 504780790 Z34.92 [id number] Gabe Power MD [facility] [address] [address] 08/24/2020 14:01:41 08/24/2020 14:39:01 Maternal obesity complicating , childbirth and the puerperium, antepartum 4842027628 07 O99.213 [id number] Gabe Power MD [facility] [address],[place] [address] 08/24/2020 14:02:42 08/24/2020 15:01:26 Gestational diabetes mellitus class A1 00302000 O24.410 Z3A.31 Pt here for diet teaching. [...] were answered and pt verbalized understand ing. KELECHI wilson [id number] MD [facility] Ya[facility] [address] [address] 08/24/2020 14:03:00 08/24/2020 16:27:30 Routine care 860766465 Z34.81 [id number] MD Uziel Yañez [address],[place] [address] 08/28/2020 14:57:50 08/28/2020 15:36:11 Maternal obesity complicating , childbirth and the puerperium, antepartum 7093859332 07 O99.213 [id number] Gabe Power MD [facility] [address],[place] [address] 08/31/2020 13:57:56 08/31/2020 15:04:24 Maternal obesity complicating , childbirth and the puerperium, antepartum 8848783986 07 O99.213 [id number] Gabe Power MD [facility] [address],[place] [address] 08/31/2020 13:58:17 08/31/2020 15:22:22 Routine care 404644594 Z34.81 [id number] MD [place] [address],[place] [address] 09/04/2020 16:05:31 09/04/2020 16:51:55 Maternal obesity complicating , childbirth and the puerperium, antepartum 8704045382 07 O99.213 [id number] Gabe Power MD [facility] [address],[place] [address] 09/14/2020 14:34:50 09/15/2020 10:38:39 HELLP syndrome 27037439 O14.25 This patient is a 24-year-ol d [...] should she become depressed and overwhelme d. [id number] SHASHI [facility] [address] [address] 12/27/2020 10:56:27 12/27/2020 14:21:30 Cyst of right ovary 6167900828 8565770 N83.201 Today, we discussed TVUS to determine [...] this patient s visit, including available hand computer engineering professor upon arrive, temperatur e check and being [...] All questions answered to patient satisfacti on. [facility] ion care management 973837957 Z30.9 Interested in tubal ligationWi schedule MD consult Dr. Power [id number] Gabe Power MD [facility] [address] [address] 01/02/2021 11:00:29 01/02/2021 12:08:07 Cyst of ovary 33441253 N83.209 [id number] SHASHI Blankenship [facility] [address],[place] [address] 11/27/2022 10:32:18 11/27/2022 13:56:05 Pain in pelvis 41722583 R10.2 This patient is a 26 -year-old [...] GI alsoDiscus sed hx of endometrio sis, recommende d consult Dyspareunia 66728990 N94 .10 History of endometriosis 2623235746 7283070 Z87.42 [id number] Gabe Power MD [facility] [address] [address] 12/02/2022 14:46:40 12/02/2022 15:44:26 Pain in pelvis 89307961 R10.2 [id number] Gabe Power MD [facility] [address] [address] 12/11/2022 16:28:44 12/12/2022 09:08:38 Pain in pelvis 33532695 R10.2 27-year-ol d female with recurrent chronic [...] the procedure to her. I described risk. [id number] Gabe Power MD [facility] [address] [address] 01/16/2023 13:47:56 01/16/2023 13:55:23 [id number] SHASHI Blankenship [facility] [address] [address] 09/09/2024 10:47:47 09/09/2024 12:19:08 Gynecologic examination 79142829 Z01.443 [id number] WWEBC - OCP, refills sent, r/b/a reviewedPa p - done todaySTI screen - declinedRo utine labs - PCPRTC in 1 yr or sooner if needed It is strongly advised to have an annual flu shot and up can obtain at most pharmacies . If you have not had a TDap shot in the last 10 years you should obtain one as well. Discussed with patient & provided with informatio n regarding the HPV vaccine if applicable . Encourage safe sexual practices, to use condoms and limit partners if not already in a monogamous relationsh ip. Do monthly self breast exams. BRCA testing is now available for patients with strong genetic history of female cancer. If interested contact the office. Engage in regular exercise. Avoid tobacco and illicit drugs. This lifestyle behavior pattern will lead to less health conditions and longer life span. If BMI greater than 25 dietary consult advised. Questions answered. History of endometriosis 2680388944 0891588 Z87.42 513121 Discussed h/o endometrio sis and longevity of symptomsre cords request for recent pelvic u/s and CT scanconsul t scheduled with Dr. Honey wright reviewed Time spent in visit is a total of 30 mins with at least 50% of visit consisting of counseling and review of plan of care. Dysmenorrhea 678752396 N 94.6 08601 discussed all contracept ion options, she is going to start taking OCP continuous ly Pain in pelvis 81648107 R10.2 87617 [id number] Gabe Power MD [facility] [address] [address] 10/04/2024 10:57:17 10/04/2024 13:44:13 Endometriosis (clinical) 663119220 N80.9 81543 Pain in pelvis 85337865 R10.2 43353 This patient is a 28-year-ol d female with a history of endometrio sis. Her pelvic pain has recurred. She has severe pelvic pain affects her quality of life and activities of daily living. Patient previously had a endometria l surgery that was effective. She would like to have surgical treatment of her endometrio sis at this time. We agreed to remove forward with robotic assisted diagnostic laparoscop y. The patient understand s the procedure. The procedure was described to the patient in great detail. the patient also understand s the risks. The risks were also explained in detail. She understand s that injuries May occur during surgery. She understand s these injuries can result in hospitaliz ation, more surgery, and severe illness. She understand s there is risk of hemorrhage and infection. I spent over 30 minutes on her care in total. Health Concerns Section Related Observation LastModified by Organization Detai ls LastModified Time None Recorded Concern Status LastModified by Organization Details LastModified Time None Recorded Advance Directives Directive None Recorded Payers Insurance Date Sequence Insurance Name Policy Number Policy [place] Covered Member ID [place] Member ID Guarantor Name 12/02/2022 1 [place] [employer] Lauren Farleyble [id number] Lauren Varble 12/02/2022 1 [facility] Lauren Farleyble [id number] Lauren Varble 12/02/2022 1 [facility] - DOS PRIOR TO 2020 (MEDICAID REPLACEMENT - HMO) Lauren Miguelitoble [id number] Lauren Varble 10/03/2024 1 [facility] - DOS ON OR AFTER 20 (MEDICAID REPLACEMENT - HMO) Lauren Farleyble [id number] Lauren Farleyble Notes Date Note Type Note Provider Name and Address Organization Details Recorded Time 3 text/html 27-year-old female with recurrent chronic pelvic pain and [...] to perform surgery. We spent 40 minutes [id number]. More than 50% was counseling. I described the procedure to her. I described risk. Gabe Power MD [address], [place], [address], [facility] 12/11/2022 23:55:38 5 text/html Annual GYNReported by PatientGenitourinary symptomsFor menstrual cycle, patient reportssevere dysmenorrheaandmenorrhagi a. For urinary symptoms, patient reportsno hematuriaandno incontinence. For vulva, patient reportsno genital lesion. For vagina, patient reportsnormal vaginal discharge.Breast symptomsFor breast, patient reportsno breast pain,no breast lump, andno nipple discharge.ContraceptionFo r current contraception, patient reportssatisfied with current contraceptionandoral contraceptives.Endocrine symptomsFor sexual complaints, patient reportsno sexual complaints,no pain during intercourse, andnormal libido. For menopausal symptoms, patient reportsno menopausal symptomsandnormal vaginal lubrication.Psychological symptomsFor psychological symptoms, patient reportsno depression,no anxiety, andno pmdd.Preventative measuresFor preventive measures, patient reportsencourage self breast examination,encourage regular exercise,encourage no tobacco use, andencourage regular mammograms starting age 40.28yo wweBC - OCPlast pap 2020 wnl pelvic pain on and off for years. Random lower cramping/pressure, IC is painfulhad worsening pain last night, went to [place]. Had Pelvic u/s and CT scan done (unremarkable per pt). UPT was negative. UA negative. Told to f/u with bending machine operator as well as PCP on gallstones.periods are very painful hx of endometriosis, diagnostic lap 4-5 yrs ago per pthx of IBSbowel movements have been regularneg n/v/fneg flu-like symptomsneg urinary symptoms Ana yang, [facility] 09/09/2024 13:48:40 text/html This patient is a 28-year-old female with a history of endometriosis. Her pelvic pain has recurred. She has severe pelvic pain affects her quality of life and activities of daily living. Patient previously had a endometrial surgery that was effective. She would like to have surgical treatment of her endometriosis at this time. We agreed to remove forward with robotic assisted diagnostic laparoscopy. The patient understands the procedure. The procedure was described to the patient in great detail. the patient also understands the risks. The risks were also explained in detail. She understands that injuries May occur during surgery. She understands these injuries can result in hospitalization, more surgery, and severe illness. She understands there is risk of hemorrhage and infection. I spent over 30 minutes on her care in total. Gabe Power MD [address], [place], [address], [place] [facility] 10/04/2024 13:40:29 OBGyn Episode Ob Episode Information Episode Created Date Number of Fetuses Patient Bloodtype Patient rh Status Prepregnancy Weight lbs Domestic Partner Domestic Partner Phone Father Name [employer] Supervisor Status 04/12/19 21 1 A Positive 261 CLOSED Fetus Data First Name Last Name Admitted to NICU Weight (g) Sex Living Outcome Pediatric Complications Fetus ID Race Codes Race Delivery Type 2324.65 9 M Prematur e NICU - CPAP 8202 Problems Problem Notes Declined CF/SMA Problem Name Start Date End Date Resolution Snomed Code Not e Obesity 698146094 32 wk ante testing Gestational diabetes mellitus 95180308 32 wk testing - diet controlled Anxiety in [id number] [id number] Daniel Calculation Initial Daniel Date Initial Exam Date Initial Exam Provider Initial Ultrasound Date Last Menstrual Period Date Ultra Sound Weeks Gestation 10/20/2020 04/11/2020 03/14/2020 01/14/2020 8 Eighteen To Twenty Week Daniel Update Ultra Sound Date Fundal Height At Umbil Quickening Date Ultra Sound Latest Weeks Gestation Final Daniel Confirmed By Final Dnaiel Confirmed Date Final Daniel Date Ultra Sound Latest Days Gestation 0 [email or web address] 04/11/2020 10/21/19 21 0 Pre-otis Flowsheet Flowsheet Date 04/11/2020 Reina Score Blood Edema Fundus Height Fundus Units Glucose Ketones Leukocytes Nitrite Labor Signs Protein Cervic Dilation Cervic Effacement Cervic Station 12 Type Weight in lbs Pre/Post Dialysis Refused Weight 255.988014625772 BP Diastolic BP Location Tested BP Systolic [...] Weight in lbs Pre/Post Dialysis Refused Weight 254.419579925138 BP Diastolic BP Location Tested BP Systolic [...] Weight in lbs Pre/Post Dialysis Refused Weight 256.912670562224 BP Diastolic BP Location Tested BP Systolic BP Type 62 128 Fetus Heart Rate Present Fetus Movement A Yes Comments Phenergan worked great. Senait casanova well. Baseline anatomy today. Flowsheet Date 07/04/2020 Reina Score Blood Edema Fundus Height Fundus Units Glucose Ketones Leukocytes Nitrite Labor Signs Protein Cervic Dilation Cervic Effacement Cervic Station none 26 trace Type Weight in lbs Pre/Post Dialysis Refused Weight 258.510162870014 BP Diastolic BP Location Tested BP Systolic [...] Weight in lbs Pre/Post Dialysis Refused Weight 261.07284988578 BP Diastolic BP Location Tested BP Systolic [...] Weight in lbs Pre/Post Dialysis Refused Weight 255.498931128435 BP Diastolic BP Location Tested BP Systolic [...] Weight in lbs Pre/Post Dialysis Refused Weight 255.610400318334 BP Diastolic BP Location Tested BP Systolic [...] Weight in lbs Pre/Post Dialysis Refused Weight 252.744080809091 BP Diastolic BP Location Tested BP Systolic [...] Estim ated Date of Delivery false Thalassemia (Burkinan, Guyanese, Mediterranean, Or Background): MCV < 80 false Neural Tube Defect (Meningomyelocele, Spina Bifi da, Or Anencephaly) false Congenital Heart Defect false Down Syndrome false Liban-Sachs (eg, Judaism, Cajun, Tunisian-Burmese) f alse Heather Disease false Sickle Cell Disease Or Trait () false Hemophilia Or Other Blood Disorders false Muscular Dystrophy false Cystic Fibrosis false [place]'s Chorea false Intellectual Disability/Autism false If Yes, [...] Date Comments 1 Induce d 33.6 true [facility] atypical HELLP Discharge Information Feeding Method Contraceptive Method Maternal HG B and HCT Levels Ob Episode Information Episode Created Date Number of Fetuses Patient Bloodtype Patient rh Status Prepregnancy Weight lbs Domestic Partner Domestic Partner Phone Father Name [employer] Supervisor Status 03/14/19 21 1 CLOSED Fetus Data [...] Domestic Partner Domestic Partner Phone Father Name [employer] Supervisor Status 03/29/19 22 1 CLOSED Fetus Data First Name Last Name Admitted to NICU Weight (g) Sex Living Outcome Pediatric Complications Fetus ID Race Codes Race Delivery Type , Induced [id number] Daniel Calculation Initial Daniel Date Initial Exam [...]
[2024-11-13 14:48] VITALS: BP 150/87; PULSE 79; RESP 16; TEMP 36.6; O2SAT 99
--- OUTSIDE RECORDS SUMMARY | 2024-11-13 14:48 | XMS_ITS | Clinical Summary ---
Author Organization [facility] Address [address] [place] [address] Care Team Providers Care Soaping Machine Back Tender Name Role Phone Unavailable Primary Care Provider Unavailabl e Source Comments [facility],non-owned Affiliates and Associated Physician Practices is amultiple site organization consisting of ambulatory clinics and hospital sitesin [place], [place], [place] and [place]. This disclosure is being madepursuant to the Care Everywhere program and may not contain all information available regarding this patient. Last updated 17.[facility] Allergies No known active allergies Medications * [...] of 3 - 19+ 3-dose series) 12/09/2014 PAP SMEAR 12/09/2016 HPV VACCINE (1 - 3-dose SCDM series) 12/09/2022 DEPRESSION SCREENING 02/11/2024 COVID-19 VACCINE (2 - season) 2024 06/18/2020 INFLUENZA VACCINE (#1) 2024 , 01/12/2015, 12/11/2007, [...] patient's age to complete this topic Insurance [facility] SELF PAY NO INSURANCE Member Subscriber Plan / Payer (Ef fective for All Dates) Name:Jose Carlos Dawn Member ID:Not on file Relation to Subscriber:Not on file Name:JOSE CARLOS DAWN Subscriber ID:Not on file (Home) Address: [address] [place] [id number] Payer ID:Not on file Group ID:Not on file Type:Self Pay Address: [place], [place] Advance Directives * Full Code (Latest Code Status on File) Date Activated Date Inactivated Comments 09/07/2020 6:59 AM 09/09/2020 6:24 PM * Full Code Date Activated Date Inactivated Comments 09/06/2020 11:05 AM 09/07/2020 6:59 AM
--- OUTSIDE RECORDS SUMMARY | 2024-11-13 14:48 | XMS_ITS | Data Portability ---
Author Organization [place] [facility], Main Office Address [address] [place] [address] Assessment Encounter Date Assessment Date Assessment LastModified by Organization Details LastModified Time 03/11/2023 03/11/2023 Assessment: Mild OSAHS, AHI = 4 Plan: The following were reviewed and explained to the patient: primary care/referral note [facility] home sleep study 02/27/23 AHI = 4 [...] disease severity. There could also be substantial [id number]-kf-[id number] variability in the AHI that can lead [...] and Address Organization Details Recorded Time Dysmenorrhea 920406281 Active Not Available [facility] 3 05:55:36 Closed fracture of metatarsal bone 28738032 Active Not Available [facility] 3 05:55:37 Fracture of lower leg 612052441 Active Not Available [facility] 3 05:55:37 Obstructive sleep apnea syndrome 79118459 Active 2023 Gordon Duque MD [address], 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 Procedures Surgical History Date Name Laterality Status Provider Name and Address Organization Details Recorded Time excision of ganglion cyst completed Mary Grace Mcclellan MA [facility] [employer] 03/11/2023 16:11:06 laparoscopy completed Mary Grace Mcclellan MA [facility] 03/11/2023 16:11:29 Imaging Results None recorded. Procedure Notes None [...] Available Not Available Vitals Date Recorded Body weight Heart rate Respiratory rate Body mass index (BMI) Provider Name and Address Organization Details Last Updated DateTime 03/11/2023 919024.72 g 70 /min 15 /min 38.5 kg/m2 Gordon Duque MD [address] [facility] [address], [place], [address], [place] [employer] [facility] 03/11/2023 16:29:44 Date Recorded Body height Heart rate Oxygen saturation Oxygen saturation in Arterial blood by Pulse oximetry Body temperature Systolic And Diastolic Provider Name and Address Organization Details Last Updated DateTime 170.18 cm 70 /min 98 % 98 % 97.9 [degF] 114/76 mm[Hg] Mary Grace Mcclellan MA [facility] 16:15:32 Social History Question Answer Notes LastModified by Organization Details LastModified Time Tobacco Smoking Status Former Smoker only very socially Mary Grace Mcclellan MA null, [facility] 03/11/2023 16:08:35 What Is Your Level Of Caffeine Consumption? Heavy Information not available 03/11/2023 In The 14 Days Before Symptom Onset, Have You Had Close Contact With [facility] That Case Was Ill? No Information not available 03/11/2023 In The 14 Days Before Symptom Onset, Have You Had Close Contact With A Person Who Is Under Investigation For COVID-19 While That Person Was Ill? No Information not available 03/11/2023 What Type Of Diet Are You Following? REGULAR Information not available 03/11/2023 Which Illicit Or Recreational Drugs Have You Used? Marijuana Information not available 03/11/2023 Do You Have An Electrostatic Air Filter? Yes Information not available 03/11/2023 Do You [...] No Information not available 03/11/2023 Do You Use Sunscreen Routinely? Yes Information not available 03/11/2023 Have You Recently Traveled Abroad? No Information not available 03/11/2023 Do You Have Any Dietary Restrictions? No Information not available 03/11/2023 Sex: Unknown Functional Status Question Answer Note LastModified by Prosper[employer] ion Details LastModified Time Do you use any illicit or recreational drugs? Yes Information not available 03/11/2023 Do you or have you ever used any other forms of tobacco or nicotine? No Information not available 03/11/2023 What is your level of alcohol consumption? None Information not available 03/11/2023 Are you currently employed? Yes Information not available 03/11/2023 Have you been exposed to chemicals or toxins? 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 Occasional Information not available 03/11/2023 Mental Status Question Answer Note LastModified by Organization D etails LastModified Time Do you feel stressed (tense, restless, nervous, or anxious, or unable to sleep at night)? [id number] Information not available 03/11/2023 Family History Relationship Description Onset Age of [...] ICD10 Code Diagnosis IMO Codes Diagnosis Note [id number] Gordon Duque MD [facility] [address] [address] 03/11/2023 14:51:15 03/13/2023 15:24:32 Obstructive sleep apnea syndrome 12623265 G47.33 Health Concerns Section Related Observation LastModified by Organization Detai ls LastModified Time None Recorded Concern Status LastModified by Organization Details LastModified Time None Recorded Advance Directives Directive None Recorded Payers Insurance Date Sequence Insurance Name Policy Number Policy [place] Covered Member ID [place] Member ID Guarantor Name 03/11/2023 1 [facility] (MEDICAID HMO) Lauren N Teresita [id number] Lauren N Varbrett 02/20/2024 [place]ID [place] DURABLE MEDICAL EQUIPMENT Lauren N Teresita [id number] Lauren Lo 02/20/2024 [place] Lauren N Teresita [id number] Lauren Lo 02/20/2024 1 [facility] ON OR AFTER 08/10/20 (MEDICAID REPLACEMENT - HMO) Lauren Lo [id number] Lauren Lo Notes Date Note Type Note Provider Name and Address Organization Details Recorded Time 03/11/2023 text/html Primary care/Referring provider: Miki Valentine MD During the [facility] home sleep study on 02/27/23, AHI = [...] chance of dozing. Gordon Duque MD [address], [facility] [address], [place], [address], [place] [facility] [employer] 03/11/2023 16:38:33 OBGyn Episode No OBEpisode recorded.
--- OUTSIDE RECORDS SUMMARY | 2024-11-13 14:48 | XMS_ITS | Clinical Summary ---
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 Not on file Not on file Not on file Last Filed Vital Signs Vital Sign Reading Time Taken Comments Blood Pressure 127/77 03/02/2018 2:15 PM NEON INSTALLER Pulse 70 03/02/2018 2:15 PM NEON INSTALLER Temperature 37 C (98.6 F) 03/02/2018 2:15 PM NEON INSTALLER Respiratory Rate 22 03/02/2018 2:15 PM NEON INSTALLER Oxygen Saturation 99% 03/02/2018 2:15 PM NEON INSTALLER Inhaled Oxygen Concentration - - Weight 108.9 kg (240 lb) 03/02/2018 12:37 PM NEON INSTALLER Height 170.2 cm (5' 7) 03/02/2018 12:37 PM NEON INSTALLER Body Mass Index 37.59 03/02/2018 12:37 PM NEON INSTALLER Plan of Treatment Health Maintenance Due Date Last Done Comments Hepatitis C Virus (HCV) Screening 1995 TdaP Immunization 1995 Hepatitis B Immunization (1 of 3 - 19+ 3-dose series) 12/09/2014 Human Papillomavirus (HPV) Immunization (1 - 3-dose SCDM series) 12/09/2022 Influenza Immunization (#1) 2024 SARS-COV-2 Immunization ( season) 2024 Respiratory Syncytial Virus (RSV) Immunization (Adult) [...] this topic Insurance MEDICAID [place] Care Teams Seafood Technology Specialist Relationship Specialty Start Date End Date Provider, Not On File [place] PCP - General 02/27/18 Mary Grace Rivera MD Consulting Physician Obstetrics & Gynecology 02/25/18
--- OUTSIDE RECORDS SUMMARY | 2024-11-13 15:09 | XMS_ITS | Clinical Summary ---
Author Organization [facility] Address [address] [place] [address] Care Team Providers Care Gold Frame Assembler Name Role Phone Unavailable Primary Care Provider Unavailabl e Source Comments [facility],non-owned Affiliates and Associated Physician Practices is amultiple site organization consisting of ambulatory clinics and hospital sitesin [place], [place], [place] and [place]. This disclosure is being madepursuant to the Care Everywhere program and may not contain all information available regarding this patient. Last updated 17.[facility] Allergies No known active allergies Medications * [...] patient's age to complete this topic Insurance [facility] SELF PAY NO INSURANCE Member Subscriber Plan / Payer (Ef fective for All Dates) Name:Jose Carlos Dawn Member ID:Not on file Relation to Subscriber:Not on file Name:JOSE CARLOS DAWN Subscriber ID:Not on file (Home) Address: [address] [place] [id number] Payer ID:Not on file Group ID:Not on file Type:Self Pay Address: [place], [place] Advance Directives * Full Code (Latest Code Status on File) Date Activated Date Inactivated Comments 09/07/2020 6:59 AM 09/09/2020 6:24 PM * Full Code Date Activated Date Inactivated Comments 09/06/2020 11:05 AM 09/07/2020 6:59 AM
--- OUTSIDE RECORDS SUMMARY | 2024-11-13 15:09 | XMS_ITS | Clinical Summary ---
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 on file Not on file Not on file Last Filed Vital Signs Vital Sign Reading Time Taken Comments Blood Pressure 127/77 03/02/2018 2:15 PM FORMAL WAITER/WAITRESS Pulse 70 03/02/2018 2:15 PM FORMAL WAITER/WAITRESS Temperature 37 C (98.6 F) 03/02/2018 2:15 PM FORMAL WAITER/WAITRESS Respiratory Rate 22 03/02/2018 2:15 PM FORMAL WAITER/WAITRESS Oxygen Saturation 99% 03/02/2018 2:15 PM FORMAL WAITER/WAITRESS Inhaled Oxygen Concentration - - Weight 108.9 kg (240 lb) 03/02/2018 12:37 PM FORMAL WAITER/WAITRESS Height 170.2 cm (5' 7) 03/02/2018 12:37 PM FORMAL WAITER/WAITRESS Body Mass Index 37.59 03/02/2018 12:37 PM FORMAL WAITER/WAITRESS Plan of Treatment Health Maintenance Due Date [...] this topic Insurance [place]ID [place] Care Teams Apple Press Operator Relationship Specialty Start Date End Date Provider, Not On File [place] PCP - General 02/27/18 Mary Grace Rivera MD Consulting Physician Obstetrics & Gynecology 02/25/18
[2024-11-13] MEDS: SODIUM CHLORIDE 0.9% IV 1,000 ML 999 ML IV CONT (15:31)
[2024-11-13] MEDS: KETOROLAC 15 MG/ML VIAL (*BKC) IV PUSH (15:33)
[2024-11-13] MEDS: PROCHLORPERAZINE EDISYLATE 10 MG/2 ML VIAL IV PUSH (15:34)
[2024-11-13] MEDS: dexAMETHasone SOD PHOS INJ 10 MG/ML 1 ML VIAL IV PUSH (15:37)
[2024-11-13] MEDS: MAGNESIUM SULF 1 GM/D5W 100 ML 1 GM/100 ML BAG IVPB (15:40)
--- NOTE | 2024-11-13 15:59 | ED_ITS ---
HPI - General Adult General Chief complaint: Headache Stated complaint: migraine Time Seen by Provider: 11/13/24 14:57 History of Present Illness HPI narrative: Patient 28-year-old female who presents emergency department with chief complaint of migraine headache. Patient reports she has history of migraines reports she took the Imitrex without relief the patient states she has in the past had come to the emergency department reports that this is not the worst headache of her life but it is a very bad headache patient reports no trauma denies fever Related Data Home Medications ?Medication ?Instructions ?Recorded ?Confirmed ?Last Taken ?Type cetirizine 10 mg capsule (Zyrtec) 10 mg PO DAILY PRN A llergy Symptoms 09/04/20 10/06/24 01/16/23 History ziprasidone HCl 20 mg capsule 40 mg PO HS 07/22/24 Unknown History duloxetine 40 mg capsule,delayed 40 mg PO BID 09/20/24 10/06/24 Unknown History release norgestimate 0.25 mg-ethinyl 1 tablet PO DAILY 5 10/06/24 Unknown History estradiol 0.035 mg tablet (Estarylla) Allergies Allergy/AdvReac Type Severity Reaction Status Date / Time No Known Allergies Allergy Verified 11/13/24 14:51 Review of Systems Review of Systems: A 10 system review of systems was completed on the patient and is negative except for what is stated in the HPI. Nursing and ancillary documentation was reviewed. [facility] Past Medical History Medical History Morbid obesity Endometriosis Pelvic pain Anxiety Depression Hypothyroid Asthma Surgical History Surgical History Hx laparoscopic cholecystectomy 09/20/2024 Laparoscopic cholecystectomy History of laparoscopy For endometriosis Social History Social History Smoking status: Former smoker Tobacco type: cigarettes Second hand tobacco smoke exposure: No Smoking end date: 01/08/19 Additional smoking assessment comments: FORMER SOCIAL SMOKER Alcohol intake: never Substance use: current Substance use type: marijuana Other substance usage details: marijuana daily Lack of Transportation: No Lack of Food: Never True Current Housing: I Have Housing Concerned About Future Housing: No Difficulty Paying Gas/Electric Bills: No Difficulty Paying for Meds: No Currently Unemployed: YES Education: Associate Degree Difficulty w/ Childcare or Family Care: No Living arrangements: with family Additional living arrangements comments: BOYFRIEND, CHILDREN Occupation/Education: unemployed Gender identity (if verbalized by the patient): Female Spiritual care concerns: No Exam Narrative: GENERAL: Well-appearing, well-nourished, and in no acute distress. HEAD: Normocephalic, atraumatic. EYES: PERRLA and EOMI. ENT: Nares clear, no rhinorrhea or epistaxis. Mucous membranes moist. NECK: Supple. CHEST: Clear to auscultation. No respiratory distress. HEART: Regular rate and rhythm. No murmur heard. Normal peripheral pulses. ABDOMEN: Soft, nontender, nondistended, normal active bowel sounds. EXTREMITIES: Normal range of motion. No edema. SKIN: Warm, dry, no rash. NEURO: No focal deficits. Alert and oriented x3. PSYCH: Normal mood and affect. Course Vital Signs Vital signs: Vital Signs Temperature 36.6 C 11/13/24 14:48 Pulse Rate 79 11/13/24 14:48 Respiratory Rate 16 11/13/24 14:48 Blood Pressure 150/87 H 11/13/24 14:48 Pulse Oximetry 99 11/13/24 14:48 Oxygen Delivery Room Air 11/13/24 14:48 Temperature 36.6 C 11/13/24 14:48 Pulse Rate 79 11/13/24 14:48 Respiratory Rate 16 11/13/24 14:48 Blood Pressure 150/87 H 11/13/24 14:48 Pulse Oximetry 99 11/13/24 14:48 Oxygen Delivery Room Air 11/13/24 14:48 Medical Decision Making [facility] Narrative Medical decision making narrative: Differential diagnosis includes Migraine headache, tension headache, Edema and patient has no new focal neurologic deficit he was treated with a migraine, units feeling much better patient will be discharged home to follow-up with primary Vital Signs Vital Signs: Vital Signs Temperature 36.6 C 11/13/24 14:48 Pulse Rate 79 11/13/24 14:48 Respiratory Rate 16 11/13/24 14:48 Blood Pressure 150/87 H 11/13/24 14:48 Pulse Oximetry 99 11/13/24 14:48 Oxygen Delivery Room Air 11/13/24 14:48 Temperature 36.6 C 11/13/24 14:48 Pulse Rate 79 11/13/24 14:48 Respiratory Rate 16 11/13/24 14:48 Blood Pressure 150/87 H 11/13/24 14:48 Pulse Oximetry 99 11/13/24 14:48 Oxygen Delivery Room Air 11/13/24 14:48 Discharge Plan Discharge Clinical Impression: Headache, migraine Patient Disposition: Home Condition: Stable Instructions: Antibiotic Form, Migraine Headache (ED), Acute Headache (ED) Patient Language: Croatian Prescriptions: No Action ziprasidone HCl 20 mg capsule 40 mg PO HS Zyrtec 10 mg Capsule 10 mg PO DAILY PRN (Reason: Allergy Symptoms) dicyclomine 20 mg tablet 20 mg PO TID PRN (Reason: Abdominal Discomfort) Qty: 15 0RF norgestimate-ethinyl estradiol [Estarylla] 0.25-0.035 mg tablet 1 tablet PO DAILY duloxetine 40 mg capsule,delayed release(DR/EC) 40 mg PO BID Follow-up/Referrals: Miki Valentine MD [Primary Care Provider, Hospitalist] Time of Disposition: 16:10
[2024-11-13 17:05] VITALS: BP 132/80; PULSE 82; RESP 16; O2SAT 99
== END 2024-11-13 17:07 | disposition home or self-care (01) ==
PROVIDERS: Emergency Provider Emergency Medicine; PCP Internal Medicine
DX: G43.909 Migraine, unspecified, not intractable, without status migrainosus (principal); N80.9 Endometriosis, unspecified; F41.9 Anxiety disorder, unspecified; F32.A Depression, unspecified; E03.9 Hypothyroidism, unspecified; J45.909 Unspecified asthma, uncomplicated; E66.01 Morbid (severe) obesity due to excess calories; Z68.39 Body mass index [BMI] 39.0-39.9, adult; Z87.891 Personal history of nicotine dependence; Z90.49 Acquired absence of other specified parts of digestive tract; Z79.3 Long term (current) use of hormonal contraceptives; Z79.899 Other long term (current) drug therapy
CPT/HCPCS: 96365; 96375; 99284; J0780; J1100; J1200; J1885; J3475; J7030

== ENCOUNTER 2024-12-13 11:05 | Outpatient (CLI) | payer OTHER, SELFPAY ==
[2024-12-13 11:44] LABS: Hematocrit 34.4 % (37.0-47.0); Hemoglobin 11.3 g/dL (12.0-15.0); Immature Granulocyte Percent A 0.2 % (0-0.5); Lymphocytes Absolute Auto 1.37 K/mm3 (0.9-3.2); Mean Corpuscular HGB Conc 32.8 g/dl (32-36); Mean Corpuscular Hemoglobin 29.5 pg (26-34); Mean Corpuscular Volume 89.8 fl (80-100); Nucleated Red Blood Cells Absolute Auto 0.000 K/mm3 (0.0-0.012); Nucleated Red Blood Cells Perc 0.0 % (0.0-0.2); Platelet Count Result 236 k/mm3 (150-375); Red Blood Count 3.83 M/mm3 (4.2-5.4); White Blood Count 9.2 K/mm3 (4.5-10.0)
[2024-12-13 11:56] LABS: Hemoglobin A1C 4.8 % (<5.7)
[2024-12-13 12:04] LABS: Alanine Aminotransferase 54 U/L (6-35); Albumin Level 4.0 g/dL (3.5-5.1); Alkaline Phosphatase 65 U/L (38-126); Anion Gap 8 mmol/L (4-12); Aspartate Amino Transferase 32 U/L (14-36); Bilirubin,Total 0.3 mg/dL (0.2-1.3); Blood Urea Nitrogen 13 mg/dL (7-17); Calcium 8.9 mg/dL (8.4-10.2); Carbon Dioxide 21 mmol/L (22-30); Chloride 106 mmol/L (98-107); Cholesterol 140 mg/dL (0-200); Estimated Glomerular Filt Rate > 60; Glucose 104 mg/dL (65-110); HDL Direct 57 mg/dL; Potassium 3.8 mmol/L (3.4-5.0); Sodium 135 mmol/L (137-145); Total Protein 7.1 g/dL (6.3-8.2); Triglycerides 88 mg/dL (<150)
[2024-12-13 12:24] LABS: Thyroid Stimulating Hormone Reflex 1.580 uIU/mL (0.465-4.68)
[2024-12-13 12:43] LABS: HIV 1/2 Ab P24 Ag Result Negative (Negative)
== END 2024-12-13 11:06 | disposition home or self-care (01) ==
LOC: ANHLAB 11:08
PROVIDERS: PCP Internal Medicine; Visit Provider Internal Medicine
DX: Z13.1 Encounter for screening for diabetes mellitus (principal); Z13.220 Encounter for screening for lipoid disorders; Z20.9 Contact with and (suspected) exposure to unspecified communicable disease; R53.82 Chronic fatigue, unspecified; K91.5 Postcholecystectomy syndrome
CPT/HCPCS: 36415; 80053; 80061; 83036; 84443; 85025; 86703; 86803; G0432

== ENCOUNTER 2025-01-31 16:32 | Emergency (ER) | payer OTHER, SELFPAY ==
[2025-01-31 16:37] VITALS: BP 139/87; PULSE 71; RESP 16; TEMP 36.2; O2SAT 99
--- NOTE | 2025-01-31 16:53 | ED.URI ---
HPI - URI/Sore Throat General Chief Complaint: Upper Respiratory Infection Stated Complaint: Upper Respiratory Symptoms Time Seen by Provider: 01/31/25 16:53 Source: patient and RN notes reviewed Mode of arrival: ambulatory Limitations: no limitations History of Present Illness HPI Narrative: 29-year-old female with history of asthma presents with concern for productive cough. She reports she is needing her inhaler more often than usual. She reports some runny nose and stuffy nose. Denies fever, body aches, chills, sweats. She denies shortness of breath MD elicited complaint: cough Related Data Home Medications ?Medication ?Instructions ?Recorded ?Confirmed ?Last Taken ?Type cetirizine 10 mg capsule (Zyrtec) 10 mg PO DAILY PRN Allergy Symptoms 09/04/20 10/06/24 01/16/23 History ziprasidone HCl 20 mg capsule 40 mg PO HS 07/22/24 10/06/24 Unknown History duloxetine 40 mg capsule,delayed 40 mg PO BID 09/20/24 10/06/24 Unknown History release norgestimate 0.25 mg-ethinyl 1 tablet PO DAILY 09/20/24 10/06/24 Unknown History estradiol 0.035 mg tablet (Estarylla) Allergies Allergy/AdvReac Type Severity Reaction Status Date / Time No Known Allergies Allergy Verified 01/31/25 16:41 Review of Systems Review of Systems: CONSTITUTIONAL: Denies malaise, chills, sweats, or fever. EYES: Denies visual changes, redness, or discharge. ENT: Reports rhinorrhea, congestion. Did sinus pain, otalgia and sore throat. CARDIOVASCULAR: Denies chest pain, palpitations, or edema. RESPIRATORY: Reports cough. Denies dyspnea. GASTROINTESTINAL: Denies abdominal pain, nausea, vomiting, diarrhea SKIN: Denies rash or itching. MUSCULOSKELETAL: Denies myalgia. NEUROLOGIC: Denies headache. All systems reviewed & are unremarkable except as noted in HPI and below PMFSH Past Medical History Medical History Morbid obesity Endometriosis Pelvic pain Anxiety Depression Hypothyroid Asthma Surgical History Surgical History Hx laparoscopic cholecystectomy 09/20/2024 Laparoscopic cholecystectomy History of laparoscopy For endometriosis Social History Social History Smoking status: Former smoker Tobacco type: cigarettes Second hand tobacco smoke exposure: No Smoking end date: 01/08/19 Additional smoking assessment comments: FORMER SOCIAL SMOKER Alcohol intake: never Substance use: current Substance use type: marijuana Other substance usage details: marijuana daily Lack of Transportation: No Lack of Food: Never True Current Housing: I Have Housing Concerned About Future Housing: No Difficulty Paying Gas/Electric Bills: No Difficulty Paying for Meds: No Currently Unemployed: YES Education: Associate Degree Difficulty w/ Childcare or Family Care: No Living arrangements: with family Additional living arrangements comments: BOYFRIEND, CHILDREN Occupation/Education: unemployed Gender identity (if verbalized by the patient): Female Spiritual care concerns: No Comments At time of signature, agree with nursing past medical, surgical, social and family history. There is no relevant family history pertinent to the presenting complaint Exam Narrative: GENERAL: Well-appearing, well-nourished, and in no acute distress. HEAD: Normocephalic EYES: PERRLA, conjunctivae clear ENT: Nares clear. Mucous membranes moist. TM pearly stack with dull light reflex bilaterally; no tragal tenderness. Oropharynx not erythematous without lesions. Tonsils not enlarged and without exudate, no drooling, no hoarseness, no trismus, uvula midline. NECK: Supple. No lymphadenopathy CHEST: Clear to auscultation, breath sounds equal. No wheezing, rhonchi, rales, or stridor. No respiratory distress, speaks in full sentences. HEART: Regular rate and rhythm. No murmur heard. SKIN: Warm, dry, no rash. NEURO: Alert and oriented x3. PSYCH: Normal mood and affect Course Course Emergency Course: Patient is aware of diagnosis, understands and agrees to treatment plan. Anticipatory guidance given. Patient agrees to follow-up as directed and is aware of reasons to seek care at the emergency department. Portions of this record may have been created with voice recognition software Level of Care: Express Care Visit Vital Signs Vital signs: Vital Signs Temperature 97.1 F L 01/31/25 16:37 Pulse Rate 71 01/31/25 16:37 Respiratory Rate 16 01/31/25 16:37 Blood Pressure 139/87 01/31/25 16:37 Pulse Oximetry 99 01/31/25 16:37 Oxygen Delivery Room Air 01/31/25 16:37 Temperature 97.1 F L 01/31/25 16:37 Pulse Rate 71 01/31/25 16:37 Respiratory Rate 16 01/31/25 16:37 Blood Pressure 139/87 01/31/25 16:37 Pulse Oximetry 99 01/31/25 16:37 Oxygen Delivery Room Air 01/31/25 16:37 MDM Differential Diagnosis Differential Diagnosis: I evaluated this patient in the [facility]. History is obtained from patient who is an independent historian and physical exam was performed.? Available medical records were reviewed. ? Exam findings and relevant testing show no acute concerns or changes; patient is non-toxic appearing and is in no distress. ? Differential diagnosis considered: Ayala virus, strep pharyngitis, allergic rhinitis, upper respiratory tract infection, sinusitis, rhinosinusitis, nasopharyngitis. viral pharyngitis, otitis media, otitis externa, pneumonia, bronchitis, viral cough syndrome, viral syndrome, and influenza. Differential diagnosis and treatment plan were discussed with the patient. Patient agrees with discussion and after shared medical decision making agrees with plan of care. All questions were answered to the patient's satisfaction. Patient is appropriate for outpatient treatment and follow-up. Discharge Plan Discharge Clinical Impression: Upper respiratory infection with cough and congestion Patient Disposition: Home Condition: Stable Instructions: Antibiotic Form, Acute Cough (ED) Additional Instructions: Take medicines as directed. Visit your primary care doctor if: You have wheezing, shortness of breath, or a cough even if taking medicine to prevent attacks. You have thickening of sputum. Your sputum changes from clear or white to yellow, green, stack, or bloody. You have any problems that may be related to the medicines you are taking (such as a rash, itching, swelling, or trouble breathing). You are using a reliever medicine more than 2 to 3 times per week. Visit the ER if: You are short of breath even at rest or when doing very little physical activity. You develop difficulty eating, drinking, or talking due to asthma symptoms. You have chest pain or you feel that your heart is beating fast. You are lightheaded, dizzy, faint or have bluish lips or fingernails. You have a fever or persistent symptoms for more than 2 to 3 days or symptoms suddenly get worse. You seem to be getting worse and are unresponsive to treatment during an asthma attack. Patient Language: German Prescriptions: New prednisone 20 mg tablet 40 mg PO DAILY 5 Days Qty: 10 0RF doxycycline monohydrate 100 mg tablet 100 mg PO BID 7 Days Qty: 14 0RF No Action ziprasidone HCl 20 mg capsule 40 mg PO HS Zyrtec 10 mg Capsule 10 mg PO DAILY PRN (Reason: Allergy Symptoms) norgestimate-ethinyl estradiol [Estarylla] 0.25-0.035 mg tablet 1 tablet PO DAILY duloxetine 40 mg capsule,delayed release(DR/EC) 40 mg PO BID Follow-up/Referrals: Miki Valentine MD [Primary Care Provider, Hospitalist] Time of Disposition: 16:59
== END 2025-01-31 17:03 | disposition home or self-care (01) ==
PROVIDERS: Emergency Provider Nurse Practitioner; PCP Internal Medicine
DX: J06.9 Acute upper respiratory infection, unspecified (principal); F12.90 Cannabis use, unspecified, uncomplicated; E03.9 Hypothyroidism, unspecified; J45.909 Unspecified asthma, uncomplicated; N80.9 Endometriosis, unspecified; E66.01 Morbid (severe) obesity due to excess calories; Z68.39 Body mass index [BMI] 39.0-39.9, adult; Z87.891 Personal history of nicotine dependence
CPT/HCPCS: 99213; G0463